=== PATIENT | male | born 1955 | race Caucasian/White ===

== ENCOUNTER 2017-12-16 22:50 | Inpatient (IN) | payer OTHER, SELFPAY ==
--- NOTE | 2017-12-16 13:15 | EKG12_ITS ---
Test Reason : AM EKG Blood Pressure : / mmHG Vent. Rate : 073 BPM Atrial Rate : 073 BPM P-R Int : 174 ms QRS Dur : 098 ms QT Int : 410 ms P-R-T Axes : 069 055 059 degrees QTc Int : 451 ms Normal sinus rhythm Normal ECG When compared with ECG of 05-AUG-2016 12:35, No significant change was found Confirmed by STEPHANIE IBARRA, DANYELLE ([id number]), index editor RADHA REY ([id number]) on 12/21/2017 4:42:55 PM Referred By: RYANNE Confirmed By:DANYELLE BROWN MD
--- NOTE | 2017-12-16 23:15 | RAD_ITS ---
STUDY: X-RAY CHEST REASON FOR EXAM: Male, 62 years old. Shortness of breath. TECHNIQUE: Single AP portable view of the chest. COMPARISON: None. FINDINGS: There is demonstrated right hilar and right lower lobe airspace disease and prominent. Prominent interstitial markings are noted right greater than left. There is no demonstrated pleural abnormality. Normal size heart. Normal mediastinum and radha. Normal visualized pulmonary arteries. There is atherosclerotic calcification of the aortic arch with tortuosity. Normal visualized thoracic spine. Normal visualized ribs, clavicles, and shoulders. There is no demonstrated abnormality of the visualized soft tissue structures of the upper abdomen. RAD/Chest 1 View (Portable) IMPRESSION: Right hilar and right lower lobe airspace disease concerning for infiltrate appropriate clinical setting. Recommend repeat evaluation in 4-6 weeks after appropriate treatment has right hilar cellular infiltrative process is not excluded. Electronically Signed: Evert Ellis DO at 23:39 EDT , Service support ,
--- NOTE | 2017-12-16 23:47 | CT_ITS ---
STUDY: CTA CHEST REASON FOR EXAM: Male, 62 years old. Cough, shortness of breath and elevated d-dimer. RADIATION DOSAGE (If Supplied By Facility): CTDIvol = ( 16.73 ) mGy, DLP = ( 802.18 ) mGycm TECHNIQUE: The examination was performed with the intravenous administration of 100 ml of Isovue 370 contrast material. Post-processing of the angiographic images was performed, with multiplanar reformation and 3D reconstruction. Individualized dose optimization techniques were used for this CT. COMPARISON: None. FINDINGS: Cardiac monitoring leads are present. Normal enhancement of the main pulmonary artery and right and left pulmonary arteries. Normal enhancement of the bilateral peripheral pulmonary arteries. Lobar embolus is visible within the right left lower lobe pulmonary artery branch. Segmental emboli are also visible in the left lower lobe. Segmental emboli are visible within the pulmonary artery branches to the right lower lobe and lingula. There is atherosclerotic tortuosity of the aortic arch and descending thoracic aorta. Maximum transverse dimension of ascending thoracic aorta measures approximately 3.8 cm. There is bovine origin of the great vessels. There is no demonstrated aortic dissection. Normal heart and pericardium. There is subcarinal lymphadenopathy. There is right-sided hilar lymphadenopathy adjacent to right-sided pulmonary mass. Right-sided hilar lymphadenopathy and pulmonary mass measures approximately 4.7 x 5.5 x 5.2 cm in size. There is no evidence for left-sided hilar lymphadenopathy. Normal visualized trachea and bronchi. The lungs are well expanded. Small lucencies are visible the lung apices. These probably represent sequela of paraseptal emphysema. There is a right upper lobe groundglass nodule measuring approximately 1.6 cm in size. There are some reticulonodular interstitial thickening visible in the right upper lobe. There is groundglass attenuation within the left upper lobe possibly representing pneumonia. There may also be right lower lobe airspace consolidation and atelectasis. There is a moderately large right-sided pleural effusion Normal chest wall structures. Normal osseous structures. There appears to be hepatic steatosis. CT/CTA Chest W/WO Contrast IMPRESSION: 1. CTA evidence for bilateral segmental pulmonary emboli as described. 2. Mediastinal lymphadenopathy with right-sided hilar mass and lymphadenopathy. 3. Right-sided pleural effusion. 4. Patchy bilateral airspace disease and atelectasis as described. N.B. : The above information has been verbally conveyed by Radha Hart MD to Courtney Dee D.O., Covering Physician, on 12/17/2017 01:47:18 (ET). Electronically Signed: Radha Hart MD at 1:53 EDT , Service support , N.B. : The above information has been verbally conveyed by Radha Hart MD to Courtney Dee D.O., Covering Physician, on 12/17/2017 01:47:18 (ET).
--- NOTE | 2017-12-17 02:45 | DT_ITS ---
This patient was seen during an EMR downtime December 11, 2017 - December 18, 2017. This patient may have a combination of paper and electronic documentation or all paper documentation. All documentation is viewable within the e-chart portion of [facility] for each patient visit.
--- NOTE | 2017-12-17 11:59 | EKG12_ITS ---
Test Reason : SOB/CP Blood Pressure : / mmHG Vent. Rate : 083 BPM Atrial Rate : 083 BPM P-R Int : 156 ms QRS Dur : 096 ms QT Int : 382 ms P-R-T Axes : 060 060 052 degrees QTc Int : 448 ms Normal sinus rhythm Normal ECG Confirmed by STEPHANIE IBARRA, DANYELLE ([id number]), supervising film or videotape editor RADHA REY ([id number]) on 12/20/2017 5:43:01 PM Referred By: MARKSO Confirmed By:DANYELLE BROWN MD
[2017-12-17 12:37] LABS: M R Staph aureus DNA By PCR Negative (Negative); Probe Check PASS; Specimen Processing Control PASS
[2017-12-18] VITALS (7 sets, daily range): BP systolic 117–136; BP diastolic 62–71; PULSE 68–77; RESP 18–20; TEMP 37.2; O2SAT 87–94
[2017-12-18 06:15] LABS: Absolute Lymphocyte Count 1.09 X10^3/ul (0.83-4.51); Basophil# 0.01 X10^3/uL; Basophil% 0.1 % (0-1); Eosinophil# 0.15 X10^3/uL; Eosinophils% 2.2 % (0-5); Hematocrit 39.7 % (40-54); Hemoglobin 13.1 g/dl (13.0-16.5); Lymphocyte # 1.09 X10^3/ul (4.0); Lymphocyte % 16.1 % (19-41); Mean Corpuscular Hgb 30.3 pg (27.0-32.0); Mean Corpuscular Volume 91.7 fL (80-94); Mean Platelet Vol. 9.6 fl (6.2-12.0); Monocyte% 7.4 % (0-10); Neutrophil # 4.99 X10^3/uL (2.7-7.7); Neutrophil % 73.8 % (47-70); Platelet Count 191 K/mm3 (150-450); RBC Distribution Width CV 13.8 % (11.6-14.6); RBC Distribution Width SD 45.7 fl (35.1-43.9); Red Blood Count 4.33 M/mm3 (4.6-6.2); White Blood Count 6.8 K/mm3 (4.4-11.0)
[2017-12-18 06:43] LABS: POSITIVE COUNT NO; POSITIVE DIFFERENTIAL NO; POSITIVE MORPHOLOGY NO
[2017-12-18 06:55] LABS: Anion Gap 8 (5-15); BUN 11 mg/dL (7-18); BUN/Creat Ratio 12.8 RATIO (10-20); Calcium,Total 8.7 mg/dL (8.5-10.1); Chloride 103 mmol/L (98-107); Cholesterol 179 mg/dL (200); Creatinine, Serum 0.86 mg/dL (0.70-1.30); EST Glomerular Filtration Rate 96 mL/min (>60); Est Glom Filt Rate - Afr Amer 116 mL/min (>60); Glucose 173 mg/dL (74-106); High Density Lipoprotein 30 mg/dL; Magnesium 2.3 mg/dL (1.6-2.6); PSA,Total- Diagnostic 0.62 ng/mL (0.0-4.0); Phosphorus 4.7 mg/dL (2.5-4.9); Potassium 4.7 mmol/L (3.5-5.1); Sodium Level 141 mmol/L (136-145); Triglycerides 221 mg/dL; Very Low Density Lipoprotein 44 mg/dL (5-40)
--- NOTE | 2017-12-18 10:00 | PCM.PROGNOTE ---
Subjective: Patient seen and examined. Sitting up in the chair, no complaints. His right-sided chest pain has resolved. Lower extremity edema has improved. Denies any cough or sputum production. Does have some shortness of breath with conversation and with exertion. Dizziness with activity has resolved as well. Objective: Recent lab and culture data reviewed. PSA normal. Viral respiratory panel normal. Urine strep/Legionella antigens were negative. MRSA PCR negative. I do not see a sputum culture to review. Clinical Impression(s) from Imaging Studies Chest CTA 12/16/17 23:47 IMPRESSION: 1. CTA evidence for bilateral segmental pulmonary emboli as described. 2. Mediastinal lymphadenopathy with right-sided hilar mass and lymphadenopathy. 3. Right-sided pleural effusion. 4. Patchy bilateral airspace disease and atelectasis as described. N.B. : The above information has been verbally conveyed by Radha Hart MD to Courtney Dee D.O., Covering Physician, on 12/17/2017 01:47:18 (ET). Electronically Signed: Radha Hart MD at 1:53 EDT , Service support , N.B. : The above information has been verbally conveyed by Radha Hart MD to Courtney Dee D.O., Covering Physician, on 12/17/2017 01:47:18 (ET). - Physical Exam General: Alert, Oriented x3, Cooperative, Well developed, Well nourished, - - conversational dyspnea. obesity HEENT: Atraumatic, PERRLA Oral: Moist Mucosa, No Gingival or Mucosal Lesions/ Ulcerations Neck: Supple, No Nodes, Trachea Midline Lungs: No rhonchi, No rales, Diminished, - - faint intermitt anterior wheezing, clears w/cough and deep breaths. Symmetric expansion, no dullness to percussion. Cardiovascular: Regular rate, Regular Rhythm, Normal S1, Normal S2, No murmurs, No rub noted, No Gallop Abdomen: Bowel Sounds Present, Soft, Non Tender, Obese Extremities: No clubbing, No cyanosis, Edema - mild nonpitting LEs Skin: No rashes, No breakdown Musculoskeletal: No Tenderness to Palpation of Joints or Extremities Lymphatic: No Cervical, Supraclavicular, or Inguinal Adenopathy Neurological: Cranial nerves II-XII grossly intact, Neuro grossly intact, Motor Exam 5/5 strength throughout Psych/Mental Status: Alert and oriented to time, place, person, mood and affect Vital Signs Temp Pulse Resp BP Pulse Ox 99.0 F 68 20 H 136/71 H 93 12/18/17 09:30 18 09:30 12/18/17 09:30 12/18/17 09:30 12/18/17 09:30 Oxygen Flow Rate (L/min) 4 Oxygen Delivery Method Nasal Cannula Microbiology Past 72 Hours 12/17/17 13:15 Respiratory Panel (PCR) - Final Mucosa - Nasopharyngeal Laboratory Tests Past 24 Hrs 12/17/17 12/17/17 12/17/17 03:00 13:20 13:20 WBC RBC Hgb Hct MCV MCH MCHC RDW RDW Differential Plt Count MPV Immature Gran % (Auto) Neut % (Auto) Lymph % (Auto) [place] % (Auto) Eos % (Auto) Baso % (Auto) Absolute Neuts (auto) Absolute Lymphs (auto) Total Counted Sodium Potassium Chloride Carbon Dioxide Anion Gap BUN Creatinine Est GFR (MDRD) Af Amer Est GFR (MDRD) Non-Af BUN/Creatinine Ratio Glucose Calcium Phosphorus Magnesium Triglycerides Cholesterol LDL Cholesterol VLDL Cholesterol HDL Cholesterol Carcinoembryonic Ag Pending Total PSA Pending MRSA (PCR) Negative 12/18/17 12/18/17 12/18/17 05:30 05:30 05:30 WBC 6.8 RBC 4.33 L Hgb 13.1 Hct 39.7 L MCV 91.7 MCH 30.3 MCHC 33.0 RDW 13.8 RDW Differential 45.7 H Plt Count 191 MPV 9.6 Immature Gran % (Auto) 0.400 Neut % (Auto) 73.8 H Lymph % (Auto) 16.1 L [place] % (Auto) 7.4 Eos % (Auto) 2.2 Baso % (Auto) 0.1 Absolute Neuts (auto) 5.0 Absolute Lymphs (auto) 1.09 Total Counted Not Reportable Sodium 141 Potassium 4.7 Chloride 103 Carbon Dioxide 30.0 Anion Gap 8 BUN 11 Creatinine 0.86 Est GFR (MDRD) Af Amer 116 Est GFR (MDRD) Non-Af 96 BUN/Creatinine Ratio 12.8 Glucose 173 H Calcium 8.7 Phosphorus 4.7 Magnesium 2.3 Triglycerides 221 H Cholesterol 179 LDL Cholesterol 105 VLDL Cholesterol 44 H HDL Cholesterol 30 L Carcinoembryonic Ag Pending Total PSA 0.62 MRSA (PCR) Medical Necessity - Tobacco Use Smoking Status: Former smoker Assessment/Plan All Active Problems Bacteremia (Acute) Severe sepsis (Acute) UTI (urinary tract infection) (Acute) Elevated liver enzymes (Acute) RECOMMENDATIONS 1. Wean oxygen supplementation to keep saturations greater than 88% 2. Encourage incentive spirometer 3. Increase activity as tolerated 4. Continue aerosols, antibiotics, mucolytic 5. Continue Xarelto, will follow-up with as an outpatient 6. Echocardiogram today 7. Plans for discharge later on today per hospitalist. No return to work for now. 8. Ambulatory pulse ox prior to discharge 9. Follow-up in the pulmonary clinic in 2 weeks, will need pulmonary function tests and a 6 minute walking oximetry at that time IMPRESSIONS 1. Acute hypoxic respiratory failure secondary to bilateral PE and possible CAP Improved, still requiring 4 L of oxygen supplementation. No prior home oxygen requirements. May benefit from thoracentesis in attempt to decrease oxygen requirements. Continue to wean oxygen as tolerated. Transitioned from heparin drip to Xarelto. Anticoagulation management at pulmonary clinic, will need to hold if proceeding with EBUS/bronch, or if thoracentesis. The patient does not have a primary care physician and cannot remember the last time he saw a provider. He plans to establish with a PCP. Continue weaning supplemental oxygen to keep saturations greater than 88%. Increase activity as tolerated and can encourage incentive spirometer. Continue bronchodilators. Echo ordered for today. 2. Right hilar mass and mediastinal lymphadenopathy Right hilar mass measuring 4.7 x 5.5 x 5.2 cm. Patient does have risk factors for malignancy, history of smoking. Patient will follow up in the pulmonary clinic at which time discussion can be continued for further plans for bronchoscopy/EBUS. Dr. Astudillo did discuss CTA findings with the patient. 3. 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 Continue to encourage smoking cessation. Patient planning on starting exercise regimen with his to assist in weight loss. Patient will have outpatient pulmonary testing to obtain baseline lung function. This note was generated with [employer] dictation software. It may contain incorrect words, spelling, and punctuation that were not noted in checking the note before signing.
--- NOTE | 2017-12-18 10:15 | PN_ITS ---
Subjective: Patient seen and examined. Sitting up in the chair, no complaints. His right- sided chest pain has resolved. Lower extremity edema has improved. Denies any cough or sputum production. Does have some shortness of breath with conversation and with exertion. Dizziness with activity has resolved as well. Objective: Recent lab and culture data reviewed. PSA normal. Viral respiratory panel normal. Urine strep/Legionella antigens were negative. MRSA PCR negative. I do not see a sputum culture to review. Clinical Impression(s) from Imaging Studies Chest CTA 12/16/17 23:47 IMPRESSION: 1. CTA evidence for bilateral segmental pulmonary emboli as described. 2. Mediastinal lymphadenopathy with right-sided hilar mass and lymphadenopathy. 3. Right-sided pleural effusion. 4. Patchy bilateral airspace disease and atelectasis as described. N.B. : The above information has been verbally conveyed by Radha Hart MD to Courtney Dee D.O., Covering Physician, on 12/17/2017 01:47:18 (ET). Electronically Signed: Radha Hart MD at 1:53 EDT , Service support , N.B. : The above information has been verbally conveyed by Radha Hart MD to Courtney Dee D.O., Covering Physician, on 12/17/2017 01:47:18 (ET). - Physical Exam General: Alert, Oriented x3, Cooperative, Well developed, Well nourished, - - conversational dyspnea. obesity HEENT: Atraumatic, PERRLA Oral: Moist Mucosa, No Gingival or Mucosal Lesions/ Ulcerations Neck: Supple, No Nodes, Trachea Midline Lungs: No rhonchi, No rales, Diminished, - - faint intermitt anterior wheezing, clears w/cough and deep breaths. Symmetric expansion, no dullness to percussion. Cardiovascular: Regular rate, Regular Rhythm, Normal S1, Normal S2, No murmurs, No rub noted, No Gallop Abdomen: Bowel Sounds Present, Soft, Non Tender, Obese Extremities: No clubbing, No cyanosis, Edema - mild nonpitting LEs Skin: No rashes, No breakdown Musculoskeletal: No Tenderness to Palpation of Joints or Extremities Lymphatic: No Cervical, Supraclavicular, or Inguinal Adenopathy Neurological: Cranial nerves II-XII grossly intact, Neuro grossly intact, Motor Exam 5/5 strength throughout Psych/Mental Status: Alert and oriented to time, place, person, mood and affect Vital Signs Temp Pulse Resp BP Pulse Ox 99.0 F 68 20 H 136/71 H 93 12/18/17 09:30 18 09:30 12/18/17 09:30 12/18/17 09:30 12/18/17 09:30 Oxygen Flow Rate (L/min) 4 Oxygen Delivery Method Nasal Cannula Microbiology Past 72 Hours 12/17/17 13:15 Respiratory Panel (PCR) - Final Mucosa - Nasopharyngeal Laboratory Tests Past 24 Hrs 12/17/17 12/17/17 12/17/17 03:00 13:20 13:20 WBC RBC Hgb Hct MCV MCH MCHC RDW RDW Differential Plt Count MPV Immature Gran % (Auto) Neut % (Auto) Lymph % (Auto) [place] % (Auto) Eos % (Auto) Baso % (Auto) Absolute Neuts (auto) Absolute Lymphs (auto) Total Counted Sodium Potassium Chloride Carbon Dioxide Anion Gap BUN Creatinine Est GFR (MDRD) Af Amer Est GFR (MDRD) Non-Af BUN/Creatinine Ratio Glucose Calcium Phosphorus Magnesium Triglycerides Cholesterol LDL Cholesterol VLDL Cholesterol HDL Cholesterol Carcinoembryonic Ag Pending Total PSA Pending MRSA (PCR) Negative 12/18/17 12/18/17 12/18/17 05:30 05:30 05:30 WBC 6.8 RBC 4.33 L Hgb 13.1 Hct 39.7 L MCV 91.7 MCH 30.3 MCHC 33.0 RDW 13.8 RDW Differential 45.7 H Plt Count 191 MPV 9.6 Immature Gran % (Auto) 0.400 Neut % (Auto) 73.8 H Lymph % (Auto) 16.1 L [place] % (Auto) 7.4 Eos % (Auto) 2.2 Baso % (Auto) 0.1 Absolute Neuts (auto) 5.0 Absolute Lymphs (auto) 1.09 Total Counted Not Reportable Sodium 141 Potassium 4.7 Chloride 103 Carbon Dioxide 30.0 Anion Gap 8 BUN 11 Creatinine 0.86 Est GFR (MDRD) Af Amer 116 Est GFR (MDRD) Non-Af 96 BUN/Creatinine Ratio 12.8 Glucose 173 H Calcium 8.7 Phosphorus 4.7 Magnesium 2.3 Triglycerides 221 H Cholesterol 179 LDL Cholesterol 105 VLDL Cholesterol 44 H HDL Cholesterol 30 L Carcinoembryonic Ag Pending Total PSA 0.62 MRSA (PCR) Medical Necessity - Tobacco Use Smoking Status: Former smoker Assessment/Plan All Active Problems Bacteremia (Acute) Severe sepsis (Acute) UTI (urinary tract infection) (Acute) Elevated liver enzymes (Acute) RECOMMENDATIONS 1. Wean oxygen supplementation to keep saturations greater than 88% 2. Encourage incentive spirometer 3. Increase activity as tolerated 4. Continue aerosols, antibiotics, mucolytic 5. Continue Xarelto, will follow-up with as an outpatient 6. Echocardiogram today 7. Plans for discharge later on today per hospitalist. No return to work for now. 8. Ambulatory pulse ox prior to discharge 9. Follow-up in the pulmonary clinic in 2 weeks, will need pulmonary function tests and a 6 minute walking oximetry at that time IMPRESSIONS 1. Acute hypoxic respiratory failure secondary to bilateral PE and possible CAP Improved, still requiring 4 L of oxygen supplementation. No prior home oxygen requirements. May benefit from thoracentesis in attempt to decrease oxygen requirements. Continue to wean oxygen as tolerated. Transitioned from heparin drip to Xarelto. Anticoagulation management at pulmonary clinic, will need to hold if proceeding with EBUS/bronch, or if thoracentesis. The patient does not have a primary care physician and cannot remember the last time he saw a provider. He plans to establish with a PCP. Continue weaning supplemental oxygen to keep saturations greater than 88%. Increase activity as tolerated and can encourage incentive spirometer. Continue bronchodilators. Echo ordered for today. 2. Right hilar mass and mediastinal lymphadenopathy Right hilar mass measuring 4.7 x 5.5 x 5.2 cm. Patient does have risk factors for malignancy, history of smoking. Patient will follow up in the pulmonary clinic at which time discussion can be continued for further plans for bronchoscopy/EBUS. Dr. Astudillo did discuss CTA findings with the patient. 3. 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 Continue to encourage smoking cessation. Patient planning on starting exercise regimen with his to assist in weight loss. Patient will have outpatient pulmonary testing to obtain baseline lung function. This note was generated with [employer] dictation software. It may contain incorrect words, spelling, and punctuation that were not noted in checking the note before signing.
[2017-12-18] MEDS: Ipratropium/Albuterol Sulfate 3 ML AMPUL.NEB INHALATION (10:50)
--- NOTE | 2017-12-18 10:51 | ECHOCS_ITS ---
Reason For Study: CHF Procedure This was a 2D Doppler, Color Flow transthoracic echocardiogram. The study was technically difficult. Exam performed portable in patient room. Left Ventricle Normal LV size. Mild concentric left ventricular hypertrophy. The estimated ejection fraction is 55 %. Transmitral diastolic flow velocities suggest mild (stage 1) diastolic dysfunction (reversed pattern). No regional wall motion abnormalities noted. Right Ventricle Normal RV size. Normal systolic function. Atria Normal left atrium. Normal right atrium. Mitral Valve Mitral valve not well visualized. Tricuspid Valve The tricuspid valve is not well visualized. Unable to estimate RV systolic pressure/pulmonary artery pressure due to technically difficult study. Aortic Valve The aortic valve is not well visualized. Pulmonic Valve The pulmonic valve is not well visualized. Great Vessels Mild to moderately dilated aortic root. The pulmonary artery is normal size. Normal inferior vena cava. Pericardium/Pleural No pericardial effusion. Medication Diluted definity 4ml given slow IV push to enhance endocardial definition. MMode/2D Measurements & Calculations LVIDd: 4.1 cm IVSd: 1.2 cm Ao root diam: 4.3 cm LVIDs: 2.0 cm LVPWd: 1.4 cm LA dimension: 4.1 cm RVDd: 4.0 cm FS: 50.7 % LAV(MOD-bp): 35.0 ml LAV(MOD-bp) Indexed: 14.3 ml/m2 LA A4 area: 10.8 cm2 LAV(MOD-sp2): 43.2 ml LAV(MOD-sp4): 23.0 ml Time Measurements MV dec time: 0.35 sec Doppler Measurements & Calculations MV E max geo: 94.7 cm/sec Lat Peak E' Geo: 10.3 cm/sec Med Peak E' Geo: 6.9 cm/sec MV A max geo: 105.3 cm/sec E/E' lat: 9.2 E/E' med: 13.7 MV E/A: 0.90 MV V2 max: 121.3 cm/sec MV P1/2t max geo: 112.7 cm/sec Ao V2 max: 145.4 cm/sec MV max P.9 mmHg MV P1/2t: 102.6 msec Ao max P.5 mmHg MV V2 mean: 69.3 cm/sec MV dec slope: 321.7 cm/sec2 Ao V2 mean: 100.5 cm/sec MV mean P.2 mmHg MVA(P1/2t): 2.1 cm2 Ao mean P.5 mmHg MV V2 VTI: 35.6 cm Ao V2 VTI: 24.1 cm LV V1 max: 146.1 cm/sec PA V2 max: 108.8 cm/sec LV V1 max P.5 mmHg LV V1 mean P.0 mmHg LV V1 mean: 91.2 cm/sec LV V1 VTI: 31.0 cm Interpretation Summary Normal LV size. Mild concentric left ventricular hypertrophy. The estimated ejection fraction is 55 %. Transmitral diastolic flow velocities suggest mild (stage 1) diastolic dysfunction (reversed pattern). Mild to moderately dilated aortic root. Ordering Physician: Zeke Gautam Referring Physician: No PCP noted Performed By: Brodwolf, Kushal, RCS
--- NOTE | 2017-12-18 11:08 | CASEMGMT ---
SW spoke with patient and his . SW confirmed demographics and contact names and numbers. SW gave patient a list of physicians as he does not have a primary care doctor. Patient wanted to complete advance directives so SW completed documents. Copies were made, one of each placed in his chart and rest along with originals given to patient. RAE OVIEDO will be working on setting up home O2 and checking the cost of Xarelto. Maisha EM MSW
[2017-12-18] MEDS: Ceftriaxone 1 GM/50 mL Premix Q24 IV (11:22)
[2017-12-18] MEDS: Rivaroxaban 15 MG Tablet PO (12:58)
[2017-12-18] MEDS: Famotidine 20 MG Tablet PO (12:59)
[2017-12-18] MEDS: Azithromycin 250 MG Tablet 50 MG PO (12:59)
[2017-12-18] MEDS: guaiFENesin 1,200 MG Tablet 1200 MG PO (12:59)
--- NOTE | 2017-12-18 15:30 | CASEMGMT ---
Pt to be sent home on Xarelto and with home oxygen. Per [facility], 1st month of Xarelto will be $130 and then subsequent months will be $99.67. Pt updated and given Xarelto $10 co-pay card at this time, voices understanding. Referral to [facility] for home oxygen at this time and call to Joanne to notify, voices understanding. Joanne requests for pt to also be walked on 4liters and pulse ox documented. Ellen MCBRIDE aware at this time, voices understanding. Pt/ voice no further questions/concerns/needs at this time. Vanna MCBRIDE CM
[2017-12-19 08:37] LABS: PSA,Total- Diagnostic 0.48 ng/mL (0.0-4.0)
[2017-12-19 10:03] LABS: ALB/GLOB Ratio 0.8 RATIO (0.9-2.4); AST(SGOT) 16 U/L (15-37); Alanine Aminotransfer ALT/SGPT 28 U/L (16-61); Albumin, Serum 3.1 g/dL (3.2-5.0); Alkaline Phosphatase 72 U/L (45-117); Anion Gap 6 (5-15); BUN 11 mg/dL (7-18); BUN/Creat Ratio 11.6 RATIO (10-20); Calcium,Total 8.3 mg/dL (8.5-10.1); Chloride 102 mmol/L (98-107); Creatinine, Serum 0.95 mg/dL (0.70-1.30); EST Glomerular Filtration Rate 86 mL/min (>60); Est Glom Filt Rate - Afr Amer 104 mL/min (>60); Globulin 3.9 g/dL (2.2-4.2); Glucose 178 mg/dL (74-106); Magnesium 2.1 mg/dL (1.6-2.6); Potassium 4.1 mmol/L (3.5-5.1); Sodium Level 137 mmol/L (136-145)
[2017-12-19 11:48] LABS: Partial Thromboplast Time 51.9 Seconds (24.1-36.2)
[2017-12-19 15:31] LABS: Absolute Neutrophil Count 5.3 X10^3/uL (2.0-7.7); Basophil% 0.1 % (0-1); Eosinophils% 1.6 % (0-5); Hematocrit 38.8 % (40-54); Lymphocyte # 1.55 X10^3/ul (4.0); Lymphocyte % 20.4 % (19-41); Mean Corp Hgb Conc 33.5 g/gl (32-36); Mean Corpuscular Hgb 30.4 pg (27.0-32.0); Mean Corpuscular Volume 90.7 fL (80-94); Mean Platelet Vol. 9.9 fl (6.2-12.0); Monocyte% 7.2 % (0-10); Neutrophil # 5.34 X10^3/uL (2.7-7.7); Neutrophil % 70.4 % (47-70); POSITIVE COUNT NO; POSITIVE DIFFERENTIAL NO; POSITIVE MORPHOLOGY NO; Platelet Count 149 K/mm3 (150-450); RBC Distribution Width CV 13.5 % (11.6-14.6); RBC Distribution Width SD 43.8 fl (35.1-43.9); Red Blood Count 4.28 M/mm3 (4.6-6.2); White Blood Count 7.6 K/mm3 (4.4-11.0)
[2017-12-19 15:32] LABS: Absolute Lymphocyte Count 1.55 X10^3/ul (0.83-4.51); Basophil# 0.01 X10^3/uL; Eosinophil# 0.12 X10^3/uL; Monocyte# 0.55 X10^3/uL
[2017-12-19 16:42] LABS: Glucose 211 mg/dL (74-106)
[2017-12-19 16:43] LABS: ALB/GLOB Ratio 0.8 RATIO (0.9-2.4); AST(SGOT) 18 U/L (15-37); Alanine Aminotransfer ALT/SGPT 30 U/L (16-61); Albumin, Serum 3.3 g/dL (3.2-5.0); Alkaline Phosphatase 75 U/L (45-117); BUN 13 mg/dL (7-18); BUN/Creat Ratio 14.3 RATIO (10-20); Calcium,Total 8.4 mg/dL (8.5-10.1); Creatinine, Serum 0.91 mg/dL (0.70-1.30); EST Glomerular Filtration Rate 90 mL/min (>60); Est Glom Filt Rate - Afr Amer 109 mL/min (>60); Globulin 4.1 g/dL (2.2-4.2); Protein, Total 7.4 g/dL (6.4-8.2)
[2017-12-19 16:44] LABS: Anion Gap 6 (5-15); Chloride 101 mmol/L (98-107); Potassium 4.3 mmol/L (3.5-5.1); Sodium Level 136 mmol/L (136-145)
[2017-12-19 17:17] LABS: Eosinophils% 2.4 % (0-5); Hematocrit 40.9 % (40-54); Hemoglobin 13.7 g/dl (13.0-16.5); Lymphocyte % 16.3 % (19-41); Mean Corp Hgb Conc 33.5 g/gl (32-36); Mean Corpuscular Hgb 29.8 pg (27.0-32.0); Mean Corpuscular Volume 89.1 fL (80-94); Mean Platelet Vol. 9.6 fl (6.2-12.0); Monocyte% 7.3 % (0-10); Neutrophil % 73.8 % (47-70); POSITIVE COUNT NO; POSITIVE DIFFERENTIAL NO; POSITIVE MORPHOLOGY NO; Platelet Count 187 K/mm3 (150-450); RBC Distribution Width CV 29.8 % (11.6-14.6); RBC Distribution Width SD 43.8 fl (35.1-43.9); Red Blood Count 4.59 M/mm3 (4.6-6.2)
[2017-12-19 17:18] LABS: Absolute Lymphocyte Count 1.31 X10^3/ul (0.83-4.51); Absolute Neutrophil Count 5.9 X10^3/uL (2.0-7.7); Basophil# 0.01 X10^3/uL; Basophil% 0.1 % (0-1); Eosinophil# 0.19 X10^3/uL; Lymphocyte # 1.31 X10^3/ul (4.0); Monocyte# 0.59 X10^3/uL; Neutrophil # 5.93 X10^3/uL (2.7-7.7); Prothrombin Time (Protime)PT. 13.1 SECONDS (11.7-14.9)
[2017-12-19 17:19] LABS: D-Dimer Quantitative (DVT/PE) 13.61 FEU/ug/m (0.27-0.49)
[2017-12-22 18:23] LABS: Carcinoembryonic Antigen 85.3 ng/mL (0.0-4.7)
== END 2017-12-18 18:00 | disposition home or self-care (01) | DRG 175 ==
LOC: ED 12-17 09:41 → ICU 12-17 11:24 → PCU 12-18 07:50
PROVIDERS: Admitting Provider Family Medicine; Emergency Provider Emergency Medicine
DX: I26.99 Other pulmonary embolism without acute cor pulmonale (principal); J96.01 Acute respiratory failure with hypoxia; G47.33 Obstructive sleep apnea (adult) (pediatric); E66.9 Obesity, unspecified; Z91.19 Patient's noncompliance with other medical treatment and regimen; Z87.440 Personal history of urinary (tract) infections; Z87.891 Personal history of nicotine dependence
CPT/HCPCS: 36415; 71045; 71275; 80048; 80053; 80061; 82378; 83735; 83880; 84100; 84153; 84484; 85025; 85379; 85610; 85730; 87040; 87070; 87205; 87449; 87633; 87641; 93005; 93306; 94640; 96365; 96366; 96367; 99285; J7030; J7040; Q9957; Q9967; A4216; C8929

== ENCOUNTER 2018-01-03 16:44 | Inpatient (IN) | payer OTHER, SELFPAY ==
[2018-01-03] VITALS (13 sets, daily range): BP systolic 116–145; BP diastolic 74–90; PULSE 86–107; RESP 12–27; TEMP 36.2–37; O2SAT 97–100; BMI 41.1; BMI 41.4
--- NOTE | 2018-01-03 16:46 | EKG12_ITS ---
Test Reason : SOB Blood Pressure : / mmHG Vent. Rate : 096 BPM Atrial Rate : 096 BPM P-R Int : 160 ms QRS Dur : 096 ms QT Int : 354 ms P-R-T Axes : 079 071 055 degrees QTc Int : 447 ms Normal sinus rhythm Normal ECG Confirmed by STEPHANIE IBARRA, DANYELLE ([id number]), news editor MOO DUKE ([id number]) on 01/05/2018 9:17:41 AM Referred By: DEBBIE Confirmed By:DANYELLE BROWN MD
--- NOTE | 2018-01-03 16:48 | ED.VISSUMM ---
- ER Visit Summary Date of Service: 01/03/18 Chief Complaint: Shortness of breath, dyspnea on exertion, midsternal chest pain with exertion and syncope History of Present Illness: The patient is a 62 M who was recently diagnosed with lung mass on the right side and bilateral pulmonary embolus on Xarelto who was scheduled to see Dr. Vic Carson today for follow-up. He was not able to make that appointment. Over the past 4-5 days he has had dyspnea with exertion, midsternal chest discomfort with dyspnea and diaphoresis. He has also had syncopal episodes with exertion. He desaturates with walking. He has home O2 at 5 L nasal cannula. He apparently desaturates to 80% with any type of activity. He is not a very good informant. He does report sweats and weight loss. He denies headache, visual, ocular auditory symptoms. Denies paresthesia, anesthesia motor weakness. He denies abdominal pain, back pain, nausea or vomiting. He denies dysuria, frequency, urgency or hematuria. He denies maroon or black stool. Physical Examination: Patient has labored breathing on nonrebreather mask at 15 L. There is evidence of acrocyanosis. He has mottling with delayed capillary refill. Head is atraumatic normocephalic. Pupils are equal round reactive. Extraocular muscles are intact. TMs are pearly white with landmarks noted. Nares patent with no drainage. Posterior pharynx without erythema or exudate. Uvula is midline. There is no dysphonia or dysphasia. Trachea is midline. There is no stridor with auscultation of the neck. Lungs reveal rales bilaterally. Heart is rapid and regular. Abdomen is soft nontender. Bowel sounds are diminished. There is pitting edema both right and left lower extremity right and left leg and feet. He is alert oriented with a nonfocal neurologic exam. Test Results: EKG reveals a sinus rhythm rate of 96 with normal intervals, and axis. The EKG is normal. Chest x-ray reveals a malignant effusion on the right with total white out. There is no deviation of the trachea. White count is normal with 76 segs no bands 12% lymphs. BMP is marked for CO2 of 35. INR and PTT are slightly elevated 1.742.8. Troponin is less than 0.015 and lactate is normal, 0.9. Venous blood gas is unremarkable. Emergency Department Course and Treatment: Will obtain EKG to evaluate for cardiac ischemia. Also obtain troponins as he is describing exertional dyspnea. Concern patient may have more pulmonary embolus even though he is on Xarelto. Need to rule out infectious etiology as well i.e. pneumonia, obstructive since he has a known lung mass. Patient was informed he will need admission to the hospital. Treatment Plan: The hospitalist was paged for admission and therapeutic and diagnostic thoracentesis. Disposition: PCU Impression: 1. Exertional chest pain 2. Dyspnea on exertion with hypoxia 3. Malignant pleural effusion right hemithorax 4. Recent diagnosis bilateral pulmonary embolus 5. Syncope with exertion This note was generated with [employer] dictation software. It may contain incorrect words, spelling, and punctuation that were not noted in review of the chart prior to signing ED Disposition - Plan for ED Patient: Chief Complaint: Shortness of Breath Referrals: Care Physician,No Primary [NON-STAFF] -
--- NOTE | 2018-01-03 16:50 | RAD_ITS ---
STUDY: X-RAY CHEST REASON FOR EXAM: Male, 62 years old. Dyspnea TECHNIQUE: Frontal view of the chest COMPARISON: CT dated 12/16/2017 FINDINGS: There is total opacification of the right hemithorax which likely represents a combination of effusion and infiltrate. The left lung is clear. There is no left-sided effusion. There is no pneumothorax. The heart is normal in size. The visualized osseous structures are within normal limits. RAD/Chest 1 View (Portable) IMPRESSION: Total opacification of the right hemithorax which likely represents a combination of effusion and infiltrate. Electronically Signed: Parviz Waters, at 17:09 EDT Tel , Service support ,
[2018-01-03 17:18] LABS: Absolute Lymphocyte Count 0.98 X10^3/ul (0.83-4.51); Absolute Neutrophil Count 6.3 X10^3/uL (2.0-7.7); Basophil# 0.02 X10^3/uL; Basophil% 0.2 % (0-1); Eosinophil# 0.17 X10^3/uL; Hematocrit 41.1 % (40-54); Hemoglobin 13.1 g/dl (13.0-16.5); Lymphocyte # 0.98 X10^3/ul (4.0); Lymphocyte % 11.7 % (19-41); Mean Corp Hgb Conc 31.9 g/gl (32-36); Mean Corpuscular Hgb 28.8 pg (27.0-32.0); Mean Corpuscular Volume 90.3 fL (80-94); Mean Platelet Vol. 9.3 fl (6.2-12.0); Monocyte# 0.85 X10^3/uL; Monocyte% 10.2 % (0-10); Neutrophil # 6.32 X10^3/uL (2.7-7.7); Neutrophil % 75.8 % (47-70); Platelet Count 306 K/mm3 (150-450); RBC Distribution Width CV 13.3 % (11.6-14.6); RBC Distribution Width SD 43.9 fl (35.1-43.9); Red Blood Count 4.55 M/mm3 (4.6-6.2); White Blood Count 8.4 K/mm3 (4.4-11.0)
[2018-01-03 17:19] LABS: POSITIVE COUNT NO; POSITIVE DIFFERENTIAL NO; POSITIVE MORPHOLOGY NO
[2018-01-03 17:27] LABS: International Normalized Ratio 1.7; Prothrombin Time (Protime)PT. 19.6 SECONDS (11.7-14.9)
[2018-01-03 17:28] LABS: Partial Thromboplast Time 42.8 Seconds (24.1-36.2)
[2018-01-03 17:35] LABS: Anion Gap 7 (5-15); BUN 12 mg/dL (7-18); BUN/Creat Ratio 16.9 RATIO (10-20); Chloride 97 mmol/L (98-107); Creatinine, Serum 0.71 mg/dL (0.70-1.30); EST Glomerular Filtration Rate 120 mL/min (>60); Est Glom Filt Rate - Afr Amer 145 mL/min (>60); Estimated Creatinine Clearance 112.81 ml/min; Glucose 107 mg/dL (74-106); Potassium 4.5 mmol/L (3.5-5.1); Sodium Level 139 mmol/L (136-145)
[2018-01-03 17:41] LABS: Blood Gas Specimen Type VEN; O2 Delivery Device NRB Mask; SITE OTHER; Time Given 1734; VBG BASE EXCESS 9 mmol/L (-1.0-3.5); VBG Bicarbonate 35 mmol/L (22-26); VBG Oxygen Content 37 mmol/L (23-33); VBG PO2 43 mmHg (25-40); VBG SO2 74 % (50-70); VBG pCO2 64.2 mmHg (41-51); VBG pH 7.34 (7.32-7.42)
[2018-01-03 17:48] LABS: Lactic Acid 0.9 mmol/L (0.4-2.0)
--- NOTE | 2018-01-03 19:23 | PCM.HP.STD ---
Problem List (1) UTI (urinary tract infection) Status: Chronic (2) Elevated liver enzymes Status: Chronic (3) Obesity Status: Chronic History of Present Illness Date of Admission: 01/03/18 Chief Complaint: Shortness of breath The patient is a 62 year old M who was recently diagnosed with right lung mass , and bilateral pulmonary embolism presents to the emergency room due to progressive dyspnea. Follow-up with Dr. Carson as an outpatient but he could not go for this appointment due to progressive dyspnea and midsternal chest discomfort and he decided to go to the emergency room for further evaluation. Chest x ray done in the ED done in the emergency room showed total opacification of the right hemithorax which likely represents a combination of effusion and infiltrate. He is on supplemental oxygen 5 L nasal cannula and he desaturates to 80s with activity. Past Medical History Past Medical History (Chronic Problems): Chronic Problems UTI (urinary tract infection) (Chronic) Elevated liver enzymes (Chronic) Obesity (Chronic) Allergies Penicillins Allergy (Verified 02/19/16 08:41) Itching clindamycin Adverse Reaction (Verified 01/03/18 19:11) Diarrhea Home Medications: Ambulatory Orders Medication Instructions Recorded Acetaminophen/Codeine #3 1 tablet PO Q6H PRN PRN 01/03/18 [Tylenol#3] Albuterol IH (ProAir) [Proair Hfa] 1 - 2 puff INHALATION Q4H PRN 01/03/18 Rivaroxaban [Xarelto] 15 mg PO BID 01/03/18 Surgical History: arthroscopy, knee Smoking Status: Former smoker Tobacco Use: Cigarettes - *Family History Paternal History Items: Cancer Sibling History Items: Cancer - Sister likely had colon cancer with metastasis to her liver VTE Information - Inpt Only VTE Present on Admission: No VTE Pharm Prophylaxis ordered?: No - Physical Exam Vital Signs Temp Pulse Resp BP Pulse Ox 97.9 F 98 22 H 133/80 H 100 01/03/18 18:50 01/03/18 18:50 01/03/18 18:50 01/03/18 18:50 01/03/18 18:50 Oxygen Delivery Method Non-Rebreather Weight: 131 kg Body Mass Index (BMI) 41.4 Assessment/Plan All Active Problems Bacteremia (Acute) Severe sepsis (Acute) 1. Acute respiratory failure with hypoxia superimposed on chronic failure due to #2 ; will continue on supplemental oxygen. 2. Right lung mass with severe right-sided pleural effusion likely malignant; repeat his CAT scan of the chest and then schedule an ultrasound-guided thoracentesis. We will place him on empiric IV antibiotics until infection can be ruled out. Patient was to see Dr. Carson as an outpatient and we will consult him. 3. Recent diagnosis of bilateral pulmonary emboli; currently on Xarelto, will place him on heparin gtt for now since he is likely to undergo thoracentesis . 4. Nicotine dependency; the patient is encouraged to quit smoking, he has been offered nicotine replacement therapy. 5. KAYLA; HS BiPAP is encouraged. Code Visit Inpatient E&M: 76990 Init Hosp L3
--- NOTE | 2018-01-03 19:32 | CT_ITS ---
STUDY: CTA CHEST REASON FOR EXAM: Male, 62 years old. Right lung mass. Shortness of breath. RADIATION DOSAGE (If Supplied By Facility): CTDIvol = ( 18.39 ) mGy, DLP = ( 821.47 ) mGycm TECHNIQUE: The examination was performed with the intravenous administration of 100ML ml of Isovue 370 contrast material. Post-processing of the angiographic images was performed, with multiplanar reformation and 3D reconstruction. Individualized dose optimization techniques were used for this CT. COMPARISON: 07/18/2017 FINDINGS: There is a large right pleural effusion which fills the right hemithorax. There is total atelectasis of the right lung. The patient's known right-sided mass is not evaluated on this study due to the collapse of the right lung. There is no left-sided effusion or infiltrate. There are no filling defect in the pulmonary arteries to suggest pulmonary embolus. There is no evidence of thoracic aortic aneurysm or dissection. The heart is normal in size. Images through the upper abdomen demonstrate fatty infiltration of the liver. There are no destructive osseous lesions. CT/CTA Chest W/WO Contrast IMPRESSION: No evidence of pulmonary embolus. No evidence of thoracic aortic aneurysm or dissection. Large right pleural effusion which fills the right hemithorax. Total atelectasis of the right lung. The patient's known right-sided mass is not evaluated on this study due to the collapse of the right lung. No left-sided effusion or infiltrate. Fatty liver. Electronically Signed: Parviz Waters, at 20:51 EDT Tel , Service support ,
--- NOTE | 2018-01-03 21:35 | EKG12_ITS ---
Test Reason : SOB Blood Pressure : / mmHG Vent. Rate : 101 BPM Atrial Rate : 101 BPM P-R Int : 120 ms QRS Dur : 100 ms QT Int : 326 ms P-R-T Axes : 017 070 020 degrees QTc Int : 422 ms Sinus tachycardia Otherwise normal ECG Confirmed by STEPHANIE IBARRA, DANYELLE ([id number]), film editor RADHA REY ([id number]) on 01/08/2018 3:22:40 PM Referred By: Confirmed By:DANYELLE BROWN MD
[2018-01-03 21:41] LABS: Allen Test NEG; Base Excess 8 mmol/L (-2 to +2); Bicarbonate 34.7 mmol/L (22-26); Blood Gas Specimen Type ART; O2 Delivery Device NRB Mask; PO2 190 mmHG (75-100); SITE R Radial; SO2 99 % (95-99); Time Given 2132; Total Carbon Dioxide 37 mmol/L; pCO2 75.5 mmHg (35-45); pH 7.27 (7.35-7.45)
--- NOTE | 2018-01-03 22:00 | NURSING ---
omari from PCU. bedside report given to RAE Roman.
[2018-01-03] MEDS: Piperacil/Tazobactam 3.375 GM/50 ML ML IV (22:10)
--- NOTE | 2018-01-03 22:49 | PCM.HOSP.N ---
Hospitalist Note Hospitalist note: Responded to a rapid response on PCU, patient had been weaned down from nonrebreather mask and abruptly had desaturations into the 70s of his O2 sat. Patient was awake and appropriate, he was tachypneic, patient was placed back on 100% O2, ABGs were obtained: PH 7.27, PCO2 75.5, PO2 190. I contacted pulmonary medicine who will be participating in his care and who have seen the patient before, patient was discovered to have a large right hilar mass approximately 2 weeks ago and was going to be undergoing workup, also 2 weeks ago he was noted to have bilateral PEs and has been on Xarelto ever since then. He was admitted today for increased respiratory distress and weakness, there was noted to be a massive pleural effusion on the right side along with atelectasis. On examination tonight, patient has expiratory wheezes on the left and no breath sounds on the right. He appears comfortable on 100% O2, his is in the room with him at this time. I have elected to transfer the patient to ICU for closer monitoring, patient will need to undergo a thoracentesis tomorrow, he will remain on a heparin drip for now and he will remain off Xarelto. He medicine is aware of the transfer
[2018-01-03] MEDS: Acetaminophen/Codeine #3 Tablet 1 TABLET PO (23:25)
[2018-01-03] MEDS: 0.9% NaCl Peripheral Flush Adult/Peds IV (23:26)
[2018-01-03 23:36] LABS: Bedside Glucose 123 mg/dL (70-110)
[2018-01-03 23:52] LABS: M R Staph aureus DNA By PCR Negative (Negative); Probe Check PASS; Specimen Processing Control PASS
[2018-01-04] VITALS (36 sets, daily range): BP systolic 117–165; BP diastolic 65–138; PULSE 72–102; RESP 12–27; TEMP 36.1–37.6; O2SAT 90–100
[2018-01-04 03:49] LABS: Partial Thromboplast Time 44.2 Seconds (24.1-36.2)
[2018-01-04] MEDS: Piperacil/Tazobactam 3.375 GM/50 ML ML IV (05:04)
[2018-01-04] MEDS: 0.9% NaCl Peripheral Flush Adult/Peds IV (05:05)
[2018-01-04] MEDS: CHLORHEXIDINE GLUC 2% CLOTH 1 EACH TOWELETTE TOPICAL (05:05)
[2018-01-04 05:26] LABS: Absolute Lymphocyte Count 0.59 X10^3/ul (0.83-4.51); Absolute Neutrophil Count 6.6 X10^3/uL (2.0-7.7); Basophil# 0.01 X10^3/uL; Basophil% 0.1 % (0-1); Eosinophil# 0.13 X10^3/uL; Eosinophils% 1.6 % (0-5); Hematocrit 40.1 % (40-54); Hemoglobin 12.9 g/dl (13.0-16.5); Lymphocyte # 0.59 X10^3/ul (4.0); Lymphocyte % 7.4 % (19-41); Mean Corp Hgb Conc 32.2 g/gl (32-36); Mean Corpuscular Hgb 29.5 pg (27.0-32.0); Mean Corpuscular Volume 91.6 fL (80-94); Mean Platelet Vol. 9.2 fl (6.2-12.0); Monocyte# 0.58 X10^3/uL; Monocyte% 7.3 % (0-10); Neutrophil # 6.64 X10^3/uL (2.7-7.7); Neutrophil % 83.3 % (47-70); Platelet Count 306 K/mm3 (150-450); RBC Distribution Width CV 13.5 % (11.6-14.6); RBC Distribution Width SD 44.2 fl (35.1-43.9); Red Blood Count 4.38 M/mm3 (4.6-6.2)
[2018-01-04 05:31] LABS: Allen Test POS; Base Excess 10 mmol/L (-2 to +2); Bicarbonate 34.5 mmol/L (22-26); Blood Gas Specimen Type ART; EPAP 8; FI02 40; IPAP 16; PO2 89 mmHG (75-100); RR 12; SITE R Radial; SO2 97 % (95-99); Time Given 518; Total Carbon Dioxide 36 mmol/L; pCO2 55.8 mmHg (35-45)
[2018-01-04 05:43] LABS: Anion Gap 7 (5-15); BUN 13 mg/dL (7-18); BUN/Creat Ratio 17.3 RATIO (10-20); Calcium,Total 8.6 mg/dL (8.5-10.1); Chloride 98 mmol/L (98-107); Creatinine, Serum 0.75 mg/dL (0.70-1.30); EST Glomerular Filtration Rate 112 mL/min (>60); Est Glom Filt Rate - Afr Amer 136 mL/min (>60); Glucose 120 mg/dL (74-106); Potassium 4.7 mmol/L (3.5-5.1); Sodium Level 138 mmol/L (136-145)
[2018-01-04 06:21] LABS: POSITIVE COUNT NO; POSITIVE MORPHOLOGY NO
[2018-01-04 06:31] LABS: Differential Comment SCANNED; Differential Indicated SCAN CRITERIA MET; POSITIVE DIFFERENTIAL YES
--- NOTE | 2018-01-04 08:26 | PCM.CON.CC ---
Problem List (1) Pleural effusion Status: Acute (2) Acute on chronic respiratory failure with hypoxia and hypercapnia Status: Acute (3) Pulmonary embolism Status: Resolved Qualifiers: Pulmonary embolism type: saddle Chronicity: acute Acute cor pulmonale presence: without acute cor pulmonale Qualified Code(s): I26.92 - Saddle embolus of pulmonary artery without acute cor pulmonale (4) Obesity Status: Chronic Qualifiers: Obesity type: due to excess calories Obesity classification: adult class 3 (BMI >= 40) Serious obesity comorbidity presence: with serious comorbidity Body mass index: BMI 40.0-44.9 Qualified Code(s): E66.01 - Morbid (severe) obesity due to excess calories; Z68.41 - Body mass index (BMI) 40.0-44.9, adult Reason for Consult Date of Consultation: 01/04/18 Reason for Consultation: Acute on chronic respiratory failure History of Present Illness: The patient is a 62 year old M, with past medical history listed below, who was recently seen at [facility] secondary to a pulmonary embolism. At that time, patient was discharged on 5 L nasal cannula and Xarelto therapy secondary to a pulmonary embolism. Patient also had a potential lung mass that has not been investigated at this time. Patient reports that over the last 3-4 days patient has had progressive shortness of breath, so presented to the emergency room for evaluation. While in the emergency room, patient was noted to desaturate to 80% with any type of activity. Patient was placed on a nonrebreather mask. EKG showed no ST elevation MIs. Chest x-ray did show a large right-sided effusion without deviation of the trachea. INR was slightly elevated, but troponins were unremarkable. Patient did report his last dose of Xarelto therapy was at 9 AM on 01/03/2018. Patient was admitted to the regular medical floor for further evaluation. While on the floor, patient started to have respiratory difficulties. Patient was placed on BiPAP therapy and then transferred to the intensive care unit after ABG showed CO2 retention on nonrebreather mask. Patient reports significant improvement with BiPAP in place, but is having periodic coughing. Patient denies any bleeding complications. However, overall, patient feels that he is doing better on the BiPAP. Bedside nurse did report rapid progression of rash throughout the chest and abdomen overnight. Patient's was at the bedside for evaluation. Patient did not have any bleeding complications at home that he is aware of. Patient denies any trauma to the chest. Patient does report that he was told in the past that he has a reaction to penicillins. Review of systems otherwise negative ?10 systems. Patient is able to vocalize on the BiPAP therapy. Past Medical History Past Medical History (Chronic Problems): Chronic Problems UTI (urinary tract infection) (Chronic) Elevated liver enzymes (Chronic) Obesity (Chronic) Allergies Penicillins Allergy (Verified 02/19/16 08:41) Itching clindamycin Adverse Reaction (Verified 01/03/18 19:11) Diarrhea Home Medications: Ambulatory Orders Medication Instructions Recorded Acetaminophen/Codeine #3 1 tablet PO Q6H PRN PRN 01/03/18 [Tylenol#3] Albuterol IH (ProAir) [Proair Hfa] 1 - 2 puff INHALATION Q4H PRN 01/03/18 Rivaroxaban [Xarelto] 15 mg PO BID 01/03/18 Surgical History: arthroscopy, knee Smoking Status: Former smoker Tobacco Use: Cigarettes - *Family History Paternal History Items: Cancer Sibling History Items: Cancer - Sister likely had colon cancer with metastasis to her liver Review of Systems Comment: See HPI Patient Problems: Active and Suspected Problems Pleural effusion (Acute) Acute on chronic respiratory failure with hypoxia and hypercapnia (Acute) Objective: All imaging was personally reviewed. Chest x-ray shows complete opacification of the right chest. CT scan of the chest shows complete collapse of the right lung without midline deviation. - Physical Exam General: Alert, Oriented x3, Cooperative, - - Mild respiratory distress while on BiPAP therapy. Morbidly obese. HEENT: Atraumatic, PERRLA, EOMI, Normocephalic, - - No scleral icterus or injection noted. Oral: Moist Mucosa, No Gingival or Mucosal Lesions/ Ulcerations Neck: Supple, No JVD, No Nodes, Trachea Midline Lungs: - - Little to no breath sounds noted on the right chest. Dullness to percussion throughout. Left lung without adventitial sounds. Cardiovascular: Normal S1, Normal S2, No murmurs, No rub noted, No Gallop, Tachycardic Abdomen: Bowel Sounds Present, Soft, Non Tender, Non-Distended, Obese Extremities: No clubbing, No cyanosis, Edema - 1+ lower extremity edema Skin: Rash Present - Diffuse maculopapular rash noted throughout the chest, abdomen and shoulder. No extension into the groin. Musculoskeletal: No Tenderness to Palpation of Joints or Extremities, No Muscle Wasting Lymphatic: No Cervical, Supraclavicular, or Inguinal Adenopathy Neurological: Cranial nerves II-XII grossly intact, Neuro grossly intact, Motor Exam 5/5 strength throughout, Sensory exam intact to light touch and pain Psych/Mental Status: Alert and oriented to time, place, person, mood and affect Vital Signs Temp Pulse Resp BP Pulse Ox 36.6 C 94 18 130/85 H 97 01/04/18 05:00 01/04/18 07:00 01/04/18 07:00 01/04/18 07:00 01/04/18 07:00 Oxygen Flow Rate (L/min) 5 Oxygen Delivery Method Bi-pap Weight: 132.5 kg Body Mass Index (BMI) 41.4 Intake and Output for Last 24 Hours 01/02/18 01/03/18 01/04/18 23:59 23:59 23:59 Intake Total 220 / 220 Output Total 450 / 450 Balance -230 / -230 Laboratory Tests Past 24 Hrs 01/03/18 01/03/18 01/04/18 21:33 22:15 03:00 WBC Corrected WBC RBC Hgb Hct MCV MCH MCHC RDW RDW Differential Plt Count MPV Immature Gran % (Auto) Neut % (Auto) Lymph % (Auto) [place] % (Auto) Eos % (Auto) Baso % (Auto) Absolute Neuts (auto) Absolute Lymphs (auto) Total Counted Neutrophils % (Manual) Band Neutrophils % Lymphocytes % (Manual) Monocytes % (Manual) Eosinophils % (Manual) Basophils % (Manual) Metamyelocytes % Myelocytes % Promyelocytes % Blast Cells % Plasma Cell % (Manual) Other Cells % Nucleated RBCs/100 WBC Differential Comment Diff Path Review Hypersegmented Neuts Atypical Lymphocytes Reactive Lymphocytes Smudge Cells Toxic Granulation Dohle Bodies [place] Rods Platelet Estimate Plt Morphology Comment RBC Morphology Polychromasia Hypochromasia Poikilocytosis Basophilic Stippling Anisocytosis Microcytosis Macrocytosis Spherocytes Sickle Cells Target Cells Tear Drop Cells Ovalocytes Stomatocytes [place] Bodies Geovani Cells Bite Cells Acanthocytes (Spur) Rouleaux Schistocytes APTT 44.2 H Specimen Type ART Sample Site R Radial pH 7.27 L Bicarbonate Actual 34.7 H POC Total CO2 37 Base Excess 8 H O2 Saturation 99 O2 % ABG pCO2 75.5 H* ABG pO2 190 H Fam Test NEG Respiration Rate O2 Delivery Device NRB Mask Liter Flow 15.0 EPAP IPAP Blood Gas Notified Whom [facility] Blood Gas Notified Time 2131 Sodium Potassium Chloride Carbon Dioxide Anion Gap BUN Creatinine Estim Creat Clear Calc Est GFR (MDRD) Af Amer Est GFR (MDRD) Non-Af BUN/Creatinine Ratio Glucose Calcium MRSA (PCR) Negative 01/04/18 01/04/18 01/04/18 04:00 04:00 05:15 WBC Cancelled 8.0 Corrected WBC Cancelled RBC Cancelled 4.38 L Hgb Cancelled 12.9 L Hct Cancelled 40.1 MCV Cancelled 91.6 MCH Cancelled 29.5 MCHC Cancelled 32.2 RDW Cancelled 13.5 RDW Differential Cancelled 44.2 H Plt Count Cancelled 306 MPV Cancelled 9.2 Immature Gran % (Auto) Cancelled 0.300 Neut % (Auto) Cancelled 83.3 H Lymph % (Auto) Cancelled 7.4 L [place] % (Auto) Cancelled 7.3 Eos % (Auto) Cancelled 1.6 Baso % (Auto) Cancelled 0.1 Absolute Neuts (auto) Cancelled 6.6 Absolute Lymphs (auto) Cancelled 0.59 L Total Counted Cancelled Not Reportable Neutrophils % (Manual) Cancelled Band Neutrophils % Cancelled Lymphocytes % (Manual) Cancelled Monocytes % (Manual) Cancelled Eosinophils % (Manual) Cancelled Basophils % (Manual) Cancelled Metamyelocytes % Cancelled Myelocytes % Cancelled Promyelocytes % Cancelled Blast Cells % Cancelled Plasma Cell % (Manual) Cancelled Other Cells % Cancelled Nucleated RBCs/100 WBC Cancelled Differential Comment Cancelled SCANNED Diff Path Review Cancelled Hypersegmented Neuts Cancelled Atypical Lymphocytes Cancelled Reactive Lymphocytes Cancelled Smudge Cells Cancelled Toxic Granulation Cancelled Dohle Bodies Cancelled [place] Rods Cancelled Platelet Estimate Cancelled Plt Morphology Comment Cancelled RBC Morphology Cancelled Polychromasia Cancelled Hypochromasia Cancelled Poikilocytosis Cancelled Basophilic Stippling Cancelled Anisocytosis Cancelled Microcytosis Cancelled Macrocytosis Cancelled Spherocytes Cancelled Sickle Cells Cancelled Target Cells Cancelled Tear Drop Cells Cancelled Ovalocytes Cancelled Stomatocytes Cancelled [place] Bodies Cancelled [place] Cells Cancelled Bite Cells Cancelled Acanthocytes (Spur) Cancelled Rouleaux Cancelled Schistocytes Cancelled APTT Specimen Type Sample Site pH Bicarbonate Actual POC Total CO2 Base Excess O2 Saturation O2 % ABG pCO2 ABG pO2 Fam Test Respiration Rate O2 Delivery Device Liter Flow EPAP IPAP Blood Gas Notified Whom Blood Gas Notified Time Sodium Cancelled Potassium Cancelled Chloride Cancelled Carbon Dioxide Cancelled Anion Gap Cancelled BUN Cancelled Creatinine Cancelled Estim Creat Clear Calc Cancelled Est GFR (MDRD) Af Amer Cancelled Est GFR (MDRD) Non-Af Cancelled BUN/Creatinine Ratio Cancelled Glucose Cancelled Calcium Cancelled MRSA (PCR) 01/04/18 01/04/18 05:15 05:24 WBC Corrected WBC RBC Hgb Hct MCV MCH MCHC RDW RDW Differential Plt Count MPV Immature Gran % (Auto) Neut % (Auto) Lymph % (Auto) [place] % (Auto) Eos % (Auto) Baso % (Auto) Absolute Neuts (auto) Absolute Lymphs (auto) Total Counted Neutrophils % (Manual) Band Neutrophils % Lymphocytes % (Manual) Monocytes % (Manual) Eosinophils % (Manual) Basophils % (Manual) Metamyelocytes % Myelocytes % Promyelocytes % Blast Cells % Plasma Cell % (Manual) Other Cells % Nucleated RBCs/100 WBC Differential Comment Diff Path Review Hypersegmented Neuts Atypical Lymphocytes Reactive Lymphocytes Smudge Cells Toxic Granulation Dohle Bodies [place] Rods Platelet Estimate Plt Morphology Comment RBC Morphology Polychromasia Hypochromasia Poikilocytosis Basophilic Stippling Anisocytosis Microcytosis Macrocytosis Spherocytes Sickle Cells Target Cells Tear Drop Cells Ovalocytes Stomatocytes [place] Bodies Geovani Cells Bite Cells Acanthocytes (Spur) Rouleaux Schistocytes APTT Specimen Type ART Sample Site R Radial pH 7.40 Bicarbonate Actual 34.5 H POC Total CO2 36 Base Excess 10 H O2 Saturation 97 O2 % 40 ABG pCO2 55.8 H ABG pO2 89 Fam Test POS Respiration Rate 12 O2 Delivery Device Bi / C PAP Liter Flow EPAP 8 IPAP 16 Blood Gas Notified Whom [facility] Blood Gas Notified Time 518 Sodium 138 Potassium 4.7 Chloride 98 Carbon Dioxide 33.0 H Anion Gap 7 BUN 13 Creatinine 0.75 Estim Creat Clear Calc 106.80 Est GFR (MDRD) Af Amer 136 Est GFR (MDRD) Non-Af 112 BUN/Creatinine Ratio 17.3 Glucose 120 H Calcium 8.6 MRSA (PCR) POC Glucose 01/03/18 21:21 POC Glucose 123 H Clinical Impression(s) from Imaging Studies Chest X-Ray 01/03/18 16:50 IMPRESSION: Total opacification of the right hemithorax which likely represents a combination of effusion and infiltrate. Electronically Signed: Parviz Waters, at 17:09 EDT Tel , Service support , Chest CTA 01/03/18 19:32 IMPRESSION: No evidence of pulmonary embolus. No evidence of thoracic aortic aneurysm or dissection. Large right pleural effusion which fills the right hemithorax. Total atelectasis of the right lung. The patient's known right-sided mass is not evaluated on this study due to the collapse of the right lung. No left-sided effusion or infiltrate. Fatty liver. Electronically Signed: Parviz Waters, at 20:51 EDT Tel , Service support , Assessment/Plan Active and Suspected Problems Pleural effusion (Acute) Acute on chronic respiratory failure with hypoxia and hypercapnia (Acute) RECOMMENDATIONS: 1. Continue BiPAP support 2. Thoracentesis when appropriate 3. Discontinue antibiotics 4. N.p.o. for now 5. Discontinue Xarelto therapy, bridge with heparin IMPRESSIONS: 1. Acute on chronic combined respiratory failure Patient discharged with supplemental oxygen just recently. However, patient is now having a combined respiratory failure as evidenced by ABG on nonrebreather. This is likely secondary to the pleural effusion. Patient did have a mass previously that has not been able to be worked up. Clinical suspicion for a malignant pleural effusion. Low clinical suspicion for hemothorax as patient's hemoglobin has stayed relatively stable within normal range. Would anticipate significant drop in hemoglobin to fill the chest with some possible hemodynamic instability. Patient was not reporting any fevers, chills or other constitutional symptoms to suggest a parapneumonic effusion. Patient also does not have a significant leukocytosis. Patient may have an element of hypoxemia secondary to residual blood clot not seen on CT scan of the chest. 2. Recent pulmonary embolism Patient did recently have a saddle pulmonary embolism and was responding to anticoagulation therapy. Patient was discharged on Xarelto therapy and took his last dose approximately 24 hours ago. Mick discussion with patient about the risks of thoracentesis with bleeding complications while on full anticoagulation. Patient understands that this may need to be done emergently, but since he is responding to BiPAP therapy will attempt to wait on intervention. 3. Pleural effusion with lung mass Medical suspicion for malignant pleural effusion. Testing will need to be ordered with a thoracentesis for evaluation. Low clinical suspicion for hemothorax as patient's hemoglobin and hematocrit are unchanged compared to previous admission. No need for transfer to a tertiary center at this time. Await diagnostic studies. Patient with previous lung mass (4.7 x 5.5 x 5.2 cm) with hilar adenopathy on imaging studies. This has not been able to be worked up at this time. High clinical suspicion for malignancy. 4. Tobacco abuse/obesity/KAYLA Complicates care, management, recovery and prognosis. TIME: 45 minutes critical care time spent addressing patient's acute on chronic respiratory failure, review of all data and collaboration with care team. Code Visit 9xxxx: [id number] Critical care first hour
--- NOTE | 2018-01-04 08:50 | PCM.PROGNOTE ---
Patient Problems: Active and Suspected Problems Pleural effusion (Acute) Acute on chronic respiratory failure with hypoxia and hypercapnia (Acute) Subjective: Chief complaint: Follow-up after admission for acute and chronic hypercapnic respiratory failure, right-sided pleural effusion, right lung mass and recent diagnosis of pulmonary embolism. Patient seen and examined. After admission last night, patient became more short of breath and his ABG revealed a PCO2 of 75. He was transferred to ICU. At this time, he is on BiPAP. His vital signs are stable, maintaining pulse ox. He mentioned that his breathing is a little bit better compared to last night. - Physical Exam General: Alert, Oriented x3, Cooperative, - - He is on BiPAP, moderately short of breath. HEENT: Atraumatic, PERRLA, EOMI, Normocephalic Oral: Moist Mucosa, No Gingival or Mucosal Lesions/ Ulcerations Neck: Supple, No JVD, Negative Carotid Bruits, Trachea Midline, Thyroid Normal Size and Texture Lungs: Diminished, Short of Breath, Tachypneic, - - Absent breath sounds on the right hemothorax, dull percussion note, clear left lung. Cardiovascular: Regular rate, Regular Rhythm, Normal S1, Normal S2, PMI Normal Abdomen: Bowel Sounds Present, Soft, Non Tender, Non-Distended, No Hepato-splenomegaly, Obese Extremities: No clubbing, No cyanosis, No edema Skin: No rashes, No breakdown Lymphatic: No Cervical, Supraclavicular, or Inguinal Adenopathy Neurological: Cranial nerves II-XII grossly intact, Motor Exam 5/5 strength throughout Psych/Mental Status: Normal Affect, Appropriate, Alert and oriented to time, place, person, mood and affect Vital Signs Temp Pulse Resp BP Pulse Ox 97.8 F 94 18 130/85 H 97 01/04/18 05:00 01/04/18 07:00 01/04/18 07:00 01/04/18 07:00 01/04/18 07:00 Oxygen Flow Rate (L/min) 5 Oxygen Delivery Method Bi-pap Weight: 292 lb 1.8 oz Body Mass Index (BMI) 41.4 Intake and Output for Last 24 Hours 01/02/18 01/03/18 01/04/18 23:59 23:59 23:59 Intake Total 220 / 220 Output Total 450 / 450 Balance -230 / -230 Laboratory Tests Past 24 Hrs 01/03/18 01/03/18 01/04/18 21:33 22:15 03:00 WBC Corrected WBC RBC Hgb Hct MCV MCH MCHC RDW RDW Differential Plt Count MPV Immature Gran % (Auto) Neut % (Auto) Lymph % (Auto) [place] % (Auto) Eos % (Auto) Baso % (Auto) Absolute Neuts (auto) Absolute Lymphs (auto) Total Counted Neutrophils % (Manual) Band Neutrophils % Lymphocytes % (Manual) Monocytes % (Manual) Eosinophils % (Manual) Basophils % (Manual) Metamyelocytes % Myelocytes % Promyelocytes % Blast Cells % Plasma Cell % (Manual) Other Cells % Nucleated RBCs/100 WBC Differential Comment Diff Path Review Hypersegmented Neuts Atypical Lymphocytes Reactive Lymphocytes Smudge Cells Toxic Granulation Dohle Bodies Brook[place]nn Rods Platelet Estimate Plt Morphology Comment RBC Morphology Polychromasia Hypochromasia Poikilocytosis Basophilic Stippling Anisocytosis Microcytosis Macrocytosis Spherocytes Sickle Cells Target Cells Tear Drop Cells Ovalocytes Stomatocytes Clemente-[place]iscomb Bodies Geovani Cells Bite Cells Acanthocytes (Spur) Rouleaux Schistocytes APTT 44.2 H Specimen Type ART Sample Site R Radial pH 7.27 L Bicarbonate Actual 34.7 H POC Total CO2 37 Base Excess 8 H O2 Saturation 99 O2 % ABG pCO2 75.5 H* ABG pO2 190 H Fam Test NEG Respiration Rate O2 Delivery Device NRB Mask Liter Flow 15.0 EPAP IPAP Blood Gas Notified Whom [facility] Blood Gas Notified Time 2132 Sodium Potassium Chloride Carbon Dioxide Anion Gap BUN Creatinine Estim Creat Clear Calc Est GFR (MDRD) Af Amer Est GFR (MDRD) Non-Af BUN/Creatinine Ratio Glucose Calcium MRSA (PCR) Negative 01/04/18 01/04/18 01/04/18 04:00 04:00 05:15 WBC Cancelled 8.0 Corrected WBC Cancelled RBC Cancelled 4.38 L Hgb Cancelled 12.9 L Hct Cancelled 40.1 MCV Cancelled 91.6 MCH Cancelled 29.5 MCHC Cancelled 32.2 RDW Cancelled 13.5 RDW Differential Cancelled 44.2 H Plt Count Cancelled 306 MPV Cancelled 9.2 Immature Gran % (Auto) Cancelled 0.300 Neut % (Auto) Cancelled 83.3 H Lymph % (Auto) Cancelled 7.4 L [place] % (Auto) Cancelled 7.3 Eos % (Auto) Cancelled 1.6 Baso % (Auto) Cancelled 0.1 Absolute Neuts (auto) Cancelled 6.6 Absolute Lymphs (auto) Cancelled 0.59 L Total Counted Cancelled Not Reportable Neutrophils % (Manual) Cancelled Band Neutrophils % Cancelled Lymphocytes % (Manual) Cancelled Monocytes % (Manual) Cancelled Eosinophils % (Manual) Cancelled Basophils % (Manual) Cancelled Metamyelocytes % Cancelled Myelocytes % Cancelled Promyelocytes % Cancelled Blast Cells % Cancelled Plasma Cell % (Manual) Cancelled Other Cells % Cancelled Nucleated RBCs/100 WBC Cancelled Differential Comment Cancelled SCANNED Diff Path Review Cancelled Hypersegmented Neuts Cancelled Atypical Lymphocytes Cancelled Reactive Lymphocytes Cancelled Smudge Cells Cancelled Toxic Granulation Cancelled Dohle Bodies Cancelled [place] Rods Cancelled Platelet Estimate Cancelled Plt Morphology Comment Cancelled RBC Morphology Cancelled Polychromasia Cancelled Hypochromasia Cancelled Poikilocytosis Cancelled Basophilic Stippling Cancelled Anisocytosis Cancelled Microcytosis Cancelled Macrocytosis Cancelled Spherocytes Cancelled Sickle Cells Cancelled Target Cells Cancelled Tear Drop Cells Cancelled Ovalocytes Cancelled Stomatocytes Cancelled [place] Bodies Cancelled Geovani Cells Cancelled Bite Cells Cancelled Acanthocytes (Spur) Cancelled Rouleaux Cancelled Schistocytes Cancelled APTT Specimen Type Sample Site pH Bicarbonate Actual POC Total CO2 Base Excess O2 Saturation O2 % ABG pCO2 ABG pO2 Fam Test Respiration Rate O2 Delivery Device Liter Flow EPAP IPAP Blood Gas Notified Whom Blood Gas Notified Time Sodium Cancelled Potassium Cancelled Chloride Cancelled Carbon Dioxide Cancelled Anion Gap Cancelled BUN Cancelled Creatinine Cancelled Estim Creat Clear Calc Cancelled Est GFR (MDRD) Af Amer Cancelled Est GFR (MDRD) Non-Af Cancelled BUN/Creatinine Ratio Cancelled Glucose Cancelled Calcium Cancelled MRSA (PCR) 01/04/18 01/04/18 05:15 05:24 WBC Corrected WBC RBC Hgb Hct MCV MCH MCHC RDW RDW Differential Plt Count MPV Immature Gran % (Auto) Neut % (Auto) Lymph % (Auto) [place] % (Auto) Eos % (Auto) Baso % (Auto) Absolute Neuts (auto) Absolute Lymphs (auto) Total Counted Neutrophils % (Manual) Band Neutrophils % Lymphocytes % (Manual) Monocytes % (Manual) Eosinophils % (Manual) Basophils % (Manual) Metamyelocytes % Myelocytes % Promyelocytes % Blast Cells % Plasma Cell % (Manual) Other Cells % Nucleated RBCs/100 WBC Differential Comment Diff Path Review Hypersegmented Neuts Atypical Lymphocytes Reactive Lymphocytes Smudge Cells Toxic Granulation Dohle Bodies Brook[place]nn Rods Platelet Estimate Plt Morphology Comment RBC Morphology Polychromasia Hypochromasia Poikilocytosis Basophilic Stippling Anisocytosis Microcytosis Macrocytosis Spherocytes Sickle Cells Target Cells Tear Drop Cells Ovalocytes Stomatocytes [place] Bodies [place] Cells Bite Cells Acanthocytes (Spur) Rouleaux Schistocytes APTT Specimen Type ART Sample Site R Radial pH 7.40 Bicarbonate Actual 34.5 H POC Total CO2 36 Base Excess 10 H O2 Saturation 97 O2 % 40 ABG pCO2 55.8 H ABG pO2 89 Fam Test POS Respiration Rate 12 O2 Delivery Device Bi / C PAP Liter Flow EPAP 8 IPAP 16 Blood Gas Notified Whom [facility]OS[facility] Blood Gas Notified Time 518 Sodium 138 Potassium 4.7 Chloride 98 Carbon Dioxide 33.0 H Anion Gap 7 BUN 13 Creatinine 0.75 Estim Creat Clear Calc 106.80 Est GFR (MDRD) Af Amer 136 Est GFR (MDRD) Non-Af 112 BUN/Creatinine Ratio 17.3 Glucose 120 H Calcium 8.6 MRSA (PCR) POC Glucose 01/03/18 21:21 POC Glucose 123 H Clinical Impression(s) from Imaging Studies Chest X-Ray 01/03/18 16:50 IMPRESSION: Total opacification of the right hemithorax which likely represents a combination of effusion and infiltrate. Electronically Signed: Parviz Waters, at 17:09 EDT Tel , Service support , Chest CTA 01/03/18 19:32 IMPRESSION: No evidence of pulmonary embolus. No evidence of thoracic aortic aneurysm or dissection. Large right pleural effusion which fills the right hemithorax. Total atelectasis of the right lung. The patient's known right-sided mass is not evaluated on this study due to the collapse of the right lung. No left-sided effusion or infiltrate. Fatty liver. Electronically Signed: Parviz Waters, at 20:51 EDT Tel , Service support , Medical Necessity - Tobacco Use Smoking Status: Former smoker Tobacco Use: Cigarettes Assessment/Plan All Active Problems Pleural effusion (Acute) Acute on chronic respiratory failure with hypoxia and hypercapnia (Acute) Pulmonary embolism (Resolved) This is a 62 years old male patient presented to the emergency room because of worsening shortness of breath and midsternal chest pain, found to have complete opacification of the right hemithorax with pleural effusion, acute on chronic hypercapnic respiratory failure in context of recent diagnosis of left lung mass which is highly suspicious for malignancy. #1 acute on chronic hypercapnic respiratory failure: Secondary to massive right-sided pleural effusion as well as recent diagnosis of PE. At this time, patient is on BiPAP. Chest x-ray showed complete opacification of the right lung. CTA chest that was done today showed no PE or dissection, revealed large right pleural effusion. EKG reveals no acute ischemic changes. Troponin is negative ?1. On admission, ABG revealed pH of 7.27, PCO2 of 75 and PO2 of 190. This morning, ABG revealed pH of 7.40, PCO2 of 55 and PO2 of 89. Plan to continue BiPAP and bronchodilators. #2 right pleural effusion/right lung mass: Recently discovered around 2 weeks ago. CTA chest reviewed as above. Patient was on Xarelto for recent diagnosis of PE, last dose was yesterday morning. Plan for thoracentesis tomorrow morning. #3 recent diagnosis of bilateral segmental PEs: He had CTA chest on December 16, 2017 that revealed bilateral segmental PEs, right hilar mass and mediastinal lymphadenopathy. At that time, he was started on Xarelto. At this time, his IV heparin drip, Xarelto held. Plan as above. #4 tobacco abuse: NicoDerm patch. #5 DVT prophylaxis: He is on IV heparin drip for PE. This note was generated with [employer] dictation software. It may contain incorrect words, spelling, and punctuation that were not noted in checking the note before signing. Code Visit Inpatient E&M: [address] [facility] Hosp L3
--- NOTE | 2018-01-04 08:59 | PN_ITS ---
Patient Problems: Active and Suspected Problems Pleural effusion (Acute) Acute on chronic respiratory failure with hypoxia and hypercapnia (Acute) Subjective: Chief complaint: Follow-up after admission for acute and chronic hypercapnic respiratory failure, right-sided pleural effusion, right lung mass and recent diagnosis of pulmonary embolism. Patient seen and examined. After admission last night, patient became more short of breath and his ABG revealed a PCO2 of 75. He was transferred to ICU. At this time, he is on BiPAP. His vital signs are stable, maintaining pulse ox. He mentioned that his breathing is a little bit better compared to last night. - Physical Exam General: Alert, Oriented x3, Cooperative, - - He is on BiPAP, moderately short of breath. HEENT: Atraumatic, PERRLA, EOMI, Normocephalic Oral: Moist Mucosa, No Gingival or Mucosal Lesions/ Ulcerations Neck: Supple, No JVD, Negative Carotid Bruits, Trachea Midline, Thyroid Normal Size and Texture Lungs: Diminished, Short of Breath, Tachypneic, - - Absent breath sounds on the right hemothorax, dull percussion note, clear left lung. Cardiovascular: Regular rate, Regular Rhythm, Normal S1, Normal S2, PMI Normal Abdomen: Bowel Sounds Present, Soft, Non Tender, Non-Distended, No Hepato- splenomegaly, Obese Extremities: No clubbing, No cyanosis, No edema Skin: No rashes, No breakdown Lymphatic: No Cervical, Supraclavicular, or Inguinal Adenopathy Neurological: Cranial nerves II-XII grossly intact, Motor Exam 5/5 strength throughout Psych/Mental Status: Normal Affect, Appropriate, Alert and oriented to time, place, person, mood and affect Vital Signs Temp Pulse Resp BP Pulse Ox 97.8 F 94 18 130/85 H 97 01/04/18 05:00 01/04/18 07:00 01/04/18 07:00 01/04/18 07:00 01/04/18 07:00 Oxygen Flow Rate (L/min) 5 Oxygen Delivery Method Bi-pap Weight: 292 lb 1.8 oz Body Mass Index (BMI) 41.4 Intake and Output for Last 24 Hours 01/02/18 01/03/18 01/04/18 23:59 23:59 23:59 Intake Total 220 / 220 Output Total 450 / 450 Balance -230 / -230 Laboratory Tests Past 24 Hrs 01/03/18 01/03/18 01/04/18 21:33 22:15 03:00 WBC Corrected WBC RBC Hgb Hct MCV MCH MCHC RDW RDW Differential Plt Count MPV Immature Gran % (Auto) Neut % (Auto) Lymph % (Auto) [place] % (Auto) Eos % (Auto) Baso % (Auto) Absolute Neuts (auto) Absolute Lymphs (auto) Total Counted Neutrophils % (Manual) Band Neutrophils % Lymphocytes % (Manual) Monocytes % (Manual) Eosinophils % (Manual) Basophils % (Manual) Metamyelocytes % Myelocytes % Promyelocytes % Blast Cells % Plasma Cell % (Manual) Other Cells % Nucleated RBCs/100 WBC Differential Comment Diff Path Review Hypersegmented Neuts Atypical Lymphocytes Reactive Lymphocytes Smudge Cells Toxic Granulation Dohle Bodies Brooklynn Rods Platelet Estimate Plt Morphology Comment RBC Morphology Polychromasia Hypochromasia Poikilocytosis Basophilic Stippling Anisocytosis Microcytosis Macrocytosis Spherocytes Sickle Cells Target Cells Tear Drop Cells Ovalocytes Stomatocytes [place] Bodies [place] Cells Bite Cells Acanthocytes (Spur) Rouleaux Schistocytes APTT 44.2 H Specimen Type ART Sample Site R Radial pH 7.27 L Bicarbonate Actual 34.7 H POC Total CO2 37 Base Excess 8 H O2 Saturation 99 O2 % ABG pCO2 75.5 H* ABG pO2 190 H Fam Test NEG Respiration Rate O2 Delivery Device NRB Mask Liter Flow 15.0 EPAP IPAP Blood Gas Notified Whom [facility] Blood Gas Notified Time 2132 Sodium Potassium Chloride Carbon Dioxide Anion Gap BUN Creatinine Estim Creat Clear Calc Est GFR (MDRD) Af Amer Est GFR (MDRD) Non-Af BUN/Creatinine Ratio Glucose Calcium MRSA (PCR) Negative 01/04/18 01/04/18 01/04/18 04:00 04:00 05:15 WBC Cancelled 8.0 Corrected WBC Cancelled RBC Cancelled 4.38 L Hgb Cancelled 12.9 L Hct Cancelled 40.1 MCV Cancelled 91.6 MCH Cancelled 29.5 MCHC Cancelled 32.2 RDW Cancelled 13.5 RDW Differential Cancelled 44.2 H Plt Count Cancelled 306 MPV Cancelled 9.2 Immature Gran % (Auto) Cancelled 0.300 Neut % (Auto) Cancelled 83.3 H Lymph % (Auto) Cancelled 7.4 L [place] % (Auto) Cancelled 7.3 Eos % (Auto) Cancelled 1.6 Baso % (Auto) Cancelled 0.1 Absolute Neuts (auto) Cancelled 6.6 Absolute Lymphs (auto) Cancelled 0.59 L Total Counted Cancelled Not Reportable Neutrophils % (Manual) Cancelled Band Neutrophils % Cancelled Lymphocytes % (Manual) Cancelled Monocytes % (Manual) Cancelled Eosinophils % (Manual) Cancelled Basophils % (Manual) Cancelled Metamyelocytes % Cancelled Myelocytes % Cancelled Promyelocytes % Cancelled Blast Cells % Cancelled Plasma Cell % (Manual) Cancelled Other Cells % Cancelled Nucleated RBCs/100 WBC Cancelled Differential Comment Cancelled SCANNED Diff Path Review Cancelled Hypersegmented Neuts Cancelled Atypical Lymphocytes Cancelled Reactive Lymphocytes Cancelled Smudge Cells Cancelled Toxic Granulation Cancelled Dohle Bodies Cancelled Brook[place]nn Rods Cancelled Platelet Estimate Cancelled Plt Morphology Comment Cancelled RBC Morphology Cancelled Polychromasia Cancelled Hypochromasia Cancelled Poikilocytosis Cancelled Basophilic Stippling Cancelled Anisocytosis Cancelled Microcytosis Cancelled Macrocytosis Cancelled Spherocytes Cancelled Sickle Cells Cancelled Target Cells Cancelled Tear Drop Cells Cancelled Ovalocytes Cancelled Stomatocytes Cancelled [place] Bodies Cancelled [place] Cells Cancelled Bite Cells Cancelled Acanthocytes (Spur) Cancelled Rouleaux Cancelled Schistocytes Cancelled APTT Specimen Type Sample Site pH Bicarbonate Actual POC Total CO2 Base Excess O2 Saturation O2 % ABG pCO2 ABG pO2 Fam Test Respiration Rate O2 Delivery Device Liter Flow EPAP IPAP Blood Gas Notified Whom Blood Gas Notified Time Sodium Cancelled Potassium Cancelled Chloride Cancelled Carbon Dioxide Cancelled Anion Gap Cancelled BUN Cancelled Creatinine Cancelled Estim Creat Clear Calc Cancelled Est GFR (MDRD) Af Amer Cancelled Est GFR (MDRD) Non-Af Cancelled BUN/Creatinine Ratio Cancelled Glucose Cancelled Calcium Cancelled MRSA (PCR) 01/04/18 01/04/18 05:15 05:24 WBC Corrected WBC RBC Hgb Hct MCV MCH MCHC RDW RDW Differential Plt Count MPV Immature Gran % (Auto) Neut % (Auto) Lymph % (Auto) [place] % (Auto) Eos % (Auto) Baso % (Auto) Absolute Neuts (auto) Absolute Lymphs (auto) Total Counted Neutrophils % (Manual) Band Neutrophils % Lymphocytes % (Manual) Monocytes % (Manual) Eosinophils % (Manual) Basophils % (Manual) Metamyelocytes % Myelocytes % Promyelocytes % Blast Cells % Plasma Cell % (Manual) Other Cells % Nucleated RBCs/100 WBC Differential Comment Diff Path Review Hypersegmented Neuts Atypical Lymphocytes Reactive Lymphocytes Smudge Cells Toxic Granulation Dohle Bodies Brooklynn Rods Platelet Estimate Plt Morphology Comment RBC Morphology Polychromasia Hypochromasia Poikilocytosis Basophilic Stippling Anisocytosis Microcytosis Macrocytosis Spherocytes Sickle Cells Target Cells Tear Drop Cells Ovalocytes Stomatocytes [place] Bodies Geovani Cells Bite Cells Acanthocytes (Spur) Rouleaux Schistocytes APTT Specimen Type ART Sample Site R Radial pH 7.40 Bicarbonate Actual 34.5 H POC Total CO2 36 Base Excess 10 H O2 Saturation 97 O2 % 40 ABG pCO2 55.8 H ABG pO2 89 Fam Test POS Respiration Rate 12 O2 Delivery Device Bi / C PAP Liter Flow EPAP 8 IPAP 16 Blood Gas Notified Whom [facility]OS[facility] Blood Gas Notified Time 518 Sodium 138 Potassium 4.7 Chloride 98 Carbon Dioxide 33.0 H Anion Gap 7 BUN 13 Creatinine 0.75 Estim Creat Clear Calc 106.80 Est GFR (MDRD) Af Amer 136 Est GFR (MDRD) Non-Af 112 BUN/Creatinine Ratio 17.3 Glucose 120 H Calcium 8.6 MRSA (PCR) POC Glucose 01/03/18 21:21 POC Glucose 123 H Clinical Impression(s) from Imaging Studies Chest X-Ray 01/03/18 16:50 IMPRESSION: Total opacification of the right hemithorax which likely represents a combination of effusion and infiltrate. Electronically Signed: Parviz Waters, at 17:09 EDT Tel , Service support , Chest CTA 01/03/18 19:32 IMPRESSION: No evidence of pulmonary embolus. No evidence of thoracic aortic aneurysm or dissection. Large right pleural effusion which fills the right hemithorax. Total atelectasis of the right lung. The patient's known right-sided mass is not evaluated on this study due to the collapse of the right lung. No left-sided effusion or infiltrate. Fatty liver. Electronically Signed: Parviz Waters, at 20:51 EDT Tel , Service support , Medical Necessity - Tobacco Use Smoking Status: Former smoker Tobacco Use: Cigarettes Assessment/Plan All Active Problems Pleural effusion (Acute) Acute on chronic respiratory failure with hypoxia and hypercapnia (Acute) Pulmonary embolism (Resolved) This is a 62 years old male patient presented to the emergency room because of worsening shortness of breath and midsternal chest pain, found to have complete opacification of the right hemithorax with pleural effusion, acute on chronic hypercapnic respiratory failure in context of recent diagnosis of left lung mass which is highly suspicious for malignancy. #1 acute on chronic hypercapnic respiratory failure: Secondary to massive right- sided pleural effusion as well as recent diagnosis of PE. At this time, patient is on BiPAP. Chest x-ray showed complete opacification of the right lung. CTA chest that was done today showed no PE or dissection, revealed large right pleural effusion. EKG reveals no acute ischemic changes. Troponin is negative ?1. On admission, ABG revealed pH of 7.27, PCO2 of 75 and PO2 of 190. This morning, ABG revealed pH of 7.40, PCO2 of 55 and PO2 of 89. Plan to continue BiPAP and bronchodilators. #2 right pleural effusion/right lung mass: Recently discovered around 2 weeks ago. CTA chest reviewed as above. Patient was on Xarelto for recent diagnosis of PE, last dose was yesterday morning. Plan for thoracentesis tomorrow morning. #3 recent diagnosis of bilateral segmental PEs: He had CTA chest on December 16, 2017 that revealed bilateral segmental PEs, right hilar mass and mediastinal lymphadenopathy. At that time, he was started on Xarelto. At this time, his IV heparin drip, Xarelto held. Plan as above. #4 tobacco abuse: NicoDerm patch. #5 DVT prophylaxis: He is on IV heparin drip for PE. This note was generated with [employer] dictation software. It may contain incorrect words, spelling, and punctuation that were not noted in checking the note before signing. Code Visit Inpatient E&M: 25[address] [facility] Hosp L3
[2018-01-04 10:31] LABS: Partial Thromboplast Time 43.8 Seconds (24.1-36.2)
[2018-01-04] MEDS: Heparin Injection (Vial) 5,000 UNIT/ML VIAL SC ×3 (10:37→23:27)
--- NOTE | 2018-01-04 12:00 | CASEMGMT ---
See [facility] Assessment Link. DC PLAN: undetermined. -Continues in ICU on Bipap mask, Heparin gtt, O2 40%. Plan is for possible thoracentesis tomorrow. -Passed Mobility screen, PT/OT to see today. -Recent admission 12/17-12/18/18. Was dc'd home w/o need for services. Pt was independent until few days ago when progressive dyspnea began. is able to provide transportation and assistance on discharge. -Pt wears 5L NC @ home baseline. Denies having any other oxygen equipment (CPAP, BiPAP, Nebulizer). If any further DME is needed, preference is for [facility] to provide. - is DPOA. Per SW note from last admission, papers were completed and placed on chart. Copy is not available in [facility]. -CM will continue to follow and assist with DC Planning. Laura MCBRIDE BSN ACM
[2018-01-04] MEDS: Acetaminophen/Codeine #3 Tablet 1 TABLET PO (14:40)
[2018-01-04] MEDS: 0.9% Normal Saline 1,000 ML 30 ML IV (16:08)
[2018-01-04 16:46] LABS: Partial Thromboplast Time 48.4 Seconds (24.1-36.2)
--- NOTE | 2018-01-04 16:51 | CHAPLAIN ---
Type of Pastoral Visit _x__ Initial Visit ___ Follow-up Visit ___ On-call Visit ___ General Patient Visit ___ Spiritual Assessment ___ Family Conference ___ Bereavement ___ Rapid Response ___ Code Blue ___ Other (describe below) Pastoral Care Referral From _x__ Patient ___ Family ___ Nurse ___ Physician ___ Timber Sizer Operator ___ Pest Control Applicator ___ Other (describe below) Sacrament/Intervention _x__ Active listening ___ Anointing ___ Faith ___ Bereavement ___ Communion ___ Brandee exploration ___ ___ Life review _x__ Prayer ___ Reconciliation ___ Sacrament of Sick _x__ Supportive presence ___ Wedding ___ Other (describe below) Pastoral Comments patient on bi-pap but able to give indication of his desires and needs; pt spouse is with him and gives more information; pt has fear as his ability to breathe as been diminished; plans in place for intervention; pt does not have tenriism affiliation but would like to have prayer; support and presence given
[2018-01-04] MEDS: DiphenhydrAMINE 50 MG/ML Syringe IV (18:44)
[2018-01-04 19:23] LABS: Absolute Lymphocyte Count 0.53 X10^3/ul (0.83-4.51); Absolute Neutrophil Count 6.4 X10^3/uL (2.0-7.7); Basophil# 0.02 X10^3/uL; Basophil% 0.3 % (0-1); Eosinophil# 0.22 X10^3/uL; Eosinophils% 2.8 % (0-5); Hematocrit 42.1 % (40-54); Hemoglobin 13.5 g/dl (13.0-16.5); Lymphocyte # 0.53 X10^3/ul (4.0); Lymphocyte % 6.8 % (19-41); Mean Corp Hgb Conc 32.1 g/gl (32-36); Mean Corpuscular Hgb 29.5 pg (27.0-32.0); Mean Corpuscular Volume 91.9 fL (80-94); Mean Platelet Vol. 9.6 fl (6.2-12.0); Monocyte# 0.58 X10^3/uL; Monocyte% 7.5 % (0-10); Neutrophil # 6.37 X10^3/uL (2.7-7.7); Platelet Count 283 K/mm3 (150-450); RBC Distribution Width CV 13.6 % (11.6-14.6); RBC Distribution Width SD 45.1 fl (35.1-43.9); Red Blood Count 4.58 M/mm3 (4.6-6.2); White Blood Count 7.8 K/mm3 (4.4-11.0)
[2018-01-04 19:24] LABS: Differential Indicated SCAN CRITERIA MET; POSITIVE COUNT NO; POSITIVE DIFFERENTIAL YES; POSITIVE MORPHOLOGY NO
[2018-01-04 19:59] LABS: Differential Comment SCANNED
[2018-01-04 23:17] LABS: Partial Thromboplast Time 42.8 Seconds (24.1-36.2)
[2018-01-05] VITALS (33 sets, daily range): BP systolic 115–158; BP diastolic 53–83; PULSE 80–99; RESP 12–25; TEMP 36.8–37.3; O2SAT 92–100
--- NOTE | 2018-01-05 | FLU_PTH ---
PATIENT: KRISS COURTNEY LOC: [facility] U#:[id number] AGE/SX: 62/M ROOM: ICU07 RE01/03/[address]: Dr. Feliz Coto MD : 1955 BED: 1 DIS: 01/11/2018 SPEC #: [id number] RECD: 01/05/18 13:16 STATUS: BAUDILIO ZULEYMA #: [id number] GREGORY: 01/05/18 00:[address]: Sailaja Mcnamara DEPT: CYTOLOGY RECD BY: Fritz Ewing ENTERED: 01/05/18 13:16 SP TYPE: Fluid OTHR DR: MD Dr. Eliane Jeronimo MD Kombian Gbaruk, MD Tissues: THORACIC FLUID Procedures: Pap Stain (control) Special Stain Group II Surgery Specimen Level IV Cell Block Cytospin Fluid HEADER OPERATION: Thoracentesis PRE-OP DIAGNOSIS: Dyspnea, PE TISSUE SUBMITTED: Thoracic fluid DIAGNOSIS CYTOLOGY Thoracentesis (Cytospin and cell block) Malignant cells present, derived from non-small carcinoma, favor adenocarcinoma. See comment. BELLA:yessy 01/08/18 COMMENT Immunohistochemistry ([id number]) supports the above diagnosis and favors lung primary Clinical correlation and appropriate follow up are necessary.. Case has been reviewed in consultation with Dr. Pearce who concurs with the above diagnosis. IDC:AM CYTOLOGY STUDY Slides are reviewed. CYTOLOGY GROSS Received is 100 ml of red cloudy fluid labeled with the patient's name and and designated per the requisition as thoracic fluid. Submitted for cytology preparation including cell block. /Av 01/05/18 TC:0 CPT: 46476, 56272 ADDENDUM ADDENDUM ADDENDUM ADDENDUM ADDENDUM ADDENDUM 01/24/2018 14:51 ADDENDUM 01/29/2018 09:31 ADDENDUM 01/24/2018 14:51 ADDENDUM 01/24/2018 14:51 ADDENDUM 01/24/2018 14:51 ADDENDUM 01/24/2018 14:51 [facility] PD-L1 IMMUNOHISTOCHEMICAL ANALYSIS FROM [employer] RESULTS: PD-L1 Immunohistochemical Analysis: Tumor proportion score: <1% / Negative Please see complete report in e-chart or EMR for complete details ONKOSIGHT NGS EGFR AND KRAS SEQUENCING REPORT FROM [facility] RESULT SUMMARY: Normal INTERPRETATION SUMMARY: This was a normal sequencing study in which no disease associated mutations or variants of unclear significance were identified in the tested specimen. Please see complete report in e-chart or EMR for complete details
--- NOTE | 2018-01-05 | IMM_PTH ---
PATIENT: KRISS COURTNEY LOC: [facility] U#:[id number] AGE/SX: 62/M ROOM: ICU07 RE01/03/[address]: Dr. Feliz Coto MD : 1955 BED: 1 DIS: 01/11/2018 SPEC #: [id number] RECD: 01/08/18 10:16 STATUS: BAUDILIO REQ #: [id number] GREGORY: 01/05/18 00:[address]: Feliz Coto DEPT: IMMUNOHISTOCHEMISTRY RECD BY: Mike Mclain ENTERED: 01/08/18 10:18 SP TYPE: IMMUNO OTHR DR: MD Dr. Eliane Jeronimo MD Kombian Gbaruk, MD Tissues: THORACIC FLUID Procedures: RCC (add) NAPSIN A (add) Celestine Ret (add) CK20 (add) CK5-6 (add) CK8 (add) HEP PAR (add) PSA (add) TTF1 (add) Vimentin (add) P40 (add) CK7 (initial) PHYSICIAN & [address] [address] SPECIMEN INFORMATION: Tissue Source: Thoracic fluid Clinical Info: Dyspnea, PE Specimen Number: [id number] CPT code: 67057, 60568 x11 METHODOLOGY: Deparaffinized sections of prefer/formalin-fixed tissue or PAP/DQ stained slides are incubated with monoclonal/polyclonal antibodies/oligonucleotide probes. Localization is made via biotin free immunoperoxidase method. Appropriate controls are performed and reacted as expected. Results on target cell population are indicated in the following table: RESULTS: ANTIBODY / CLONE RESULT CK7 (OV-TL12/30) positive CK8 (96mnrwS07) positive CK20 (KS20.8) negative TTF-1 (8G7G3/1) negative Napsin A (Rabbit Polyclonal) positive, weak HepPar (OCh1E5) negative RCC (PN-15) negative PSA (ER-PR8) negative CK5-6 (D5 & 1684) negative P40 (BC28) negative Vimentin (V9) positive, weak CALRET (polyclonal) negative These tests were developed and their performance characteristics determined by [facility]. They may not have been cleared or approved by the U.S. Food and Drug Administration. The FDA has determined that such clearance or approval is not necessary. INTERPRETATION: Thoracentesis fluid (cell block): Malignant cells present derived from non-small cell carcinoma, favor adenocarcinoma. Immunohistochemical profile favors lung primary. Case has been reviewed in consultation with Dr. Pearce who concurs with the above diagnosis. IDC:ABILIO SJ:heather 01/09/18
[2018-01-05] MEDS: 0.9% Normal Saline 1,000 ML 30 ML IV (00:17)
[2018-01-05 05:45] LABS: Partial Thromboplast Time 55.9 Seconds (24.1-36.2)
[2018-01-05 05:50] LABS: ALB/GLOB Ratio 0.6 RATIO (0.9-2.4); Anion Gap 6 (5-15); BUN 20 mg/dL (7-18); BUN/Creat Ratio 21.9 RATIO (10-20); Calcium,Total 8.2 mg/dL (8.5-10.1); Chloride 98 mmol/L (98-107); Creatinine, Serum 0.91 mg/dL (0.70-1.30); EST Glomerular Filtration Rate 90 mL/min (>60); Est Glom Filt Rate - Afr Amer 108 mL/min (>60); Estimated Creatinine Clearance 88.02 ml/min; Globulin 4.4 g/dL (2.2-4.2); Glucose 112 mg/dL (74-106); LDH 223 U/L (87-241); Potassium 4.4 mmol/L (3.5-5.1); Protein, Total 6.9 g/dL (6.4-8.2); Sodium Level 137 mmol/L (136-145)
[2018-01-05 06:04] LABS: Absolute Lymphocyte Count 0.59 X10^3/ul (0.83-4.51); Absolute Neutrophil Count 5.1 X10^3/uL (2.0-7.7); Basophil# 0.01 X10^3/uL; Basophil% 0.2 % (0-1); Differential Indicated SCAN CRITERIA MET; Eosinophil# 0.34 X10^3/uL; Eosinophils% 5.2 % (0-5); Hemoglobin 12.2 g/dl (13.0-16.5); Lymphocyte # 0.59 X10^3/ul (4.0); Mean Corp Hgb Conc 31.3 g/gl (32-36); Mean Corpuscular Hgb 28.5 pg (27.0-32.0); Mean Corpuscular Volume 91.1 fL (80-94); Mean Platelet Vol. 9.4 fl (6.2-12.0); Monocyte# 0.49 X10^3/uL; Monocyte% 7.5 % (0-10); Neutrophil # 5.09 X10^3/uL (2.7-7.7); Neutrophil % 77.9 % (47-70); POSITIVE COUNT NO; POSITIVE DIFFERENTIAL YES; POSITIVE MORPHOLOGY NO; Platelet Count 299 K/mm3 (150-450); RBC Distribution Width CV 13.9 % (11.6-14.6); RBC Distribution Width SD 46.3 fl (35.1-43.9); Red Blood Count 4.28 M/mm3 (4.6-6.2); White Blood Count 6.5 K/mm3 (4.4-11.0)
--- NOTE | 2018-01-05 06:57 | PCM.PN.INT ---
Subjective: Patient did okay overnight from a hemodynamic standpoint. Patient was unable to tolerate any breaks from the BiPAP therapy and nursing reported dyspnea with mouth care. Patient did have progression of rash overnight despite lack of exposure to additional medications. This was warm to the touch. Patient was given some Benadryl with slight improvement patient denies any associated nausea, diaphoresis or other complication. No bleeding complications have been reported such as hemoptysis, hematuria or epistaxis. Patient denies any pain at the interface site. General: Alert, Oriented x3, Cooperative, No apparent distress - While on BiPAP therapy. Significant accessory muscle use with removal of BiPAP., - - Morbidly obese. HEENT: Atraumatic, PERRLA, EOMI, Normocephalic, - - No scleral icterus or injection noted. Oral: Moist Mucosa, No Gingival or Mucosal Lesions/ Ulcerations Neck: Supple, No Nodes, Trachea Midline, JVD, Right Lungs: No rhonchi, No wheeze, No rales, Diminished - Little to no breath sounds noted on the right chest., - - Decreased expansion of the right chest. Dullness to percussion throughout the right chest Cardiovascular: Regular rate, Regular Rhythm, Normal S1, Normal S2, No murmurs, No rub noted, No Gallop Abdomen: Bowel Sounds Present, Soft, Non Tender, Non-Distended, Obese Extremities: No clubbing, No cyanosis, Capillary Refill Less than 3 Seconds, Edema - 1+ lower extremity Skin: Rash Present - Slightly regressed compared to yesterday. No warmth to touch. Musculoskeletal: No Tenderness to Palpation of Joints or Extremities, No Muscle Wasting Lymphatic: No Cervical, Supraclavicular, or Inguinal Adenopathy Neurological: Cranial nerves II-XII grossly intact, Neuro grossly intact, Motor Exam 5/5 strength throughout Psych/Mental Status: Alert and oriented to time, place, person, mood and affect Vital Signs Temp Pulse Resp BP Pulse Ox 37.1 C 91 18 137/83 H 98 01/05/18 00:00 01/05/18 06:00 01/05/18 06:00 01/05/18 06:00 01/05/18 06:00 Oxygen Flow Rate (L/min) 5 Oxygen Delivery Method Bi-pap Weight: 132.7 kg Body Mass Index (BMI) 41.4 Intake and Output for Last 24 Hours 01/03/18 01/04/18 01/05/18 23:59 23:59 23:59 Intake Total 843 / 843 329 / 329 Output Total 750 / 750 375 / 375 Balance 93 / 93 -46 / -46 Labs (Last 48 Hours) 01/03/18 01/03/18 01/03/18 21:21 21:33 22:15 WBC Corrected WBC RBC Hgb Hct MCV MCH MCHC RDW RDW Differential Plt Count MPV Immature Gran % (Auto) Neut % (Auto) Lymph % (Auto) [place] % (Auto) Eos % (Auto) Baso % (Auto) Absolute Neuts (auto) Absolute Lymphs (auto) Total Counted Neutrophils % (Manual) Band Neutrophils % Lymphocytes % (Manual) Monocytes % (Manual) Eosinophils % (Manual) Basophils % (Manual) Metamyelocytes % Myelocytes % Promyelocytes % Blast Cells % Plasma Cell % (Manual) Other Cells % Nucleated RBCs/100 WBC Differential Comment Diff Path Review Hypersegmented Neuts Atypical Lymphocytes Reactive Lymphocytes Smudge Cells Toxic Granulation Dohle Bodies Brooklynn Rods Platelet Estimate Plt Morphology Comment RBC Morphology Polychromasia Hypochromasia Poikilocytosis Basophilic Stippling Anisocytosis Microcytosis Macrocytosis Spherocytes Sickle Cells Target Cells Tear Drop Cells Ovalocytes Stomatocytes Clemente-Hortense Bodies Geovani Cells Bite Cells Acanthocytes (Spur) Rouleaux Schistocytes APTT Specimen Type ART Sample Site R Radial pH 7.27 L Bicarbonate Actual 34.7 H POC Total CO2 37 Base Excess 8 H O2 Saturation 99 O2 % ABG pCO2 75.5 H* ABG pO2 190 H Fam Test NEG Respiration Rate O2 Delivery Device NRB Mask Liter Flow 15.0 EPAP IPAP Blood Gas Notified Whom HOSP Blood Gas Notified Time 2131 Sodium Potassium Chloride Carbon Dioxide Anion Gap BUN Creatinine Estim Creat Clear Calc Est GFR (MDRD) Af Amer Est GFR (MDRD) Non-Af BUN/Creatinine Ratio Glucose Calcium Lactate Dehydrogenase Total Protein Globulin Albumin/Globulin Ratio MRSA (PCR) Negative POC Glucose 123 H 01/04/18 01/04/18 01/04/18 03:00 04:00 04:00 WBC Cancelled Corrected WBC Cancelled RBC Cancelled Hgb Cancelled Hct Cancelled MCV Cancelled MCH Cancelled MCHC Cancelled RDW Cancelled RDW Differential Cancelled Plt Count Cancelled MPV Cancelled Immature Gran % (Auto) Cancelled Neut % (Auto) Cancelled Lymph % (Auto) Cancelled [place] % (Auto) Cancelled Eos % (Auto) Cancelled Baso % (Auto) Cancelled Absolute Neuts (auto) Cancelled Absolute Lymphs (auto) Cancelled Total Counted Cancelled Neutrophils % (Manual) Cancelled Band Neutrophils % Cancelled Lymphocytes % (Manual) Cancelled Monocytes % (Manual) Cancelled Eosinophils % (Manual) Cancelled Basophils % (Manual) Cancelled Metamyelocytes % Cancelled Myelocytes % Cancelled Promyelocytes % Cancelled Blast Cells % Cancelled Plasma Cell % (Manual) Cancelled Other Cells % Cancelled Nucleated RBCs/100 WBC Cancelled Differential Comment Cancelled Diff Path Review Cancelled Hypersegmented Neuts Cancelled Atypical Lymphocytes Cancelled Reactive Lymphocytes Cancelled Smudge Cells Cancelled Toxic Granulation Cancelled Dohle Bodies Cancelled Brooklynn Rods Cancelled Platelet Estimate Cancelled Plt Morphology Comment Cancelled RBC Morphology Cancelled Polychromasia Cancelled Hypochromasia Cancelled Poikilocytosis Cancelled Basophilic Stippling Cancelled Anisocytosis Cancelled Microcytosis Cancelled Macrocytosis Cancelled Spherocytes Cancelled Sickle Cells Cancelled Target Cells Cancelled Tear Drop Cells Cancelled Ovalocytes Cancelled Stomatocytes Cancelled Clement[place]-Hortense Bodies Cancelled Geovani Cells Cancelled Bite Cells Cancelled Acanthocytes (Spur) Cancelled Rouleaux Cancelled Schistocytes Cancelled APTT 44.2 H Specimen Type Sample Site pH Bicarbonate Actual POC Total CO2 Base Excess O2 Saturation O2 % ABG pCO2 ABG pO2 Fam Test Respiration Rate O2 Delivery Device Liter Flow EPAP IPAP Blood Gas Notified Whom Blood Gas Notified Time Sodium Cancelled Potassium Cancelled Chloride Cancelled Carbon Dioxide Cancelled Anion Gap Cancelled BUN Cancelled Creatinine Cancelled Estim Creat Clear Calc Cancelled Est GFR (MDRD) Af Amer Cancelled Est GFR (MDRD) Non-Af Cancelled BUN/Creatinine Ratio Cancelled Glucose Cancelled Calcium Cancelled Lactate Dehydrogenase Total Protein Globulin Albumin/Globulin Ratio MRSA (PCR) POC Glucose 01/04/18 01/04/18 01/04/18 05:15 05:15 05:24 WBC 8.0 Corrected WBC RBC 4.38 L Hgb 12.9 L Hct 40.1 MCV 91.6 MCH 29.5 MCHC 32.2 RDW 13.5 RDW Differential 44.2 H Plt Count 306 MPV 9.2 Immature Gran % (Auto) 0.300 Neut % (Auto) 83.3 H Lymph % (Auto) 7.4 L [place] % (Auto) 7.3 Eos % (Auto) 1.6 Baso % (Auto) 0.1 Absolute Neuts (auto) 6.6 Absolute Lymphs (auto) 0.59 L Total Counted Not Reportable Neutrophils % (Manual) Band Neutrophils % Lymphocytes % (Manual) Monocytes % (Manual) Eosinophils % (Manual) Basophils % (Manual) Metamyelocytes % Myelocytes % Promyelocytes % Blast Cells % Plasma Cell % (Manual) Other Cells % Nucleated RBCs/100 WBC Differential Comment SCANNED Diff Path Review Hypersegmented Neuts Atypical Lymphocytes Reactive Lymphocytes Smudge Cells Toxic Granulation Dohle Bodies Brooklynn Rods Platelet Estimate Plt Morphology Comment RBC Morphology Polychromasia Hypochromasia Poikilocytosis Basophilic Stippling Anisocytosis Microcytosis Macrocytosis Spherocytes Sickle Cells Target Cells Tear Drop Cells Ovalocytes Stomatocytes Clemente-Hortense Bodies Geovani Cells Bite Cells Acanthocytes (Spur) Rouleaux Schistocytes APTT Specimen Type ART Sample Site R Radial pH 7.40 Bicarbonate Actual 34.5 H POC Total CO2 36 Base Excess 10 H O2 Saturation 97 O2 % 40 ABG pCO2 55.8 H ABG pO2 89 Fam Test POS Respiration Rate 12 O2 Delivery Device Bi / C PAP Liter Flow EPAP 8 IPAP 16 Blood Gas Notified Whom HOSP Blood Gas Notified Time 518 Sodium 138 Potassium 4.7 Chloride 98 Carbon Dioxide 33.0 H Anion Gap 7 BUN 13 Creatinine 0.75 Estim Creat Clear Calc 106.80 Est GFR (MDRD) Af Amer 136 Est GFR (MDRD) Non-Af 112 BUN/Creatinine Ratio 17.3 Glucose 120 H Calcium 8.6 Lactate Dehydrogenase Total Protein Globulin Albumin/Globulin Ratio MRSA (PCR) POC Glucose 01/04/18 01/04/18 01/04/18 10:15 16:29 19:00 WBC 7.8 Corrected WBC RBC 4.58 L Hgb 13.5 Hct 42.1 MCV 91.9 MCH 29.5 MCHC 32.1 RDW 13.6 RDW Differential 45.1 H Plt Count 283 MPV 9.6 Immature Gran % (Auto) 0.600 Neut % (Auto) 82.0 H Lymph % (Auto) 6.8 L [place] % (Auto) 7.5 Eos % (Auto) 2.8 Baso % (Auto) 0.3 Absolute Neuts (auto) 6.4 Absolute Lymphs (auto) 0.53 L Total Counted Not Reportable Neutrophils % (Manual) Band Neutrophils % Lymphocytes % (Manual) Monocytes % (Manual) Eosinophils % (Manual) Basophils % (Manual) Metamyelocytes % Myelocytes % Promyelocytes % Blast Cells % Plasma Cell % (Manual) Other Cells % Nucleated RBCs/100 WBC Differential Comment SCANNED Diff Path Review Hypersegmented Neuts Atypical Lymphocytes Reactive Lymphocytes Smudge Cells Toxic Granulation Dohle Bodies Brooklynn Rods Platelet Estimate Plt Morphology Comment RBC Morphology Polychromasia Hypochromasia Poikilocytosis Basophilic Stippling Anisocytosis Microcytosis Macrocytosis Spherocytes Sickle Cells Target Cells Tear Drop Cells Ovalocytes Stomatocytes Clemente-Hortense Bodies [place] Cells Bite Cells Acanthocytes (Spur) Rouleaux Schistocytes APTT 43.8 H 48.4 H Specimen Type Sample Site pH Bicarbonate Actual POC Total CO2 Base Excess O2 Saturation O2 % ABG pCO2 ABG pO2 Fam Test Respiration Rate O2 Delivery Device Liter Flow EPAP IPAP Blood Gas Notified Whom Blood Gas Notified Time Sodium Potassium Chloride Carbon Dioxide Anion Gap BUN Creatinine Estim Creat Clear Calc Est GFR (MDRD) Af Amer Est GFR (MDRD) Non-Af BUN/Creatinine Ratio Glucose Calcium Lactate Dehydrogenase Total Protein Globulin Albumin/Globulin Ratio MRSA (PCR) POC Glucose 01/04/18 01/05/18 01/05/18 23:00 05:20 05:20 WBC 6.5 Corrected WBC RBC 4.28 L Hgb 12.2 L Hct 39.0 L MCV 91.1 MCH 28.5 MCHC 31.3 L RDW 13.9 RDW Differential 46.3 H Plt Count 299 MPV 9.4 Immature Gran % (Auto) 0.200 Neut % (Auto) 77.9 H Lymph % (Auto) 9.0 L [place] % (Auto) 7.5 Eos % (Auto) 5.2 H Baso % (Auto) 0.2 Absolute Neuts (auto) 5.1 Absolute Lymphs (auto) 0.59 L Total Counted Not Reportable Neutrophils % (Manual) Band Neutrophils % Lymphocytes % (Manual) Monocytes % (Manual) Eosinophils % (Manual) Basophils % (Manual) Metamyelocytes % Myelocytes % Promyelocytes % Blast Cells % Plasma Cell % (Manual) Other Cells % Nucleated RBCs/100 WBC Differential Comment Diff Path Review Hypersegmented Neuts Atypical Lymphocytes Reactive Lymphocytes Smudge Cells Toxic Granulation Dohle Bodies Brooklynn Rods Platelet Estimate Plt Morphology Comment RBC Morphology Polychromasia Hypochromasia Poikilocytosis Basophilic Stippling Anisocytosis Microcytosis Macrocytosis Spherocytes Sickle Cells Target Cells Tear Drop Cells Ovalocytes Stomatocytes Clemente-Hortense Bodies [place] Cells Bite Cells Acanthocytes (Spur) Rouleaux Schistocytes APTT 42.8 H Specimen Type Sample Site pH Bicarbonate Actual POC Total CO2 Base Excess O2 Saturation O2 % ABG pCO2 ABG pO2 Fam Test Respiration Rate O2 Delivery Device Liter Flow EPAP IPAP Blood Gas Notified Whom Blood Gas Notified Time Sodium 137 Potassium 4.4 Chloride 98 Carbon Dioxide 33.0 H Anion Gap 6 BUN 20 H Creatinine 0.91 Estim Creat Clear Calc 88.02 Est GFR (MDRD) Af Amer 108 Est GFR (MDRD) Non-Af 90 BUN/Creatinine Ratio 21.9 H Glucose 112 H Calcium 8.2 L Lactate Dehydrogenase 223 Total Protein 6.9 Globulin 4.4 H Albumin/Globulin Ratio 0.6 L MRSA (PCR) POC Glucose 01/05/18 05:20 WBC Corrected WBC RBC Hgb Hct MCV MCH MCHC RDW RDW Differential Plt Count MPV Immature Gran % (Auto) Neut % (Auto) Lymph % (Auto) [place] % (Auto) Eos % (Auto) Baso % (Auto) Absolute Neuts (auto) Absolute Lymphs (auto) Total Counted Neutrophils % (Manual) Band Neutrophils % Lymphocytes % (Manual) Monocytes % (Manual) Eosinophils % (Manual) Basophils % (Manual) Metamyelocytes % Myelocytes % Promyelocytes % Blast Cells % Plasma Cell % (Manual) Other Cells % Nucleated RBCs/100 WBC Differential Comment Diff Path Review Hypersegmented Neuts Atypical Lymphocytes Reactive Lymphocytes Smudge Cells Toxic Granulation Dohle Bodies Brooklynn Rods Platelet Estimate Plt Morphology Comment RBC Morphology Polychromasia Hypochromasia Poikilocytosis Basophilic Stippling Anisocytosis Microcytosis Macrocytosis Spherocytes Sickle Cells Target Cells Tear Drop Cells Ovalocytes Stomatocytes Clemente-Hortense Bodies [place] Cells Bite Cells Acanthocytes (Spur) Rouleaux Schistocytes APTT 55.9 H Specimen Type Sample Site pH Bicarbonate Actual POC Total CO2 Base Excess O2 Saturation O2 % ABG pCO2 ABG pO2 Fam Test Respiration Rate O2 Delivery Device Liter Flow EPAP IPAP Blood Gas Notified Whom Blood Gas Notified Time Sodium Potassium Chloride Carbon Dioxide Anion Gap BUN Creatinine Estim Creat Clear Calc Est GFR (MDRD) Af Amer Est GFR (MDRD) Non-Af BUN/Creatinine Ratio Glucose Calcium Lactate Dehydrogenase Total Protein Globulin Albumin/Globulin Ratio MRSA (PCR) POC Glucose Medical Necessity - Tobacco Use Smoking Status: Former smoker Tobacco Use: Cigarettes Assessment/Plan All Active Problems Pleural effusion (Acute) Acute on chronic respiratory failure with hypoxia and hypercapnia (Acute) Pulmonary embolism (Resolved) RECOMMENDATIONS: 1. Continue BiPAP support 2. Thoracentesis today, diagnostic and therapeutic 3. Discontinue antibiotics 4. N.p.o. for now 5. Hold heparin for possible thoracentesis later today IMPRESSIONS: 1. Acute on chronic combined respiratory failure Patient discharged with supplemental oxygen just recently. However, patient is now having a combined respiratory failure as evidenced by ABG on nonrebreather. This is likely secondary to the pleural effusion. Patient did have a mass previously that has not been able to be worked up. Clinical suspicion for a malignant pleural effusion. Patient currently dependent on BiPAP therapy. Not able to take any breaks. Patient's urine output has been marginal, but has not taken much in by mouth secondary to respiratory issues. Patient will have a thoracentesis today. Attempt BiPAP breaks after removal of fluid. 2. Recent pulmonary embolism Patient did recently have a saddle pulmonary embolism and was responding to anticoagulation therapy. Patient was discharged on Xarelto therapy and took his last dose approximately 48 hours ago. Heparin has been discontinued secondary to probable thoracentesis today. Continue to monitor saturations closely. 3. Pleural effusion with lung mass Medical suspicion for malignant pleural effusion. Testing will need to be ordered with a thoracentesis for evaluation. Low clinical suspicion for hemothorax as patient's hemoglobin and hematocrit are unchanged compared to previous admission. No need for transfer to a tertiary center at this time. Await diagnostic studies. Patient with previous lung mass (4.7 x 5.5 x 5.2 cm) with hilar adenopathy on imaging studies. This has not been able to be worked up at this time. High clinical suspicion for malignancy. Cytology has been ordered on pleural effusion. 4. Tobacco abuse/obesity/KAYLA Complicates care, management, recovery and prognosis. TIME: 32 minutes critical care time spent addressing patient's acute on chronic respiratory failure, review of all data and collaboration with care team. (5:30 AM to 7 AM)
--- NOTE | 2018-01-05 08:00 | US_ITS ---
PROCEDURE: ULTRASOUND GUIDED THORACENTESIS. DATE: January 05, 2018. INDICATION: Male, 62 years old. Right pleural effusion PHYSICIAN: Rivera Peña M.D. PROCEDURE: The risks, benefits, and alternatives to the procedure were explained to the patient. The specific risks of bleeding, infection, and pneumothorax requiring chest tube insertion were discussed and accepted. Written informed consent was obtained. Ultrasonographic evaluation of the right lower pleural space was carried out. An adequate pocket was identified. The patient was placed in the sitting, upright position. The overlying skin was prepped and draped in sterile fashion. 1% lidocaine was administered subcutaneously for local anesthesia. Under ultrasound guidance, a 4 Gabonese thoracentesis needle/catheter system was advanced into the right posterior lower pleural fluid collection. Approximately 1870 mL of blood tinged fluid was drained. The catheter was removed, and a sterile dressing was applied. A specimen was collected and sent to the laboratory for analysis, as requested by the referring clinician. The patient tolerated the procedure well. A chest x-ray was ordered. US/Thoracentesis W US IMPRESSION: Ultrasound-guided right thoracentesis. Electronically Signed: Rivera Peña MD at 12:15 EDT Tel [phone], Service support ,
--- NOTE | 2018-01-05 08:54 | PCM.PROGNOTE ---
Patient Problems: Active and Suspected Problems Pleural effusion (Acute) Acute on chronic respiratory failure with hypoxia and hypercapnia (Acute) Subjective: Chief complaint: Follow-up after admission for acute and chronic hypercapnic respiratory failure, right-sided pleural effusion, right lung mass and recent diagnosis of pulmonary embolism. Patient seen and examined. No acute events overnight. Reportedly, patient was unable to tolerate any breaks on BiPAP, gets short of breath very easily upon taking off BiPAP. He reports that his breathing is almost the same, minimal improvement. He is afebrile, blood pressure and heart rate are stable, remains on BiPAP. - Physical Exam General: Alert, Oriented x3, Cooperative, - - Moderately short of breath. HEENT: Atraumatic, PERRLA, EOMI, Normocephalic Oral: Moist Mucosa, No Gingival or Mucosal Lesions/ Ulcerations Neck: Supple, No JVD, Negative Carotid Bruits, Trachea Midline, Thyroid Normal Size and Texture Lungs: No rhonchi, No wheeze, No rales, - - Markedly decreased breath sounds on the right hemithorax, dull percussion note. Left lung is clear. Cardiovascular: Regular rate, Regular Rhythm, Normal S1, Normal S2, No murmurs, PMI Normal Abdomen: Bowel Sounds Present, Soft, Non Tender, Non-Distended, No Hepato-splenomegaly, Obese Extremities: No clubbing, No cyanosis, No edema Skin: No rashes, No breakdown Lymphatic: No Cervical, Supraclavicular, or Inguinal Adenopathy Neurological: Cranial nerves II-XII grossly intact, Motor Exam 5/5 strength throughout Psych/Mental Status: Normal Affect, Appropriate, Alert and oriented to time, place, person, mood and affect Vital Signs Temp Pulse Resp BP Pulse Ox 98.3 F 85 16 118/76 97 01/05/18 08:00 01/05/18 08:00 01/05/18 08:00 01/05/18 08:00 01/05/18 08:00 Oxygen Flow Rate (L/min) 5 Oxygen Delivery Method Bi-pap Weight: 292 lb 8.854 oz Body Mass Index (BMI) 41.4 Intake and Output for Last 24 Hours 01/03/18 01/04/18 01/05/18 23:59 23:59 23:59 Intake Total 843 / 843 329 / 329 Output Total 750 / 750 375 / 375 Balance 93 / 93 -46 / -46 Laboratory Tests Past 24 Hrs 01/04/18 01/04/18 01/04/18 10:15 16:29 19:00 WBC 7.8 RBC 4.58 L Hgb 13.5 Hct 42.1 MCV 91.9 MCH 29.5 MCHC 32.1 RDW 13.6 RDW Differential 45.1 H Plt Count 283 MPV 9.6 Immature Gran % (Auto) 0.600 Neut % (Auto) 82.0 H Lymph % (Auto) 6.8 L [place] % (Auto) 7.5 Eos % (Auto) 2.8 Baso % (Auto) 0.3 Absolute Neuts (auto) 6.4 Absolute Lymphs (auto) 0.53 L Total Counted Not Reportable Differential Comment SCANNED APTT 43.8 H 48.4 H Sodium Potassium Chloride Carbon Dioxide Anion Gap BUN Creatinine Estim Creat Clear Calc Est GFR (MDRD) Af Amer Est GFR (MDRD) Non-Af BUN/Creatinine Ratio Glucose Calcium Lactate Dehydrogenase Total Protein Globulin Albumin/Globulin Ratio 01/04/18 01/05/18 01/05/18 23:00 05:20 05:20 WBC 6.5 RBC 4.28 L Hgb 12.2 L Hct 39.0 L MCV 91.1 MCH 28.5 MCHC 31.3 L RDW 13.9 RDW Differential 46.3 H Plt Count 299 MPV 9.4 Immature Gran % (Auto) 0.200 Neut % (Auto) 77.9 H Lymph % (Auto) 9.0 L [place] % (Auto) 7.5 Eos % (Auto) 5.2 H Baso % (Auto) 0.2 Absolute Neuts (auto) 5.1 Absolute Lymphs (auto) 0.59 L Total Counted Not Reportable Differential Comment APTT 42.8 H Sodium 137 Potassium 4.4 Chloride 98 Carbon Dioxide 33.0 H Anion Gap 6 BUN 20 H Creatinine 0.91 Estim Creat Clear Calc 88.02 Est GFR (MDRD) Af Amer 108 Est GFR (MDRD) Non-Af 90 BUN/Creatinine Ratio 21.9 H Glucose 112 H Calcium 8.2 L Lactate Dehydrogenase 223 Total Protein 6.9 Globulin 4.4 H Albumin/Globulin Ratio 0.6 L 01/05/18 05:20 WBC RBC Hgb Hct MCV MCH MCHC RDW RDW Differential Plt Count MPV Immature Gran % (Auto) Neut % (Auto) Lymph % (Auto) [place] % (Auto) Eos % (Auto) Baso % (Auto) Absolute Neuts (auto) Absolute Lymphs (auto) Total Counted Differential Comment APTT 55.9 H Sodium Potassium Chloride Carbon Dioxide Anion Gap BUN Creatinine Estim Creat Clear Calc Est GFR (MDRD) Af Amer Est GFR (MDRD) Non-Af BUN/Creatinine Ratio Glucose Calcium Lactate Dehydrogenase Total Protein Globulin Albumin/Globulin Ratio Medical Necessity - Tobacco Use Smoking Status: Former smoker Tobacco Use: Cigarettes Assessment/Plan All Active Problems Pleural effusion (Acute) Acute on chronic respiratory failure with hypoxia and hypercapnia (Acute) Pulmonary embolism (Resolved) This is a 62 years old male patient presented to the emergency room because of worsening shortness of breath and midsternal chest pain, found to have complete opacification of the right hemithorax with pleural effusion, acute on chronic hypercapnic respiratory failure in context of recent diagnosis of left lung mass which is highly suspicious for malignancy. #1 acute on chronic hypercapnic respiratory failure: Secondary to massive right-sided pleural effusion as well as recent diagnosis of PE. Remains on BiPAP, not tolerating any breaks from BiPAP, gets short of breath easily. CTA chest that was done yesterday showed no PE or dissection, revealed large right pleural effusion. EKG reveals no acute ischemic changes. Troponin is negative ?1. Plan for right side diagnostic and therapeutic thoracentesis today. #2 right pleural effusion/right lung mass: Recently discovered around 2 weeks ago. CTA chest reviewed as above. Patient was on Xarelto for recent diagnosis of PE, last dose was yesterday morning. Plan for thoracentesis today as above. #3 recent diagnosis of bilateral segmental PEs: He has been on IV heparin drip that was held earlier this morning for thoracentesis. He had CTA chest on December 16, 2017 that revealed bilateral segmental PEs, right hilar mass and mediastinal lymphadenopathy. Xarelto discontinued. #4 tobacco abuse: NicoDerm patch. #5 DVT prophylaxis: He is on IV heparin drip for PE, held at this time because he is going for thoracentesis.. This note was generated with [employer] dictation software. It may contain incorrect words, spelling, and punctuation that were not noted in checking the note before signing. Code Visit Inpatient E&M: 32827 Subs Hosp L2
[2018-01-05 09:51] LABS: Partial Thromboplast Time 28.6 Seconds (24.1-36.2); Prothrombin Time (Protime)PT. 13.4 SECONDS (11.7-14.9)
--- NOTE | 2018-01-05 10:40 | NURSING ---
To radiology via bed for thoracentesis. Bipap maintained
--- NOTE | 2018-01-05 11:26 | RAD_ITS ---
STUDY: X-RAY CHEST REASON FOR EXAM: Male, 62 years old. Status post right thoracentesis. TECHNIQUE: AP inspiration and expiration views. COMPARISON: Comparison is made with prior study dated January 03, 2018. FINDINGS: The patient is status post right thoracentesis. There is improved aeration as compared to prior study. Residual right pleural parenchymal changes. RAD/Chest Insp/Exp 2 View IMPRESSION: No evidence of pneumothorax. The patient is status post right thoracentesis. Electronically Signed: Rivera Peña MD at 12:14 EDT Tel [phone], Service support ,
[2018-01-05 11:37] LABS: Cytology, Body Fluid / CSF SEE PATHOLOGY REPORT
--- NOTE | 2018-01-05 11:45 | NURSING ---
return from radiology on monitor. videogame tester in attendance.
[2018-01-05 11:50] LABS: Body Fluid Mononuclear WBC % 81.7 %; Body Fluid Polynuclear WBC # 0.114 10^3/uL; Body Fluid Polynuclear WBC % 18.3 %; Body Fluid Total Cells Counted 0.676 10^3/ul; White Blood Count/Body Fluid 0.624 10^3/uL
[2018-01-05 12:38] LABS: Glucose, Body Fluid 100 mg/dL (40-70); LDH,Body Fluid 319 Units/l (Not Establ.); Protein, Body Fluid 5.1 g/dL (Not Establ.)
[2018-01-05 13:10] LABS: Lymphocytes 56 %; Mesothelial Cells 4 %; Monocytes 12 %; Neutrophil (Segs) 28 %
[2018-01-05 13:11] LABS: Auto B Fluid Analyzer BKGD Ct COUNTS W/IN LIMITS (W/IN LIMITS)
[2018-01-05 13:12] LABS: Appearance/Body Fluid SL CLDY; Body Fluid QC Type(s) BF1Q; Color/Body Fluid YELLOW; Source- Body Fluid THORACENTESIS
--- NOTE | 2018-01-05 14:08 | CASEMGMT ---
RN CM Note: Call received from Pt's aviation operations specialist through [employer]. She is available to assist with dc planning, finding needed providers. Radha Carson . Laura GARCIAN RN ACM
[2018-01-05] MEDS: hydrOXYzine PAM 25 MG Capsule PO (23:45)
[2018-01-06] VITALS (25 sets, daily range): BP systolic 95–168; BP diastolic 47–87; PULSE 82–92; RESP 16–24; TEMP 36.1–37.1; O2SAT 93–97
[2018-01-06] MEDS: Ipratropium/Albuterol Sulfate 3 ML AMPUL.NEB INHALATION ×4 (00:04→18:55)
[2018-01-06 04:31] LABS: Absolute Neutrophil Count 6.2 X10^3/uL (2.0-7.7); Basophil# 0.01 X10^3/uL; Basophil% 0.1 % (0-1); Eosinophils% 6.2 % (0-5); Hematocrit 37.1 % (40-54); Hemoglobin 12.3 g/dl (13.0-16.5); Lymphocyte % 7.4 % (19-41); Mean Corp Hgb Conc 33.2 g/gl (32-36); Mean Corpuscular Volume 90.5 fL (80-94); Mean Platelet Vol. 9.4 fl (6.2-12.0); Monocyte# 0.78 X10^3/uL; Monocyte% 9.6 % (0-10); Neutrophil % 76.3 % (47-70); Platelet Count 284 K/mm3 (150-450); RBC Distribution Width CV 13.7 % (11.6-14.6); RBC Distribution Width SD 44.6 fl (35.1-43.9); White Blood Count 8.1 K/mm3 (4.4-11.0)
[2018-01-06 04:32] LABS: Differential Indicated SCAN CRITERIA MET; POSITIVE COUNT NO; POSITIVE DIFFERENTIAL YES; POSITIVE MORPHOLOGY NO
[2018-01-06 04:42] LABS: Anion Gap 8 (5-15); BUN 16 mg/dL (7-18); BUN/Creat Ratio 23.7 RATIO (10-20); Chloride 97 mmol/L (98-107); Creatinine, Serum 0.67 mg/dL (0.70-1.30); EST Glomerular Filtration Rate 127 mL/min (>60); Est Glom Filt Rate - Afr Amer 154 mL/min (>60); Estimated Creatinine Clearance 119.55 ml/min; Glucose 88 mg/dL (74-106); Potassium 4.2 mmol/L (3.5-5.1); Sodium Level 138 mmol/L (136-145)
[2018-01-06 05:01] LABS: Differential Comment SCANNED
--- NOTE | 2018-01-06 06:59 | PCM.PN.INT ---
Subjective: Patient did well overnight. Patient did have a thoracentesis yesterday with removal of approximately 1900 cc of fluid. Patient reports subjective improvement in overall condition. Patient has been stable on 4 L nasal cannula overnight. No constitutional symptoms have been noted outside of a rash that erupted overnight. This appears to be improving this morning. Patient denies any bleeding complications. Objective: Chest x-ray from yesterday shows improvement in right-sided pleural effusion with some aeration of the right upper lobe. Still with significant effusion noted General: Alert, Oriented x3, Cooperative, No apparent distress HEENT: Atraumatic, PERRLA, EOMI, Normocephalic, - - No scleral icterus or injection noted. Oral: Moist Mucosa, No Gingival or Mucosal Lesions/ Ulcerations Neck: Supple, No JVD, No Nodes, Trachea Midline Lungs: No rhonchi, No wheeze, No rales, Diminished, - - Decreased expansion of the right lung. Dullness to percussion approximately three quarters [address] way up Cardiovascular: Regular rate, Regular Rhythm, Normal S1, Normal S2, No murmurs, No rub noted, No Gallop Abdomen: Bowel Sounds Present, Soft, Non Tender, Non-Distended, Obese Extremities: No clubbing, No cyanosis, Capillary Refill Less than 3 Seconds, Edema - 1+ lower extremity Skin: - - Maculopapular rash across the chest with some spread into the abdomen and arms. Not warm to the touch as previous. Musculoskeletal: No Tenderness to Palpation of Joints or Extremities Lymphatic: No Cervical, Supraclavicular, or Inguinal Adenopathy Neurological: Cranial nerves II-XII grossly intact, Neuro grossly intact, Motor Exam 5/5 strength throughout Psych/Mental Status: Alert and oriented to time, place, person, mood and affect Vital Signs Temp Pulse Resp BP Pulse Ox 36.8 C 87 18 117/60 97 01/06/18 04:00 01/06/18 06:36 01/06/18 06:36 01/06/18 06:00 01/06/18 06:39 Oxygen Flow Rate (L/min) 4 Oxygen Delivery Method Nasal Cannula Weight: 130 kg Body Mass Index (BMI) 41.4 Intake and Output for Last 24 Hours 01/04/18 01/05/18 01/06/18 23:59 23:59 23:59 Intake Total 843 / 843 1402 / 1402 120 / 120 Output Total 750 / 750 1350 / 1350 Balance 93 / 93 52 / 52 120 / 120 Labs (Last 48 Hours) 01/04/18 01/04/18 01/04/18 10:15 16:29 19:00 WBC 7.8 RBC 4.58 L Hgb 13.5 Hct 42.1 MCV 91.9 MCH 29.5 MCHC 32.1 RDW 13.6 RDW Differential 45.1 H Plt Count 283 MPV 9.6 Immature Gran % (Auto) 0.600 Neut % (Auto) 82.0 H Lymph % (Auto) 6.8 L [place] % (Auto) 7.5 Eos % (Auto) 2.8 Baso % (Auto) 0.3 Absolute Neuts (auto) 6.4 Absolute Lymphs (auto) 0.53 L Total Counted Not Reportable Differential Comment SCANNED PT INR APTT 43.8 H 48.4 H Sodium Potassium Chloride Carbon Dioxide Anion Gap BUN Creatinine Estim Creat Clear Calc Est GFR (MDRD) Af Amer Est GFR (MDRD) Non-Af BUN/Creatinine Ratio Glucose Calcium Lactate Dehydrogenase Total Protein Globulin Albumin/Globulin Ratio Fluid Source Fluid Color Fluid Appearance Fluid WBC Fluid RBC Fluid Tot Cell Count Fld Polynuclear WBCs # Fld Polynuclear WBCs % Fluid Mononuclear WBCs Fld Mononuclear WBCs % Fluid Neutrophils Fluid Lymphocytes Fluid Monocytes Fld Mesothelial Cells Fl Pathologist Comment Fluid Glucose Fluid Total Protein Fluid LDH Fluid Comment 2 Miscellaneous Cytology 01/04/18 01/05/18 01/05/18 23:00 05:20 05:20 WBC 6.5 RBC 4.28 L Hgb 12.2 L Hct 39.0 L MCV 91.1 MCH 28.5 MCHC 31.3 L RDW 13.9 RDW Differential 46.3 H Plt Count 299 MPV 9.4 Immature Gran % (Auto) 0.200 Neut % (Auto) 77.9 H Lymph % (Auto) 9.0 L [place] % (Auto) 7.5 Eos % (Auto) 5.2 H Baso % (Auto) 0.2 Absolute Neuts (auto) 5.1 Absolute Lymphs (auto) 0.59 L Total Counted Not Reportable Differential Comment PT INR APTT 42.8 H Sodium 137 Potassium 4.4 Chloride 98 Carbon Dioxide 33.0 H Anion Gap 6 BUN 20 H Creatinine 0.91 Estim Creat Clear Calc 88.02 Est GFR (MDRD) Af Amer 108 Est GFR (MDRD) Non-Af 90 BUN/Creatinine Ratio 21.9 H Glucose 112 H Calcium 8.2 L Lactate Dehydrogenase 223 Total Protein 6.9 Globulin 4.4 H Albumin/Globulin Ratio 0.6 L Fluid Source Fluid Color Fluid Appearance Fluid WBC Fluid RBC Fluid Tot Cell Count Fld Polynuclear WBCs # Fld Polynuclear WBCs % Fluid Mononuclear WBCs Fld Mononuclear WBCs % Fluid Neutrophils Fluid Lymphocytes Fluid Monocytes Fld Mesothelial Cells Fl Pathologist Comment Fluid Glucose Fluid Total Protein Fluid LDH Fluid Comment 2 Miscellaneous Cytology 01/05/18 01/05/18 01/05/18 05:20 09:28 11:00 WBC RBC Hgb Hct MCV MCH MCHC RDW RDW Differential Plt Count MPV Immature Gran % (Auto) Neut % (Auto) Lymph % (Auto) [place] % (Auto) Eos % (Auto) Baso % (Auto) Absolute Neuts (auto) Absolute Lymphs (auto) Total Counted Differential Comment PT 13.4 INR 1.0 APTT 55.9 H 28.6 Sodium Potassium Chloride Carbon Dioxide Anion Gap BUN Creatinine Estim Creat Clear Calc Est GFR (MDRD) Af Amer Est GFR (MDRD) Non-Af BUN/Creatinine Ratio Glucose Calcium Lactate Dehydrogenase Total Protein Globulin Albumin/Globulin Ratio Fluid Source Fluid Color Fluid Appearance Fluid WBC Fluid RBC Fluid Tot Cell Count Fld Polynuclear WBCs # Fld Polynuclear WBCs % Fluid Mononuclear WBCs Fld Mononuclear WBCs % Fluid Neutrophils Fluid Lymphocytes Fluid Monocytes Fld Mesothelial Cells Fl Pathologist Comment Fluid Glucose 100 H Fluid Total Protein 5.1 Fluid LDH 319 Fluid Comment 2 Miscellaneous Cytology 01/05/18 01/05/18 01/06/18 11:00 11:00 04:15 WBC 8.1 RBC 4.10 L Hgb 12.3 L Hct 37.1 L MCV 90.5 MCH 30.0 MCHC 33.2 RDW 13.7 RDW Differential 44.6 H Plt Count 284 MPV 9.4 Immature Gran % (Auto) 0.400 Neut % (Auto) 76.3 H Lymph % (Auto) 7.4 L [place] % (Auto) 9.6 Eos % (Auto) 6.2 H Baso % (Auto) 0.1 Absolute Neuts (auto) 6.2 Absolute Lymphs (auto) 0.60 L Total Counted Not Reportable Differential Comment SCANNED PT INR APTT Sodium Potassium Chloride Carbon Dioxide Anion Gap BUN Creatinine Estim Creat Clear Calc Est GFR (MDRD) Af Amer Est GFR (MDRD) Non-Af BUN/Creatinine Ratio Glucose Calcium Lactate Dehydrogenase Total Protein Globulin Albumin/Globulin Ratio Fluid Source THORACENTESIS Fluid Color YELLOW Fluid Appearance SL CLDY Fluid WBC 0.624 Fluid RBC 0.54968 Fluid Tot Cell Count 0.676 Fld Polynuclear WBCs # 0.114 Fld Polynuclear WBCs % 18.3 Fluid Mononuclear WBCs 0.510 Fld Mononuclear WBCs % 81.7 Fluid Neutrophils 28 Fluid Lymphocytes 56 Fluid Monocytes 12 Fld Mesothelial Cells 4 Fl Pathologist Comment May follow Fluid Glucose Fluid Total Protein Fluid LDH Fluid Comment 2 SEE COMMENT Miscellaneous Cytology Pending 01/06/18 04:15 WBC RBC Hgb Hct MCV MCH MCHC RDW RDW Differential Plt Count MPV Immature Gran % (Auto) Neut % (Auto) Lymph % (Auto) [place] % (Auto) Eos % (Auto) Baso % (Auto) Absolute Neuts (auto) Absolute Lymphs (auto) Total Counted Differential Comment PT INR APTT Sodium 138 Potassium 4.2 Chloride 97 L Carbon Dioxide 33.0 H Anion Gap 8 BUN 16 Creatinine 0.67 L Estim Creat Clear Calc 119.55 Est GFR (MDRD) Af Amer 154 Est GFR (MDRD) Non-Af 127 BUN/Creatinine Ratio 23.7 H Glucose 88 Calcium 8.0 L Lactate Dehydrogenase Total Protein Globulin Albumin/Globulin Ratio Fluid Source Fluid Color Fluid Appearance Fluid WBC Fluid RBC Fluid Tot Cell Count Fld Polynuclear WBCs # Fld Polynuclear WBCs % Fluid Mononuclear WBCs Fld Mononuclear WBCs % Fluid Neutrophils Fluid Lymphocytes Fluid Monocytes Fld Mesothelial Cells Fl Pathologist Comment Fluid Glucose Fluid Total Protein Fluid LDH Fluid Comment 2 Miscellaneous Cytology Microbiology 01/05/18 11:00 Fluid - Thoracentesis Fluid Gram Stain - Final Clinical Impression(s) from Imaging Studies Thoracentesis Ultrasound 01/05/18 08:00 IMPRESSION: Ultrasound-guided right thoracentesis. Electronically Signed: Rviera Peña MD at 12:15 EDT Tel [phone], Service support , Chest X-Ray 01/05/18 11:26 IMPRESSION: No evidence of pneumothorax. The patient is status post right thoracentesis. Electronically Signed: Rivera Peña MD at 12:14 EDT Tel [phone], Service support , Medical Necessity - Tobacco Use Smoking Status: Former smoker Tobacco Use: Cigarettes Assessment/Plan All Active Problems Pleural effusion (Acute) Acute on chronic respiratory failure with hypoxia and hypercapnia (Acute) Pulmonary embolism (Resolved) RECOMMENDATIONS: 1. Continue BiPAP support only as needed 2. Likely repeat thoracentesis Monday 3. Reinitiate heparin drip 4. Okay to continue with diet 5. Transfer from the intensive care unit IMPRESSIONS: 1. Acute on chronic combined respiratory failure Patient much improved on nasal cannula oxygen following thoracentesis. Chest x-ray yesterday did show significant residual fluid. Will repeat chest x-ray today for evaluation, but given probability of malignant pleural effusion, patient likely will require a repeat thoracentesis on Monday to avoid rapid reaccumulation and repeat hospitalization. Will reinitiate patient's heparin drip given his recent pulmonary embolism. 2. Recent pulmonary embolism Patient previously on Xarelto therapy. Patient has been bridged with heparin therapy while in the hospital. Would not recommend reinitiation of 10 A inhibitor as patient will likely require repeat intervention in the near future for pleural effusion. 3. Exudative pleural effusion with lung mass Medical suspicion for malignant pleural effusion. Laboratory workup is consistent with an exudative effusion. Patient does have a history of lung mass with hilar adenopathy. Anticipate repeat thoracentesis will be required to avoid rapid readmission secondary to hypoxemia. Continue with BiPAP therapy as needed. Cytology is pending. If cytology is negative on Monday, this can be repeated with thoracentesis. 4. Tobacco abuse/obesity/KAYLA Complicates care, management, recovery and prognosis. Code Visit Inpatient E&M: 47316 [facility] Hosp L3
--- NOTE | 2018-01-06 07:18 | RAD_ITS ---
STUDY: X-RAY CHEST REASON FOR EXAM: Male, 62 years old. Pleural effusion TECHNIQUE: Single x2 AP portable view of the chest. COMPARISON: January 05, 2018 chest x-ray FINDINGS: Since prior study there's been interval opacification of the right lung. The left lung appears relatively stable with mild increase in interstitial markings. Normal size heart. Normal mediastinum and radha. Normal visualized pulmonary arteries. Normal visualized aortic arch and descending thoracic aorta. Normal visualized thoracic spine. Normal visualized ribs, clavicles, and shoulders. There is no demonstrated abnormality of the visualized soft tissue structures of the upper abdomen. RAD/Chest 1 View (Portable) IMPRESSION: Worsening large right effusion. Opacification of the right lung. Electronically Signed: Myriam Hernandes MD at 8:06 EDT Tel , Service support ,
--- NOTE | 2018-01-06 08:45 | PCM.PROGNOTE ---
Patient Problems: Active and Suspected Problems Pleural effusion (Acute) Acute on chronic respiratory failure with hypoxia and hypercapnia (Acute) Subjective: Chief complaint: Follow-up after admission for acute and chronic hypercapnic respiratory failure, right-sided pleural effusion, right lung mass and recent diagnosis of pulmonary embolism. Patient seen and examined. No acute events overnight. Today, he is feeling slightly better, less short of breath. He had thoracentesis yesterday and approximately 1800 cc of blood-tinged fluid drained. He is off BiPAP, pulse ox is maintained on 4 L of oxygen by nasal cannula. Other vital signs are stable. - Physical Exam General: Alert, Oriented x3, Cooperative, - - Minimally short of breath. HEENT: Atraumatic, PERRLA, EOMI, Normocephalic Oral: Moist Mucosa, No Gingival or Mucosal Lesions/ Ulcerations Neck: Supple, No JVD, Negative Carotid Bruits, Trachea Midline, Thyroid Normal Size and Texture Lungs: No rhonchi, No wheeze, No rales, Short of Breath, - - Markedly decreased breath sounds on the right base and mid zone with dull percussion note. Cardiovascular: Regular rate, Regular Rhythm, Normal S1, Normal S2, PMI Normal Abdomen: Bowel Sounds Present, Soft, Non Tender, Non-Distended, No Hepato-splenomegaly, Obese Extremities: No clubbing, No cyanosis, Edema - Trace edema. Skin: No rashes, No breakdown Lymphatic: No Cervical, Supraclavicular, or Inguinal Adenopathy Neurological: Cranial nerves II-XII grossly intact, Motor Exam 5/5 strength throughout Psych/Mental Status: Normal Affect, Appropriate, Alert and oriented to time, place, person, mood and affect Vital Signs Temp Pulse Resp BP Pulse Ox 97 F L 88 20 H 150/84 H 96 01/06/18 08:00 01/06/18 08:00 01/06/18 08:00 01/06/18 08:00 01/06/18 08:00 Oxygen Flow Rate (L/min) 4 Oxygen Delivery Method Nasal Cannula Weight: 286 lb 9.615 oz Body Mass Index (BMI) 41.4 Intake and Output for Last 24 Hours 01/04/18 01/05/18 01/06/18 23:59 23:59 23:59 Intake Total 843 / 843 1402 / 1402 120 / 120 Output Total 750 / 750 1350 / 1350 Balance 93 / 93 52 / 52 120 / 120 Microbiology Past 72 Hours 01/05/18 11:00 Gram Stain - Final Fluid - Thoracentesis Fluid Laboratory Tests Past 24 Hrs 01/05/18 01/05/18 01/05/18 09:28 11:00 11:00 WBC RBC Hgb Hct MCV MCH MCHC RDW RDW Differential Plt Count MPV Immature Gran % (Auto) Neut % (Auto) Lymph % (Auto) [place] % (Auto) Eos % (Auto) Baso % (Auto) Absolute Neuts (auto) Absolute Lymphs (auto) Total Counted Differential Comment PT 13.4 INR 1.0 APTT 28.6 Sodium Potassium Chloride Carbon Dioxide Anion Gap BUN Creatinine Estim Creat Clear Calc Est GFR (MDRD) Af Amer Est GFR (MDRD) Non-Af BUN/Creatinine Ratio Glucose Calcium Fluid Source Fluid Color Fluid Appearance Fluid WBC Fluid RBC Fluid Tot Cell Count Fld Polynuclear WBCs # Fld Polynuclear WBCs % Fluid Mononuclear WBCs Fld Mononuclear WBCs % Fluid Neutrophils Fluid Lymphocytes Fluid Monocytes Fld Mesothelial Cells Fl Pathologist Comment Fluid Glucose 100 H Fluid Total Protein 5.1 Fluid LDH 319 Fluid Comment 2 Miscellaneous Cytology Pending 01/05/18 01/06/18 01/06/18 11:00 04:15 04:15 WBC 8.1 RBC 4.10 L Hgb 12.3 L Hct 37.1 L MCV 90.5 MCH 30.0 MCHC 33.2 RDW 13.7 RDW Differential 44.6 H Plt Count 284 MPV 9.4 Immature Gran % (Auto) 0.400 Neut % (Auto) 76.3 H Lymph % (Auto) 7.4 L [place] % (Auto) 9.6 Eos % (Auto) 6.2 H Baso % (Auto) 0.1 Absolute Neuts (auto) 6.2 Absolute Lymphs (auto) 0.60 L Total Counted Not Reportable Differential Comment SCANNED PT INR APTT Sodium 138 Potassium 4.2 Chloride 97 L Carbon Dioxide 33.0 H Anion Gap 8 BUN 16 Creatinine 0.67 L Estim Creat Clear Calc 119.55 Est GFR (MDRD) Af Amer 154 Est GFR (MDRD) Non-Af 127 BUN/Creatinine Ratio 23.7 H Glucose 88 Calcium 8.0 L Fluid Source THORACENTESIS Fluid Color YELLOW Fluid Appearance SL CLDY Fluid WBC 0.624 Fluid RBC 0.57505 Fluid Tot Cell Count 0.676 Fld Polynuclear WBCs # 0.114 Fld Polynuclear WBCs % 18.3 Fluid Mononuclear WBCs 0.510 Fld Mononuclear WBCs % 81.7 Fluid Neutrophils 28 Fluid Lymphocytes 56 Fluid Monocytes 12 Fld Mesothelial Cells 4 Fl Pathologist Comment May follow Fluid Glucose Fluid Total Protein Fluid LDH Fluid Comment 2 SEE COMMENT Miscellaneous Cytology Clinical Impression(s) from Imaging Studies Chest X-Ray 01/03/18 16:50 IMPRESSION: Total opacification of the right hemithorax which likely represents a combination of effusion and infiltrate. Electronically Signed: Parviz Waters, at 17:09 EDT Tel , Service support , Chest CTA 01/03/18 19:32 IMPRESSION: No evidence of pulmonary embolus. No evidence of thoracic aortic aneurysm or dissection. Large right pleural effusion which fills the right hemithorax. Total atelectasis of the right lung. The patient's known right-sided mass is not evaluated on this study due to the collapse of the right lung. No left-sided effusion or infiltrate. Fatty liver. Electronically Signed: Parviz Waters, at 20:51 EDT Tel , Service support , Thoracentesis Ultrasound 01/05/18 08:00 IMPRESSION: Ultrasound-guided right thoracentesis. Electronically Signed: Rivera Peña MD at 12:15 EDT Tel [phone], Service support , Chest X-Ray 01/05/18 11:26 IMPRESSION: No evidence of pneumothorax. The patient is status post right thoracentesis. Electronically Signed: Rivera Peña MD at 12:14 EDT Tel [phone], Service support , Chest X-Ray 01/06/18 07:18 IMPRESSION: Worsening large right effusion. Opacification of the right lung. Electronically Signed: Myriam Hernandes MD at 8:06 EDT Tel , Service support , Medical Necessity - Tobacco Use Smoking Status: Former smoker Tobacco Use: Cigarettes Assessment/Plan All Active Problems Pleural effusion (Acute) Acute on chronic respiratory failure with hypoxia and hypercapnia (Acute) Pulmonary embolism (Resolved) This is a 62 years old male patient presented to the emergency room because of worsening shortness of breath and midsternal chest pain, found to have complete opacification of the right hemithorax with pleural effusion, acute on chronic hypercapnic respiratory failure in context of recent diagnosis of left lung mass which is highly suspicious for malignancy. #1 acute on chronic hypercapnic respiratory failure: Secondary to massive right-sided pleural effusion as well as recent diagnosis of PE. Status post thoracentesis. Symptoms improved, pulse ox is maintained on 4 L of oxygen. CTA chest that was done on admission showed no PE or dissection, revealed large right pleural effusion. Plan: Transferred to PCU. #2 Exudative right pleural effusion/right lung mass: Status post right thoracentesis, 1800 cc of blood-tinged fluid drained. Pleural fluid analysis reviewed, exudative effusion. Pleural fluid cytology and culture pending. Repeat chest x-ray today revealed worsening right pleural effusion. Plan: Continue same treatment, repeat chest x-ray one day and patient probably will need repeat thoracentesis on Monday. #3 recent diagnosis of bilateral segmental PEs: He is back on IV heparin drip that was held yesterday for thoracentesis. He had CTA chest on December 16, 2017 that revealed bilateral segmental PEs, right hilar mass and mediastinal lymphadenopathy. Xarelto discontinued. #4 tobacco abuse: NicoDerm patch. #5 DVT prophylaxis: He is back on IV heparin drip. This note was generated with [employer] dictation software. It may contain incorrect words, spelling, and punctuation that were not noted in checking the note before signing. Code Visit Inpatient E&M: 99221 Subs Hosp L2
--- NOTE | 2018-01-06 08:50 | PN_ITS ---
Patient Problems: Active and Suspected Problems Pleural effusion (Acute) Acute on chronic respiratory failure with hypoxia and hypercapnia (Acute) Subjective: Chief complaint: Follow-up after admission for acute and chronic hypercapnic respiratory failure, right-sided pleural effusion, right lung mass and recent diagnosis of pulmonary embolism. Patient seen and examined. No acute events overnight. Today, he is feeling slightly better, less short of breath. He had thoracentesis yesterday and approximately 1800 cc of blood-tinged fluid drained. He is off BiPAP, pulse ox is maintained on 4 L of oxygen by nasal cannula. Other vital signs are stable. - Physical Exam General: Alert, Oriented x3, Cooperative, - - Minimally short of breath. HEENT: Atraumatic, PERRLA, EOMI, Normocephalic Oral: Moist Mucosa, No Gingival or Mucosal Lesions/ Ulcerations Neck: Supple, No JVD, Negative Carotid Bruits, Trachea Midline, Thyroid Normal Size and Texture Lungs: No rhonchi, No wheeze, No rales, Short of Breath, - - Markedly decreased breath sounds on the right base and mid zone with dull percussion note. Cardiovascular: Regular rate, Regular Rhythm, Normal S1, Normal S2, PMI Normal Abdomen: Bowel Sounds Present, Soft, Non Tender, Non-Distended, No Hepato- splenomegaly, Obese Extremities: No clubbing, No cyanosis, Edema - Trace edema. Skin: No rashes, No breakdown Lymphatic: No Cervical, Supraclavicular, or Inguinal Adenopathy Neurological: Cranial nerves II-XII grossly intact, Motor Exam 5/5 strength throughout Psych/Mental Status: Normal Affect, Appropriate, Alert and oriented to time, place, person, mood and affect Vital Signs Temp Pulse Resp BP Pulse Ox 97 F L 88 20 H 150/84 H 96 01/06/18 08:00 01/06/18 08:00 01/06/18 08:00 01/06/18 08:00 01/06/18 08:00 Oxygen Flow Rate (L/min) 4 Oxygen Delivery Method Nasal Cannula Weight: 286 lb 9.615 oz Body Mass Index (BMI) 41.4 Intake and Output for Last 24 Hours 01/04/18 01/05/18 01/06/18 23:59 23:59 23:59 Intake Total 843 / 843 1402 / 1402 120 / 120 Output Total 750 / 750 1350 / 1350 Balance 93 / 93 52 / 52 120 / 120 Microbiology Past 72 Hours 01/05/18 11:00 Gram Stain - Final Fluid - Thoracentesis Fluid Laboratory Tests Past 24 Hrs 01/05/18 01/05/18 01/05/18 09:28 11:00 11:00 WBC RBC Hgb Hct MCV MCH MCHC RDW RDW Differential Plt Count MPV Immature Gran % (Auto) Neut % (Auto) Lymph % (Auto) [place] % (Auto) Eos % (Auto) Baso % (Auto) Absolute Neuts (auto) Absolute Lymphs (auto) Total Counted Differential Comment PT 13.4 INR 1.0 APTT 28.6 Sodium Potassium Chloride Carbon Dioxide Anion Gap BUN Creatinine Estim Creat Clear Calc Est GFR (MDRD) Af Amer Est GFR (MDRD) Non-Af BUN/Creatinine Ratio Glucose Calcium Fluid Source Fluid Color Fluid Appearance Fluid WBC Fluid RBC Fluid Tot Cell Count Fld Polynuclear WBCs # Fld Polynuclear WBCs % Fluid Mononuclear WBCs Fld Mononuclear WBCs % Fluid Neutrophils Fluid Lymphocytes Fluid Monocytes Fld Mesothelial Cells Fl Pathologist Comment Fluid Glucose 100 H Fluid Total Protein 5.1 Fluid LDH 319 Fluid Comment 2 Miscellaneous Cytology Pending 01/05/18 01/06/18 01/06/18 11:00 04:15 04:15 WBC 8.1 RBC 4.10 L Hgb 12.3 L Hct 37.1 L MCV 90.5 MCH 30.0 MCHC 33.2 RDW 13.7 RDW Differential 44.6 H Plt Count 284 MPV 9.4 Immature Gran % (Auto) 0.400 Neut % (Auto) 76.3 H Lymph % (Auto) 7.4 L [place] % (Auto) 9.6 Eos % (Auto) 6.2 H Baso % (Auto) 0.1 Absolute Neuts (auto) 6.2 Absolute Lymphs (auto) 0.60 L Total Counted Not Reportable Differential Comment SCANNED PT INR APTT Sodium 138 Potassium 4.2 Chloride 97 L Carbon Dioxide 33.0 H Anion Gap 8 BUN 16 Creatinine 0.67 L Estim Creat Clear Calc 119.55 Est GFR (MDRD) Af Amer 154 Est GFR (MDRD) Non-Af 127 BUN/Creatinine Ratio 23.7 H Glucose 88 Calcium 8.0 L Fluid Source THORACENTESIS Fluid Color YELLOW Fluid Appearance SL CLDY Fluid WBC 0.624 Fluid RBC 0.84803 Fluid Tot Cell Count 0.676 Fld Polynuclear WBCs # 0.114 Fld Polynuclear WBCs % 18.3 Fluid Mononuclear WBCs 0.510 Fld Mononuclear WBCs % 81.7 Fluid Neutrophils 28 Fluid Lymphocytes 56 Fluid Monocytes 12 Fld Mesothelial Cells 4 Fl Pathologist Comment May follow Fluid Glucose Fluid Total Protein Fluid LDH Fluid Comment 2 SEE COMMENT Miscellaneous Cytology Clinical Impression(s) from Imaging Studies Chest X-Ray 01/03/18 16:50 IMPRESSION: Total opacification of the right hemithorax which likely represents a combination of effusion and infiltrate. Electronically Signed: Parviz Waters, at 17:09 EDT Tel , Service support , Chest CTA 01/03/18 19:32 IMPRESSION: No evidence of pulmonary embolus. No evidence of thoracic aortic aneurysm or dissection. Large right pleural effusion which fills the right hemithorax. Total atelectasis of the right lung. The patient's known right-sided mass is not evaluated on this study due to the collapse of the right lung. No left-sided effusion or infiltrate. Fatty liver. Electronically Signed: Parviz Waters, at 20:51 EDT Tel , Service support , Thoracentesis Ultrasound 01/05/18 08:00 IMPRESSION: Ultrasound-guided right thoracentesis. Electronically Signed: Rivera Peña MD at 12:15 EDT Tel [phone], Service support , Chest X-Ray 01/05/18 11:26 IMPRESSION: No evidence of pneumothorax. The patient is status post right thoracentesis. Electronically Signed: Rivera Peña MD at 12:14 EDT Tel [phone], Service support , Chest X-Ray 01/06/18 07:18 IMPRESSION: Worsening large right effusion. Opacification of the right lung. Electronically Signed: Myriam Hernandes MD at 8:06 EDT Tel , Service support , Medical Necessity - Tobacco Use Smoking Status: Former smoker Tobacco Use: Cigarettes Assessment/Plan All Active Problems Pleural effusion (Acute) Acute on chronic respiratory failure with hypoxia and hypercapnia (Acute) Pulmonary embolism (Resolved) This is a 62 years old male patient presented to the emergency room because of worsening shortness of breath and midsternal chest pain, found to have complete opacification of the right hemithorax with pleural effusion, acute on chronic hypercapnic respiratory failure in context of recent diagnosis of left lung mass which is highly suspicious for malignancy. #1 acute on chronic hypercapnic respiratory failure: Secondary to massive right- sided pleural effusion as well as recent diagnosis of PE. Status post thoracentesis. Symptoms improved, pulse ox is maintained on 4 L of oxygen. CTA chest that was done on admission showed no PE or dissection, revealed large right pleural effusion. Plan: Transferred to PCU. #2 Exudative right pleural effusion/right lung mass: Status post right thoracentesis, 1800 cc of blood-tinged fluid drained. Pleural fluid analysis reviewed, exudative effusion. Pleural fluid cytology and culture pending. Repeat chest x-ray today revealed worsening right pleural effusion. Plan: Continue same treatment, repeat chest x-ray one day and patient probably will need repeat thoracentesis on Monday. #3 recent diagnosis of bilateral segmental PEs: He is back on IV heparin drip that was held yesterday for thoracentesis. He had CTA chest on December 16, 2017 that revealed bilateral segmental PEs, right hilar mass and mediastinal lymphadenopathy. Xarelto discontinued. #4 tobacco abuse: NicoDerm patch. #5 DVT prophylaxis: He is back on IV heparin drip. This note was generated with [employer] dictation software. It may contain incorrect words, spelling, and punctuation that were not noted in checking the note before signing. Code Visit Inpatient E&M: 13820 Subs Hosp L2
[2018-01-06] MEDS: Acetaminophen/Codeine #3 Tablet 1 TABLET PO ×2 (13:53→21:50)
[2018-01-06 14:10] LABS: Partial Thromboplast Time 32.9 Seconds (24.1-36.2)
[2018-01-06] MEDS: 0.9% NaCl Peripheral Flush Adult/Peds IV ×2 (14:47→21:45)
[2018-01-06] MEDS: Heparin Injection (Vial) 5,000 UNIT/ML VIAL SC ×2 (14:47→21:44)
[2018-01-06 21:30] LABS: Partial Thromboplast Time 46.2 Seconds (24.1-36.2)
[2018-01-07] VITALS (17 sets, daily range): BP systolic 97–124; BP diastolic 55–65; PULSE 72–93; RESP 10–27; TEMP 36.5–36.9; O2SAT 92–95
[2018-01-07] MEDS: Ipratropium/Albuterol Sulfate 3 ML AMPUL.NEB INHALATION ×2 (03:46→11:04)
[2018-01-07 04:00] LABS: Partial Thromboplast Time 53.3 Seconds (24.1-36.2)
[2018-01-07] MEDS: Heparin Injection (Vial) 5,000 UNIT/ML VIAL SC ×2 (04:14→11:56)
--- NOTE | 2018-01-07 05:39 | US_ITS ---
PROCEDURE: ULTRASOUND GUIDED THORACENTESIS. DATE: January 08, 2018. INDICATION: Male, 62 years old. Right pleural effusion PHYSICIAN: Rivera Peña M.D. PROCEDURE: The risks, benefits, and alternatives to the procedure were explained to the patient. The specific risks of bleeding, infection, and pneumothorax requiring chest tube insertion were discussed and accepted. Written informed consent was obtained. Ultrasonographic evaluation of the right lower pleural space was carried out. An adequate pocket was identified. The patient was placed in the sitting, upright position. The overlying skin was prepped and draped in sterile fashion. 1% lidocaine was administered subcutaneously for local anesthesia. Under ultrasound guidance, a 6 [place]ese thoracentesis needle/catheter system was advanced into the right posterior lower pleural fluid collection. Approximately 1820 mL of blood tinged fluid was drained. The catheter was removed, and a sterile dressing was applied. A specimen was collected and sent to the laboratory for analysis, as requested by the referring clinician. The patient tolerated the procedure well. A chest x-ray was ordered. US/Thoracentesis W US IMPRESSION: Ultrasound-guided right thoracentesis. Electronically Signed: Rivera Peña MD at 12:03 EDT Tel [phone], Service support ,
--- NOTE | 2018-01-07 07:11 | PCM.PROGNOTE ---
Patient Problems: Active and Suspected Problems Pleural effusion (Acute) Acute on chronic respiratory failure with hypoxia and hypercapnia (Acute) Subjective: Patient transferred out of the intensive care unit yesterday. Patient reports slight worsening of respiratory status compared to yesterday. Patient states that aerosol therapy has started to make him cough more often. Patient denies any difficulty with the rash overnight and is denying any pruritus associated with the rash. Patient has not required BiPAP rescue over the last 24 hours. - Physical Exam General: Alert, Oriented x3, Cooperative, No apparent distress, - - Appears older than stated age. Speaking in full sentences. Morbidly obese. HEENT: Atraumatic, PERRLA, EOMI, Normocephalic, - - No scleral icterus or injection noted. Oral: Moist Mucosa, No Gingival or Mucosal Lesions/ Ulcerations Neck: Supple, No Nodes, Trachea Midline, JVD, Right Lungs: No rhonchi, No rales, Diminished - Right greater than left, Wheezes - Sporadic, right greater than left Cardiovascular: Regular rate, Regular Rhythm, Normal S1, Normal S2, No murmurs, No rub noted, No Gallop Abdomen: Bowel Sounds Present, Soft, Non Tender, Non-Distended, Obese Extremities: No cyanosis, Capillary Refill Less than 3 Seconds, Edema - 1+ lower extremity Skin: - - No significant change from previous. Still with maculopapular rash across the chest. Musculoskeletal: No Tenderness to Palpation of Joints or Extremities, No Muscle Wasting Lymphatic: No Cervical, Supraclavicular, or Inguinal Adenopathy Neurological: Cranial nerves II-XII grossly intact, Neuro grossly intact, Motor Exam 5/5 strength throughout Psych/Mental Status: Alert and oriented to time, place, person, mood and affect Vital Signs Temp Pulse Resp BP Pulse Ox 36.7 C 82 16 113/61 93 01/07/18 03:00 01/07/18 03:46 01/07/18 03:46 01/07/18 03:00 01/07/18 03:00 Oxygen Flow Rate (L/min) 3 Oxygen Delivery Method Nasal Cannula Weight: 130 kg Body Mass Index (BMI) 41.4 Intake and Output for Last 24 Hours 01/05/18 01/06/18 01/07/18 23:59 23:59 23:59 Intake Total 1402 / 1402 821 / 821 641 / 641 Output Total 1350 / 1350 1000 / 1000 1675 / 1675 Balance 52 / 52 -179 / -179 -1034 / -1034 Microbiology Past 72 Hours 01/05/18 11:00 Gram Stain - Final Fluid - Thoracentesis Fluid Body Fluid Culture - Preliminary No growth-Final to follow Laboratory Tests Past 24 Hrs 01/06/18 01/06/18 01/07/18 13:45 21:00 03:44 APTT 32.9 46.2 H 53.3 H Clinical Impression(s) from Imaging Studies Chest X-Ray 01/06/18 07:18 IMPRESSION: Worsening large right effusion. Opacification of the right lung. Electronically Signed: Myriam Hernandes MD at 8:06 EDT Tel , Service support , Medical Necessity - Tobacco Use Smoking Status: Former smoker Tobacco Use: Cigarettes Assessment/Plan All Active Problems Pleural effusion (Acute) Acute on chronic respiratory failure with hypoxia and hypercapnia (Acute) Pulmonary embolism (Resolved) RECOMMENDATIONS: 1. Continue BiPAP support only as needed 2. Repeat thoracentesis Monday -ordered 3. Heparin drip at 5 AM, n.p.o. at midnight 4. Okay to continue with diet for now 5. Wean oxygen as tolerated IMPRESSIONS: 1. Acute on chronic combined respiratory failure Patient much improved on nasal cannula oxygen following thoracentesis. Chest x-ray yesterday showed significant worsening in fluid. This may be secondary to body position, but patient had a significant effusion previously. Patient's oxygenation has remained stable. Did stress to the patient that BiPAP rescue can be used, especially with sleep to help with overall condition. 2. Recent pulmonary embolism Patient previously on Xarelto therapy. Patient has been bridged with heparin therapy while in the hospital. If patient were to be discharged on a 10 A inhibitor, would recommend Eliquis therapy as patient will likely require interventions with interruption in therapy. 3. Exudative pleural effusion with lung mass Medical suspicion for malignant pleural effusion. Laboratory workup is consistent with an exudative effusion. Patient does have a history of lung mass with hilar adenopathy. Patient to have a repeat thoracentesis tomorrow. Ordered n.p.o. at midnight and heparin drip off at 5 AM. Continue with BiPAP therapy as needed. Cytology is pending. Ordering cytology on repeat thoracentesis. This may be able to be used for molecular markers if cytology from original thoracentesis comes back positive. 4. Tobacco abuse/obesity/KAYLA Complicates care, management, recovery and prognosis. Code Visit Inpatient E&M: 49368 Subs Hosp L2
--- NOTE | 2018-01-07 07:57 | PCM.PROGNOTE ---
Patient Problems: Active and Suspected Problems Pleural effusion (Acute) Acute on chronic respiratory failure with hypoxia and hypercapnia (Acute) Subjective: Chief complaint: Follow-up after admission for acute and chronic hypercapnic respiratory failure, right-sided pleural effusion, right lung mass and recent diagnosis of pulmonary embolism. Patient seen and examined. No acute events overnight. He reported slight worsening of his shortness of breath but states that the breathing treatment is helping significantly. Actually, his oxygen count is down to 3 L still complaining of cough. He did not require BiPAP last night. Other vital signs are stable. - Physical Exam General: Alert, Oriented x3, Cooperative, - - Minimally short of breath. HEENT: Atraumatic, PERRLA, EOMI Oral: Moist Mucosa, No Gingival or Mucosal Lesions/ Ulcerations Neck: Supple, No JVD, Negative Carotid Bruits, Trachea Midline, Thyroid Normal Size and Texture Lungs: Diminished, Short of Breath, - - Absent breath sounds on the right hemithorax with dull percussion note. Left lung is clear. Cardiovascular: Regular rate, Regular Rhythm, Normal S1, Normal S2, No murmurs Abdomen: Bowel Sounds Present, Soft, Non Tender, Non-Distended, No Hepato-splenomegaly, Obese Extremities: No clubbing, No cyanosis, Edema - Trace edema. Skin: No rashes, No breakdown Lymphatic: No Cervical, Supraclavicular, or Inguinal Adenopathy Neurological: Cranial nerves II-XII grossly intact, Neuro grossly intact Psych/Mental Status: Normal Affect, Appropriate, Alert and oriented to time, place, person, mood and affect Vital Signs Temp Pulse Resp BP Pulse Ox 98.1 F 83 16 113/61 93 01/07/18 03:00 01/07/18 06:57 01/07/18 03:46 01/07/18 03:00 01/07/18 03:00 Oxygen Flow Rate (L/min) 3 Oxygen Delivery Method Nasal Cannula Weight: 285 lb 7.978 oz Body Mass Index (BMI) 41.4 Intake and Output for Last 24 Hours 01/05/18 01/06/18 01/07/18 23:59 23:59 23:59 Intake Total 1402 / 1402 821 / 821 641 / 641 Output Total 1350 / 1350 1000 / 1000 1675 / 1675 Balance 52 / 52 -179 / -179 -1034 / -1034 Microbiology Past 72 Hours 01/05/18 11:00 Gram Stain - Final Fluid - Thoracentesis Fluid Body Fluid Culture - Preliminary No growth-Final to follow Laboratory Tests Past 24 Hrs 01/06/18 01/06/18 01/07/18 13:45 21:00 03:44 APTT 32.9 46.2 H 53.3 H Clinical Impression(s) from Imaging Studies Thoracentesis Ultrasound 01/05/18 08:00 IMPRESSION: Ultrasound-guided right thoracentesis. Electronically Signed: Rivera Peña MD at 12:15 EDT Tel [phone], Service support , Chest X-Ray 01/05/18 11:26 IMPRESSION: No evidence of pneumothorax. The patient is status post right thoracentesis. Electronically Signed: Rivera Peña MD at 12:14 EDT Tel [phone], Service support , Chest X-Ray 01/06/18 07:18 IMPRESSION: Worsening large right effusion. Opacification of the right lung. Electronically Signed: Myriam Hernandes MD at 8:06 EDT Tel , Service support , Medical Necessity - Tobacco Use Smoking Status: Former smoker Tobacco Use: Cigarettes Assessment/Plan All Active Problems Pleural effusion (Acute) Acute on chronic respiratory failure with hypoxia and hypercapnia (Acute) Pulmonary embolism (Resolved) This is a 62 years old male patient presented to the emergency room because of worsening shortness of breath and midsternal chest pain, found to have complete opacification of the right hemithorax with pleural effusion, acute on chronic hypercapnic respiratory failure in context of recent diagnosis of left lung mass which is highly suspicious for malignancy. #1 acute on chronic hypercapnic respiratory failure: Secondary to massive right-sided pleural effusion as well as recent diagnosis of PE. Status post thoracentesis. Symptoms improved, pulse ox is maintained on 3 L of oxygen. Patient did not require BiPAP overnight. CTA chest that was done on admission showed no PE or dissection, revealed large right pleural effusion. Plan: Continue same treatment, thoracentesis tomorrow #2 Exudative right pleural effusion/right lung mass: Status post right thoracentesis, 1800 cc of blood-tinged fluid drained. Pleural fluid analysis reviewed, exudative effusion. Pleural fluid cytology and culture pending. Repeat chest x-ray today revealed worsening right pleural effusion. Plan: N.p.o. from midnight, hold heparin drip at 5 AM, thoracentesis Monday. #3 recent diagnosis of bilateral segmental PEs: He is back on IV heparin drip that was held yesterday for thoracentesis. He had CTA chest on December 16, 2017 that revealed bilateral segmental PEs, right hilar mass and mediastinal lymphadenopathy. Xarelto discontinued. #4 tobacco abuse: NicoDerm patch. #5 DVT prophylaxis: He is on IV heparin drip. This note was generated with [employer] dictation software. It may contain incorrect words, spelling, and punctuation that were not noted in checking the note before signing. Code Visit Inpatient E&M: 56139 Subs Hosp L2
--- NOTE | 2018-01-07 08:03 | PN_ITS ---
Patient Problems: Active and Suspected Problems Pleural effusion (Acute) Acute on chronic respiratory failure with hypoxia and hypercapnia (Acute) Subjective: Chief complaint: Follow-up after admission for acute and chronic hypercapnic respiratory failure, right-sided pleural effusion, right lung mass and recent diagnosis of pulmonary embolism. Patient seen and examined. No acute events overnight. He reported slight worsening of his shortness of breath but states that the breathing treatment is helping significantly. Actually, his oxygen count is down to 3 L still complaining of cough. He did not require BiPAP last night. Other vital signs are stable. - Physical Exam General: Alert, Oriented x3, Cooperative, - - Minimally short of breath. HEENT: Atraumatic, PERRLA, EOMI Oral: Moist Mucosa, No Gingival or Mucosal Lesions/ Ulcerations Neck: Supple, No JVD, Negative Carotid Bruits, Trachea Midline, Thyroid Normal Size and Texture Lungs: Diminished, Short of Breath, - - Absent breath sounds on the right hemithorax with dull percussion note. Left lung is clear. Cardiovascular: Regular rate, Regular Rhythm, Normal S1, Normal S2, No murmurs Abdomen: Bowel Sounds Present, Soft, Non Tender, Non-Distended, No Hepato- splenomegaly, Obese Extremities: No clubbing, No cyanosis, Edema - Trace edema. Skin: No rashes, No breakdown Lymphatic: No Cervical, Supraclavicular, or Inguinal Adenopathy Neurological: Cranial nerves II-XII grossly intact, Neuro grossly intact Psych/Mental Status: Normal Affect, Appropriate, Alert and oriented to time, place, person, mood and affect Vital Signs Temp Pulse Resp BP Pulse Ox 98.1 F 83 16 113/61 93 01/07/18 03:00 01/07/18 06:57 01/07/18 03:46 01/07/18 03:00 01/07/18 03:00 Oxygen Flow Rate (L/min) 3 Oxygen Delivery Method Nasal Cannula Weight: 285 lb 7.978 oz Body Mass Index (BMI) 41.4 Intake and Output for Last 24 Hours 01/05/18 01/06/18 01/07/18 23:59 23:59 23:59 Intake Total 1402 / 1402 821 / 821 641 / 641 Output Total 1350 / 1350 1000 / 1000 1675 / 1675 Balance 52 / 52 -179 / -179 -1034 / -1034 Microbiology Past 72 Hours 01/05/18 11:00 Gram Stain - Final Fluid - Thoracentesis Fluid Body Fluid Culture - Preliminary No growth-Final to follow Laboratory Tests Past 24 Hrs 01/06/18 01/06/18 01/07/18 13:45 21:00 03:44 APTT 32.9 46.2 H 53.3 H Clinical Impression(s) from Imaging Studies Thoracentesis Ultrasound 01/05/18 08:00 IMPRESSION: Ultrasound-guided right thoracentesis. Electronically Signed: Rivera Peña MD at 12:15 EDT Tel [phone], Service support , Chest X-Ray 01/05/18 11:26 IMPRESSION: No evidence of pneumothorax. The patient is status post right thoracentesis. Electronically Signed: Rivera Peña MD at 12:14 EDT Tel [phone], Service support , Chest X-Ray 01/06/18 07:18 IMPRESSION: Worsening large right effusion. Opacification of the right lung. Electronically Signed: Myriam Hernandes MD at 8:06 EDT Tel , Service support , Medical Necessity - Tobacco Use Smoking Status: Former smoker Tobacco Use: Cigarettes Assessment/Plan All Active Problems Pleural effusion (Acute) Acute on chronic respiratory failure with hypoxia and hypercapnia (Acute) Pulmonary embolism (Resolved) This is a 62 years old male patient presented to the emergency room because of worsening shortness of breath and midsternal chest pain, found to have complete opacification of the right hemithorax with pleural effusion, acute on chronic hypercapnic respiratory failure in context of recent diagnosis of left lung mass which is highly suspicious for malignancy. #1 acute on chronic hypercapnic respiratory failure: Secondary to massive right- sided pleural effusion as well as recent diagnosis of PE. Status post thoracentesis. Symptoms improved, pulse ox is maintained on 3 L of oxygen. Patient did not require BiPAP overnight. CTA chest that was done on admission showed no PE or dissection, revealed large right pleural effusion. Plan: Continue same treatment, thoracentesis tomorrow #2 Exudative right pleural effusion/right lung mass: Status post right thoracentesis, 1800 cc of blood-tinged fluid drained. Pleural fluid analysis reviewed, exudative effusion. Pleural fluid cytology and culture pending. Repeat chest x-ray today revealed worsening right pleural effusion. Plan: N.p.o. from midnight, hold heparin drip at 5 AM, thoracentesis Monday. #3 recent diagnosis of bilateral segmental PEs: He is back on IV heparin drip that was held yesterday for thoracentesis. He had CTA chest on December 16, 2017 that revealed bilateral segmental PEs, right hilar mass and mediastinal lymphadenopathy. Xarelto discontinued. #4 tobacco abuse: NicoDerm patch. #5 DVT prophylaxis: He is on IV heparin drip. This note was generated with [employer] dictation software. It may contain incorrect words, spelling, and punctuation that were not noted in checking the note before signing. Code Visit Inpatient E&M: 64983 Subs Hosp L2
[2018-01-07 10:37] LABS: Partial Thromboplast Time 50.8 Seconds (24.1-36.2)
[2018-01-07] MEDS: 0.9% NaCl Peripheral Flush Adult/Peds IV (11:58)
--- NOTE | 2018-01-07 23:39 | CPS ---
pt very anxious and low sat on 3 l/m at 83%-pt placed on bipap per request-sae well -nurse notified
[2018-01-08] VITALS (19 sets, daily range): BP systolic 101–134; BP diastolic 51–72; PULSE 79–92; RESP 10–25; TEMP 36.4–36.9; O2SAT 92–96
--- NOTE | 2018-01-08 | FLU_PTH ---
PATIENT: KRISS COURTNEY LOC: [facility] U#:[id number] AGE/SX: 62/M ROOM: ICU07 RE01/03/[address]: Dr. Feliz Coto MD : [id number] BED: 1 DIS: 01/11/2018 SPEC #: [id number] RECD: 01/08/18 11:40 STATUS: BAUDILIO REColin #: [id number] GREGORY: 01/08/18 00:[address]: Feliz Coto DEPT: CYTOLOGY RECD BY: Johnathan Wills ENTERED: 01/08/18 11:41 SP TYPE: Fluid OTHR DR: MD Dr. Eliane Jeronimo MD Kombian Gbar[place], MD Tissues: THORACIC FLUID Procedures: Pap Stain (control) Special Stain Group II Surgery Specimen Level IV Cell Block Cytospin Fluid HEADER OPERATION: Ultrasound guided right thoracentesis PRE-OP DIAGNOSIS: Dyspnea, PE TISSUE SUBMITTED: Thoracic fluid DIAGNOSIS CYTOLOGY Thoracentesis fluid (Cytospin and cell block): A few malignant cells present consistent with nonsmall cell carcinoma. See comment. SJ:sp 01/09/18 COMMENT Please make reference to previous specimen [id number] thoracentesis fluid diagnosis of malignant cells present, consistent with nonsmall cell carcinoma, favor adenocarcinoma. Case has been reviewed in consultation with Dr. Pearce who concurs with the above diagnosis. IDC:AM CYTOLOGY STUDY Slides are reviewed. CYTOLOGY GROSS Received is 10 ml of red cloudy fluid labeled with the patient's name and and designated per the requisition as thoracic fluid. Submitted for cytology preparation including cell block. /Av 01/08/18 TC: 0 CPT: 06228, 51397
[2018-01-08 00:46] LABS: Partial Thromboplast Time 58.1 Seconds (24.1-36.2)
[2018-01-08] MEDS: 0.9% NaCl Peripheral Flush Adult/Peds IV (05:04)
[2018-01-08 06:42] LABS: Partial Thromboplast Time 33.7 Seconds (24.1-36.2)
[2018-01-08 07:53] LABS: Prothrombin Time (Protime)PT. 13.2 SECONDS (11.7-14.9)
[2018-01-08] MEDS: ALPRAZolam 0.5 MG Tablet PO ×2 (08:51→17:27)
--- NOTE | 2018-01-08 10:06 | RAD_ITS ---
STUDY: X-RAY CHEST REASON FOR EXAM: Male, 62 years old. Status post right thoracentesis. TECHNIQUE: AP inspiration and expiration views were obtained. COMPARISON: Comparison is made with prior study dated January 06, 2018. FINDINGS: EKG electrodes are seen. Once again, there is complete opacification of the right hemithorax. This most likely represents collapse of the right lung.. There is no evidence of pneumothorax. Obstruction of the mainstem bronchus should be ruled out. Correlation with bronchoscopy is recommended. RAD/Chest Insp/Exp 2 View IMPRESSION: Status post right thoracentesis. There is no evidence of pneumothorax. Complete opacification of the right lung with a shift of the heart and mediastinal structures towards the right side of the midline. Obstruction of the right mainstem bronchus should be ruled out. Electronically Signed: Rivera Peña MD at 11:18 EDT Tel [phone], Service support ,
--- NOTE | 2018-01-08 10:54 | PCM.PROGNOTE ---
Patient Problems: Active and Suspected Problems Pleural effusion (Acute) Acute on chronic respiratory failure with hypoxia and hypercapnia (Acute) Subjective: The patient was seen and examined. He denies any significant shortness of breath, chest pain, cough, or sputum production. He just returned from his repeat thoracentesis and there was approximately 1800 mL of fluid removed. Did discuss potential need for Pleurx catheter, and son were present. Objective: Recent lab and culture data reviewed. Reviewed post thoracentesis chest x-ray, no evidence of pneumothorax on my review but official read pending. Clinical Impression(s) from Imaging Studies Chest X-Ray 01/03/18 16:50 IMPRESSION: Total opacification of the right hemithorax which likely represents a combination of effusion and infiltrate. Electronically Signed: Parviz Waters, at 17:09 EDT Tel , Service support , Chest CTA 01/03/18 19:32 IMPRESSION: No evidence of pulmonary embolus. No evidence of thoracic aortic aneurysm or dissection. Large right pleural effusion which fills the right hemithorax. Total atelectasis of the right lung. The patient's known right-sided mass is not evaluated on this study due to the collapse of the right lung. No left-sided effusion or infiltrate. Fatty liver. Electronically Signed: Parviz Waters, at 20:51 EDT Tel , Service support , Thoracentesis Ultrasound 01/05/18 08:00 IMPRESSION: Ultrasound-guided right thoracentesis. Electronically Signed: Rivera Peña MD at 12:15 EDT Tel [phone], Service support , Chest X-Ray 01/05/18 11:26 IMPRESSION: No evidence of pneumothorax. The patient is status post right thoracentesis. Electronically Signed: Rivera Peña MD at 12:14 EDT Tel [phone], Service support , Chest X-Ray 01/06/18 07:18 IMPRESSION: Worsening large right effusion. Opacification of the right lung. Electronically Signed: Myriam Hernandes MD at 8:06 EDT Tel , Service support , - Physical Exam General: Alert, Oriented x3, Cooperative, No apparent distress, Well developed, Well nourished, - - No conversational dyspnea HEENT: Atraumatic, Normocephalic Oral: Moist Mucosa, No Gingival or Mucosal Lesions/ Ulcerations Neck: Supple, No Nodes, Trachea Midline Lungs: - - Diminished right posterior mid to base, no appreciable rhonchi, wheezes, or rales. Cardiovascular: Regular rate, Regular Rhythm, Normal S1, Normal S2 Abdomen: Bowel Sounds Present, Soft, Non Tender, Non-Distended, Obese Extremities: No cyanosis, Edema Skin: Rash Present - Bilateral upper and lower extremities, intermittent. No pruritus Musculoskeletal: No Tenderness to Palpation of Joints or Extremities Lymphatic: No Cervical, Supraclavicular, or Inguinal Adenopathy Neurological: Cranial nerves II-XII grossly intact, Neuro grossly intact, Motor Exam 5/5 strength throughout Psych/Mental Status: Alert and oriented to time, place, person, mood and affect Vital Signs Temp Pulse Resp BP Pulse Ox 97.7 F L 82 18 110/66 96 01/08/18 08:26 01/08/18 08:26 01/08/18 08:26 01/08/18 08:26 01/08/18 08:26 Oxygen Flow Rate (L/min) 3 Oxygen Delivery Method Bi-pap Weight: 293 lb 3.437 oz Body Mass Index (BMI) 41.4 Intake and Output for Last 24 Hours 01/06/18 01/07/18 01/08/18 23:59 23:59 23:59 Intake Total 821 / 821 2145 / 2145 135 / 135 Output Total 1000 / 1000 3225 / 3225 500 / 500 Balance -179 / -179 -1080 / -1080 -365 / -365 Microbiology Past 72 Hours 01/05/18 11:00 Gram Stain - Final Fluid - Thoracentesis Fluid Body Fluid Culture - Final No growth aerobically. Laboratory Tests Past 24 Hrs 01/07/18 01/07/18 01/08/18 10:18 18:25 00:18 PT INR APTT 50.8 H 63.0 H 58.1 H 01/08/18 01/08/18 06:25 06:25 PT 13.2 INR 1.0 APTT 33.7 Medical Necessity - Tobacco Use Smoking Status: Former smoker Tobacco Use: Cigarettes Assessment/Plan All Active Problems Pleural effusion (Acute) Acute on chronic respiratory failure with hypoxia and hypercapnia (Acute) Pulmonary embolism (Resolved) RECOMMENDATIONS: 1. Continue BiPAP support only as needed 2. Wean oxygen as tolerated 3. Resume heparin drip for now 4. Await cytology from thoracentesis 5. Consider Pleurx catheter placement if fluid re-accumulates 6. Increase activity as tolerated IMPRESSIONS: 1. Acute on chronic combined respiratory failure Patient much improved on nasal cannula oxygen following thoracentesis. Repeat chest x-ray showing significant worsening in fluid. This may be secondary to body position, but patient had a significant effusion previously. Patient's oxygenation has remained stable, wean oxygen supplementation to keep saturations 88-92% to prevent paradoxical CO2 retention as patient did have evidence on his BMP of chronic CO2 retention. Did stress to the patient that BiPAP rescue can be used, especially with sleep to help with overall condition. He does feel better after using BiPAP. A repeat thoracentesis performed today with an additional 1850 mL removed. Feels his breathing has improved after thoracentesis, he is on his baseline oxygen requirement of 4 L. 2. Recent pulmonary embolism Patient previously on Xarelto therapy. Patient has been bridged with heparin therapy while in the hospital. If patient were to be discharged on a 10 A inhibitor, would recommend Eliquis therapy as patient will likely require interventions with interruption in therapy. Will continue with heparin for now in anticipation for fluid accumulation and need for Pleurx catheter. 3. Exudative pleural effusion with lung mass Medical suspicion for malignant pleural effusion. Laboratory workup is consistent with an exudative effusion. Patient does have a history of lung mass with hilar adenopathy. Repeat thoracentesis 01/08 with cytology pending. Continue heparin drip secondary to risk of fluid reaccumulation and need for additional thoracentesis versus Pleurx catheter placement. Repeat cytology may be able to be used for molecular markers if cytology from original thoracentesis comes back positive. Continue with BiPAP therapy as needed. 4. Tobacco abuse/obesity/KAYLA Complicates care, management, recovery and prognosis. Last sleep study over 10 years ago, noncompliant due to issues with mask and lost to follow up. This note was generated with [employer] software. It may contain incorrect words, spelling, and punctuation that were not noted in checking the note before signing.
--- NOTE | 2018-01-08 11:05 | PN_ITS ---
Patient Problems: Active and Suspected Problems Pleural effusion (Acute) Acute on chronic respiratory failure with hypoxia and hypercapnia (Acute) Subjective: The patient was seen and examined. He denies any significant shortness of breath, chest pain, cough, or sputum production. He just returned from his repeat thoracentesis and there was approximately 1800 mL of fluid removed. Did discuss potential need for Pleurx catheter, and son were present. Objective: Recent lab and culture data reviewed. Reviewed post thoracentesis chest x-ray, no evidence of pneumothorax on my review but official read pending. Clinical Impression(s) from Imaging Studies Chest X-Ray 01/03/18 16:50 IMPRESSION: Total opacification of the right hemithorax which likely represents a combination of effusion and infiltrate. Electronically Signed: Parviz Waters, at 17:09 EDT Tel , Service support , Chest CTA 01/03/18 19:32 IMPRESSION: No evidence of pulmonary embolus. No evidence of thoracic aortic aneurysm or dissection. Large right pleural effusion which fills the right hemithorax. Total atelectasis of the right lung. The patient's known right-sided mass is not evaluated on this study due to the collapse of the right lung. No left-sided effusion or infiltrate. Fatty liver. Electronically Signed: Parviz Waters, at 20:51 EDT Tel , Service support , Thoracentesis Ultrasound 01/05/18 08:00 IMPRESSION: Ultrasound-guided right thoracentesis. Electronically Signed: Rivera Peña MD at 12:15 EDT Tel [phone], Service support , Chest X-Ray 01/05/18 11:26 IMPRESSION: No evidence of pneumothorax. The patient is status post right thoracentesis. Electronically Signed: Rivera Peña MD at 12:14 EDT Tel [phone], Service support , Chest X-Ray 01/06/18 07:18 IMPRESSION: Worsening large right effusion. Opacification of the right lung. Electronically Signed: Myriam Hernandes MD at 8:06 EDT Tel , Service support , - Physical Exam General: Alert, Oriented x3, Cooperative, No apparent distress, Well developed, Well nourished, - - No conversational dyspnea HEENT: Atraumatic, Normocephalic Oral: Moist Mucosa, No Gingival or Mucosal Lesions/ Ulcerations Neck: Supple, No Nodes, Trachea Midline Lungs: - - Diminished right posterior mid to base, no appreciable rhonchi, wheezes, or rales. Cardiovascular: Regular rate, Regular Rhythm, Normal S1, Normal S2 Abdomen: Bowel Sounds Present, Soft, Non Tender, Non-Distended, Obese Extremities: No cyanosis, Edema Skin: Rash Present - Bilateral upper and lower extremities, intermittent. No pruritus Musculoskeletal: No Tenderness to Palpation of Joints or Extremities Lymphatic: No Cervical, Supraclavicular, or Inguinal Adenopathy Neurological: Cranial nerves II-XII grossly intact, Neuro grossly intact, Motor Exam 5/5 strength throughout Psych/Mental Status: Alert and oriented to time, place, person, mood and affect Vital Signs Temp Pulse Resp BP Pulse Ox 97.7 F L 82 18 110/66 96 01/08/18 08:26 01/08/18 08:26 01/08/18 08:26 01/08/18 08:26 01/08/18 08:26 Oxygen Flow Rate (L/min) 3 Oxygen Delivery Method Bi-pap Weight: 293 lb 3.437 oz Body Mass Index (BMI) 41.4 Intake and Output for Last 24 Hours 01/06/18 01/07/18 01/08/18 23:59 23:59 23:59 Intake Total 821 / 821 2145 / 2145 135 / 135 Output Total 1000 / 1000 3225 / 3225 500 / 500 Balance -179 / -179 -1080 / -1080 -365 / -365 Microbiology Past 72 Hours 01/05/18 11:00 Gram Stain - Final Fluid - Thoracentesis Fluid Body Fluid Culture - Final No growth aerobically. Laboratory Tests Past 24 Hrs 01/07/18 01/07/18 01/08/18 10:18 18:25 00:18 PT INR APTT 50.8 H 63.0 H 58.1 H 01/08/18 01/08/18 06:25 06:25 PT 13.2 INR 1.0 APTT 33.7 Medical Necessity - Tobacco Use Smoking Status: Former smoker Tobacco Use: Cigarettes Assessment/Plan All Active Problems Pleural effusion (Acute) Acute on chronic respiratory failure with hypoxia and hypercapnia (Acute) Pulmonary embolism (Resolved) RECOMMENDATIONS: 1. Continue BiPAP support only as needed 2. Wean oxygen as tolerated 3. Resume heparin drip for now 4. Await cytology from thoracentesis 5. Consider Pleurx catheter placement if fluid re-accumulates 6. Increase activity as tolerated IMPRESSIONS: 1. Acute on chronic combined respiratory failure Patient much improved on nasal cannula oxygen following thoracentesis. Repeat chest x-ray showing significant worsening in fluid. This may be secondary to body position, but patient had a significant effusion previously. Patient's oxygenation has remained stable, wean oxygen supplementation to keep saturations 88-92% to prevent paradoxical CO2 retention as patient did have evidence on his BMP of chronic CO2 retention. Did stress to the patient that BiPAP rescue can be used, especially with sleep to help with overall condition. He does feel better after using BiPAP. A repeat thoracentesis performed today with an additional 1850 mL removed. Feels his breathing has improved after thoracentesis, he is on his baseline oxygen requirement of 4 L. 2. Recent pulmonary embolism Patient previously on Xarelto therapy. Patient has been bridged with heparin therapy while in the hospital. If patient were to be discharged on a 10 A inhibitor, would recommend Eliquis therapy as patient will likely require interventions with interruption in therapy. Will continue with heparin for now in anticipation for fluid accumulation and need for Pleurx catheter. 3. Exudative pleural effusion with lung mass Medical suspicion for malignant pleural effusion. Laboratory workup is consistent with an exudative effusion. Patient does have a history of lung mass with hilar adenopathy. Repeat thoracentesis 01/08 with cytology pending. Continue heparin drip secondary to risk of fluid reaccumulation and need for additional thoracentesis versus Pleurx catheter placement. Repeat cytology may be able to be used for molecular markers if cytology from original thoracentesis comes back positive. Continue with BiPAP therapy as needed. 4. Tobacco abuse/obesity/KAYLA Complicates care, management, recovery and prognosis. Last sleep study over 10 years ago, noncompliant due to issues with mask and lost to follow up. This note was generated with [employer] software. It may contain incorrect words, spelling, and punctuation that were not noted in checking the note before signing.
--- NOTE | 2018-01-08 11:09 | CASEMGMT ---
This RN CM received a message from morales Garcia's RN CM at [facility] and she left her contact number for any assistance with discharge planning. Vanna MCBRIDE CM
[2018-01-08 11:42] LABS: Partial Thromboplast Time 32.6 Seconds (24.1-36.2)
[2018-01-08] MEDS: Heparin Injection (Vial) 5,000 UNIT/ML VIAL SC (11:50)
--- NOTE | 2018-01-08 12:46 | CHAPLAIN ---
Type of Pastoral Visit ___ Initial Visit _x__ Follow-up Visit ___ On-call Visit ___ General Patient Visit ___ Spiritual Assessment ___ Family Conference ___ Bereavement ___ Rapid Response ___ Code Blue ___ Other (describe below) Pastoral Care Referral From _x__ Patient ___ Family ___ Nurse ___ Physician ___ Cigar Head Puncher ___ Associate Professor Of Psychology ___ Other (describe below) Sacrament/Intervention _x__ Active listening ___ Anointing ___ Restorationist ___ Bereavement ___ Communion ___ Brandee exploration ___ ___ Life review ___ Prayer ___ Reconciliation ___ Sacrament of Sick _x__ Supportive presence ___ Wedding ___ Other (describe below) Pastoral Comments
[2018-01-08] MEDS: Ipratropium/Albuterol Sulfate 3 ML AMPUL.NEB INHALATION ×2 (14:10→20:56)
[2018-01-08] MEDS: Acetaminophen/Codeine #3 Tablet 1 TABLET PO (14:58)
--- NOTE | 2018-01-08 15:20 | PN_ITS ---
<Ludin Stephenson - Last Filed: 01/08/18 15:14> Patient Problems: Active and Suspected Problems Pleural effusion (Acute) Acute on chronic respiratory failure with hypoxia and hypercapnia (Acute) Subjective: Patient seen and examined status post thoracentesis, has had some relief of shortness of breath after about 1800 cc of fluid removed. Denies fevers or chills. Has a nonproductive cough. No swelling of his lower extremities. No chest pain or pain with deep inspiration. Still waiting for pathology report. - Physical Exam General: Alert, Oriented x3, Cooperative HEENT: Atraumatic, PERRLA, EOMI, Normocephalic Neck: Supple, No JVD, Negative Carotid Bruits Lungs: Diminished Cardiovascular: Regular rate, No murmurs Abdomen: Bowel Sounds Present, Soft, Non Tender, Obese Extremities: No edema, Capillary Refill Less than 3 Seconds Skin: No rashes, No breakdown Musculoskeletal: No Tenderness to Palpation of Joints or Extremities Neurological: Cranial nerves II-XII grossly intact Psych/Mental Status: Normal Affect, Appropriate, Alert and oriented to time, place, person, mood and affect Vital Signs Temp Pulse Resp BP Pulse Ox 97.7 F L 83 18 101/51 L 95 01/08/18 08:26 01/08/18 11:06 01/08/18 09:45 01/08/18 09:45 01/08/18 09:45 Oxygen Flow Rate (L/min) 4 Oxygen Delivery Method Nasal Cannula Weight: 133 kg Body Mass Index (BMI) 41.4 Intake and Output for Last 24 Hours 01/06/18 01/07/18 01/08/18 23:59 23:59 23:59 Intake Total 821 / 821 2145 / 2145 648.9 / 648.9 Output Total 1000 / 1000 3225 / 3225 500 / 500 Balance -179 / -179 -1080 / -1080 148.9 / 148.9 Microbiology Past 72 Hours 01/05/18 11:00 Gram Stain - Final Fluid - Thoracentesis Fluid Body Fluid Culture - Final No growth aerobically. Anaerobic Culture - Preliminary No growth in 48 hours. Laboratory Tests Past 24 Hrs 01/07/18 01/08/18 01/08/18 18:25 00:18 06:25 PT INR APTT 63.0 H 58.1 H 33.7 01/08/18 01/08/18 06:25 11:20 PT 13.2 INR 1.0 APTT 32.6 Medical Necessity - Tobacco Use Smoking Status: Former smoker Tobacco Use: Cigarettes Assessment/Plan All Active Problems Pleural effusion (Acute) Acute on chronic respiratory failure with hypoxia and hypercapnia (Acute) Pulmonary embolism (Resolved) 1. Acute on chronic hypercapnic and hypoxic respiratory failure secondary to right exudative pleural effusion - recurrent, recent diagnosis of PE-status post second thoracentesis today 1800 cc removed waiting for pathology report. Patient may need Pleurx catheter. Shortness of breath is stable at this point. Before his initial diagnosis he was not on oxygen, since then he has been on home oxygen. CT was done at admission showed no PE or dissection. He will remain on heparin as there may need further thoracentesis or Pleurx catheter placement. He was on Xarelto for his recent PE diagnosis prior to this presentation. Fluid cultures are negative to date. -Concern is for malignancy, he is a prior smoker and has a right hilar mass and mediastinal lymphadenopathy mass. There are prior discussions about having an outpatient EGBUS however this is not been done yet. 2. Tobacco abuse-patch 3. Morbidly obese DVT prophylaxis: Heparin drip This patient was seen by Ludin Stephenson PA-C under the supervision of Doctor Nnamdi. <Feliz Coto - Last Filed: 01/08/18 16:21> Subjective: The patient is feeling much better after 1800 thoracocentesis. Had similar amount of thoracocentesis about 3 days ago - Physical Exam Lungs: No rhonchi, No wheeze, Diminished - In the right posterior half Cardiovascular: Normal S1, Normal S2 Vital Signs Temp Pulse Resp BP Pulse Ox 98.2 F 88 16 118/68 92 01/08/18 13:30 01/08/18 15:10 01/08/18 15:10 01/08/18 13:30 01/08/18 15:10 Oxygen Flow Rate (L/min) 3 Oxygen Delivery Method Nasal Cannula Weight: 293 lb 3.437 oz Body Mass Index (BMI) 41.4 Intake and Output for Last 24 Hours 01/06/18 01/07/18 01/08/18 23:59 23:59 23:59 Intake Total 821 / 821 2145 / 2145 648.9 / 648.9 Output Total 1000 / 1000 3225 / 3225 500 / 500 Balance -179 / -179 -1080 / -1080 148.9 / 148.9 Microbiology Past 72 Hours 01/05/18 11:00 Gram Stain - Final Fluid - Thoracentesis Fluid Body Fluid Culture - Final No growth aerobically. Anaerobic Culture - Preliminary No growth in 48 hours. Laboratory Tests Past 24 Hrs 01/07/18 01/08/18 01/08/18 18:25 00:18 06:25 PT INR APTT 63.0 H 58.1 H 33.7 01/08/18 01/08/18 06:25 11:20 PT 13.2 INR 1.0 APTT 32.6 Assessment/Plan This patient was seen in conjunction with Ludin VALVERDE. I have independently interviewed and examined the patient and reviewed pertinent history, examination findings, laboratory and plan of management. I have reviewed the note and agree with the documented findings with the few additional points. In brief, patient is admitted for acute on chronic combined respiratory failure secondary to right, recurrent exudative pleural effusion with suspicion of lung mass/malignancy. Cytology of pleural fluid is pending. Pleural fluid culture is negative. Patient was chronic smoker and he quit his smoking about 15 years ago. Pulmonary consult reviewed. I have discussed my assessment with Ludin VALVERDE and orders have been reviewed. Microbiology Past 72 Hours 01/05/18 11:00 Fluid - Thoracentesis Fluid Gram Stain - Final 01/05/18 11:00 Fluid - Thoracentesis Fluid Body Fluid Culture - Final No growth aerobically. 01/05/18 11:00 Fluid - Thoracentesis Fluid Anaerobic Culture - Preliminary No growth in 48 hours. Laboratory Results 01/07/18 18:25: APTT 63.0 H 01/08/18 00:18: APTT 58.1 H 01/08/18 06:25: APTT 33.7 01/08/18 06:25: PT 13.2, INR 1.0 01/08/18 11:20: APTT 32.6 Clinical Impression(s) from Imaging Studies Chest CTA 01/03/18 19:32 IMPRESSION: No evidence of pulmonary embolus. No evidence of thoracic aortic aneurysm or dissection. Large right pleural effusion which fills the right hemithorax. Total atelectasis of the right lung. The patient's known right-sided mass is not evaluated on this study due to the collapse of the right lung. No left-sided effusion or infiltrate. Fatty liver. Thoracentesis Ultrasound 01/07/18 05:39 IMPRESSION: Ultrasound-guided right thoracentesis. Chest X-Ray 01/08/18 10:06 IMPRESSION: Status post right thoracentesis. There is no evidence of pneumothorax. Complete opacification of the right lung with a shift of the heart and mediastinal structures towards the right side of the midline. Obstruction of the right mainstem bronchus should be ruled out. Code Visit Inpatient E&M: [id number] [facility] Hosp L3
[2018-01-08 17:49] LABS: Partial Thromboplast Time 60.1 Seconds (24.1-36.2)
[2018-01-08 23:53] LABS: Partial Thromboplast Time 73.4 Seconds (24.1-36.2)
[2018-01-09] VITALS (16 sets, daily range): BP systolic 104–136; BP diastolic 56–95; PULSE 73–122; RESP 10–29; TEMP 36.5–36.8; O2SAT 91–97
[2018-01-09 06:19] LABS: Absolute Lymphocyte Count 1.05 X10^3/ul (0.83-4.51); Absolute Neutrophil Count 4.1 X10^3/uL (2.0-7.7); Basophil# 0.03 X10^3/uL; Basophil% 0.5 % (0-1); Eosinophil# 0.44 X10^3/uL; Hemoglobin 11.4 g/dl (13.0-16.5); Lymphocyte # 1.05 X10^3/ul (4.0); Lymphocyte % 16.6 % (19-41); Mean Corp Hgb Conc 32.6 g/gl (32-36); Mean Corpuscular Hgb 29.5 pg (27.0-32.0); Mean Corpuscular Volume 90.7 fL (80-94); Mean Platelet Vol. 9.2 fl (6.2-12.0); Monocyte# 0.61 X10^3/uL; Monocyte% 9.7 % (0-10); Neutrophil # 4.14 X10^3/uL (2.7-7.7); Neutrophil % 65.4 % (47-70); POSITIVE COUNT NO; POSITIVE DIFFERENTIAL NO; POSITIVE MORPHOLOGY NO; Platelet Count 244 K/mm3 (150-450); RBC Distribution Width CV 13.8 % (11.6-14.6); RBC Distribution Width SD 44.8 fl (35.1-43.9); Red Blood Count 3.86 M/mm3 (4.6-6.2); White Blood Count 6.3 K/mm3 (4.4-11.0)
[2018-01-09 06:36] LABS: Partial Thromboplast Time 71.7 Seconds (24.1-36.2)
[2018-01-09] MEDS: ALPRAZolam 0.5 MG Tablet PO ×3 (07:30→21:17)
--- NOTE | 2018-01-09 08:25 | PN_ITS ---
Patient Problems: Active and Suspected Problems Pleural effusion (Acute) Acute on chronic respiratory failure with hypoxia and hypercapnia (Acute) Subjective: Patient was seen and examined. He is sitting up in bed in no acute distress. Reports worsening in his breathing today, has more pain in the right posterior chest with deep inspiration. Feels congested. Coarse cough with no significant sputum production. Denies any fever or chills. Objective: Recent lab and culture data reviewed. Gram stain and culture from thoracentesis fluid on 01/05/18 was negative. Chest x-ray 01/08/18 status post right thoracentesis showed no evidence of pneumothorax. There is complete opacification of the right lung with shift of the heart and mediastinal structures towards the right side of the midline. Obstruction of right mainstem bronchus should be ruled out. - Physical Exam General: Alert, Oriented x3, Cooperative, No apparent distress, - - No conversational dyspnea HEENT: Atraumatic, Normocephalic Oral: Moist Mucosa, No Gingival or Mucosal Lesions/ Ulcerations Neck: Supple, No Nodes, Trachea Midline Lungs: No rhonchi, No wheeze, No rales, - - severely diminished R>L. no crepitus to R thora site Cardiovascular: Regular rate, Regular Rhythm, Normal S1, Normal S2, No murmurs, No rub noted, No Gallop Abdomen: Bowel Sounds Present, Soft, Non Tender, Obese Extremities: No cyanosis, No Calf Tenderness, Edema Skin: - - rash improved, no pruritis Musculoskeletal: No Tenderness to Palpation of Joints or Extremities Lymphatic: No Cervical, Supraclavicular, or Inguinal Adenopathy Neurological: Neuro grossly intact Psych/Mental Status: Alert and oriented to time, place, person, mood and affect Vital Signs Temp Pulse Resp BP Pulse Ox 97.7 F L 75 20 H 121/56 H 97 01/09/18 02:25 01/09/18 02:56 01/09/18 05:39 01/09/18 02:25 01/09/18 02:25 Oxygen Flow Rate (L/min) 3 Oxygen Delivery Method Bi-pap Weight: 284 lb 6.341 oz Body Mass Index (BMI) 41.4 Intake and Output for Last 24 Hours 01/07/18 01/08/18 01/09/18 23:59 23:59 23:59 Intake Total 2145 / 2145 1133.9 / 1133.9 574 / 574 Output Total 3225 / 3225 975 / 975 1850 / 1850 Balance -1080 / -1080 158.9 / 158.9 -1276 / -1276 Microbiology Past 72 Hours 01/05/18 11:00 Gram Stain - Final Fluid - Thoracentesis Fluid Body Fluid Culture - Final No growth aerobically. Anaerobic Culture - Preliminary No growth in 48 hours. Laboratory Tests Past 24 Hrs 01/08/18 01/08/18 01/08/18 11:20 17:12 23:27 WBC RBC Hgb Hct MCV MCH MCHC RDW RDW Differential Plt Count MPV Immature Gran % (Auto) Neut % (Auto) Lymph % (Auto) [place] % (Auto) Eos % (Auto) Baso % (Auto) Absolute Neuts (auto) Absolute Lymphs (auto) Total Counted APTT 32.6 60.1 H 73.4 H 01/09/18 01/09/18 05:55 05:55 WBC 6.3 RBC 3.86 L Hgb 11.4 L Hct 35.0 L MCV 90.7 MCH 29.5 MCHC 32.6 RDW 13.8 RDW Differential 44.8 H Plt Count 244 MPV 9.2 Immature Gran % (Auto) 0.800 Neut % (Auto) 65.4 Lymph % (Auto) 16.6 L [place] % (Auto) 9.7 Eos % (Auto) 7.0 H Baso % (Auto) 0.5 Absolute Neuts (auto) 4.1 Absolute Lymphs (auto) 1.05 Total Counted Not Reportable APTT 71.7 H Medical Necessity - Tobacco Use Smoking Status: Former smoker Tobacco Use: Cigarettes Assessment/Plan All Active Problems Pleural effusion (Acute) Acute on chronic respiratory failure with hypoxia and hypercapnia (Acute) Pulmonary embolism (Resolved) RECOMMENDATIONS: 1. Continue BiPAP support only as needed 2. Wean oxygen as tolerated 3. Continue heparin drip for now 4. Await cytology from thoracentesis 01/08 5. Repeat chest x-ray today 6. Consider Pleurx catheter placement if fluid re-accumulates 7. Increase activity as tolerated, continue PT/OT IMPRESSIONS: 1. Acute on chronic combined respiratory failure Patient much improved on nasal cannula oxygen following thoracentesis. Repeat chest x-ray showing significant worsening in fluid. This may be secondary to body position, but patient had a significant effusion previously. Patient's oxygenation has remained stable, wean oxygen supplementation to keep saturations 88-92% to prevent paradoxical CO2 retention as patient did have evidence on his BMP of chronic CO2 retention. Did stress to the patient that BiPAP rescue can be used, especially with sleep to help with overall condition. He does feel better after using BiPAP. A repeat thoracentesis 01/08 with an additional 1850 mL removed. Will repeat CXR today, patient again more short of breath. Patient does have likely obstruction of R mainstem bronchus. 2. Recent pulmonary embolism Patient previously on Xarelto therapy. Patient has been bridged with heparin therapy while in the hospital. If patient were to be discharged on a 10 A inhibitor, would recommend Eliquis therapy as patient will likely require interventions with interruption in therapy. Will continue with heparin for now in anticipation for fluid accumulation and need for Pleurx catheter. 3. Exudative pleural effusion with lung mass Medical suspicion for malignant pleural effusion. Laboratory workup is consistent with an exudative effusion. Patient does have a history of lung mass with hilar adenopathy. Repeat thoracentesis 01/08. Continue heparin drip secondary to risk of fluid reaccumulation and potential need for additional thoracentesis versus Pleurx catheter placement. Repeat cytology may be able to be used for molecular markers if cytology from original thoracentesis comes back positive. Cytology from 01/05 and 01/08 pending, called lab and should have results later today. Continue with BiPAP therapy as needed. 4. Tobacco abuse/obesity/KAYLA Complicates care, management, recovery and prognosis. Last sleep study over 10 years ago, noncompliant due to issues with mask and lost to follow up. This note was generated with [employer] software. It may contain incorrect words, spelling, and punctuation that were not noted in checking the note before signing.
[2018-01-09] MEDS: Acetaminophen 325 MG Tablet 650 MG PO ×2 (08:40→21:15)
--- NOTE | 2018-01-09 09:10 | RAD_ITS ---
STUDY: X-RAY CHEST REASON FOR EXAM: Male, 62 years old. Dyspnea and shortness of breath. History of pleural effusion. TECHNIQUE: AP and lateral views of the chest. COMPARISON: Comparison is made with prior study dated January 09, 2000. FINDINGS: EKG electrodes are seen. Once again, there is complete opacification of the right hemithorax. This may represent a combination of pleural effusion and the volume loss in the right lung. There appears to be abrupt cut off of the right mainstem bronchus. Bronchoscopy is recommended for further evaluation. Stable appearance of the left lung. Normal size heart. Normal mediastinum and radha. Normal visualized pulmonary arteries. There is atherosclerotic tortuosity of the aortic arch and descending thoracic aorta. There are diffuse degenerative changes of the visualized thoracic spine. Normal visualized ribs, clavicles, and shoulders. There is no demonstrated abnormality of the visualized soft tissue structures of the upper abdomen. RAD/Chest PA and Lateral IMPRESSION: Stable examination. Complete opacification of the right hemithorax. Bronchoscopy is recommended to rule out right bronchial obstruction. Electronically Signed: Rivera Peña MD at 10:43 EDT Tel [phone], Service support ,
--- NOTE | 2018-01-09 13:44 | PN_ITS ---
<Ludin Stephenson - Last Filed: 01/09/18 13:39> Patient Problems: Active and Suspected Problems Pleural effusion (Acute) Acute on chronic respiratory failure with hypoxia and hypercapnia (Acute) Subjective: Pt has had increased dyspnea this AM and feels his right lung is restricted again. He has no fevers or chills. His all over maculopapular rash was fluctuant last night. It is not different today. His codeine was discontinued. He feels warm, but has no itching. - Physical Exam General: Alert, Oriented x3, Cooperative HEENT: Atraumatic, PERRLA, EOMI, Normocephalic Neck: Supple, No JVD, Negative Carotid Bruits Lungs: Diminished - R lung diminished. Cardiovascular: Regular rate, No murmurs Abdomen: Bowel Sounds Present, Soft, Non Tender Extremities: No edema, Capillary Refill Less than 3 Seconds Skin: Rash Present - diffuse whole body maculopapular rash. No petechiae present. Does not appear exoriated. Upper and low extremities, torso, back., - Musculoskeletal: No Tenderness to Palpation of Joints or Extremities Neurological: Cranial nerves II-XII grossly intact Psych/Mental Status: Normal Affect, Appropriate, Alert and oriented to time, place, person, mood and affect Vital Signs Temp Pulse Resp BP Pulse Ox 97.9 F 86 20 H 104/56 L 95 01/09/18 08:25 01/09/18 11:11 01/09/18 08:25 01/09/18 08:25 01/09/18 09:01 Oxygen Flow Rate (L/min) 3 Oxygen Delivery Method Nasal Cannula Weight: 129 kg Body Mass Index (BMI) 41.4 Intake and Output for Last 24 Hours 01/07/18 01/08/18 01/09/18 23:59 23:59 23:59 Intake Total 2145 / 2145 1133.9 / 1133.9 1102 / 1102 Output Total 3225 / 3225 975 / 975 2250 / 2250 Balance -1080 / -1080 158.9 / 158.9 -1148 / -1148 Microbiology Past 72 Hours 01/05/18 11:00 Gram Stain - Final Fluid - Thoracentesis Fluid Body Fluid Culture - Final No growth aerobically. Anaerobic Culture - Preliminary No growth in 48 hours. Laboratory Tests Past 24 Hrs 01/08/18 01/08/18 01/09/18 17:12 23:27 05:55 WBC 6.3 RBC 3.86 L Hgb 11.4 L Hct 35.0 L MCV 90.7 MCH 29.5 MCHC 32.6 RDW 13.8 RDW Differential 44.8 H Plt Count 244 MPV 9.2 Immature Gran % (Auto) 0.800 Neut % (Auto) 65.4 Lymph % (Auto) 16.6 L [place] % (Auto) 9.7 Eos % (Auto) 7.0 H Baso % (Auto) 0.5 Absolute Neuts (auto) 4.1 Absolute Lymphs (auto) 1.05 Total Counted Not Reportable APTT 60.1 H 73.4 H 01/09/18 05:55 WBC RBC Hgb Hct MCV MCH MCHC RDW RDW Differential Plt Count MPV Immature Gran % (Auto) Neut % (Auto) Lymph % (Auto) [place] % (Auto) Eos % (Auto) Baso % (Auto) Absolute Neuts (auto) Absolute Lymphs (auto) Total Counted APTT 71.7 H Medical Necessity - Tobacco Use Smoking Status: Former smoker Tobacco Use: Cigarettes Assessment/Plan All Active Problems Pleural effusion (Acute) Acute on chronic respiratory failure with hypoxia and hypercapnia (Acute) Pulmonary embolism (Resolved) 1. Acute on chronic hypercapnic and hypoxic respiratory failure secondary to right exudative pleural effusion - recurrent, recent diagnosis of PE-status post second thoracentesis 1800 cc removed waiting for pathology report. Patient may need Pleurx catheter. Shortness of breath is worse today and he may be reaccumulating fluid. Before his initial diagnosis he was not on oxygen , since then he has been on home oxygen. CTA was done at admission showed no PE or dissection. He will remain on heparin as there may need further thoracentesis or Pleurx catheter placement. He was on Xarelto for his recent PE diagnosis prior to this presentation. Fluid cultures are negative to date. -Concern is for malignancy, he is a prior smoker and has a right hilar mass and mediastinal lymphadenopathy mass. There are prior discussions about having an outpatient EGBUS however this is not been done yet. -repeat CXR is stable. 2. Tobacco abuse-patch 3. Morbidly obese 4. Rash - stopped codeine, prn vistaril. trend. May have been related to zosyn at admission. DVT prophylaxis: Heparin drip This patient was seen by Ludin Stephenson PA-C under the supervision of Doctor Nnamdi. <Feliz Coto - Last Filed: 01/09/18 14:43> Subjective: Seen and examined. Agree with above note the patient is more dyspneic, short of breath as compared to yesterday after thoracocentesis. He also has transient and fluctuant maculopapular rash with no itching probably heat rash or codeine - Physical Exam Lungs: No rhonchi, No wheeze, No rales, Diminished - R lung diminished. There is diminished air entry on the right side Cardiovascular: Regular rate, No murmurs Skin: Rash Present Vital Signs Temp Pulse Resp BP Pulse Ox 97.9 F 86 20 H 104/56 L 95 01/09/18 08:25 01/09/18 11:11 01/09/18 08:25 01/09/18 08:25 01/09/18 09:01 Oxygen Flow Rate (L/min) 3 Oxygen Delivery Method Nasal Cannula Weight: 284 lb 6.341 oz Body Mass Index (BMI) 41.4 Intake and Output for Last 24 Hours 01/07/18 01/08/18 01/09/18 23:59 23:59 23:59 Intake Total 2145 / 2145 1133.9 / 1133.9 1102 / 1102 Output Total 3225 / 3225 975 / 975 2250 / 2250 Balance -1080 / -1080 158.9 / 158.9 -1148 / -1148 Microbiology Past 72 Hours 01/05/18 11:00 Gram Stain - Final Fluid - Thoracentesis Fluid Body Fluid Culture - Final No growth aerobically. Anaerobic Culture - Preliminary No growth in 48 hours. Laboratory Tests Past 24 Hrs 01/05/18 01/05/18 01/08/18 11:00 11:00 17:12 WBC RBC Hgb Hct MCV MCH MCHC RDW RDW Differential Plt Count MPV Immature Gran % (Auto) Neut % (Auto) Lymph % (Auto) [place] % (Auto) Eos % (Auto) Baso % (Auto) Absolute Neuts (auto) Absolute Lymphs (auto) Total Counted APTT 60.1 H Fl Pathologist Comment Reviewed Miscellaneous Cytology SEE PATHOLOGY REPORT 01/08/18 01/09/18 01/09/18 23:27 05:55 05:55 WBC 6.3 RBC 3.86 L Hgb 11.4 L Hct 35.0 L MCV 90.7 MCH 29.5 MCHC 32.6 RDW 13.8 RDW Differential 44.8 H Plt Count 244 MPV 9.2 Immature Gran % (Auto) 0.800 Neut % (Auto) 65.4 Lymph % (Auto) 16.6 L [place] % (Auto) 9.7 Eos % (Auto) 7.0 H Baso % (Auto) 0.5 Absolute Neuts (auto) 4.1 Absolute Lymphs (auto) 1.05 Total Counted Not Reportable APTT 73.4 H 71.7 H Fl Pathologist Comment Miscellaneous Cytology Assessment/Plan This patient was seen in conjunction with Ludin VALVERDE. I have independently interviewed and examined the patient and reviewed pertinent history, examination findings, laboratory and plan of management. I have reviewed the note and agree with the documented findings with the few additional points. In brief, patient is admitted for acute on chronic combined respiratory failure secondary to right, recurrent exudative pleural effusion with suspicion of lung mass/malignancy. Patient had initial thoracocentesis on 01/05/2018 and then 2017. Fluid cytology from 01/05/2018 reported as malignant cells present; immunohistochemistry supports non-small cell carcinoma favoring adenocarcinoma. Fluid cytology from 01/2018 also reported as few malignant cells present consistent with non-small cell carcinoma. Pleural fluid culture is negative. Patient was chronic smoker and he quit his smoking about [address] Cooper is consulted to consider Pleurx catheter and oncologist consulted for stage IV NSCLC possible adenocarcinoma. I have discussed my assessment with Ludin VALVERDE and orders have been reviewed. Code Visit Inpatient E&M: 95664 Subs Hosp L3
[2018-01-09 14:04] LABS: Pathologist Comment/Body Fluid Reviewed
--- NOTE | 2018-01-09 14:20 | NURSING ---
pt not wanting to be bothered at this time - will obtain vitals later
--- NOTE | 2018-01-09 15:00 | CON.PCM_ITS ---
Problem List (1) Non-small cell cancer of right lung Status: Acute (2) Pleural effusion Status: Acute Reason for Consult Date of Consultation: 01/09/18 Reason for Consultation: Recurrent right pleural effusion History of Present Illness: The patient is a 62 year old M who was admitted with shortness of breath. He was recently found to have PE last month and subsequently was found to have right pleural effusion. This was tapped twice in the last week for over 2 L each and there were malignant cells found. There is suggestion of non-small cell lung carcinoma on the right side. The patient does have shortness of breath and difficulty breathing which is relieved when he has a thoracentesis performed. Past Medical History Past Medical History (Chronic Problems): Chronic Problems UTI (urinary tract infection) (Chronic) Elevated liver enzymes (Chronic) Obesity (Chronic) Allergies Penicillins Allergy (Verified 02/19/16 08:41) Itching piperacillin [From Zosyn] Allergy (Verified 01/04/18 10:25) Rash tazobactam [From Zosyn] Allergy (Verified 01/04/18 10:25) Rash clindamycin Adverse Reaction (Verified 01/03/18 19:11) Diarrhea Home Medications: Ambulatory Orders Medication Instructions Recorded Acetaminophen/Codeine #3 1 tablet PO Q6H PRN PRN 01/03/18 [Tylenol#3] Albuterol IH (ProAir) [Proair Hfa] 1 - 2 puff INHALATION Q4H PRN 01/03/18 Rivaroxaban [Xarelto] 15 mg PO BID 01/03/18 Surgical History: arthroscopy, knee Smoking Status: Former smoker Tobacco Use: Cigarettes - *Family History Paternal History Items: Cancer Sibling History Items: Cancer - Sister likely had colon cancer with metastasis to her liver Review of Systems Constitutional: Denies: Anorexia, Chills, Fever HEENT: Denies: Difficulty Swallowing Cardiovascular: Denies: Chest Pain, Heaviness Respiratory: Reports: Shortness of Breath Gastrointestinal: Denies: Abdominal Pain, Nausea, Melena, Vomiting Genitourinary: Denies: Dysuria Musculoskeletal: Denies: Joint Tenderness Skin: Denies: Jaundice Neurological: Denies: Balance problems Psychiatric: Denies: Anxiety Hematologic/ Lymphatic: Reports: Hx of blood clot Patient Problems: Active and Suspected Problems Non-small cell cancer of right lung (Acute) Pleural effusion (Acute) Acute on chronic respiratory failure with hypoxia and hypercapnia (Acute) - Physical Exam General: Alert, Oriented x3, Cooperative, No apparent distress HEENT: Atraumatic, PERRLA, EOMI Oral: Moist Mucosa Neck: No JVD Lungs: Short of Breath, - - Dullness to percussion on the right side with no breath sounds Cardiovascular: Regular rate, Regular Rhythm Abdomen: Soft, Non Tender, Non-Distended Extremities: No clubbing Skin: No rashes Musculoskeletal: No Tenderness to Palpation of Joints or Extremities Neurological: Cranial nerves II-XII grossly intact Psych/Mental Status: Normal Affect Vital Signs Temp Pulse Resp BP Pulse Ox 97.9 F 86 20 H 104/56 L 95 01/09/18 08:25 01/09/18 11:11 01/09/18 08:25 01/09/18 08:25 01/09/18 09:01 Oxygen Flow Rate (L/min) 3 Oxygen Delivery Method Nasal Cannula Weight: 284 lb 6.341 oz Body Mass Index (BMI) 41.4 Intake and Output for Last 24 Hours 01/07/18 01/08/18 01/09/18 23:59 23:59 23:59 Intake Total 2145 / 2145 1133.9 / 1133.9 1102 / 1102 Output Total 3225 / 3225 975 / 975 2250 / 2250 Balance -1080 / -1080 158.9 / 158.9 -1148 / -1148 Microbiology Past 72 Hours 01/05/18 11:00 Gram Stain - Final Fluid - Thoracentesis Fluid Body Fluid Culture - Final No growth aerobically. Anaerobic Culture - Preliminary No growth in 48 hours. Laboratory Tests Past 24 Hrs 01/05/18 01/05/18 01/08/18 11:00 11:00 17:12 WBC RBC Hgb Hct MCV MCH MCHC RDW RDW Differential Plt Count MPV Immature Gran % (Auto) Neut % (Auto) Lymph % (Auto) [place] % (Auto) Eos % (Auto) Baso % (Auto) Absolute Neuts (auto) Absolute Lymphs (auto) Total Counted APTT 60.1 H Fl Pathologist Comment Reviewed Miscellaneous Cytology SEE PATHOLOGY REPORT 01/08/18 01/09/18 01/09/18 23:27 05:55 05:55 WBC 6.3 RBC 3.86 L Hgb 11.4 L Hct 35.0 L MCV 90.7 MCH 29.5 MCHC 32.6 RDW 13.8 RDW Differential 44.8 H Plt Count 244 MPV 9.2 Immature Gran % (Auto) 0.800 Neut % (Auto) 65.4 Lymph % (Auto) 16.6 L [place] % (Auto) 9.7 Eos % (Auto) 7.0 H Baso % (Auto) 0.5 Absolute Neuts (auto) 4.1 Absolute Lymphs (auto) 1.05 Total Counted Not Reportable APTT 73.4 H 71.7 H Fl Pathologist Comment Miscellaneous Cytology Clinical Impression(s) from Imaging Studies Chest X-Ray 01/03/18 16:50 IMPRESSION: Total opacification of the right hemithorax which likely represents a combination of effusion and infiltrate. Electronically Signed: Parviz Waters, at 17:09 EDT Tel , Service support , Chest CTA 01/03/18 19:32 IMPRESSION: No evidence of pulmonary embolus. No evidence of thoracic aortic aneurysm or dissection. Large right pleural effusion which fills the right hemithorax. Total atelectasis of the right lung. The patient's known right-sided mass is not evaluated on this study due to the collapse of the right lung. No left-sided effusion or infiltrate. Fatty liver. Electronically Signed: Parviz Waters, at 20:51 EDT Tel , Service support , Thoracentesis Ultrasound 01/05/18 08:00 IMPRESSION: Ultrasound-guided right thoracentesis. Electronically Signed: Rivera Peña MD at 12:15 EDT Tel [phone], Service support , Chest X-Ray 01/05/18 11:26 IMPRESSION: No evidence of pneumothorax. The patient is status post right thoracentesis. Electronically Signed: Rivera Peña MD at 12:14 EDT Tel [phone], Service support , Chest X-Ray 01/06/18 07:18 IMPRESSION: Worsening large right effusion. Opacification of the right lung. Electronically Signed: Myriam Hernandes MD at 8:06 EDT Tel , Service support , Thoracentesis Ultrasound 01/07/18 05:39 IMPRESSION: Ultrasound-guided right thoracentesis. Electronically Signed: Rivera Peña MD at 12:03 EDT Tel [phone], Service support , Chest X-Ray 01/08/18 10:06 IMPRESSION: Status post right thoracentesis. There is no evidence of pneumothorax. Complete opacification of the right lung with a shift of the heart and mediastinal structures towards the right side of the midline. Obstruction of the right mainstem bronchus should be ruled out. Electronically Signed: Rivera Peña MD at 11:18 EDT Tel [phone], Service support , Chest X-Ray 01/09/18 09:10 IMPRESSION: Stable examination. Complete opacification of the right hemithorax. Bronchoscopy is recommended to rule out right bronchial obstruction. Electronically Signed: Rivera Peña MD at 10:43 EDT Tel [phone], Service support , Assessment/Plan All Active Problems Non-small cell cancer of right lung (Acute) Pleural effusion (Acute) Acute on chronic respiratory failure with hypoxia and hypercapnia (Acute) Pulmonary embolism (Resolved) 62-year-old male with non-small cell carcinoma of the right and recurrent pleural effusion 1. I reviewed the patient's x-rays and CT scan and discussed the case with Dr. Astudillo. I am unsure that tapping the right lung with a Pleurx catheter would reexpand the lung as even after his thoracentesis he does not have expansion of the lung. He does however have resolution of symptoms once thoracentesis is performed. 2. I discussed Pleurx catheter placement with the patient including the risks of bleeding, infection, lung injury. I also discussed that I would have to take him off of his heparin temporarily to perform the procedure. 3. Oncology has not seen the patient yet. I am unsure as to if they would like a Pleurx catheter placed or if they would rather start chemotherapy and try to tap the patient during his first 2 treatments until there is improvement of symptoms. I also discussed with the patient that they may want port placement at the same time for chemotherapy. I will do whatever oncology requests once they see the patient. If they would like me to place a Pleurx catheter and right chest port at the same time on I will do this for them. I would ask that the patient heparin be held 4 hours before the procedure and the plan would be to do this on afternoon. Rigoberto Cooper MD Pager: [facility] [address] [place] [address] [address] [place] [phone] Office:
[2018-01-09] MEDS: Ipratropium/Albuterol Sulfate 3 ML AMPUL.NEB INHALATION (15:30)
--- NOTE | 2018-01-09 15:44 | ONC.CONS.INP ---
Subjective Date of Service:: 01/09/18 Chief Complaint: Dyspnea/Pleural Effusion History of Present Illness: Mr. Chris Gomez is a very pleasant 62 year old man who was in his usual state of health until the beginning of December 2017 when he abruptly developed dyspnea while [place]. CTA obtained 12/16/17 revealed bilateral segmental pulmonary emboli, mediastinal lymphadenopathy and right hilar mass. Began Xarelto. In the process of evaluating right hilar mass, patient experienced worsening dyspnea, thus presented to [facility] ED on 01/03/18. CTA demonstrated total atelectasis of the right lung and right pleural effusion filling entire right hemithorax and subsequently, admitted for management of hypoxia. Has required thoracentesis x 2 during this admission. CXR 01/08/18 showed complete opacification of the right lung possibly indicative of obstruction of the right mainstem bronchus. Maintained on 5 L per NC. Patient reports dyspnea exertional only at this time. Denies nausea, imbalance but admits to new onset blurry vision bilaterally. Describes relatively active lifestyle and good support system at home by way of spouse and family. Past Medical History: Chronic Problems UTI (urinary tract infection) (Chronic) Elevated liver enzymes (Chronic) Obesity (Chronic) Past Medical/Surgical History: Past Medical History - Most Recent Inpatient Visit Past Medical History Start: 01/03/18 18:48 Text: Status: Complete Freq: ONCE Protocol: Document 01/03/18 19:15 [facility] [place] (Rec: 01/03/18 19:21 [facility] [place] [id number]) BMI Required to complete PMH What is Patient's BMI 41.4 Past Medical History Unable History Recalled No Query Text:Pt Unable/Family Not Present Neurologic Medical History Hx Stroke/TIA No Hx Dementia/Alzheimer's No Hx Parkinson's Disease No Hx Seizures No Hx Multiple Sclerosis No Hx Migraines No Cardiac Medical History VTE Present on Admission Yes Hx of Deep Vein Thrombosis/VTE/PE Yes Hx Hypertension No Hx Chest Pain/Angina Yes Hx Heart Attack No Hx Cardiac Surgery/Stents/Etc. No Hx Heart Failure No Hx Pacemaker/AICD No Hx Irregular Heartbeat and/or Afib No Hx Anticoagulant Therapy Yes: xarelto Query Text:(Coumadin, Aspirin, Plavix, Xarelto, etc.) Hx Pain in Legs when Walking/Leg Cramps No Respiratory Medical History Hx COPD No Hx Emphysema No Hx Smoking Yes: quit 2012 Smoking Status Former smoker Tobacco Use Cigarettes Hx Smoking Cessation Date 2012 Hx Tobacco Use in last 12 months Yes Sent to [facility] Yes Hx of Pipe Smoking No Hx of Cigar Smoking No Hx Sleep Apnea Yes CPAP No BIPAP Yes: DOES NOT USE-states it alsmost killed me STOP Results Positive Comments lung mass o2 at 5l since blood clot diagnosis GI Medical History Hx Ulcer No Hx Hepatitis No Hx Cirrhosis No Hx GI Bleed No Hx Unplanned Weight Loss No Genitourinary Medical History Indwelling Catheter in Place on Arrival/ No Admission Hx Renal Disease No Hx Dialysis No Musculoskeletal History Hx Arthritis Yes: left knee Hx Rheumatoid Arthritis No Endocrine Medical History Hx Diabetes No Hx Thyroid Disease No Hematologic Medical History Hx of Blood Transfusion No Hx of Transfusion in last 3 Months No Ever experience any problems with No transfusion(s)? Hx of Preganancy in last 3 Months N/A Nurse Filling Out Transfusion & SGESSEL Questions: Date: 01/03/18 Time: 19:19 Psycho/Social Medical History Hx Depression No Hx Anxiety No Hx Behavior Disorder No Hx Alcohol Use No Hx Substance Use No Other Medical History Hx Blood Disorders No Hx Anemia No Hx Cancer No Hx Drug Resistant Organism No Wound/Pressure Injury Present on Arrival No: to be assessed per primary /Admission rn Query Text:If yes, chart assessment in Shift/Clinical Findings Central Line/PICC/VAD Present on Arrival No /Admission Antibiotics within last 7 days? No Comments Pt states I can't pass a TB test Risk for Readmission Number of Risk Factors 1 At Risk for Readmission Patient is Not at Risk Patient is eligible for Call Back N Paternal Family History: Cancer Sibling Family History: Cancer - Sister likely had colon cancer with metastasis to her liver - Social History Smoking Status: Former smoker Tobacco Use: Cigarettes Allergies/Adverse Reactions: Allergy/AdvReac Type Severity Reaction Status Date / Time Penicillins Allergy Itching Verified 02/19/16 08:41 piperacillin [From Zosyn] Allergy Rash Verified 01/04/18 10:25 tazobactam [From Zosyn] Allergy Rash Verified 01/04/18 10:25 clindamycin AdvReac Diarrhea Verified 01/03/18 19:11 Review of Systems Constitutional:: Denies: Fever, Sweats, Weight loss, Appetite change, Chills Cardiovascular:: Reports: Dyspnea on exertion, Shortness of breath. Denies: Chest pain, Palpitations, Orthopnea, PND Respiratory: Reports: Shortness of breath upon exertion. Denies: Cough, Hemoptysis, Wheezing Gastrointestinal:: Reports: - - LBM 01/08/18. Denies: Abdominal pain, Nausea, Vomiting, Diarrhea, Constipation, Hematochezia Genitourinary: Denies: Dysuria, Hematuria, 15, Flank pain Musculoskeletal:: Denies: Back pain, Myalgia, Arthralgia Skin: Denies: Rash, Skin Changes, Wounds Neurological:: Denies: Headache, Dizziness, Numbness, Tingling, Visual changes, Tinnitus, Hearing loss Psychiatric: Denies: Anxiety, Depression, Homicidal Ideations, Suicidal Ideations Vital Signs Height 5 ft 10 in Weight: 284 lb 6.341 oz Weight in Pounds 284.4 lbs Pulse Ox 95 Temperature 98.3 F Pulse Rate 86 Respiratory Rate 20 Blood Pressure [BP] 115/57 Blood Pressure 124/59 Blood Pressure Position [BP] Semi-Fowlers Blood Pressure Position Semi-Fowlers - Physical Exam General: Alert, Oriented x3, No apparent distress HEENT: Atraumatic, Normocephalic Oropharynx:: Negative for: Dry mucosa, Ulcerated lesions Neck:: Supple, Trachea midline. Negative for: JVD, bilateral Cardiac:: Regular rate, Regular rhythm, Normal S1, Normal S2. Negative for: Murmur Lungs: Diminished, Increased respiratory effort - during conversation, Excusion symmetrical. Negative for: Rhonchi, Wheezes Abdomen:: Bowel sounds x 4, Soft, Non-tender, Non-distended. Negative for: Hepatosplenomegaly - difficult to discern d/t large body habitus Extremities:: Negative for: Cyanosis, Edema, Calf tenderness Neurological: Neuro grossly intact Psychiatric:: Appropriate affect, Euthymic Lymphatics:: Negative for: Cervical lymphadenopathy, Supraclavicular lymphadenopathy, Axillary lymphadenopathy Laboratory Data: Microbiology 01/05/18 11:00 Gram Stain - Final Fluid - Thoracentesis Fluid Body Fluid Culture - Final No growth aerobically. Anaerobic Culture - Preliminary No growth in 48 hours. Laboratory Tests 01/09/18 01/09/18 01/08/18 Range/Units 05:55 05:55 23:27 WBC 6.3 (4.4-11.0) K/mm3 RBC 3.86 L (4.6-6.2) M/mm3 Hgb 11.4 L (13.0-16.5) g/dl Hct 35.0 L (40-54) % MCV 90.7 (80-94) fL MCH 29.5 (27.0-32.0) pg MCHC 32.6 (32-36) g/gl RDW 13.8 (11.6-14.6) % RDW Differential 44.8 H (35.1-43.9) fl Plt Count 244 (150-450) K/mm3 MPV 9.2 (6.2-12.0) fl Immature Gran % (Auto) 0.800 (0.0-0.9) % Neut % (Auto) 65.4 (47-70) % Lymph % (Auto) 16.6 L (19-41) % Cook % (Auto) 9.7 (0-10) % Eos % (Auto) 7.0 H (0-5) % Baso % (Auto) 0.5 (0-1) % Absolute Neuts (auto) 4.1 (2.0-7.7) X10^3/uL Absolute Lymphs (auto) 1.05 (0.83-4.51) X10^3/ul Total Counted Not Reportable APTT 71.7 H 73.4 H (24.1-36.2) Seconds Fl Pathologist Comment Miscellaneous Cytology 01/08/18 01/05/18 01/05/18 Range/Units 17:12 11:00 11:00 WBC (4.4-11.0) K/mm3 RBC (4.6-6.2) M/mm3 Hgb (13.0-16.5) g/dl Hct (40-54) % MCV (80-94) fL MCH (27.0-32.0) pg MCHC (32-36) g/gl RDW (11.6-14.6) % RDW Differential (35.1-43.9) fl Plt Count (150-450) K/mm3 MPV (6.2-12.0) fl Immature Gran % (Auto) (0.0-0.9) % Neut % (Auto) (47-70) % Lymph % (Auto) (19-41) % Cook % (Auto) (0-10) % Eos % (Auto) (0-5) % Baso % (Auto) (0-1) % Absolute Neuts (auto) (2.0-7.7) X10^3/uL Absolute Lymphs (auto) (0.83-4.51) X10^3/ul Total Counted APTT 60.1 H (24.1-36.2) Seconds Fl Pathologist Comment Reviewed Miscellaneous Cytology SEE PATHOLOGY REPORT Diagnostic Data: Diagnostic Data Chest CTA 01/03/18 19:32 IMPRESSION: No evidence of pulmonary embolus. No evidence of thoracic aortic aneurysm or dissection. Large right pleural effusion which fills the right hemithorax. Total atelectasis of the right lung. The patient's known right-sided mass is not evaluated on this study due to the collapse of the right lung. No left-sided effusion or infiltrate. Fatty liver. Electronically Signed: Parviz Waters, at 20:51 EDT Tel , Service support , Thoracentesis Ultrasound 01/07/18 05:39 IMPRESSION: Ultrasound-guided right thoracentesis. Electronically Signed: Rivera Peña MD at 12:03 EDT Tel [phone], Service support , Chest X-Ray 01/09/18 09:10 IMPRESSION: Stable examination. Complete opacification of the right hemithorax. Bronchoscopy is recommended to rule out right bronchial obstruction. Electronically Signed: Rivera Peña MD at 10:43 EDT Tel [phone], Service support , Assessment and Plan 62 year old man, smoker recently diagnosed with metastatic non small carcinoma, adeno subtype unknown primary although presumably originating from right lung given findings of right hilar mass. 1. Metastatic adenocarcinoma- IHC from cytology reports reviewed, TTF-1 negative. Orders placed for PD-L1 and EGFR, reflex ALK to be completed on pleural fluid obtained via thoracentesis on 01/05/18. Orders placed for CT abd/pelvis. His care is complicated by abruptly reaccumulating malignant pleural effusion (discussed below) Unfortunately, his disease is not briskly chemosensitive. Thus, he will require intervention for effusion as a response to potential therapies may not be instantaneous. 2. Blurry vision- In the context of stage IV disease, requires imaging to r/o COLOR PRINT INSPECTOR involvement. MRI brain ordered. 3. Malignant pleural effusion- Discussed case with both Dr. Diaz and Dr. Astudillo. Pleur-X would preclude patient from receiving systemic chemotherapy given high risk for infection. Patient to undergo bronchoscopy. In the event a total obstruction of the right mainstem bronchus is observed, he will require transfer to tertiary care center for laser treatment and ?stent placement. However, if partial obstruction is observed, may consider TALC pleurodesis. 4. Bilateral pulmonary emboli- Heparin gtt. Emotional support provided. Patient was in agreement with the aforementioned plan. Sherri Meraz, MSN, LUBRICATION SUPERVISOR-C, AOCNP Medications: Prescriptions This Visit Medication Instructions Recorded Acetaminophen/Codeine #3 1 tablet PO Q6H PRN PRN 01/03/18 [Tylenol#3] Albuterol IH (ProAir) [Proair Hfa] 1 - 2 puff INHALATION Q4H PRN 01/03/18 Rivaroxaban [Xarelto] 15 mg PO BID 01/03/18 Primary Care Provider: Eliane Murphy MD Referring Provider: - Problem List (1) Metastatic adenocarcinoma Status: Acute (2) Blurry vision, bilateral Status: Acute (3) Malignant pleural effusion Status: Acute (4) Pulmonary embolism Status: Resolved Qualifiers: Pulmonary embolism type: other Chronicity: acute Acute cor pulmonale presence: without acute cor pulmonale Qualified Code(s): I26.99 - Other pulmonary embolism without acute cor pulmonale
--- NOTE | 2018-01-09 15:48 | CON.PCM_ITS ---
Subjective Date of Service:: 01/09/18 Chief Complaint: Dyspnea/Pleural Effusion History of Present Illness: Mr. Chris Gomez is a very pleasant 62 year old man who was in his usual state of health until the beginning of December 2017 when he abruptly developed dysp[place]. CTA obtained 12/16/17 revealed bilateral segmental pulmonary emboli, mediastinal lymphadenopathy and right hilar mass. Began Xarelto. In the process of evaluating right hilar mass, patient experienced worsening dyspnea, thus presented to [facility] ED on 01/03/18. CTA demonstrated total atelectasis of the right lung and right pleural effusion filling entire right hemithorax and subsequently, admitted for management of hypoxia. Has required thoracentesis x 2 during this admission. CXR 01/08/18 showed complete opacification of the right lung possibly indicative of obstruction of the right mainstem bronchus. Maintained on 5 L per NC. Patient reports dyspnea exertional only at this time. Denies nausea, imbalance but admits to new onset blurry vision bilaterally. Describes relatively active lifestyle and good support system at home by way of spouse and family. Past Medical History: Chronic Problems UTI (urinary tract infection) (Chronic) Elevated liver enzymes (Chronic) Obesity (Chronic) Past Medical/Surgical History: Past Medical History - Most Recent Inpatient Visit Past Medical History Start: 01/03/18 18: 48 Text: Status: Complete Freq: ONCE Protocol: Document 01/03/18 19:15 [facility] [place] (Rec: 01/03/18 19:21 [facility] [place] [id number]) BMI Required to complete PMH What is Patient's BMI 41.4 Past Medical History Unable History Recalled No Query Text:Pt Unable/Family Not Present Neurologic Medical History Hx Stroke/TIA No Hx Dementia/Alzheimer's No Hx Parkinson's Disease No Hx Seizures No Hx Multiple Sclerosis No Hx Migraines No Cardiac Medical History VTE Present on Admission Yes Hx of Deep Vein Thrombosis/VTE/PE Yes Hx Hypertension No Hx Chest Pain/Angina Yes Hx Heart Attack No Hx Cardiac Surgery/Stents/Etc. No Hx Heart Failure No Hx Pacemaker/AICD No Hx Irregular Heartbeat and/or Afib No Hx Anticoagulant Therapy Yes: xarelto Query Text:(Coumadin, Aspirin, Plavix, Xarelto, etc.) Hx Pain in Legs when Walking/Leg Cramps No Respiratory Medical History Hx COPD No Hx Emphysema No Hx Smoking Yes: quit 2012 Smoking Status Former smoker Tobacco Use Cigarettes Hx Smoking Cessation Date 2012 Hx Tobacco Use in last 12 months Yes Sent to PSN Yes Hx of Pipe Smoking No Hx of Cigar Smoking No Hx Sleep Apnea Yes CPAP No BIPAP Yes: DOES NOT USE-states it alsmost killed me STOP Results Positive Comments lung mass o2 at 5l since blood clot diagnosis GI Medical History Hx Ulcer No Hx Hepatitis No Hx Cirrhosis No Hx GI Bleed No Hx Unplanned Weight Loss No Genitourinary Medical History Indwelling Catheter in Place on Arrival/ No Admission Hx Renal Disease No Hx Dialysis No Musculoskeletal History Hx Arthritis Yes: left knee Hx Rheumatoid Arthritis No Endocrine Medical History Hx Diabetes No Hx Thyroid Disease No Hematologic Medical History Hx of Blood Transfusion No Hx of Transfusion in last 3 Months No Ever experience any problems with No transfusion(s)? Hx of Preganancy in last 3 Months N/A Nurse Filling Out Transfusion & SGESSEL Questions: Date: 01/03/18 Time: 19:19 Psycho/Social Medical History Hx Depression No Hx Anxiety No Hx Behavior Disorder No Hx Alcohol Use No Hx Substance Use No Other Medical History Hx Blood Disorders No Hx Anemia No Hx Cancer No Hx Drug Resistant Organism No Wound/Pressure Injury Present on Arrival No: to be assessed per primary /Admission rn Query Text:If yes, chart assessment in Shift/Clinical Findings Central Line/PICC/VAD Present on Arrival No /Admission Antibiotics within last 7 days? No Comments Pt states I can't pass a TB test Risk for Readmission Number of Risk Factors 1 At Risk for Readmission Patient is Not at Risk Patient is eligible for Call Back N Paternal Family History: Cancer Sibling Family History: Cancer - Sister likely had colon cancer with metastasis to her liver - Social History Smoking Status: Former smoker Tobacco Use: Cigarettes Allergies/Adverse Reactions: Allergy/AdvReac Type Severity Reaction Status Date / Time Penicillins Allergy Itching Verified 02/19/16 08:41 piperacillin [From Zosyn] Allergy Rash Verified 01/04/18 10:25 tazobactam [From Zosyn] Allergy Rash Verified 01/04/18 10:25 clindamycin AdvReac Diarrhea Verified 01/03/18 19:11 Review of Systems Constitutional:: Denies: Fever, Sweats, Weight loss, Appetite change, Chills Cardiovascular:: Reports: Dyspnea on exertion, Shortness of breath. Denies: Chest pain, Palpitations, Orthopnea, PND Respiratory: Reports: Shortness of breath upon exertion. Denies: Cough, Hemoptysis, Wheezing Gastrointestinal:: Reports: - - LBM 01/08/18. Denies: Abdominal pain, Nausea, Vomiting, Diarrhea, Constipation, Hematochezia Genitourinary: Denies: Dysuria, Hematuria, 15, Flank pain Musculoskeletal:: Denies: Back pain, Myalgia, Arthralgia Skin: Denies: Rash, Skin Changes, Wounds Neurological:: Denies: Headache, Dizziness, Numbness, Tingling, Visual changes, Tinnitus, Hearing loss Psychiatric: Denies: Anxiety, Depression, Homicidal Ideations, Suicidal Ideations Vital Signs Height 5 ft 10 in Weight: 284 lb 6.341 oz Weight in Pounds 284.4 lbs Pulse Ox 95 Temperature 98.3 F Pulse Rate 86 Respiratory Rate 20 Blood Pressure [BP] 115/57 Blood Pressure 124/59 Blood Pressure Position [BP] Semi-Fowlers Blood Pressure Position Semi-Fowlers - Physical Exam General: Alert, Oriented x3, No apparent distress HEENT: Atraumatic, Normocephalic Oropharynx:: Negative for: Dry mucosa, Ulcerated lesions Neck:: Supple, Trachea midline. Negative for: JVD, bilateral Cardiac:: Regular rate, Regular rhythm, Normal S1, Normal S2. Negative for: Murmur Lungs: Diminished, Increased respiratory effort - during conversation, Excusion symmetrical. Negative for: Rhonchi, Wheezes Abdomen:: Bowel sounds x 4, Soft, Non-tender, Non-distended. Negative for: Hepatosplenomegaly - difficult to discern d/t large body habitus Extremities:: Negative for: Cyanosis, Edema, Calf tenderness Neurological: Neuro grossly intact Psychiatric:: Appropriate affect, Euthymic Lymphatics:: Negative for: Cervical lymphadenopathy, Supraclavicular lymphadenopathy, Axillary lymphadenopathy Laboratory Data: Microbiology 01/05/18 11:00 Gram Stain - Final Fluid - Thoracentesis Fluid Body Fluid Culture - Final No growth aerobically. Anaerobic Culture - Preliminary No growth in 48 hours. Laboratory Tests 3 01/09/18 01/09/18 01/08/18 Range/Units 05:55 05:55 23:27 WBC 6.3 (4.4-11.0) K/mm3 RBC 3.86 L (4.6-6.2) M/mm3 Hgb 11.4 L (13.0-16.5) g/dl Hct 35.0 L (40-54) % MCV 90.7 (80-94) fL MCH 29.5 (27.0-32.0) pg MCHC 32.6 (32-36) g/gl RDW 13.8 (11.6-14.6) % RDW Differential 44.8 H (35.1-43.9) fl Plt Count 244 (150-450) K/mm3 MPV 9.2 (6.2-12.0) fl Immature Gran % (Auto) 0.800 (0.0-0.9) % Neut % (Auto) 65.4 (47-70) % Lymph % (Auto) 16.6 L (19-41) % Stephenson % (Auto) 9.7 (0-10) % Eos % (Auto) 7.0 H (0-5) % Baso % (Auto) 0.5 (0-1) % Absolute Neuts (auto) 4.1 (2.0-7.7) X10^3/uL Absolute Lymphs (auto) 1.05 (0.83-4.51) X10^3/ul Total Counted Not Reportable APTT 71.7 H 73.4 H (24.1-36.2) Seconds Fl Pathologist Comment Miscellaneous Cytology 3 01/08/18 01/05/18 01/05/18 Range/Units 17:12 11:00 11:00 WBC (4.4-11.0) K/mm3 RBC (4.6-6.2) M/mm3 Hgb (13.0-16.5) g/dl Hct (40-54) % MCV (80-94) fL MCH (27.0-32.0) pg MCHC (32-36) g/gl RDW (11.6-14.6) % RDW Differential (35.1-43.9) fl Plt Count (150-450) K/mm3 MPV (6.2-12.0) fl Immature Gran % (Auto) (0.0-0.9) % Neut % (Auto) (47-70) % Lymph % (Auto) (19-41) % Stephenson % (Auto) (0-10) % Eos % (Auto) (0-5) % Baso % (Auto) (0-1) % Absolute Neuts (auto) (2.0-7.7) X10^3/uL Absolute Lymphs (auto) (0.83-4.51) X10^3/ul Total Counted APTT 60.1 H (24.1-36.2) Seconds Fl Pathologist Comment Reviewed Miscellaneous Cytology SEE PATHOLOGY REPORT Diagnostic Data: Diagnostic Data Chest CTA 01/03/18 19:32 IMPRESSION: No evidence of pulmonary embolus. No evidence of thoracic aortic aneurysm or dissection. Large right pleural effusion which fills the right hemithorax. Total atelectasis of the right lung. The patient's known right-sided mass is not evaluated on this study due to the collapse of the right lung. No left-sided effusion or infiltrate. Fatty liver. Electronically Signed: Parviz Waters, at 20:51 EDT Tel , Service support , Thoracentesis Ultrasound 01/07/18 05:39 IMPRESSION: Ultrasound-guided right thoracentesis. Electronically Signed: Rivera Peña MD at 12:03 EDT Tel [phone], Service support , Chest X-Ray 01/09/18 09:10 IMPRESSION: Stable examination. Complete opacification of the right hemithorax. Bronchoscopy is recommended to rule out right bronchial obstruction. Electronically Signed: Rivera Peña MD at 10:43 EDT Tel [phone], Service support , Assessment and Plan 62 year old man, smoker recently diagnosed with metastatic non small carcinoma, adeno subtype unknown primary although presumably originating from right lung given findings of right hilar mass. 1. Metastatic adenocarcinoma- IHC from cytology reports reviewed, TTF-1 negative. Orders placed for PD-L1 and EGFR, reflex ALK to be completed on pleural fluid obtained via thoracentesis on 01/05/18. Orders placed for CT abd/ pelvis. His care is complicated by abruptly reaccumulating malignant pleural effusion (discussed below) Unfortunately, his disease is not briskly chemosensitive. Thus, he will require intervention for effusion as a response to potential therapies may not be instantaneous. 2. Blurry vision- In the context of stage IV disease, requires imaging to r/o GEOPHYSICS TEACHER involvement. MRI brain ordered. 3. Malignant pleural effusion- Discussed case with both Dr. Diaz and Dr. Astudillo. Pleur-X would preclude patient from receiving systemic chemotherapy given high risk for infection. Patient to undergo bronchoscopy. In the event a total obstruction of the right mainstem bronchus is observed, he will require transfer to tertiary care center for laser treatment and ?stent placement. However, if partial obstruction is observed, may consider TALC pleurodesis. 4. Bilateral pulmonary emboli- Heparin gtt. Emotional support provided. Patient was in agreement with the aforementioned plan. Sherri Meraz, MSN, AUTOMATIC DIE CUTTING MACHINE OPERATOR-C, AOCNP Medications: Prescriptions This Visit Medication Instructions Recorded Acetaminophen/Codeine #3 1 tablet PO Q6H PRN PRN 01/03/18 [Tylenol#3] Albuterol IH (ProAir) [Proair Hfa] 1 - 2 puff INHALATION Q4H PRN 01/03/18 Rivaroxaban [Xarelto] 15 mg PO BID 01/03/18 Primary Care Provider: Eliane Murphy MD Referring Provider: - Problem List (1) Metastatic adenocarcinoma Status: Acute (2) Blurry vision, bilateral Status: Acute (3) Malignant pleural effusion Status: Acute (4) Pulmonary embolism Status: Resolved Qualifiers: Pulmonary embolism type: other Chronicity: acute Acute cor pulmonale presence: without acute cor pulmonale Qualified Code(s): I26.99 - Other pulmonary embolism without acute cor pulmonale
--- NOTE | 2018-01-09 16:49 | CT_ITS ---
STUDY: CT ABDOMEN AND PELVIS WITH CONTRAST REASON FOR EXAM: Male, 62 years old. Metastatic adenocarcinoma RADIATION DOSAGE (If Supplied By Facility): CTDIvol = ( 20.55 ) mGy, DLP = ( 1442.07 ) mGycm TECHNIQUE: Transaxial images were obtained from the dome of the diaphragm to the symphysis pubis without oral contrast. 100ML ml of Isovue 300 contrast was administered. Sagittal and coronal images were reconstructed. Individualized dose optimization techniques were used for this CT. COMPARISON: None. FINDINGS: There is a large right-sided pleural effusion with compressive atelectasis of the right lower lobe and localized areas of focal thickening along the pleural surfaces.. The liver is normal with no dilated intrahepatic biliary radicles. Previous cholecystectomy The spleen, pancreas and both adrenals are normal. The kidneys are normal with no masses, calculi or hydronephrosis. The stomach is normal. There is no bowel distention, acute appendicitis or diverticulitis. No abnormally constricting large bowel lesions. The abdominal wall is intact. There is no ascites, free intraperitoneal air or any evidence of epiploic appendagitis. The vascular structures in the retroperitoneum are normal The bones and joints seen are normal with no osteolytic or osteoblastic changes There is no retrocrural, retroperitoneal or mesenteric adenopathy. There is no mesenteric mistiness The urinary bladder is normal.. The prostate is normal There is no inguinal or pelvic adenopathy and there is no inguinal hernia CT/Abdomen/Pelvis WITH Contrast IMPRESSION: A large right-sided pleural effusion with compressive collapse of the right lower lobe and multiple focal areas of nodular densities along the pleural surface. The pleural effusion may be malignant. No metastatic liver or adrenal disease. No acute appendicitis or diverticulitis Electronically Signed: Peter Rivera, at 0:25 EDT Tel , Service support ,
--- NOTE | 2018-01-09 19:10 | CT_ITS ---
STUDY: CT BRAIN WITH CONTRAST REASON FOR EXAM: Male, 62 years old. Dizzy and visual changes and history of lung cancer RADIATION DOSAGE (If Supplied By Facility): CTDIvol = ( 44.99 ) mGy, DLP = ( 779.24 ) mGycm TECHNIQUE: Transaxial CT imaging of the brain was performed post contrast administration. The examination was performed with intravenous administration of 100ml ml of Isovue 300 contrast material. Individualized dose optimization techniques were used for this CT. COMPARISON: None. FINDINGS: Normal soft tissue structures. Normal calvarium. Normal size ventricles and extra-axial spaces for the patient's age. Normal white matter tracts of the cerebral hemispheres. Normal basal ganglia and thalami. Normal brainstem. Normal cerebellum. There is a small slightly hyperattenuated nodule in the right frontal parietal region with vasogenic edema suspicious for metastatic lesion. There is also questionable second similar-appearing lesion in the left frontal lobe. There is no intracranial hemorrhage. There are no findings of an acute ischemic infarction. Minor mucosal thickening in right maxillary sinus. CT/Brain/Head WITH Contrast IMPRESSION: Findings suspicious for right frontal parietal and possibly left frontal lobe metastases. MRI with contrast recommended for further evaluation Electronically Signed: Jai Reilly MD at 19:45 EDT , Service support ,
[2018-01-09] MEDS: Ondansetron 4 MG/2 ML Vial IV (22:25)
[2018-01-10] VITALS (40 sets, daily range): BP systolic 77–143; BP diastolic 53–92; PULSE 65–136; RESP 10–27; TEMP 36.4–37.6; O2SAT 86–99
[2018-01-10] MEDS: Morphine 2 MG/ML Syringe IV (00:21)
[2018-01-10] MEDS: 0.9% NaCl Peripheral Flush Adult/Peds IV ×4 (00:22→14:00)
[2018-01-10 01:26] LABS: Anion Gap 5 (5-15); BUN 8 mg/dL (7-18); BUN/Creat Ratio 12.1 RATIO (10-20); Calcium,Total 7.9 mg/dL (8.5-10.1); Chloride 101 mmol/L (98-107); Creatinine, Serum 0.66 mg/dL (0.70-1.30); EST Glomerular Filtration Rate 130 mL/min (>60); Est Glom Filt Rate - Afr Amer 157 mL/min (>60); Estimated Creatinine Clearance 121.36 ml/min; Glucose 92 mg/dL (74-106); Sodium Level 139 mmol/L (136-145)
--- NOTE | 2018-01-10 02:11 | EKG12_ITS ---
Test Reason : Blood Pressure : / mmHG Vent. Rate : 128 BPM Atrial Rate : 128 BPM P-R Int : 148 ms QRS Dur : 090 ms QT Int : 300 ms P-R-T Axes : 059 069 025 degrees QTc Int : 438 ms Sinus tachycardia Otherwise normal ECG When compared with ECG of 10-JAN-2018 02:46, MANUAL COMPARISON REQUIRED, DATA IS UNCONFIRMED Confirmed by STEPHANIE IBARRA, DANYELLE ([id number]), graphic editor RADHA REY ([id number]) on 01/16/2018 1:13:43 PM Referred By: NIMESH Confirmed By:DANYELLE BROWN MD
--- NOTE | 2018-01-10 02:30 | RAD_ITS ---
STUDY: X-RAY CHEST REASON FOR EXAM: Male, 62 years old. Shortness of breath and dyspnea TECHNIQUE: 1 view COMPARISON: January 09, 2018 FINDINGS: There is a total white out of the right hemithorax consistent with pleural effusion. There is no midline shift. The heart is normal in size. The left lung is clear. Normal visualized thoracic spine. Normal visualized ribs, clavicles, and shoulders. There is no demonstrated abnormality of the visualized soft tissue structures of the upper abdomen. RAD/Chest 1 View (Portable) IMPRESSION: A large right sided pleural effusion. The left lung is clear Electronically Signed: Peter Rivera, at 4:06 EDT Tel , Service support ,
[2018-01-10] MEDS: Furosemide 100 MG/10 ML Vial 80 MG IV (02:40)
[2018-01-10 03:06] LABS: Base Excess 8 mmol/L (-2 to +2); Bicarbonate 34.2 mmol/L (22-26); Blood Gas Specimen Type ART; EPAP 6; FI02 60; IPAP 12; PO2 61 mmHG (75-100); RR 35; SITE R Brachial; SO2 87 % (95-99); Time Given 305; Total Carbon Dioxide 36 mmol/L; pCO2 68.5 mmHg (35-45); pH 7.31 (7.35-7.45)
--- NOTE | 2018-01-10 03:14 | PCM.PN.BLA ---
Progress Note Night hospitalist: Called to see patient with SOB. He is a 62 YO male just diagnosed with Stage 4 non-small lung CA. Malignant cells obtained from thoracentesis on 01/07. He also had a thoracentesis on 01/05. On both occasions > 1800 cc's was removed. CXR in the AM on 01/09 showed complete opacification of the R lung. A repeat CXR now shows the same. CT scan of the abd and the pelvis showed no liver or adrenal disease but, a CTB showed findings suspicious for right frontal, parietal and possibly left frontal lobe metastases. He was admitted to the hospital last month with PE and he is currently on a heparin infusion. PE: alert and on BIPAP. Denies CP. He has conversational dyspnea and some mild accessory muscle use. The BS's on the R are very diminished. The left lung is CTA and there is no wheezing. Heart - regular with increased HR. No gallop or MM abdomen - distended and tympanic, NT, no ascites on the CT of the abd and pelvis no significant edema He has a red maculopapular rash on the chest, back, all 4 extremities. He denies pruritus and has no wheezing.....he was thought to have an allergy to Tylenol with codeine.......the rash has gotten worse since he had contrast. Impressions 1. stage 4 non-small cell lung CA with malignant R pleural effusion and probable brain mets 2. recent PE on heparin infusion 3. sinus tach 4. red maculopapular rash - spreading. Start decadron....IV for now since he is on BIPAP continuously now. IV Benadryl for now...PO's when he comes off BIPAP and is not nauseated 5. tobacco dependence Plan Heparin has been placed on hold. The fluid rapidly reaccumulates after thoracentesis and there needs to be something more permanent done. Dr. Cooper has been consulted for a pleurx catheter but, oncology does not want to do chemo in patient with a chronic indwelling foreign body due to risk of infection. A Chest tube would seem appropriate at this point until a decision can be reached regarding a pleurx catheter vs Pleurodesis? Will discuss with Dr. Astudillo in the AM. I discussed with his advance directives. The current code status is full code. He is OK with intubation and resuscitation but, if his condition is judged by 2 physicians to be terminal then he would want terminally extubated and allowed to . Give 80 mg lasix. If he starts to deteriorate will do a thoracentesis Code Visit Procedures: [id number] Prolonged InPt Service; first hour
[2018-01-10] MEDS: proMETHazine 25 MG/ML Syringe 12.5 MG IV (04:25)
[2018-01-10 06:57] LABS: Partial Thromboplast Time 30.4 Seconds (24.1-36.2)
[2018-01-10 07:06] LABS: Absolute Lymphocyte Count 0.29 X10^3/ul (0.83-4.51); Absolute Neutrophil Count 11.2 X10^3/uL (2.0-7.7); Basophil# 0.01 X10^3/uL; Basophil% 0.1 % (0-1); Eosinophil# 0.16 X10^3/uL; Eosinophils% 1.4 % (0-5); Hematocrit 39.7 % (40-54); Hemoglobin 12.4 g/dl (13.0-16.5); Lymphocyte # 0.29 X10^3/ul (4.0); Lymphocyte % 2.5 % (19-41); Mean Corp Hgb Conc 31.2 g/gl (32-36); Mean Corpuscular Hgb 28.7 pg (27.0-32.0); Mean Corpuscular Volume 91.9 fL (80-94); Mean Platelet Vol. 9.5 fl (6.2-12.0); Monocyte% 0.9 % (0-10); Neutrophil # 11.15 X10^3/uL (2.7-7.7); Neutrophil % 94.9 % (47-70); Platelet Count 239 K/mm3 (150-450); RBC Distribution Width CV 14.1 % (11.6-14.6); RBC Distribution Width SD 47.1 fl (35.1-43.9); Red Blood Count 4.32 M/mm3 (4.6-6.2); White Blood Count 11.7 K/mm3 (4.4-11.0)
[2018-01-10 07:08] LABS: Differential Indicated SCAN CRITERIA MET; POSITIVE COUNT NO; POSITIVE DIFFERENTIAL YES; POSITIVE MORPHOLOGY NO
[2018-01-10 07:13] LABS: Anion Gap 7 (5-15); BUN 11 mg/dL (7-18); BUN/Creat Ratio 10.6 RATIO (10-20); Calcium,Total 8.1 mg/dL (8.5-10.1); Chloride 99 mmol/L (98-107); Creatinine, Serum 1.04 mg/dL (0.70-1.30); EST Glomerular Filtration Rate 77 mL/min (>60); Est Glom Filt Rate - Afr Amer 93 mL/min (>60); Estimated Creatinine Clearance 77.02 ml/min; Glucose 224 mg/dL (74-106); Potassium 4.7 mmol/L (3.5-5.1); Sodium Level 140 mmol/L (136-145)
--- NOTE | 2018-01-10 07:35 | NURSING ---
report given to Angel in ICU. pt transported with RT, nurse's aide, and zinc furnace charger
--- NOTE | 2018-01-10 07:56 | PCM.PN.SRG ---
Patient Problems: Active and Suspected Problems Non-small cell cancer of right lung (Acute) Metastatic adenocarcinoma (Acute) Blurry vision, bilateral (Acute) Malignant pleural effusion (Acute) Pleural effusion (Acute) Acute on chronic respiratory failure with hypoxia and hypercapnia (Acute) Subjective: Patient had increased oxygenation requirements and is currently on BiPAP and tachycardic - Physical Exam General: Alert, Cooperative Lungs: Diminished - Right lung, Using Accessory Muscles Cardiovascular: Tachycardic Abdomen: Soft Vital Signs Temp Pulse Resp BP Pulse Ox 97.8 F 100 24 H 115/63 95 01/10/18 07:30 01/10/18 07:30 01/10/18 07:30 01/10/18 07:30 01/10/18 07:30 Oxygen Flow Rate (L/min) 5 Oxygen Delivery Method Bi-pap Weight: 287 lb 0.67 oz Body Mass Index (BMI) 41.4 Intake and Output for Last 24 Hours 01/08/18 01/09/18 01/10/18 23:59 23:59 23:59 Intake Total 1133.9 / 1133.9 1734 / 1734 422.8 / 422.8 Output Total 975 / 975 3425 / 3425 475 / 475 Balance 158.9 / 158.9 -1691 / -1691 -52.2 / -52.2 Microbiology Past 72 Hours 01/05/18 11:00 Gram Stain - Final Fluid - Thoracentesis Fluid Body Fluid Culture - Final No growth aerobically. Anaerobic Culture - Preliminary No growth in 48 hours. Laboratory Tests Past 24 Hrs 01/05/18 01/05/18 01/09/18 11:00 11:00 23:50 WBC RBC Hgb Hct MCV MCH MCHC RDW RDW Differential Plt Count MPV Immature Gran % (Auto) Neut % (Auto) Lymph % (Auto) [place] % (Auto) Eos % (Auto) Baso % (Auto) Absolute Neuts (auto) Absolute Lymphs (auto) Total Counted APTT Specimen Type Sample Site pH Bicarbonate Actual POC Total CO2 Base Excess O2 Saturation O2 % ABG pCO2 ABG pO2 Fam Test Respiration Rate O2 Delivery Device EPAP IPAP Blood Gas Notified Whom Blood Gas Notified Time Sodium 139 Potassium 4.0 Chloride 101 Carbon Dioxide 33.0 H Anion Gap 5 BUN 8 Creatinine 0.66 L Estim Creat Clear Calc 121.36 Est GFR (MDRD) Af Amer 157 Est GFR (MDRD) Non-Af 130 BUN/Creatinine Ratio 12.1 Glucose 92 Calcium 7.9 L B-Natriuretic Peptide Fl Pathologist Comment Reviewed Miscellaneous Cytology SEE PATHOLOGY REPORT 01/09/18 01/10/18 01/10/18 23:50 02:58 06:10 WBC RBC Hgb Hct MCV MCH MCHC RDW RDW Differential Plt Count MPV Immature Gran % (Auto) Neut % (Auto) Lymph % (Auto) [place] % (Auto) Eos % (Auto) Baso % (Auto) Absolute Neuts (auto) Absolute Lymphs (auto) Total Counted APTT 30.4 Specimen Type ART Sample Site R Brachial pH 7.31 L Bicarbonate Actual 34.2 H POC Total CO2 36 Base Excess 8 H O2 Saturation 87 L O2 % 60 ABG pCO2 68.5 H* ABG pO2 61 L Fam Test NA Respiration Rate 35 O2 Delivery Device Bi / C PAP EPAP 6 IPAP 12 Blood Gas Notified Whom [facility] MD Blood Gas Notified Time 305 Sodium Potassium Chloride Carbon Dioxide Anion Gap BUN Creatinine Estim Creat Clear Calc Est GFR (MDRD) Af Amer Est GFR (MDRD) Non-Af BUN/Creatinine Ratio Glucose Calcium B-Natriuretic Peptide 18.0 Fl Pathologist Comment Miscellaneous Cytology 01/10/18 01/10/18 06:10 06:10 WBC 11.7 H RBC 4.32 L Hgb 12.4 L Hct 39.7 L MCV 91.9 MCH 28.7 MCHC 31.2 L RDW 14.1 RDW Differential 47.1 H Plt Count 239 MPV 9.5 Immature Gran % (Auto) 0.200 Neut % (Auto) 94.9 H Lymph % (Auto) 2.5 L [place] % (Auto) 0.9 Eos % (Auto) 1.4 Baso % (Auto) 0.1 Absolute Neuts (auto) 11.2 H Absolute Lymphs (auto) 0.29 L Total Counted Not Reportable APTT Specimen Type Sample Site pH Bicarbonate Actual POC Total CO2 Base Excess O2 Saturation O2 % ABG pCO2 ABG pO2 Fam Test Respiration Rate O2 Delivery Device EPAP IPAP Blood Gas Notified Whom Blood Gas Notified Time Sodium 140 Potassium 4.7 Chloride 99 Carbon Dioxide 34.0 H Anion Gap 7 BUN 11 Creatinine 1.04 Estim Creat Clear Calc 77.02 Est GFR (MDRD) Af Amer 93 Est GFR (MDRD) Non-Af 77 BUN/Creatinine Ratio 10.6 Glucose 224 H Calcium 8.1 L B-Natriuretic Peptide Fl Pathologist Comment Miscellaneous Cytology Medical Necessity - Tobacco Use Smoking Status: Former smoker Tobacco Use: Cigarettes Assessment/Plan All Active Problems Non-small cell cancer of right lung (Acute) Metastatic adenocarcinoma (Acute) Blurry vision, bilateral (Acute) Malignant pleural effusion (Acute) Pleural effusion (Acute) Acute on chronic respiratory failure with hypoxia and hypercapnia (Acute) Pulmonary embolism (Resolved) 1. Due to patient's increasing dyspnea did talk with Dr. Winchester as well as Dr. Astudillo and family. Plan is for Dr. Astudillo to do a thoracentesis for today to hopefully improve his dyspnea. Dr. Cooper will discuss with oncology as well as the family tomorrow about possibly placing of a Pleurx catheter or not. Patient also plan to undergo a bronchoscopy by Dr. Astudillo tomorrow as well. Valeria Merritt M.D. Pager: [phone] [facility] [address] [place] [address], [facility], [address] [place] [address] Office: [phone]
--- NOTE | 2018-01-10 07:59 | PN.SURG_ITS ---
Patient Problems: Active and Suspected Problems Non-small cell cancer of right lung (Acute) Metastatic adenocarcinoma (Acute) Blurry vision, bilateral (Acute) Malignant pleural effusion (Acute) Pleural effusion (Acute) Acute on chronic respiratory failure with hypoxia and hypercapnia (Acute) Subjective: Patient had increased oxygenation requirements and is currently on BiPAP and tachycardic - Physical Exam General: Alert, Cooperative Lungs: Diminished - Right lung, Using Accessory Muscles Cardiovascular: Tachycardic Abdomen: Soft Vital Signs Temp Pulse Resp BP Pulse Ox 97.8 F 100 24 H 115/63 95 01/10/18 07:30 01/10/18 07:30 01/10/18 07:30 01/10/18 07:30 01/10/18 07:30 Oxygen Flow Rate (L/min) 5 Oxygen Delivery Method Bi-pap Weight: 287 lb 0.67 oz Body Mass Index (BMI) 41.4 Intake and Output for Last 24 Hours 01/08/18 01/09/18 01/10/18 23:59 23:59 23:59 Intake Total 1133.9 / 1133.9 1734 / 1734 422.8 / 422.8 Output Total 975 / 975 3425 / 3425 475 / 475 Balance 158.9 / 158.9 -1691 / -1691 -52.2 / -52.2 Microbiology Past 72 Hours 01/05/18 11:00 Gram Stain - Final Fluid - Thoracentesis Fluid Body Fluid Culture - Final No growth aerobically. Anaerobic Culture - Preliminary No growth in 48 hours. Laboratory Tests Past 24 Hrs 01/05/18 01/05/18 01/09/18 11:00 11:00 23:50 WBC RBC Hgb Hct MCV MCH MCHC RDW RDW Differential Plt Count MPV Immature Gran % (Auto) Neut % (Auto) Lymph % (Auto) [place] % (Auto) Eos % (Auto) Baso % (Auto) Absolute Neuts (auto) Absolute Lymphs (auto) Total Counted APTT Specimen Type Sample Site pH Bicarbonate Actual POC Total CO2 Base Excess O2 Saturation O2 % ABG pCO2 ABG pO2 Fam Test Respiration Rate O2 Delivery Device EPAP IPAP Blood Gas Notified Whom Blood Gas Notified Time Sodium 139 Potassium 4.0 Chloride 101 Carbon Dioxide 33.0 H Anion Gap 5 BUN 8 Creatinine 0.66 L Estim Creat Clear Calc 121.36 Est GFR (MDRD) Af Amer 157 Est GFR (MDRD) Non-Af 130 BUN/Creatinine Ratio 12.1 Glucose 92 Calcium 7.9 L B-Natriuretic Peptide Fl Pathologist Comment Reviewed Miscellaneous Cytology SEE PATHOLOGY REPORT 01/09/18 01/10/18 01/10/18 23:50 02:58 06:10 WBC RBC Hgb Hct MCV MCH MCHC RDW RDW Differential Plt Count MPV Immature Gran % (Auto) Neut % (Auto) Lymph % (Auto) [place] % (Auto) Eos % (Auto) Baso % (Auto) Absolute Neuts (auto) Absolute Lymphs (auto) Total Counted APTT 30.4 Specimen Type ART Sample Site R Brachial pH 7.31 L Bicarbonate Actual 34.2 H POC Total CO2 36 Base Excess 8 H O2 Saturation 87 L O2 % 60 ABG pCO2 68.5 H* ABG pO2 61 L Fam Test NA Respiration Rate 35 O2 Delivery Device Bi / C PAP EPAP 6 IPAP 12 Blood Gas Notified Whom [facility] MD Blood Gas Notified Time 305 Sodium Potassium Chloride Carbon Dioxide Anion Gap BUN Creatinine Estim Creat Clear Calc Est GFR (MDRD) Af Amer Est GFR (MDRD) Non-Af BUN/Creatinine Ratio Glucose Calcium B-Natriuretic Peptide 18.0 Fl Pathologist Comment Miscellaneous Cytology 01/10/18 01/10/18 06:10 06:10 WBC 11.7 H RBC 4.32 L Hgb 12.4 L Hct 39.7 L MCV 91.9 MCH 28.7 MCHC 31.2 L RDW 14.1 RDW Differential 47.1 H Plt Count 239 MPV 9.5 Immature Gran % (Auto) 0.200 Neut % (Auto) 94.9 H Lymph % (Auto) 2.5 L [place] % (Auto) 0.9 Eos % (Auto) 1.4 Baso % (Auto) 0.1 Absolute Neuts (auto) 11.2 H Absolute Lymphs (auto) 0.29 L Total Counted Not Reportable APTT Specimen Type Sample Site pH Bicarbonate Actual POC Total CO2 Base Excess O2 Saturation O2 % ABG pCO2 ABG pO2 Fam Test Respiration Rate O2 Delivery Device EPAP IPAP Blood Gas Notified Whom Blood Gas Notified Time Sodium 140 Potassium 4.7 Chloride 99 Carbon Dioxide 34.0 H Anion Gap 7 BUN 11 Creatinine 1.04 Estim Creat Clear Calc 77.02 Est GFR (MDRD) Af Amer 93 Est GFR (MDRD) Non-Af 77 BUN/Creatinine Ratio 10.6 Glucose 224 H Calcium 8.1 L B-Natriuretic Peptide Fl Pathologist Comment Miscellaneous Cytology Medical Necessity - Tobacco Use Smoking Status: Former smoker Tobacco Use: Cigarettes Assessment/Plan All Active Problems Non-small cell cancer of right lung (Acute) Metastatic adenocarcinoma (Acute) Blurry vision, bilateral (Acute) Malignant pleural effusion (Acute) Pleural effusion (Acute) Acute on chronic respiratory failure with hypoxia and hypercapnia (Acute) Pulmonary embolism (Resolved) 1. Due to patient's increasing dyspnea did talk with Dr. Winchester as well as Dr. Astudillo and family. Plan is for Dr. Astudillo to do a thoracentesis for today to hopefully improve his dyspnea. Dr. Cooper will discuss with oncology as well as the family tomorrow about possibly placing of a Pleurx catheter or not. Patient also plan to undergo a bronchoscopy by Dr. Astudillo tomorrow as well. Valeria Merritt M.D. Pager: [phone] [facility] [address] [place] [address], [facility], [address] [place] [address] Office: [phone]
--- NOTE | 2018-01-10 08:10 | CPS ---
transported to ICU on Bipap w/o complications.
--- NOTE | 2018-01-10 08:25 | PCM.PN.INT ---
Subjective: The patient was seen and examined at the bedside this morning. Events from the last 24 hours have been reviewed. Overnight, the patient was noted to decompensate from a respiratory status. He became more short of breath, requiring escalation in his supplemental flow rate and was eventually placed back on BiPAP. He has been experience a great deal of pain and discomfort and appears significantly restless this morning. Arterial blood gas was obtained early this morning on BiPAP 12/6 cm of water and revealed a pH of 7.31, PO2 of 61 and PCO2 of 68. Repeat plain film chest imaging again demonstrated complete opacification of the right hemithorax. Continue his heparin drip has supposedly been off since 0300 hrs. this morning. Objective: The patient's most recent lab work, culture data and imaging studies have all been personally reviewed. Pleural fluid culture from January 05 was negative. Pleural fluid cytology ?2 was both positive for non-small cell carcinoma, adenocarcinoma. General: Alert, Cooperative, - - Currently restless in bed with BiPAP in place HEENT: Atraumatic, Normocephalic Oral: Dry Mucosa Neck: Supple, No Nodes, Trachea Midline Lungs: - - Globally diminished air movement throughout the right hemithorax with dullness to percussion of the right base. The patient is tachypneic. Cardiovascular: Normal S1, Normal S2, No murmurs, Tachycardic Abdomen: Bowel Sounds Present, Soft, Non Tender, Obese Extremities: No clubbing, No cyanosis, No edema Skin: - - Diffuse maculopapular rash Musculoskeletal: No Muscle Wasting Lymphatic: No Cervical, Supraclavicular, or Inguinal Adenopathy Neurological: Neuro grossly intact Psych/Mental Status: Anxious Vital Signs Temp Pulse Resp BP Pulse Ox 97.8 F 124 H 24 H 115/63 91 01/10/18 07:30 01/10/18 08:00 01/10/18 08:00 01/10/18 07:30 01/10/18 08:00 Oxygen Flow Rate (L/min) 5 Oxygen Delivery Method Bi-pap Weight: 287 lb 0.67 oz Body Mass Index (BMI) 41.4 Intake and Output for Last 24 Hours 01/08/18 01/09/18 01/10/18 23:59 23:59 23:59 Intake Total 1133.9 / 1133.9 1734 / 1734 422.8 / 422.8 Output Total 975 / 975 3425 / 3425 475 / 475 Balance 158.9 / 158.9 -1691 / -1691 -52.2 / -52.2 Labs (Last 48 Hours) 01/05/18 01/05/18 01/08/18 11:00 11:00 11:20 WBC RBC Hgb Hct MCV MCH MCHC RDW RDW Differential Plt Count MPV Immature Gran % (Auto) Neut % (Auto) Lymph % (Auto) [place] % (Auto) Eos % (Auto) Baso % (Auto) Absolute Neuts (auto) Absolute Lymphs (auto) Total Counted APTT 32.6 Specimen Type Sample Site pH Bicarbonate Actual POC Total CO2 Base Excess O2 Saturation O2 % ABG pCO2 ABG pO2 Fam Test Respiration Rate O2 Delivery Device EPAP IPAP Blood Gas Notified Whom Blood Gas Notified Time Sodium Potassium Chloride Carbon Dioxide Anion Gap BUN Creatinine Estim Creat Clear Calc Est GFR (MDRD) Af Amer Est GFR (MDRD) Non-Af BUN/Creatinine Ratio Glucose Calcium B-Natriuretic Peptide Fl Pathologist Comment Reviewed Miscellaneous Cytology SEE PATHOLOGY REPORT 01/08/18 01/08/18 01/09/18 17:12 23:27 05:55 WBC 6.3 RBC 3.86 L Hgb 11.4 L Hct 35.0 L MCV 90.7 MCH 29.5 MCHC 32.6 RDW 13.8 RDW Differential 44.8 H Plt Count 244 MPV 9.2 Immature Gran % (Auto) 0.800 Neut % (Auto) 65.4 Lymph % (Auto) 16.6 L [place] % (Auto) 9.7 Eos % (Auto) 7.0 H Baso % (Auto) 0.5 Absolute Neuts (auto) 4.1 Absolute Lymphs (auto) 1.05 Total Counted Not Reportable APTT 60.1 H 73.4 H Specimen Type Sample Site pH Bicarbonate Actual POC Total CO2 Base Excess O2 Saturation O2 % ABG pCO2 ABG pO2 Fam Test Respiration Rate O2 Delivery Device EPAP IPAP Blood Gas Notified Whom Blood Gas Notified Time Sodium Potassium Chloride Carbon Dioxide Anion Gap BUN Creatinine Estim Creat Clear Calc Est GFR (MDRD) Af Amer Est GFR (MDRD) Non-Af BUN/Creatinine Ratio Glucose Calcium B-Natriuretic Peptide Fl Pathologist Comment Miscellaneous Cytology 01/09/18 01/09/1818 05:55 23:50 23:50 WBC RBC Hgb Hct MCV MCH MCHC RDW RDW Differential Plt Count MPV Immature Gran % (Auto) Neut % (Auto) Lymph % (Auto) [place] % (Auto) Eos % (Auto) Baso % (Auto) Absolute Neuts (auto) Absolute Lymphs (auto) Total Counted APTT 71.7 H Specimen Type Sample Site pH Bicarbonate Actual POC Total CO2 Base Excess O2 Saturation O2 % ABG pCO2 ABG pO2 Fam Test Respiration Rate O2 Delivery Device EPAP IPAP Blood Gas Notified Whom Blood Gas Notified Time Sodium 139 Potassium 4.0 Chloride 101 Carbon Dioxide 33.0 H Anion Gap 5 BUN 8 Creatinine 0.66 L Estim Creat Clear Calc 121.36 Est GFR (MDRD) Af Amer 157 Est GFR (MDRD) Non-Af 130 BUN/Creatinine Ratio 12.1 Glucose 92 Calcium 7.9 L B-Natriuretic Peptide 18.0 Fl Pathologist Comment Miscellaneous Cytology 01/10/18 01/10/18 01/10/18 02:58 06:10 06:10 WBC 11.7 H RBC 4.32 L Hgb 12.4 L Hct 39.7 L MCV 91.9 MCH 28.7 MCHC 31.2 L RDW 14.1 RDW Differential 47.1 H Plt Count 239 MPV 9.5 Immature Gran % (Auto) 0.200 Neut % (Auto) 94.9 H Lymph % (Auto) 2.5 L [place] % (Auto) 0.9 Eos % (Auto) 1.4 Baso % (Auto) 0.1 Absolute Neuts (auto) 11.2 H Absolute Lymphs (auto) 0.29 L Total Counted Not Reportable APTT 30.4 Specimen Type ART Sample Site R Brachial pH 7.31 L Bicarbonate Actual 34.2 H POC Total CO2 36 Base Excess 8 H O2 Saturation 87 L O2 % 60 ABG pCO2 68.5 H* ABG pO2 61 L Fam Test NA Respiration Rate 35 O2 Delivery Device Bi / C PAP EPAP 6 IPAP 12 Blood Gas Notified Whom [facility] Blood Gas Notified Time 305 Sodium Potassium Chloride Carbon Dioxide Anion Gap BUN Creatinine Estim Creat Clear Calc Est GFR (MDRD) Af Amer Est GFR (MDRD) Non-Af BUN/Creatinine Ratio Glucose Calcium B-Natriuretic Peptide Fl Pathologist Comment Miscellaneous Cytology 01/10/18 06:10 WBC RBC Hgb Hct MCV MCH MCHC RDW RDW Differential Plt Count MPV Immature Gran % (Auto) Neut % (Auto) Lymph % (Auto) [place] % (Auto) Eos % (Auto) Baso % (Auto) Absolute Neuts (auto) Absolute Lymphs (auto) Total Counted APTT Specimen Type Sample Site pH Bicarbonate Actual POC Total CO2 Base Excess O2 Saturation O2 % ABG pCO2 ABG pO2 Fam Test Respiration Rate O2 Delivery Device EPAP IPAP Blood Gas Notified Whom Blood Gas Notified Time Sodium 140 Potassium 4.7 Chloride 99 Carbon Dioxide 34.0 H Anion Gap 7 BUN 11 Creatinine 1.04 Estim Creat Clear Calc 77.02 Est GFR (MDRD) Af Amer 93 Est GFR (MDRD) Non-Af 77 BUN/Creatinine Ratio 10.6 Glucose 224 H Calcium 8.1 L B-Natriuretic Peptide Fl Pathologist Comment Miscellaneous Cytology Microbiology 01/05/18 11:00 Fluid - Thoracentesis Fluid Gram Stain - Final 01/05/18 11:00 Fluid - Thoracentesis Fluid Body Fluid Culture - Final No growth aerobically. 01/05/18 11:00 Fluid - Thoracentesis Fluid Anaerobic Culture - Preliminary No growth in 48 hours. Clinical Impression(s) from Imaging Studies Chest X-Ray 01/03/18 16:50 IMPRESSION: Total opacification of the right hemithorax which likely represents a combination of effusion and infiltrate. Electronically Signed: Parviz Waters, at 17:09 EDT Tel , Service support , Chest CTA 01/03/18 19:32 IMPRESSION: No evidence of pulmonary embolus. No evidence of thoracic aortic aneurysm or dissection. Large right pleural effusion which fills the right hemithorax. Total atelectasis of the right lung. The patient's known right-sided mass is not evaluated on this study due to the collapse of the right lung. No left-sided effusion or infiltrate. Fatty liver. Electronically Signed: Parviz Waters, at 20:51 EDT Tel , Service support , Thoracentesis Ultrasound 01/05/18 08:00 IMPRESSION: Ultrasound-guided right thoracentesis. Electronically Signed: Rivera Peña MD at 12:15 EDT Tel [phone], Service support , Chest X-Ray 01/05/18 11:26 IMPRESSION: No evidence of pneumothorax. The patient is status post right thoracentesis. Electronically Signed: Rivera Peña MD at 12:14 EDT Tel [phone], Service support , Chest X-Ray 01/06/18 07:18 IMPRESSION: Worsening large right effusion. Opacification of the right lung. Electronically Signed: Myriam Hernandes MD at 8:06 EDT Tel , Service support , Thoracentesis Ultrasound 01/07/18 05:39 IMPRESSION: Ultrasound-guided right thoracentesis. Electronically Signed: Rivera Peña MD at 12:03 EDT Tel [phone], Service support , Chest X-Ray 01/08/18 10:06 IMPRESSION: Status post right thoracentesis. There is no evidence of pneumothorax. Complete opacification of the right lung with a shift of the heart and mediastinal structures towards the right side of the midline. Obstruction of the right mainstem bronchus should be ruled out. Electronically Signed: Rivera Peña MD at 11:18 EDT Tel [phone], Service support , Chest X-Ray 01/09/18 09:10 IMPRESSION: Stable examination. Complete opacification of the right hemithorax. Bronchoscopy is recommended to rule out right bronchial obstruction. Electronically Signed: Rivera Peña MD at 10:43 EDT Tel [phone], Service support , Abdomen/Pelvis CT 01/09/18 16:49 IMPRESSION: A large right-sided pleural effusion with compressive collapse of the right lower lobe and multiple focal areas of nodular densities along the pleural surface. The pleural effusion may be malignant. No metastatic liver or adrenal disease. No acute appendicitis or diverticulitis Electronically Signed: Peter Rivera, at 0:25 EDT Tel , Service support , Brain CT 01/09/18 19:10 IMPRESSION: Findings suspicious for right frontal parietal and possibly left frontal lobe metastases. MRI with contrast recommended for further evaluation Electronically Signed: Jai Reilly MD at 19:45 EDT , Service support , Chest X-Ray 01/10/18 02:30 IMPRESSION: A large right sided pleural effusion. The left lung is clear Electronically Signed: Peter Rivera, at 4:06 EDT Tel , Service support , Medical Necessity - Tobacco Use Smoking Status: Former smoker Tobacco Use: Cigarettes Assessment/Plan All Active Problems Non-small cell cancer of right lung (Acute) Metastatic adenocarcinoma (Acute) Blurry vision, bilateral (Acute) Malignant pleural effusion (Acute) Pleural effusion (Acute) Acute on chronic respiratory failure with hypoxia and hypercapnia (Acute) Pulmonary embolism (Resolved) RECOMMENDATIONS: 1. Transfer patient to ICU level of care, given tenuous respiratory status. 2. Following a discussion with general surgery, will consider repeat thoracentesis today for patient relief of dyspnea. 3. Recheck PTT 4. Continue BiPAP therapy. Noninvasive positive pressure ventilation will need to be interrupted transiently to perform thoracentesis. 5. Recommend continuing BiPAP at current pressure settings with naps and nightly. 6. Wean supplemental oxygen to maintain saturations at or above 90%. 7. We will plan to re-discuss case with oncology and general surgery tomorrow to develop a goals of care plan moving forward. IMPRESSIONS: 1. Acute on chronic combined respiratory failure/newly diagnosed non-small cell lung cancer Secondary to underlying right-sided pleural effusion with a high probability of endobronchial obstruction and subsequent distal lung collapse. The patient's pleural fluid cytology was positive for non-small cell carcinoma. This would make him stage IV disease. The patient's pleural effusion has reaccumulated rather quickly and the patient decompensated last evening requiring BiPAP initiation. Can attempt bedside thoracentesis today. Plan to proceed with diagnostic bronchoscopy tomorrow to evaluate for right-sided endobronchial lesion. The patient is currently also scheduled to undergo port placement. 2. Personal history of pulmonary embolism Agree with continuing to hold Xarelto for now. Continue heparin drip. 3. Tobacco dependence/obesity/obstructive sleep apnea Complicates care, management, recovery and prognosis. The patient's last polysomnogram was completed over 10 years ago and the patient has been noncompliant with outpatient use of nocturnal Pap therapy. UPDATE: Ultrasound-guided bedside thoracentesis was attempted at the bedside this morning. Unfortunately, the patient experience a great deal of anxiety and pain when attempting to anesthetize the catheter tract. Therefore, the procedure was aborted. Nevertheless, the patient was able to maintain oxygen saturation sitting upright on 3-4 L nasal cannula. Plan at this time is to hold off on thoracentesis until morning. Will place order to be performed in radiology. The patient has been advised to utilize BiPAP with naps and nightly. The patient's heparin drip can be resumed with plans to place it on hold once again at 0300 hrs. in hopes that a repeat thoracentesis in radiology can be accomplished first thing in the morning. TIME: 60 minutes of critical care time, inclusive of procedures, was spent addressing the patient's acute on chronic combined respiratory failure, recurrent malignant pleural effusion, newly diagnosed stage IV non-small cell lung cancer, personal history of pulmonary embolism, review of all data and collaboration with the care team. ([id number]) Code Visit [id number]: [id number] Critical care first hour
--- NOTE | 2018-01-10 08:30 | PN_ITS ---
Subjective: The patient was seen and examined at the bedside this morning. Events from the last 24 hours have been reviewed. Overnight, the patient was noted to decompensate from a respiratory status. He became more short of breath, requiring escalation in his supplemental flow rate and was eventually placed back on BiPAP. He has been experience a great deal of pain and discomfort and appears significantly restless this morning. Arterial blood gas was obtained early this morning on BiPAP 12/6 cm of water and revealed a pH of 7.31, PO2 of 61 and PCO2 of 68. Repeat plain film chest imaging again demonstrated complete opacification of the right hemithorax. Continue his heparin drip has supposedly been off since 0300 hrs. this morning. Objective: The patient's most recent lab work, culture data and imaging studies have all been personally reviewed. Pleural fluid culture from January 05 was negative. Pleural fluid cytology ?2 was both positive for non-small cell carcinoma, adenocarcinoma. General: Alert, Cooperative, - - Currently restless in bed with BiPAP in place HEENT: Atraumatic, Normocephalic Oral: Dry Mucosa Neck: Supple, No Nodes, Trachea Midline Lungs: - - Globally diminished air movement throughout the right hemithorax with dullness to percussion of the right base. The patient is tachypneic. Cardiovascular: Normal S1, Normal S2, No murmurs, Tachycardic Abdomen: Bowel Sounds Present, Soft, Non Tender, Obese Extremities: No clubbing, No cyanosis, No edema Skin: - - Diffuse maculopapular rash Musculoskeletal: No Muscle Wasting Lymphatic: No Cervical, Supraclavicular, or Inguinal Adenopathy Neurological: Neuro grossly intact Psych/Mental Status: Anxious Vital Signs Temp Pulse Resp BP Pulse Ox 97.8 F 124 H 24 H 115/63 91 01/10/18 07:30 01/10/18 08:00 01/10/18 08:00 01/10/18 07:30 01/10/18 08:00 Oxygen Flow Rate (L/min) 5 Oxygen Delivery Method Bi-pap Weight: 287 lb 0.67 oz Body Mass Index (BMI) 41.4 Intake and Output for Last 24 Hours 01/08/18 01/09/18 01/10/18 23:59 23:59 23:59 Intake Total 1133.9 / 1133.9 1734 / 1734 422.8 / 422.8 Output Total 975 / 975 3425 / 3425 475 / 475 Balance 158.9 / 158.9 -1691 / -1691 -52.2 / -52.2 Labs (Last 48 Hours) 01/05/18 01/05/18 01/08/18 11:00 11:00 11:20 WBC RBC Hgb Hct MCV MCH MCHC RDW RDW Differential Plt Count MPV Immature Gran % (Auto) Neut % (Auto) Lymph % (Auto) [place] % (Auto) Eos % (Auto) Baso % (Auto) Absolute Neuts (auto) Absolute Lymphs (auto) Total Counted APTT 32.6 Specimen Type Sample Site pH Bicarbonate Actual POC Total CO2 Base Excess O2 Saturation O2 % ABG pCO2 ABG pO2 Fam Test Respiration Rate O2 Delivery Device EPAP IPAP Blood Gas Notified Whom Blood Gas Notified Time Sodium Potassium Chloride Carbon Dioxide Anion Gap BUN Creatinine Estim Creat Clear Calc Est GFR (MDRD) Af Amer Est GFR (MDRD) Non-Af BUN/Creatinine Ratio Glucose Calcium B-Natriuretic Peptide Fl Pathologist Comment Reviewed Miscellaneous Cytology SEE PATHOLOGY REPORT 01/08/18 01/08/18 01/09/18 17:12 23:27 05:55 WBC 6.3 RBC 3.86 L Hgb 11.4 L Hct 35.0 L MCV 90.7 MCH 29.5 MCHC 32.6 RDW 13.8 RDW Differential 44.8 H Plt Count 244 MPV 9.2 Immature Gran % (Auto) 0.800 Neut % (Auto) 65.4 Lymph % (Auto) 16.6 L [place] % (Auto) 9.7 Eos % (Auto) 7.0 H Baso % (Auto) 0.5 Absolute Neuts (auto) 4.1 Absolute Lymphs (auto) 1.05 Total Counted Not Reportable APTT 60.1 H 73.4 H Specimen Type Sample Site pH Bicarbonate Actual POC Total CO2 Base Excess O2 Saturation O2 % ABG pCO2 ABG pO2 Fam Test Respiration Rate O2 Delivery Device EPAP IPAP Blood Gas Notified Whom Blood Gas Notified Time Sodium Potassium Chloride Carbon Dioxide Anion Gap BUN Creatinine Estim Creat Clear Calc Est GFR (MDRD) Af Amer Est GFR (MDRD) Non-Af BUN/Creatinine Ratio Glucose Calcium B-Natriuretic Peptide Fl Pathologist Comment Miscellaneous Cytology 01/09/18 01/09/1818 05:55 23:50 23:50 WBC RBC Hgb Hct MCV MCH MCHC RDW RDW Differential Plt Count MPV Immature Gran % (Auto) Neut % (Auto) Lymph % (Auto) [place] % (Auto) Eos % (Auto) Baso % (Auto) Absolute Neuts (auto) Absolute Lymphs (auto) Total Counted APTT 71.7 H Specimen Type Sample Site pH Bicarbonate Actual POC Total CO2 Base Excess O2 Saturation O2 % ABG pCO2 ABG pO2 Fam Test Respiration Rate O2 Delivery Device EPAP IPAP Blood Gas Notified Whom Blood Gas Notified Time Sodium 139 Potassium 4.0 Chloride 101 Carbon Dioxide 33.0 H Anion Gap 5 BUN 8 Creatinine 0.66 L Estim Creat Clear Calc 121.36 Est GFR (MDRD) Af Amer 157 Est GFR (MDRD) Non-Af 130 BUN/Creatinine Ratio 12.1 Glucose 92 Calcium 7.9 L B-Natriuretic Peptide 18.0 Fl Pathologist Comment Miscellaneous Cytology 01/10/18 01/10/18 01/10/18 02:58 06:10 06:10 WBC 11.7 H RBC 4.32 L Hgb 12.4 L Hct 39.7 L MCV 91.9 MCH 28.7 MCHC 31.2 L RDW 14.1 RDW Differential 47.1 H Plt Count 239 MPV 9.5 Immature Gran % (Auto) 0.200 Neut % (Auto) 94.9 H Lymph % (Auto) 2.5 L [place] % (Auto) 0.9 Eos % (Auto) 1.4 Baso % (Auto) 0.1 Absolute Neuts (auto) 11.2 H Absolute Lymphs (auto) 0.29 L Total Counted Not Reportable APTT 30.4 Specimen Type ART Sample Site R Brachial pH 7.31 L Bicarbonate Actual 34.2 H POC Total CO2 36 Base Excess 8 H O2 Saturation 87 L O2 % 60 ABG pCO2 68.5 H* ABG pO2 61 L Fam Test NA Respiration Rate 35 O2 Delivery Device Bi / C PAP EPAP 6 IPAP 12 Blood Gas Notified Whom [facility] Blood Gas Notified Time 305 Sodium Potassium Chloride Carbon Dioxide Anion Gap BUN Creatinine Estim Creat Clear Calc Est GFR (MDRD) Af Amer Est GFR (MDRD) Non-Af BUN/Creatinine Ratio Glucose Calcium B-Natriuretic Peptide Fl Pathologist Comment Miscellaneous Cytology 01/10/18 06:10 WBC RBC Hgb Hct MCV MCH MCHC RDW RDW Differential Plt Count MPV Immature Gran % (Auto) Neut % (Auto) Lymph % (Auto) [place] % (Auto) Eos % (Auto) Baso % (Auto) Absolute Neuts (auto) Absolute Lymphs (auto) Total Counted APTT Specimen Type Sample Site pH Bicarbonate Actual POC Total CO2 Base Excess O2 Saturation O2 % ABG pCO2 ABG pO2 Fam Test Respiration Rate O2 Delivery Device EPAP IPAP Blood Gas Notified Whom Blood Gas Notified Time Sodium 140 Potassium 4.7 Chloride 99 Carbon Dioxide 34.0 H Anion Gap 7 BUN 11 Creatinine 1.04 Estim Creat Clear Calc 77.02 Est GFR (MDRD) Af Amer 93 Est GFR (MDRD) Non-Af 77 BUN/Creatinine Ratio 10.6 Glucose 224 H Calcium 8.1 L B-Natriuretic Peptide Fl Pathologist Comment Miscellaneous Cytology Microbiology 01/05/18 11:00 Fluid - Thoracentesis Fluid Gram Stain - Final 01/05/18 11:00 Fluid - Thoracentesis Fluid Body Fluid Culture - Final No growth aerobically. 01/05/18 11:00 Fluid - Thoracentesis Fluid Anaerobic Culture - Preliminary No growth in 48 hours. Clinical Impression(s) from Imaging Studies Chest X-Ray 01/03/18 16:50 IMPRESSION: Total opacification of the right hemithorax which likely represents a combination of effusion and infiltrate. Electronically Signed: Parviz Waters, at 17:09 EDT Tel , Service support , Chest CTA 01/03/18 19:32 IMPRESSION: No evidence of pulmonary embolus. No evidence of thoracic aortic aneurysm or dissection. Large right pleural effusion which fills the right hemithorax. Total atelectasis of the right lung. The patient's known right-sided mass is not evaluated on this study due to the collapse of the right lung. No left-sided effusion or infiltrate. Fatty liver. Electronically Signed: Parviz Waters, at 20:51 EDT Tel , Service support , Thoracentesis Ultrasound 01/05/18 08:00 IMPRESSION: Ultrasound-guided right thoracentesis. Electronically Signed: Rivera Peña MD at 12:15 EDT Tel [phone], Service support , Chest X-Ray 01/05/18 11:26 IMPRESSION: No evidence of pneumothorax. The patient is status post right thoracentesis. Electronically Signed: Rivera Peña MD at 12:14 EDT Tel [phone], Service support , Chest X-Ray 01/06/18 07:18 IMPRESSION: Worsening large right effusion. Opacification of the right lung. Electronically Signed: Myriam Hernandes MD at 8:06 EDT Tel , Service support , Thoracentesis Ultrasound 01/07/18 05:39 IMPRESSION: Ultrasound-guided right thoracentesis. Electronically Signed: Rivera Peña MD at 12:03 EDT Tel [phone], Service support , Chest X-Ray 01/08/18 10:06 IMPRESSION: Status post right thoracentesis. There is no evidence of pneumothorax. Complete opacification of the right lung with a shift of the heart and mediastinal structures towards the right side of the midline. Obstruction of the right mainstem bronchus should be ruled out. Electronically Signed: Rivera Peña MD at 11:18 EDT Tel [phone], Service support , Chest X-Ray 01/09/18 09:10 IMPRESSION: Stable examination. Complete opacification of the right hemithorax. Bronchoscopy is recommended to rule out right bronchial obstruction. Electronically Signed: Rivera Peña MD at 10:43 EDT Tel [phone], Service support , Abdomen/Pelvis CT 01/09/18 16:49 IMPRESSION: A large right-sided pleural effusion with compressive collapse of the right lower lobe and multiple focal areas of nodular densities along the pleural surface. The pleural effusion may be malignant. No metastatic liver or adrenal disease. No acute appendicitis or diverticulitis Electronically Signed: Peter Rivera, at 0:25 EDT Tel , Service support , Brain CT 01/09/18 19:10 IMPRESSION: Findings suspicious for right frontal parietal and possibly left frontal lobe metastases. MRI with contrast recommended for further evaluation Electronically Signed: Jai Reilly MD at 19:45 EDT , Service support , Chest X-Ray 01/10/18 02:30 IMPRESSION: A large right sided pleural effusion. The left lung is clear Electronically Signed: Peter Rivera, at 4:06 EDT Tel , Service support , Medical Necessity - Tobacco Use Smoking Status: Former smoker Tobacco Use: Cigarettes Assessment/Plan All Active Problems Non-small cell cancer of right lung (Acute) Metastatic adenocarcinoma (Acute) Blurry vision, bilateral (Acute) Malignant pleural effusion (Acute) Pleural effusion (Acute) Acute on chronic respiratory failure with hypoxia and hypercapnia (Acute) Pulmonary embolism (Resolved) RECOMMENDATIONS: 1. Transfer patient to ICU level of care, given tenuous respiratory status. 2. Following a discussion with general surgery, will consider repeat thoracentesis today for patient relief of dyspnea. 3. Recheck PTT 4. Continue BiPAP therapy. Noninvasive positive pressure ventilation will need to be interrupted transiently to perform thoracentesis. 5. Recommend continuing BiPAP at current pressure settings with naps and nightly. 6. Wean supplemental oxygen to maintain saturations at or above 90%. 7. We will plan to re-discuss case with oncology and general surgery tomorrow to develop a goals of care plan moving forward. IMPRESSIONS: 1. Acute on chronic combined respiratory failure/newly diagnosed non-small cell lung cancer Secondary to underlying right-sided pleural effusion with a high probability of endobronchial obstruction and subsequent distal lung collapse. The patient's pleural fluid cytology was positive for non-small cell carcinoma. This would make him stage IV disease. The patient's pleural effusion has reaccumulated rather quickly and the patient decompensated last evening requiring BiPAP initiation. Can attempt bedside thoracentesis today. Plan to proceed with diagnostic bronchoscopy tomorrow to evaluate for right-sided endobronchial lesion. The patient is currently also scheduled to undergo port placement. 2. Personal history of pulmonary embolism Agree with continuing to hold Xarelto for now. Continue heparin drip. 3. Tobacco dependence/obesity/obstructive sleep apnea Complicates care, management, recovery and prognosis. The patient's last polysomnogram was completed over 10 years ago and the patient has been noncompliant with outpatient use of nocturnal Pap therapy. UPDATE: Ultrasound-guided bedside thoracentesis was attempted at the bedside this morning. Unfortunately, the patient experience a great deal of anxiety and pain when attempting to anesthetize the catheter tract. Therefore, the procedure was aborted. Nevertheless, the patient was able to maintain oxygen saturation sitting upright on 3-4 L nasal cannula. Plan at this time is to hold off on thoracentesis until morning. Will place order to be performed in radiology. The patient has been advised to utilize BiPAP with naps and nightly. The patient's heparin drip can be resumed with plans to place it on hold once again at 0300 hrs. in hopes that a repeat thoracentesis in radiology can be accomplished first thing in the morning. TIME: 60 minutes of critical care time, inclusive of procedures, was spent addressing the patient's acute on chronic combined respiratory failure, recurrent malignant pleural effusion, newly diagnosed stage IV non-small cell lung cancer , personal history of pulmonary embolism, review of all data and collaboration with the care team. ([id number]) Code Visit [id number]: [id number] Critical care first hour
--- NOTE | 2018-01-10 08:36 | PCM.PN.HOSP ---
Patient Problems: Active and Suspected Problems Non-small cell cancer of right lung (Acute) Metastatic adenocarcinoma (Acute) Blurry vision, bilateral (Acute) Malignant pleural effusion (Acute) Pleural effusion (Acute) Acute on chronic respiratory failure with hypoxia and hypercapnia (Acute) Subjective: Yesterday night events were noted. Essentially, patient got more short of breath and was seen by nighttime hospitalist. Patient was also seen by oncology team and surgeon as mentioned in yesterday's note. CT abdomen and CT brain was reviewed. 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 No high-grade fever but temperature 99.7 on the morning. Mild sinus tachycardia on monitor. Patient is tachypneic, respiratory rate 24/min and pulse ox 95% on BiPAP. As always read the patient did not feel the patient is mildly drowsy when seen in afternoon about 1:30 PM but he wakes up on vocal command. Vitals/I&O's: Vital Signs Temp Pulse Resp BP Pulse Ox 97.8 F 124 H 24 H 115/63 91 01/10/18 07:30 01/10/18 08:00 01/10/18 08:00 01/10/18 07:30 01/10/18 08:00 Oxygen Flow Rate (L/min) 5 Oxygen Delivery Method Bi-pap Weight: 287 lb 0.67 oz Body Mass Index (BMI) 41.4 Intake and Output for Last 24 Hours 01/08/18 01/09/18 01/10/18 23:59 23:59 23:59 Intake Total 1133.9 / 1133.9 1734 / 1734 422.8 / 422.8 Output Total 975 / 975 3425 / 3425 475 / 475 Balance 158.9 / 158.9 -1691 / -1691 -52.2 / -52.2 General: Alert, Oriented x3, Cooperative, Lethargic HEENT: Atraumatic, PERRLA, EOMI, Normocephalic Neck: Supple, No JVD, Negative Carotid Bruits Lungs: Diminished - Severely diminished on right side, Short of Breath, Tachypneic, Using Accessory Muscles Cardiovascular: Regular rate, Normal S1, Normal S2, No murmurs Abdomen: Bowel Sounds Present, Soft, Non Tender, Non-Distended Extremities: Capillary Refill Less than 3 Seconds, Edema Skin: Rash Present - Fine maculopapular rash over lower extremities and back Musculoskeletal: No Tenderness to Palpation of Joints or Extremities Neurological: Cranial nerves II-XII grossly intact Psych/Mental Status: Normal Affect, Appropriate Microbiology Past 72 Hours 01/05/18 11:00 Fluid - Thoracentesis Fluid Gram Stain - Final 01/05/18 11:00 Fluid - Thoracentesis Fluid Body Fluid Culture - Final No growth aerobically. 01/05/18 11:00 Fluid - Thoracentesis Fluid Anaerobic Culture - Preliminary No growth in 48 hours. Laboratory Results 01/05/18 11:00: Miscellaneous Cytology SEE PATHOLOGY REPORT 01/05/18 11:00: Fl Pathologist Comment Reviewed 01/09/18 23:50: Sodium 139, Potassium 4.0, Chloride 101, Carbon Dioxide 33.0 H, Anion Gap 5, BUN 8, Creatinine 0.66 L, Estim Creat Clear Calc 121.36, Est GFR (MDRD) Af Amer 157, Est GFR (MDRD) Non-Af 130, BUN/Creatinine Ratio 12.1, Glucose 92, Calcium 7.9 L 01/09/18 23:50: B-Natriuretic Peptide 18.0 01/10/18 02:58: Specimen Type ART, Sample Site R Brachial, pH 7.31 L, Bicarbonate Actual 34.2 H, POC Total CO2 36, Base Excess 8 H, O2 Saturation 87 L, O2 % 60, ABG pCO2 68.5 H*, ABG pO2 61 L, Fam Test NA, Respiration Rate 35, O2 Delivery Device Bi / C PAP, EPAP 6, IPAP 12, Blood Gas Notified Whom [facility] , Blood Gas Notified Time 305 01/10/18 06:10: APTT 30.4 01/10/18 06:10: WBC 11.7 H, RBC 4.32 L, Hgb 12.4 L, Hct 39.7 L, MCV 91.9, MCH 28.7, MCHC 31.2 L, RDW 14.1, RDW Differential 47.1 H, Plt Count 239, MPV 9.5, Immature Gran % (Auto) 0.200, Neut % (Auto) 94.9 H, Lymph % (Auto) 2.5 L, [place] % (Auto) 0.9, Eos % (Auto) 1.4, Baso % (Auto) 0.1, Absolute Neuts (auto) 11.2 H, Absolute Lymphs (auto) 0.29 L, Total Counted Not Reportable 01/10/18 06:10: Sodium 140, Potassium 4.7, Chloride 99, Carbon Dioxide 34.0 H, Anion Gap 7, BUN 11, Creatinine 1.04, Estim Creat Clear Calc 77.02, Est GFR (MDRD) Af Amer 93, Est GFR (MDRD) Non-Af 77, BUN/Creatinine Ratio 10.6, Glucose 224 H, Calcium 8.1 L Current Medications Acetaminophen (Tylenol) 650 mg PO Q6H PRN PRN PRN Reason: PAIN Last Admin: 01/09/18 21:15 Dose: 650 mg Albuterol Sulfate (Ventolin Aerosols) 2.5 mg INHALATION Q4H PRN PRN Reason: SOB &/OR WHEEZING Albuterol/Ipratropium (Duoneb) 3 ml INHALATION Q4H.RT EUSEBIO Last Admin: 01/10/18 07:06 Dose: Not Given Alprazolam (Xanax) 0.5 mg PO TID PRN PRN PRN Reason: ANXIETY Last Admin: 01/09/18 21:17 Dose: 0.5 mg Dexamethasone Sodium Phosphate (Decadron) 4 mg IV Q6 EUSEBIO Diphenhydramine HCl (Benadryl) 25 mg IV Q4H PRN PRN PRN Reason: pruritus Heparin Sodium (Porcine) (Heparin Na) 0 unit SC UD PRN PRN Reason: Protocol Last Admin: 01/08/18 11:50 Dose: 3,000 units Heparin Sodium/Sodium Chloride () 25,000 unit in 250 mls @ 17 mls/hr IV .[id number] EUSEBIO; As Directed PRN Reason: Protocol Last Admin: 01/09/18 15:19 Dose: 17 mls/hr Magnesium Hydroxide (Milk Of Magnesia) 30 ml PO DAILY PRN PRN PRN Reason: Constipation Morphine Sulfate () 2 - 4 mg IV Q2H PRN PRN PRN Reason: SEVERE PAIN (6-10/10) Morphine Sulfate () 2 - 4 mg IV Q2H PRN PRN PRN Reason: SEVERE PAIN (6-10/10) Last Admin: 01/10/18 00:21 Dose: 2 mg Nicotine (Nicoderm Cq (Pbkc)) 21 mg TRANSDERM. DAILY EUSEBIO Last Admin: 01/09/18 08:39 Dose: 21 mg Ondansetron HCl (Zofran) 4 mg IV Q8H PRN PRN PRN Reason: NAUSEA Last Admin: 01/09/18 22:25 Dose: 4 mg Promethazine HCl (Phenergan) 12.5 mg IV Q6H PRN PRN PRN Reason: NAUSEA/VOMITING Last Admin: 01/10/18 04:25 Dose: 12.5 mg Sodium Chloride () 5 - 30 ml IV UD PRN PRN Reason: SALINE FLUSH Last Admin: 01/10/18 00:22 Dose: 10 ml Medical Necessity - Tobacco Use Smoking Status: Former smoker Tobacco Use: Cigarettes Assessment/Plan All Active Problems Non-small cell cancer of right lung (Acute) Metastatic adenocarcinoma (Acute) Blurry vision, bilateral (Acute) Malignant pleural effusion (Acute) Pleural effusion (Acute) Acute on chronic respiratory failure with hypoxia and hypercapnia (Acute) Pulmonary embolism (Resolved) This is a 62-year-old gentleman who is being admitted for acute on chronic combined respiratory failure secondary to right, recurrent exudative pleural effusion with high suspicion of lung mass/malignancy. Patient had initial thoracocentesis on 01/05/2018 and then 01/08/2018. Fluid cytology from 01/05/2018 reported as malignant cells present; immunohistochemistry supports non-small cell carcinoma favoring adenocarcinoma. Fluid cytology from 01/2018 also reported as few malignant cells present consistent with non-small cell carcinoma. Pleural fluid culture is negative. Patient was chronic smoker and he quit his smoking about [address] Cooper is consulted to consider Pleurx catheter and oncologist consulted for stage IV NSCLC possible adenocarcinoma. 1. Acute on chronic hypercapnic and hypoxic respiratory failure secondary to right exudative recurrent, massive malignant pleural effusion - recurrent, recent diagnosis of PE-status post second thoracentesis 1800 cc on 01/05/2018 and 01/08/2018. Shortness of breath is worse today because of reaccumulating right sided large pleural effusion. Before his initial diagnosis he was not on oxygen, since then he has been on home oxygen. CTA was done at admission showed no PE or dissection. Fluid cultures are negative to date. Meditech thoracocentesis could not be done because patient was very uncomfortable, anxious and was hard for local anesthesia. 2. 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 No evidence of left-sided hilar lymphadenopathy. Right upper lobe groundglass nodule measuring 1.[address] scan chest done this time could not evaluate right-sided mass because of massive right-sided pleural effusion filling upper right hemithorax and right total lung atelectasis This time, CT brain raises suspicion of right frontal parietal and possibly left frontal lobe metastases. MRI with contrast recommended for further evaluation but patient is unstable because of respiratory failure for prolonged laying down for MRI 3. Recent diagnosis of PE: He will remain on heparin as there may need further thoracentesis or Pleurx catheter placement. He was on Xarelto for his recent PE diagnosis prior to this presentation. Tobacco abuse-patch 4 Morbidly obese 4. Fine maculopapular rash probably related to codeine/zosyn/heat rash: stopped codeine, prn vistaril. trend. May have been related to zosyn at admission. DVT prophylaxis: Heparin drip Clinical Impression(s) from Imaging Studies Chest X-Ray 01/03/18 16:50 IMPRESSION: Total opacification of the right hemithorax which likely represents a combination of effusion and infiltrate. Electronically Signed: Parviz Waters, at 17:09 EDT Tel , Service support , Chest CTA 01/03/18 19:32 IMPRESSION: No evidence of pulmonary embolus. No evidence of thoracic aortic aneurysm or dissection. Large right pleural effusion which fills the right hemithorax. Total atelectasis of the right lung. The patient's known right-sided mass is not evaluated on this study due to the collapse of the right lung. No left-sided effusion or infiltrate. Fatty liver. Electronically Signed: Parviz Waters, at 20:51 EDT Tel , Service support , Thoracentesis Ultrasound 01/05/18 08:00 IMPRESSION: Ultrasound-guided right thoracentesis. Electronically Signed: Rivera Peña MD at 12:15 EDT Tel [phone], Service support , Chest X-Ray 01/05/18 11:26 IMPRESSION: No evidence of pneumothorax. The patient is status post right thoracentesis. Electronically Signed: Rivera Peña MD at 12:14 EDT Tel [phone], Service support , Chest X-Ray 01/06/18 07:18 IMPRESSION: Worsening large right effusion. Opacification of the right lung. Electronically Signed: Myriam Hernandes MD at 8:06 EDT Tel , Service support , Thoracentesis Ultrasound 01/07/18 05:39 IMPRESSION: Ultrasound-guided right thoracentesis. Electronically Signed: Rivera Peña MD at 12:03 EDT Tel [phone], Service support , Chest X-Ray 01/08/18 10:06 IMPRESSION: Status post right thoracentesis. There is no evidence of pneumothorax. Complete opacification of the right lung with a shift of the heart and mediastinal structures towards the right side of the midline. Obstruction of the right mainstem bronchus should be ruled out. Electronically Signed: Rivera Peña MD at 11:18 EDT Tel [phone], Service support , Chest X-Ray 01/09/18 09:10 IMPRESSION: Stable examination. Complete opacification of the right hemithorax. Bronchoscopy is recommended to rule out right bronchial obstruction. Electronically Signed: Rivera Peña MD at 10:43 EDT Tel [phone], Service support , Abdomen/Pelvis CT 01/09/18 16:49 IMPRESSION: A large right-sided pleural effusion with compressive collapse of the right lower lobe and multiple focal areas of nodular densities along the pleural surface. The pleural effusion may be malignant. No metastatic liver or adrenal disease. No acute appendicitis or diverticulitis Electronically Signed: Peter Rivera, at 0:25 EDT Tel , Service support , Brain CT 01/09/18 19:10 IMPRESSION: Findings suspicious for right frontal parietal and possibly left frontal lobe metastases. MRI with contrast recommended for further evaluation Chest X-Ray 01/10/18 02:30 IMPRESSION: A large right sided pleural effusion. The left lung is clear Code Visit Inpatient E&M: 78051 Subs Hosp L3
--- NOTE | 2018-01-10 08:55 | PN_ITS ---
Patient Problems: Active and Suspected Problems Non-small cell cancer of right lung (Acute) Metastatic adenocarcinoma (Acute) Blurry vision, bilateral (Acute) Malignant pleural effusion (Acute) Pleural effusion (Acute) Acute on chronic respiratory failure with hypoxia and hypercapnia (Acute) Subjective: Yesterday night events were noted. Essentially, patient got more short of breath and was seen by nighttime hospitalist. Patient was also seen by oncology team and surgeon as mentioned in yesterday's note. CT abdomen and CT brain was reviewed. 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 No high-grade fever but temperature 99.7 on the morning. Mild sinus tachycardia on monitor. Patient is tachypneic, respiratory rate 24/ min and pulse ox 95% on BiPAP. As always read the patient did not feel the patient is mildly drowsy when seen in afternoon about 1:30 PM but he wakes up on vocal command. Vitals/I&O's: Vital Signs Temp Pulse Resp BP Pulse Ox 97.8 F 124 H 24 H 115/63 91 01/10/18 07:30 01/10/18 08:00 01/10/18 08:00 01/10/18 07:30 01/10/18 08:00 Oxygen Flow Rate (L/min) 5 Oxygen Delivery Method Bi-pap Weight: 287 lb 0.67 oz Body Mass Index (BMI) 41.4 Intake and Output for Last 24 Hours 01/08/18 01/09/18 01/10/18 23:59 23:59 23:59 Intake Total 1133.9 / 1133.9 1734 / 1734 422.8 / 422.8 Output Total 975 / 975 3425 / 3425 475 / 475 Balance 158.9 / 158.9 -1691 / -1691 -52.2 / -52.2 General: Alert, Oriented x3, Cooperative, Lethargic HEENT: Atraumatic, PERRLA, EOMI, Normocephalic Neck: Supple, No JVD, Negative Carotid Bruits Lungs: Diminished - Severely diminished on right side, Short of Breath, Tachypneic, Using Accessory Muscles Cardiovascular: Regular rate, Normal S1, Normal S2, No murmurs Abdomen: Bowel Sounds Present, Soft, Non Tender, Non-Distended Extremities: Capillary Refill Less than 3 Seconds, Edema Skin: Rash Present - Fine maculopapular rash over lower extremities and back Musculoskeletal: No Tenderness to Palpation of Joints or Extremities Neurological: Cranial nerves II-XII grossly intact Psych/Mental Status: Normal Affect, Appropriate Microbiology Past 72 Hours 01/05/18 11:00 Fluid - Thoracentesis Fluid Gram Stain - Final 01/05/18 11:00 Fluid - Thoracentesis Fluid Body Fluid Culture - Final No growth aerobically. 01/05/18 11:00 Fluid - Thoracentesis Fluid Anaerobic Culture - Preliminary No growth in 48 hours. Laboratory Results 01/05/18 11:00: Miscellaneous Cytology SEE PATHOLOGY REPORT 01/05/18 11:00: Fl Pathologist Comment Reviewed 01/09/18 23:50: Sodium 139, Potassium 4.0, Chloride 101, Carbon Dioxide 33.0 H, Anion Gap 5, BUN 8, Creatinine 0.66 L, Estim Creat Clear Calc 121.36, Est GFR ( MDRD) Af Amer 157, Est GFR (MDRD) Non-Af 130, BUN/Creatinine Ratio 12.1, Glucose 92, Calcium 7.9 L 01/09/18 23:50: B-Natriuretic Peptide 18.0 01/10/18 02:58: Specimen Type ART, Sample Site R Brachial, pH 7.31 L, Bicarbonate Actual 34.2 H, POC Total CO2 36, Base Excess 8 H, O2 Saturation 87 L , O2 % 60, ABG pCO2 68.5 H*, ABG pO2 61 L, Fam Test NA, Respiration Rate 35, O2 Delivery Device Bi / C PAP, EPAP 6, IPAP 12, Blood Gas Notified Whom [facility] , Blood Gas Notified Time 305 01/10/18 06:10: APTT 30.4 01/10/18 06:10: WBC 11.7 H, RBC 4.32 L, Hgb 12.4 L, Hct 39.7 L, MCV 91.9, MCH 28.7, MCHC 31.2 L, RDW 14.1, RDW Differential 47.1 H, Plt Count 239, MPV 9.5, Immature Gran % (Auto) 0.200, Neut % (Auto) 94.9 H, Lymph % (Auto) 2.5 L, [place] % (Auto) 0.9, Eos % (Auto) 1.4, Baso % (Auto) 0.1, Absolute Neuts (auto) 11.2 H , Absolute Lymphs (auto) 0.29 L, Total Counted Not Reportable 01/10/18 06:10: Sodium 140, Potassium 4.7, Chloride 99, Carbon Dioxide 34.0 H, Anion Gap 7, BUN 11, Creatinine 1.04, Estim Creat Clear Calc 77.02, Est GFR ( MDRD) Af Amer 93, Est GFR (MDRD) Non-Af 77, BUN/Creatinine Ratio 10.6, Glucose 224 H, Calcium 8.1 L Current Medications Acetaminophen (Tylenol) 650 mg PO Q6H PRN PRN PRN Reason: PAIN Last Admin: 01/09/18 21:15 Dose: 650 mg Albuterol Sulfate (Ventolin Aerosols) 2.5 mg INHALATION Q4H PRN PRN Reason: SOB &/OR WHEEZING Albuterol/Ipratropium (Duoneb) 3 ml INHALATION Q4H.RT EUSEBIO Last Admin: 01/10/18 07:06 Dose: Not Given Alprazolam (Xanax) 0.5 mg PO TID PRN PRN PRN Reason: ANXIETY Last Admin: 01/09/18 21:17 Dose: 0.5 mg Dexamethasone Sodium Phosphate (Decadron) 4 mg IV Q6 EUSEBIO Diphenhydramine HCl (Benadryl) 25 mg IV Q4H PRN PRN PRN Reason: pruritus Heparin Sodium (Porcine) (Heparin Na) 0 unit SC UD PRN PRN Reason: Protocol Last Admin: 01/08/18 11:50 Dose: 3,000 units Heparin Sodium/Sodium Chloride () 25,000 unit in 250 mls @ 17 mls/hr IV .[id number] EUSEBIO; As Directed PRN Reason: Protocol Last Admin: 01/09/18 15:19 Dose: 17 mls/hr Magnesium Hydroxide (Milk Of Magnesia) 30 ml PO DAILY PRN PRN PRN Reason: Constipation Morphine Sulfate () 2 - 4 mg IV Q2H PRN PRN PRN Reason: SEVERE PAIN (6-10/10) Morphine Sulfate () 2 - 4 mg IV Q2H PRN PRN PRN Reason: SEVERE PAIN (6-10/10) Last Admin: 01/10/18 00:21 Dose: 2 mg Nicotine (Nicoderm Cq (Pbkc)) 21 mg TRANSDERM. DAILY EUSEBIO Last Admin: 01/09/18 08:39 Dose: 21 mg Ondansetron HCl (Zofran) 4 mg IV Q8H PRN PRN PRN Reason: NAUSEA Last Admin: 01/09/18 22:25 Dose: 4 mg Promethazine HCl (Phenergan) 12.5 mg IV Q6H PRN PRN PRN Reason: NAUSEA/VOMITING Last Admin: 01/10/18 04:25 Dose: 12.5 mg Sodium Chloride () 5 - 30 ml IV UD PRN PRN Reason: SALINE FLUSH Last Admin: 01/10/18 00:22 Dose: 10 ml Medical Necessity - Tobacco Use Smoking Status: Former smoker Tobacco Use: Cigarettes Assessment/Plan All Active Problems Non-small cell cancer of right lung (Acute) Metastatic adenocarcinoma (Acute) Blurry vision, bilateral (Acute) Malignant pleural effusion (Acute) Pleural effusion (Acute) Acute on chronic respiratory failure with hypoxia and hypercapnia (Acute) Pulmonary embolism (Resolved) This is a 62-year-old gentleman who is being admitted for acute on chronic combined respiratory failure secondary to right, recurrent exudative pleural effusion with high suspicion of lung mass/malignancy. Patient had initial thoracocentesis on 01/05/2018 and then 01/08/2018. Fluid cytology from 01/05 reported as malignant cells present; immunohistochemistry supports non- small cell carcinoma favoring adenocarcinoma. Fluid cytology from 01/2018 also reported as few malignant cells present consistent with non-small cell carcinoma. Pleural fluid culture is negative. Patient was chronic smoker and he quit his smoking about [address] Cooper is consulted to consider Pleurx catheter and oncologist consulted for stage IV NSCLC possible adenocarcinoma. 1. Acute on chronic hypercapnic and hypoxic respiratory failure secondary to right exudative recurrent, massive malignant pleural effusion - recurrent, recent diagnosis of PE-status post second thoracentesis 1800 cc on 01/05/2018 and 01/08/2018. Shortness of breath is worse today because of reaccumulating right sided large pleural effusion. Before his initial diagnosis he was not on oxygen, since then he has been on home oxygen. CTA was done at admission showed no PE or dissection. Fluid cultures are negative to date. Meditech thoracocentesis could not be done because patient was very uncomfortable, anxious and was hard for local anesthesia. 2. 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 No evidence of left-sided hilar lymphadenopathy. Right upper lobe groundglass nodule measuring 1.[address] scan chest done this time could not evaluate right-sided mass because of massive right-sided pleural effusion filling upper right hemithorax and right total lung atelectasis This time, CT brain raises suspicion of right frontal parietal and possibly left frontal lobe metastases. MRI with contrast recommended for further evaluation but patient is unstable because of respiratory failure for prolonged laying down for MRI 3. Recent diagnosis of PE: He will remain on heparin as there may need further thoracentesis or Pleurx catheter placement. He was on Xarelto for his recent PE diagnosis prior to this presentation. Tobacco abuse-patch 4 Morbidly obese 4. Fine maculopapular rash probably related to codeine/zosyn/heat rash: stopped codeine, prn vistaril. trend. May have been related to zosyn at admission. DVT prophylaxis: Heparin drip Clinical Impression(s) from Imaging Studies Chest X-Ray 01/03/18 16:50 IMPRESSION: Total opacification of the right hemithorax which likely represents a combination of effusion and infiltrate. Electronically Signed: Parviz Waters, at 17:09 EDT Tel , Service support , Chest CTA 01/03/18 19:32 IMPRESSION: No evidence of pulmonary embolus. No evidence of thoracic aortic aneurysm or dissection. Large right pleural effusion which fills the right hemithorax. Total atelectasis of the right lung. The patient's known right-sided mass is not evaluated on this study due to the collapse of the right lung. No left-sided effusion or infiltrate. Fatty liver. Electronically Signed: Parviz Waters, at 20:51 EDT Tel , Service support , Thoracentesis Ultrasound 01/05/18 08:00 IMPRESSION: Ultrasound-guided right thoracentesis. Electronically Signed: Rivera Peña MD at 12:15 EDT Tel [phone], Service support , Chest X-Ray 01/05/18 11:26 IMPRESSION: No evidence of pneumothorax. The patient is status post right thoracentesis. Electronically Signed: Rivera Peña MD at 12:14 EDT Tel [phone], Service support , Chest X-Ray 01/06/18 07:18 IMPRESSION: Worsening large right effusion. Opacification of the right lung. Electronically Signed: Myriam Hernandes MD at 8:06 EDT Tel , Service support , Thoracentesis Ultrasound 01/07/18 05:39 IMPRESSION: Ultrasound-guided right thoracentesis. Electronically Signed: Rivera Peña MD at 12:03 EDT Tel [phone], Service support , Chest X-Ray 01/08/18 10:06 IMPRESSION: Status post right thoracentesis. There is no evidence of pneumothorax. Complete opacification of the right lung with a shift of the heart and mediastinal structures towards the right side of the midline. Obstruction of the right mainstem bronchus should be ruled out. Electronically Signed: Rivera Peña MD at 11:18 EDT Tel [phone], Service support , Chest X-Ray 01/09/18 09:10 IMPRESSION: Stable examination. Complete opacification of the right hemithorax. Bronchoscopy is recommended to rule out right bronchial obstruction. Electronically Signed: Rivera Peña MD at 10:43 EDT Tel [phone], Service support , Abdomen/Pelvis CT 01/09/18 16:49 IMPRESSION: A large right-sided pleural effusion with compressive collapse of the right lower lobe and multiple focal areas of nodular densities along the pleural surface. The pleural effusion may be malignant. No metastatic liver or adrenal disease. No acute appendicitis or diverticulitis Electronically Signed: Peter Rivera, at 0:25 EDT Tel , Service support , Brain CT 01/09/18 19:10 IMPRESSION: Findings suspicious for right frontal parietal and possibly left frontal lobe metastases. MRI with contrast recommended for further evaluation Chest X-Ray 01/10/18 02:30 IMPRESSION: A large right sided pleural effusion. The left lung is clear Code Visit Inpatient E&M: 74930 Subs Hosp L3
--- NOTE | 2018-01-10 09:06 | NURSING ---
Pt to ICU 7 @ 0800. Difficulty w/getting blood drawn for PTT per Dr Astudillo's order. IV to LT AC leaking. Unable to get another IV placed. Attempted x3 by 3 different RN's. Spoke w/Dr Astudillo, order placed for PICC line. Called grease maker. They will call back w/ETA
--- NOTE | 2018-01-10 10:00 | NURSING ---
Dr Astudillo attempted bedside ultrasound thoracentesis, but was unsuccessful d/t pt's anxiety and pain. Plan to do Thoracentesis in Radiology in AM.
[2018-01-10] MEDS: ALPRAZolam 0.5 MG Tablet PO (10:22)
[2018-01-10 17:43] LABS: Partial Thromboplast Time 75.6 Seconds (24.1-36.2)
[2018-01-10] MEDS: 0.9% NaCl PICC Flush IV (21:10)
[2018-01-11] VITALS (32 sets, daily range): BP systolic 90–136; BP diastolic 31–81; PULSE 61–90; RESP 10–25; TEMP 36.1–36.7; O2SAT 93–99
[2018-01-11] MEDS: 0.9% NaCl PICC Flush IV ×2 (00:09→05:32)
[2018-01-11] MEDS: CHLORHEXIDINE GLUC 2% CLOTH 1 EACH TOWELETTE TOPICAL (03:47)
[2018-01-11 04:36] LABS: Absolute Lymphocyte Count 0.57 X10^3/ul (0.83-4.51); Basophil# 0.01 X10^3/uL; Basophil% 0.1 % (0-1); Eosinophil# 0.02 X10^3/uL; Eosinophils% 0.2 % (0-5); Hematocrit 33.1 % (40-54); Hemoglobin 10.3 g/dl (13.0-16.5); Lymphocyte # 0.57 X10^3/ul (4.0); Lymphocyte % 6.4 % (19-41); Mean Corp Hgb Conc 31.1 g/gl (32-36); Mean Corpuscular Hgb 28.5 pg (27.0-32.0); Mean Corpuscular Volume 91.7 fL (80-94); Mean Platelet Vol. 8.9 fl (6.2-12.0); Monocyte# 0.26 X10^3/uL; Monocyte% 2.9 % (0-10); Neutrophil # 7.96 X10^3/uL (2.7-7.7); Neutrophil % 90.2 % (47-70); Platelet Count 178 K/mm3 (150-450); RBC Distribution Width CV 13.9 % (11.6-14.6); RBC Distribution Width SD 46.4 fl (35.1-43.9); Red Blood Count 3.61 M/mm3 (4.6-6.2); White Blood Count 8.8 K/mm3 (4.4-11.0)
[2018-01-11 04:40] LABS: Differential Indicated SCAN CRITERIA MET; POSITIVE COUNT NO; POSITIVE DIFFERENTIAL YES; POSITIVE MORPHOLOGY NO
[2018-01-11 04:59] LABS: Partial Thromboplast Time 35.5 Seconds (24.1-36.2)
--- NOTE | 2018-01-11 05:08 | PCM.PN.INT ---
Subjective: The patient was seen and examined at the bedside this morning. Events from the last 24 hours have been reviewed. The patient is currently afebrile, hemodynamically stable and maintaining appropriate oxygen saturations on BiPAP currently. Attempts to complete a bedside thoracentesis yesterday was unsuccessful due to patient anxiety and pain. Nevertheless, the patient was able to maintain oxygen saturations on 3-4 L/min via nasal cannula throughout the day. He was placed empirically back on BiPAP overnight, which he has tolerated well. The patient's continuous heparin infusion has been off since 0300 hrs. He is currently n.p.o. in preparation for planned procedures today. Objective: The patient's most recent lab work, culture data and imaging studies have all been personally reviewed. Pleural fluid culture from January 05 was negative. Pleural fluid cytology ?2 was both positive for non-small cell carcinoma, adenocarcinoma. General: Alert, Cooperative, No apparent distress HEENT: Atraumatic, PERRLA, Normocephalic Oral: No Gingival or Mucosal Lesions/ Ulcerations Neck: Supple, No Nodes, Trachea Midline Lungs: - - Continued diminished air movement throughout the right hemithorax with dullness to percussion at the right lung base. Cardiovascular: Regular rate, Regular Rhythm, Normal S1, Normal S2, No murmurs, No rub noted, No Gallop Abdomen: Bowel Sounds Present, Soft, Non Tender, Obese Extremities: No clubbing, No cyanosis, No edema Skin: - - Diffuse maculopapular rash Musculoskeletal: No Tenderness to Palpation of Joints or Extremities, No Muscle Wasting Lymphatic: No Cervical, Supraclavicular, or Inguinal Adenopathy Neurological: Neuro grossly intact Psych/Mental Status: Normal Affect, Appropriate Vital Signs Temp Pulse Resp BP Pulse Ox 98.0 F 68 19 H 114/65 96 01/11/18 00:00 01/11/18 04:00 01/11/18 04:00 01/11/18 04:00 01/11/18 04:00 Oxygen Flow Rate (L/min) 4 Oxygen Delivery Method Bi-pap Weight: 286 lb 6.087 oz Body Mass Index (BMI) 41.4 Intake and Output for Last 24 Hours 01/09/18 01/10/18 01/11/18 23:59 23:59 23:59 Intake Total 1734 / 1734 1063.8 / 1063.8 Output Total 3425 / 3425 1675 / 1675 Balance -1691 / -1691 -611.2 / -611.2 Labs (Last 48 Hours) 01/05/18 01/05/18 01/09/18 11:00 11:00 05:55 WBC 6.3 RBC 3.86 L Hgb 11.4 L Hct 35.0 L MCV 90.7 MCH 29.5 MCHC 32.6 RDW 13.8 RDW Differential 44.8 H Plt Count 244 MPV 9.2 Immature Gran % (Auto) 0.800 Neut % (Auto) 65.4 Lymph % (Auto) 16.6 L [place] % (Auto) 9.7 Eos % (Auto) 7.0 H Baso % (Auto) 0.5 Absolute Neuts (auto) 4.1 Absolute Lymphs (auto) 1.05 Total Counted Not Reportable APTT Specimen Type Sample Site pH Bicarbonate Actual POC Total CO2 Base Excess O2 Saturation O2 % ABG pCO2 ABG pO2 Fam Test Respiration Rate O2 Delivery Device EPAP IPAP Blood Gas Notified Whom Blood Gas Notified Time Sodium Potassium Chloride Carbon Dioxide Anion Gap BUN Creatinine Estim Creat Clear Calc Est GFR (MDRD) Af Amer Est GFR (MDRD) Non-Af BUN/Creatinine Ratio Glucose Calcium B-Natriuretic Peptide Fl Pathologist Comment Reviewed Miscellaneous Cytology SEE PATHOLOGY REPORT 01/09/18 01/09/18 01/09/18 05:55 23:50 23:50 WBC RBC Hgb Hct MCV MCH MCHC RDW RDW Differential Plt Count MPV Immature Gran % (Auto) Neut % (Auto) Lymph % (Auto) [place] % (Auto) Eos % (Auto) Baso % (Auto) Absolute Neuts (auto) Absolute Lymphs (auto) Total Counted APTT 71.7 H Specimen Type Sample Site pH Bicarbonate Actual POC Total CO2 Base Excess O2 Saturation O2 % ABG pCO2 ABG pO2 Fam Test Respiration Rate O2 Delivery Device EPAP IPAP Blood Gas Notified Whom Blood Gas Notified Time Sodium 139 Potassium 4.0 Chloride 101 Carbon Dioxide 33.0 H Anion Gap 5 BUN 8 Creatinine 0.66 L Estim Creat Clear Calc 121.36 Est GFR (MDRD) Af Amer 157 Est GFR (MDRD) Non-Af 130 BUN/Creatinine Ratio 12.1 Glucose 92 Calcium 7.9 L B-Natriuretic Peptide 18.0 Fl Pathologist Comment Miscellaneous Cytology 01/10/18 01/10/18 01/10/18 02:58 06:10 06:10 WBC 11.7 H RBC 4.32 L Hgb 12.4 L Hct 39.7 L MCV 91.9 MCH 28.7 MCHC 31.2 L RDW 14.1 RDW Differential 47.1 H Plt Count 239 MPV 9.5 Immature Gran % (Auto) 0.200 Neut % (Auto) 94.9 H Lymph % (Auto) 2.5 L [place] % (Auto) 0.9 Eos % (Auto) 1.4 Baso % (Auto) 0.1 Absolute Neuts (auto) 11.2 H Absolute Lymphs (auto) 0.29 L Total Counted Not Reportable APTT 30.4 Specimen Type ART Sample Site R Brachial pH 7.31 L Bicarbonate Actual 34.2 H POC Total CO2 36 Base Excess 8 H O2 Saturation 87 L O2 % 60 ABG pCO2 68.5 H* ABG pO2 61 L Fam Test NA Respiration Rate 35 O2 Delivery Device Bi / C PAP EPAP 6 IPAP 12 Blood Gas Notified Whom [facility] Blood Gas Notified Time 305 Sodium Potassium Chloride Carbon Dioxide Anion Gap BUN Creatinine Estim Creat Clear Calc Est GFR (MDRD) Af Amer Est GFR (MDRD) Non-Af BUN/Creatinine Ratio Glucose Calcium B-Natriuretic Peptide Fl Pathologist Comment Miscellaneous Cytology 01/10/18 01/10/18 01/10/18 06:10 08:45 17:15 WBC RBC Hgb Hct MCV MCH MCHC RDW RDW Differential Plt Count MPV Immature Gran % (Auto) Neut % (Auto) Lymph % (Auto) [place] % (Auto) Eos % (Auto) Baso % (Auto) Absolute Neuts (auto) Absolute Lymphs (auto) Total Counted APTT Cancelled 75.6 H Specimen Type Sample Site pH Bicarbonate Actual POC Total CO2 Base Excess O2 Saturation O2 % ABG pCO2 ABG pO2 Fam Test Respiration Rate O2 Delivery Device EPAP IPAP Blood Gas Notified Whom Blood Gas Notified Time Sodium 140 Potassium 4.7 Chloride 99 Carbon Dioxide 34.0 H Anion Gap 7 BUN 11 Creatinine 1.04 Estim Creat Clear Calc 77.02 Est GFR (MDRD) Af Amer 93 Est GFR (MDRD) Non-Af 77 BUN/Creatinine Ratio 10.6 Glucose 224 H Calcium 8.1 L B-Natriuretic Peptide Fl Pathologist Comment Miscellaneous Cytology 01/10/18 01/11/18 01/11/18 22:50 04:25 04:25 WBC 8.8 RBC 3.61 L Hgb 10.3 L Hct 33.1 L MCV 91.7 MCH 28.5 MCHC 31.1 L RDW 13.9 RDW Differential 46.4 H Plt Count 178 MPV 8.9 Immature Gran % (Auto) 0.200 Neut % (Auto) 90.2 H Lymph % (Auto) 6.4 L [place] % (Auto) 2.9 Eos % (Auto) 0.2 Baso % (Auto) 0.1 Absolute Neuts (auto) 8.0 H Absolute Lymphs (auto) 0.57 L Total Counted Pending APTT 76.0 H Cancelled Specimen Type Sample Site pH Bicarbonate Actual POC Total CO2 Base Excess O2 Saturation O2 % ABG pCO2 ABG pO2 Fam Test Respiration Rate O2 Delivery Device EPAP IPAP Blood Gas Notified Whom Blood Gas Notified Time Sodium Potassium Chloride Carbon Dioxide Anion Gap BUN Creatinine Estim Creat Clear Calc Est GFR (MDRD) Af Amer Est GFR (MDRD) Non-Af BUN/Creatinine Ratio Glucose Calcium B-Natriuretic Peptide Fl Pathologist Comment Miscellaneous Cytology 01/11/18 04:45 WBC RBC Hgb Hct MCV MCH MCHC RDW RDW Differential Plt Count MPV Immature Gran % (Auto) Neut % (Auto) Lymph % (Auto) [place] % (Auto) Eos % (Auto) Baso % (Auto) Absolute Neuts (auto) Absolute Lymphs (auto) Total Counted APTT 35.5 Specimen Type Sample Site pH Bicarbonate Actual POC Total CO2 Base Excess O2 Saturation O2 % ABG pCO2 ABG pO2 Fam Test Respiration Rate O2 Delivery Device EPAP IPAP Blood Gas Notified Whom Blood Gas Notified Time Sodium Potassium Chloride Carbon Dioxide Anion Gap BUN Creatinine Estim Creat Clear Calc Est GFR (MDRD) Af Amer Est GFR (MDRD) Non-Af BUN/Creatinine Ratio Glucose Calcium B-Natriuretic Peptide Fl Pathologist Comment Miscellaneous Cytology Clinical Impression(s) from Imaging Studies Chest X-Ray 01/03/18 16:50 IMPRESSION: Total opacification of the right hemithorax which likely represents a combination of effusion and infiltrate. Electronically Signed: Parviz Waters, at 17:09 EDT Tel , Service support , Chest CTA 01/03/18 19:32 IMPRESSION: No evidence of pulmonary embolus. No evidence of thoracic aortic aneurysm or dissection. Large right pleural effusion which fills the right hemithorax. Total atelectasis of the right lung. The patient's known right-sided mass is not evaluated on this study due to the collapse of the right lung. No left-sided effusion or infiltrate. Fatty liver. Electronically Signed: Parviz Waters, at 20:51 EDT Tel , Service support , Thoracentesis Ultrasound 01/05/18 08:00 IMPRESSION: Ultrasound-guided right thoracentesis. Electronically Signed: Rivera Peña MD at 12:15 EDT Tel [phone], Service support , Chest X-Ray 01/05/18 11:26 IMPRESSION: No evidence of pneumothorax. The patient is status post right thoracentesis. Electronically Signed: Rivera Peña MD at 12:14 EDT Tel [phone], Service support , Chest X-Ray 01/06/18 07:18 IMPRESSION: Worsening large right effusion. Opacification of the right lung. Electronically Signed: Myriam Hernandes MD at 8:06 EDT Tel , Service support , Thoracentesis Ultrasound 01/07/18 05:39 IMPRESSION: Ultrasound-guided right thoracentesis. Electronically Signed: Rivera Peña MD at 12:03 EDT Tel [phone], Service support , Chest X-Ray 01/08/18 10:06 IMPRESSION: Status post right thoracentesis. There is no evidence of pneumothorax. Complete opacification of the right lung with a shift of the heart and mediastinal structures towards the right side of the midline. Obstruction of the right mainstem bronchus should be ruled out. Electronically Signed: Rivera Peña MD at 11:18 EDT Tel [phone], Service support , Chest X-Ray 01/09/18 09:10 IMPRESSION: Stable examination. Complete opacification of the right hemithorax. Bronchoscopy is recommended to rule out right bronchial obstruction. Electronically Signed: Rivera Peña MD at 10:43 EDT Tel [phone], Service support , Abdomen/Pelvis CT 01/09/18 16:49 IMPRESSION: A large right-sided pleural effusion with compressive collapse of the right lower lobe and multiple focal areas of nodular densities along the pleural surface. The pleural effusion may be malignant. No metastatic liver or adrenal disease. No acute appendicitis or diverticulitis Electronically Signed: Peter Rivera at 0:25 EDT Tel , Service support , Brain CT 01/09/18 19:10 IMPRESSION: Findings suspicious for right frontal parietal and possibly left frontal lobe metastases. MRI with contrast recommended for further evaluation Electronically Signed: Jai Reilly MD at 19:45 EDT , Service support , Chest X-Ray 01/10/18 02:30 IMPRESSION: A large right sided pleural effusion. The left lung is clear Electronically Signed: Peter Rivera at 4:06 EDT Tel , Service support , Medical Necessity - Tobacco Use Smoking Status: Former smoker Tobacco Use: Cigarettes Assessment/Plan All Active Problems Non-small cell cancer of right lung (Acute) Metastatic adenocarcinoma (Acute) Blurry vision, bilateral (Acute) Malignant pleural effusion (Acute) Pleural effusion (Acute) Acute on chronic respiratory failure with hypoxia and hypercapnia (Acute) Pulmonary embolism (Resolved) RECOMMENDATIONS: 1. Plan to proceed with therapeutic thoracentesis this morning. Following this, the patient will be taken for a diagnostic bronchoscopy followed by chemotherapy port placement. 2. Following the above, the patient will likely require transfer to a tertiary care facility for evaluation by thoracic surgery versus interventional pulmonology. 3. Continue empiric BiPAP therapy with naps and nightly. 4. Wean supplemental oxygen to maintain saturations at or above 90%. 5. Change bronchodilators to PRN 6. Resume heparin infusion following surgical intervention this afternoon. 7. Continue nicotine replacement therapy. 8. Close outpatient pulmonary follow-up is warranted following his discharge from the hospital. IMPRESSIONS: 1. Acute on chronic combined respiratory failure/newly diagnosed non-small cell lung cancer with recurrent malignant pleural effusion Secondary to underlying right-sided pleural effusion with a high probability of endobronchial obstruction and subsequent distal lung collapse. The patient's pleural fluid cytology was positive for non-small cell carcinoma. This would make him stage IV disease. The patient's pleural effusion continues to reaccumulate rapidly. He is currently scheduled to undergo a therapeutic thoracentesis this morning. Following a discussion with oncology, Pleurx catheter placement is felt to be contraindicated due to a high risk of infection in the setting of systemic chemotherapy administration. Following thoracentesis, will perform diagnostic bronchoscopy to evaluate for high-grade endobronchial lesion versus extrinsic compression. Chemotherapy port will also be placed. I did call and discuss the case with Dr. Angel of thoracic surgery at [facility], who indicated he would be willing to take the patient in transfer to facilitate possible endobronchial intervention versus pleural sclerotherapy. Hospital to hospital transfer can be arranged following the completion of the patient's procedures today. In the meantime, recommend continuing empiric BiPAP therapy with naps and nightly. Continue to wean supplemental oxygen as tolerated. 2. Personal history of pulmonary embolism Agree with continuing to hold Xarelto for now. Continue his weight based heparin infusion is on hold for surgical intervention today. Heparin drip can be resumed following the completion of his procedures. 3. Tobacco dependence/obesity/obstructive sleep apnea Complicates care, management, recovery and prognosis. The patient's last polysomnogram was completed over 10 years ago and the patient has been noncompliant with outpatient use of nocturnal Pap therapy. Smoking cessation is advised. This note was generated with [employer] dictation software. It may contain incorrect words, spelling, and punctuation that were not noted in checking the note before signing. Code Visit Inpatient E&M: 58325 Subs Hosp L3
--- NOTE | 2018-01-11 07:53 | PCM.PN.HOSP ---
Patient Problems: Active and Suspected Problems Non-small cell cancer of right lung (Acute) Metastatic adenocarcinoma (Acute) Blurry vision, bilateral (Acute) Malignant pleural effusion (Acute) Pleural effusion (Acute) Acute on chronic respiratory failure with hypoxia and hypercapnia (Acute) Subjective: Patient n.p.o. for US guided thoracocentesis today. On 40% FiO2 BiPAP. Scheduled for MediPort placement. Vitals/I&O's: Vital Signs Temp Pulse Resp BP Pulse Ox 98.0 F 61 14 115/64 98 01/11/18 00:00 01/11/18 07:00 01/11/18 07:00 01/11/18 07:00 01/11/18 07:00 Oxygen Flow Rate (L/min) 4 Oxygen Delivery Method Bi-pap Weight: 286 lb 6.087 oz Body Mass Index (BMI) 41.4 Intake and Output for Last 24 Hours 01/09/18 01/10/18 01/11/18 23:59 23:59 23:59 Intake Total 1734 / 1734 1063.8 / 1063.8 91.4 / 91.4 Output Total 3425 / 3425 1675 / 1675 Balance -1691 / -1691 -611.2 / -611.2 91.4 / 91.4 General: Lethargic HEENT: Atraumatic, PERRLA, EOMI, Normocephalic Neck: Supple, No JVD, Negative Carotid Bruits Lungs: Diminished, Short of Breath Cardiovascular: Regular rate, Normal S1, Normal S2, No murmurs Abdomen: Bowel Sounds Present, Soft, Non Tender, Non-Distended Extremities: No edema, Capillary Refill Less than 3 Seconds Skin: No rashes, No breakdown Musculoskeletal: No Tenderness to Palpation of Joints or Extremities Neurological: Cranial nerves II-XII grossly intact, Neuro grossly intact Psych/Mental Status: Normal Affect, Appropriate Microbiology Past 72 Hours 01/05/18 11:00 Fluid - Thoracentesis Fluid Gram Stain - Final 01/05/18 11:00 Fluid - Thoracentesis Fluid Body Fluid Culture - Final No growth aerobically. 01/05/18 11:00 Fluid - Thoracentesis Fluid Anaerobic Culture - Preliminary No growth in 48 hours. Laboratory Results 01/10/18 08:45: APTT Cancelled 01/10/18 17:15: APTT 75.6 H 01/10/18 22:50: APTT 76.0 H 01/11/18 04:25: APTT Cancelled 01/11/18 04:25: WBC 8.8, RBC 3.61 L, Hgb 10.3 L, Hct 33.1 L, MCV 91.7, MCH 28.5, MCHC 31.1 L, RDW 13.9, RDW Differential 46.4 H, Plt Count 178, MPV 8.9, Immature Gran % (Auto) 0.200, Neut % (Auto) 90.2 H, Lymph % (Auto) 6.4 L, [place] % (Auto) 2.9, Eos % (Auto) 0.2, Baso % (Auto) 0.1, Absolute Neuts (auto) 8.0 H, Absolute Lymphs (auto) 0.57 L, Total Counted Not Reportable 01/11/18 04:45: APTT 35.5 Current Medications Acetaminophen (Tylenol) 650 mg PO Q6H PRN PRN PRN Reason: PAIN Last Admin: 01/09/18 21:15 Dose: 650 mg Albuterol Sulfate (Ventolin Aerosols) 2.5 mg INHALATION Q4H PRN PRN Reason: SOB &/OR WHEEZING Albuterol/Ipratropium (Duoneb) 3 ml INHALATION Q4H.RT [facility] Last Admin: 01/11/18 02:36 Dose: Not Given Alprazolam (Xanax) 0.5 mg PO TID PRN PRN PRN Reason: ANXIETY Last Admin: 01/10/18 10:22 Dose: 0.5 mg Chlorhexidine Gluconate () 1 each TOPICAL DAILY [facility] Last Admin: 01/11/18 03:47 Dose: 1 each Dexamethasone Sodium Phosphate (Decadron) 4 mg IV Q6 EUSEBIO Last Admin: 01/11/18 05:31 Dose: 4 mg Diphenhydramine HCl (Benadryl) 25 mg IV Q4H PRN PRN PRN Reason: pruritus Heparin Sodium (Beef Lung) (Heparin 500 Unit/5 Ml (100/Ml)) 500 unit IV UD PRN PRN Reason: HEPARIN FLUSH Heparin Sodium (Porcine) (Heparin Na) 0 unit SC UD PRN PRN Reason: Protocol Last Admin: 01/08/18 11:50 Dose: 3,000 units Heparin Sodium/Sodium Chloride () 25,000 unit in 250 mls @ 17 mls/hr IV .[id number] EUSEBIO; As Directed PRN Reason: Protocol Last Admin: 01/11/18 04:39 Dose: Not Given Sodium Chloride () 250 mls @ 15 mls/hr IV .[id number] PRN PRN Reason: SALINE FLUSH Magnesium Hydroxide (Milk Of Magnesia) 30 ml PO DAILY PRN PRN PRN Reason: Constipation Nicotine (Nicoderm Cq (Pbkc)) 21 mg TRANSDERM. DAILY EUSEBIO Last Admin: 01/10/18 14:00 Dose: 21 mg Ondansetron HCl (Zofran) 4 mg IV Q8H PRN PRN PRN Reason: NAUSEA Last Admin: 01/09/18 22:25 Dose: 4 mg Promethazine HCl (Phenergan) 12.5 mg IV Q6H PRN PRN PRN Reason: NAUSEA/VOMITING Last Admin: 01/10/18 04:25 Dose: 12.5 mg Sodium Chloride () 5 - 30 ml IV UD PRN PRN Reason: SALINE FLUSH Last Admin: 01/10/18 14:00 Dose: 20 ml Sodium Chloride () 10 - 20 ml IV UD PRN PRN Reason: PICC FLUSH Last Admin: 01/11/18 05:32 Dose: 20 ml Medical Necessity - Tobacco Use Smoking Status: Former smoker Tobacco Use: Cigarettes Assessment/Plan All Active Problems Non-small cell cancer of right lung (Acute) Metastatic adenocarcinoma (Acute) Blurry vision, bilateral (Acute) Malignant pleural effusion (Acute) Pleural effusion (Acute) Acute on chronic respiratory failure with hypoxia and hypercapnia (Acute) Pulmonary embolism (Resolved) This is a 62-year-old gentleman who is being admitted for acute on chronic combined respiratory failure secondary to right, recurrent exudative pleural effusion with high suspicion of lung mass/malignancy. Patient had initial thoracocentesis on 01/05/2018 and then 01/08/2018. Fluid cytology from 01/05/2018 reported as malignant cells present; immunohistochemistry supports non-small cell carcinoma favoring adenocarcinoma. Fluid cytology from 01/2018 also reported as few malignant cells present consistent with non-small cell carcinoma. Pleural fluid culture is negative. Patient was chronic smoker and he quit his smoking about [address] Cooper is consulted to consider Pleurx catheter and oncologist consulted for stage IV NSCLC possible adenocarcinoma. 1. Acute on chronic hypercapnic and hypoxic respiratory failure secondary to right exudative recurrent, massive malignant pleural effusion - recurrent, recent diagnosis of PE-status post second thoracentesis 1800 cc on 01/05/2018 and 01/08/2018. Patient on BiPAP or shortness of breath due to reaccumulating right sided large pleural effusion with interval relieve on nasal cannula. Before his initial diagnosis he was not on oxygen, since then he has been on home oxygen. CTA was done at admission showed no PE or dissection. Fluid cultures are negative to date. Scheduled for thoracocentesis today 2. 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 No evidence of left-sided hilar lymphadenopathy. Right upper lobe groundglass nodule measuring 1.[address] scan chest done this time could not evaluate right-sided mass because of massive right-sided pleural effusion filling right hemithorax and right total lung atelectasis. The patient had about 1.5 L right thoracocentesis under ultrasound guidance. After that, he was taken for bronchoscopy. Discussed with Dr. Astudillo about bronchoscopic findings. Limited right-sided bronchoscopic examination showed extrinsic airway compression at the bronchus intermedius but could not could not advance further because of hypoxia and cough. There is possibility of endobronchial involvement distally. MediPort was canceled as patient is to be transferred to [facility] for further thoracic surgery evaluation are interventional pulmonary evaluation to address extrinsic airway compression or possible endobronchial obstruction at bronchus intermedius level and potential pleural sclerotherapy for recurrent malignant effusion Scheduled for MediPort today and Bronchoscopy This time, CT brain raises suspicion of right frontal parietal and possibly left frontal lobe metastases. MRI with contrast recommended for further evaluation but patient is unstable because of respiratory failure for prolonged laying down for MRI 3. Recent diagnosis of PE: He will remain on heparin in view of potential interventional pulmonary or thoracic surgery intervention. He was on Xarelto for his recent PE diagnosis prior to this presentation. Tobacco abuse-patch 4 Morbidly obese 4. Fine maculopapular rash probably related to codeine/zosyn/heat rash: stopped codeine, prn vistaril. trend. May have been related to zosyn at admission. DVT prophylaxis: Heparin drip Microbiology Past 72 Hours 01/05/18 11:00 Fluid - Thoracentesis Fluid Gram Stain - Final 01/05/18 11:00 Fluid - Thoracentesis Fluid Body Fluid Culture - Final No growth aerobically. 01/05/18 11:00 Fluid - Thoracentesis Fluid Anaerobic Culture - Preliminary No growth in 48 hours. Laboratory Results 01/10/18 08:45: APTT Cancelled 01/10/18 17:15: APTT 75.6 H 01/10/18 22:50: APTT 76.0 H 01/11/18 04:25: APTT Cancelled 01/11/18 04:25: WBC 8.8, RBC 3.61 L, Hgb 10.3 L, Hct 33.1 L, MCV 91.7, MCH 28.5, MCHC 31.1 L, RDW 13.9, RDW Differential 46.4 H, Plt Count 178, MPV 8.9, Immature Gran % (Auto) 0.200, Neut % (Auto) 90.2 H, Lymph % (Auto) 6.4 L, [place] % (Auto) 2.9, Eos % (Auto) 0.2, Baso % (Auto) 0.1, Absolute Neuts (auto) 8.0 H, Absolute Lymphs (auto) 0.57 L, Total Counted Not Reportable 01/11/18 04:45: APTT 35.5 01/11/18 04:45: PT Pending, INR Pending Clinical Impression(s) from Imaging Studies Chest CTA 01/03/18 19:32 IMPRESSION: No evidence of pulmonary embolus. No evidence of thoracic aortic aneurysm or dissection. Large right pleural effusion which fills the right hemithorax. Total atelectasis of the right lung. The patient's known right-sided mass is not evaluated on this study due to the collapse of the right lung. No left-sided effusion or infiltrate. Fatty liver. Thoracentesis Ultrasound 01/05/18 08:00 IMPRESSION: Ultrasound-guided right thoracentesis. Electronically Signed: Rivera Peña MD at 12:15 EDT Tel [phone], Service support , Brain CT 01/09/18 19:10 IMPRESSION: Findings suspicious for right frontal parietal and possibly left frontal lobe metastases. MRI with contrast recommended for further evaluation Chest X-Ray 01/10/18 02:30 IMPRESSION: A large right sided pleural effusion. The left lung is clear
--- NOTE | 2018-01-11 08:00 | US_ITS ---
PROCEDURE: ULTRASOUND GUIDED THORACENTESIS. DATE: January 11, 2018. INDICATION: Male, 62 years old. Right pleural effusion. PHYSICIAN: Rivera Peña M.D. PROCEDURE: The risks, benefits, and alternatives to the procedure were explained to the patient. The specific risks of bleeding, infection, and pneumothorax requiring chest tube insertion were discussed and accepted. Written informed consent was obtained. Ultrasonographic evaluation of the right lower pleural space was carried out. An adequate pocket was identified. The patient was placed in the sitting, upright position. The overlying skin was prepped and draped in sterile fashion. 1% lidocaine was administered subcutaneously for local anesthesia. Under ultrasound guidance, a 6 Macedonian thoracentesis needle/catheter system was advanced into the right posterior lower pleural fluid collection. Approximately 1450 mL of blood-tinged fluid was drained. The catheter was removed, and a sterile dressing was applied. The patient tolerated the procedure well. A chest x-ray was ordered. US/Thoracentesis W US IMPRESSION: Ultrasound-guided right thoracentesis. Electronically Signed: Rivera Peña MD at 11:36 EDT Tel [phone], Service support ,
--- NOTE | 2018-01-11 08:06 | PN_ITS ---
Patient Problems: Active and Suspected Problems Non-small cell cancer of right lung (Acute) Metastatic adenocarcinoma (Acute) Blurry vision, bilateral (Acute) Malignant pleural effusion (Acute) Pleural effusion (Acute) Acute on chronic respiratory failure with hypoxia and hypercapnia (Acute) Subjective: Patient n.p.o. for US guided thoracocentesis today. On 40% FiO2 BiPAP. Scheduled for MediPort placement. Vitals/I&O's: Vital Signs Temp Pulse Resp BP Pulse Ox 98.0 F 61 14 115/64 98 01/11/18 00:00 01/11/18 07:00 01/11/18 07:00 01/11/18 07:00 01/11/18 07:00 Oxygen Flow Rate (L/min) 4 Oxygen Delivery Method Bi-pap Weight: 286 lb 6.087 oz Body Mass Index (BMI) 41.4 Intake and Output for Last 24 Hours 01/09/18 01/10/18 01/11/18 23:59 23:59 23:59 Intake Total 1734 / 1734 1063.8 / 1063.8 91.4 / 91.4 Output Total 3425 / 3425 1675 / 1675 Balance -1691 / -1691 -611.2 / -611.2 91.4 / 91.4 General: Lethargic HEENT: Atraumatic, PERRLA, EOMI, Normocephalic Neck: Supple, No JVD, Negative Carotid Bruits Lungs: Diminished, Short of Breath Cardiovascular: Regular rate, Normal S1, Normal S2, No murmurs Abdomen: Bowel Sounds Present, Soft, Non Tender, Non-Distended Extremities: No edema, Capillary Refill Less than 3 Seconds Skin: No rashes, No breakdown Musculoskeletal: No Tenderness to Palpation of Joints or Extremities Neurological: Cranial nerves II-XII grossly intact, Neuro grossly intact Psych/Mental Status: Normal Affect, Appropriate Microbiology Past 72 Hours 01/05/18 11:00 Fluid - Thoracentesis Fluid Gram Stain - Final 01/05/18 11:00 Fluid - Thoracentesis Fluid Body Fluid Culture - Final No growth aerobically. 01/05/18 11:00 Fluid - Thoracentesis Fluid Anaerobic Culture - Preliminary No growth in 48 hours. Laboratory Results 01/10/18 08:45: APTT Cancelled 01/10/18 17:15: APTT 75.6 H 01/10/18 22:50: APTT 76.0 H 01/11/18 04:25: APTT Cancelled 01/11/18 04:25: WBC 8.8, RBC 3.61 L, Hgb 10.3 L, Hct 33.1 L, MCV 91.7, MCH 28.5 , MCHC 31.1 L, RDW 13.9, RDW Differential 46.4 H, Plt Count 178, MPV 8.9, Immature Gran % (Auto) 0.200, Neut % (Auto) 90.2 H, Lymph % (Auto) 6.4 L, [place] % (Auto) 2.9, Eos % (Auto) 0.2, Baso % (Auto) 0.1, Absolute Neuts (auto) 8.0 H, Absolute Lymphs (auto) 0.57 L, Total Counted Not Reportable 01/11/18 04:45: APTT 35.5 Current Medications Acetaminophen (Tylenol) 650 mg PO Q6H PRN PRN PRN Reason: PAIN Last Admin: 01/09/18 21:15 Dose: 650 mg Albuterol Sulfate (Ventolin Aerosols) 2.5 mg INHALATION Q4H PRN PRN Reason: SOB &/OR WHEEZING Albuterol/Ipratropium (Duoneb) 3 ml INHALATION Q4H.RT [facility] Last Admin: 01/11/18 02:36 Dose: Not Given Alprazolam (Xanax) 0.5 mg PO TID PRN PRN PRN Reason: ANXIETY Last Admin: 01/10/18 10:22 Dose: 0.5 mg Chlorhexidine Gluconate () 1 each TOPICAL DAILY [facility] Last Admin: 01/11/18 03:47 Dose: 1 each Dexamethasone Sodium Phosphate (Decadron) 4 mg IV Q6 [facility] Last Admin: 01/11/18 05:31 Dose: 4 mg Diphenhydramine HCl (Benadryl) 25 mg IV Q4H PRN PRN PRN Reason: pruritus Heparin Sodium (Beef Lung) (Heparin 500 Unit/5 Ml (100/Ml)) 500 unit IV UD PRN PRN Reason: HEPARIN FLUSH Heparin Sodium (Porcine) (Heparin Na) 0 unit SC UD PRN PRN Reason: Protocol Last Admin: 01/08/18 11:50 Dose: 3,000 units Heparin Sodium/Sodium Chloride () 25,000 unit in 250 mls @ 17 mls/hr IV .[id number] EUSEBIO; As Directed PRN Reason: Protocol Last Admin: 01/11/18 04:39 Dose: Not Given Sodium Chloride () 250 mls @ 15 mls/hr IV .[id number] PRN PRN Reason: SALINE FLUSH Magnesium Hydroxide (Milk Of Magnesia) 30 ml PO DAILY PRN PRN PRN Reason: Constipation Nicotine (Nicoderm Cq (Pbkc)) 21 mg TRANSDERM. DAILY [facility] Last Admin: 01/10/18 14:00 Dose: 21 mg Ondansetron HCl (Zofran) 4 mg IV Q8H PRN PRN PRN Reason: NAUSEA Last Admin: 01/09/18 22:25 Dose: 4 mg Promethazine HCl (Phenergan) 12.5 mg IV Q6H PRN PRN PRN Reason: NAUSEA/VOMITING Last Admin: 01/10/18 04:25 Dose: 12.5 mg Sodium Chloride () 5 - 30 ml IV UD PRN PRN Reason: SALINE FLUSH Last Admin: 01/10/18 14:00 Dose: 20 ml Sodium Chloride () 10 - 20 ml IV UD PRN PRN Reason: PICC FLUSH Last Admin: 01/11/18 05:32 Dose: 20 ml Medical Necessity - Tobacco Use Smoking Status: Former smoker Tobacco Use: Cigarettes Assessment/Plan All Active Problems Non-small cell cancer of right lung (Acute) Metastatic adenocarcinoma (Acute) Blurry vision, bilateral (Acute) Malignant pleural effusion (Acute) Pleural effusion (Acute) Acute on chronic respiratory failure with hypoxia and hypercapnia (Acute) Pulmonary embolism (Resolved) This is a 62-year-old gentleman who is being admitted for acute on chronic combined respiratory failure secondary to right, recurrent exudative pleural effusion with high suspicion of lung mass/malignancy. Patient had initial thoracocentesis on 01/05/2018 and then 01/08/2018. Fluid cytology from 01/05 reported as malignant cells present; immunohistochemistry supports non- small cell carcinoma favoring adenocarcinoma. Fluid cytology from 01/2018 also reported as few malignant cells present consistent with non-small cell carcinoma. Pleural fluid culture is negative. Patient was chronic smoker and he quit his smoking about [address] Cooper is consulted to consider Pleurx catheter and oncologist consulted for stage IV NSCLC possible adenocarcinoma. 1. Acute on chronic hypercapnic and hypoxic respiratory failure secondary to right exudative recurrent, massive malignant pleural effusion - recurrent, recent diagnosis of PE-status post second thoracentesis 1800 cc on 01/05/2018 and 01/08/2018. Patient on BiPAP or shortness of breath due to reaccumulating right sided large pleural effusion with interval relieve on nasal cannula. Before his initial diagnosis he was not on oxygen, since then he has been on home oxygen. CTA was done at admission showed no PE or dissection. Fluid cultures are negative to date. Scheduled for thoracocentesis today 2. 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 No evidence of left-sided hilar lymphadenopathy. Right upper lobe groundglass nodule measuring 1.[address] scan chest done this time could not evaluate right-sided mass because of massive right-sided pleural effusion filling right hemithorax and right total lung atelectasis. The patient had about 1.5 L right thoracocentesis under ultrasound guidance. After that, he was taken for bronchoscopy. Discussed with Dr. Astudillo about bronchoscopic findings. Limited right-sided bronchoscopic examination showed extrinsic airway compression at the bronchus intermedius but could not could not advance further because of hypoxia and cough. There is possibility of endobronchial involvement distally. MediPort was canceled as patient is to be transferred to [facility] for further thoracic surgery evaluation are interventional pulmonary evaluation to address extrinsic airway compression or possible endobronchial obstruction at bronchus intermedius level and potential pleural sclerotherapy for recurrent malignant effusion Scheduled for MediPort today and Bronchoscopy This time, CT brain raises suspicion of right frontal parietal and possibly left frontal lobe metastases. MRI with contrast recommended for further evaluation but patient is unstable because of respiratory failure for prolonged laying down for MRI 3. Recent diagnosis of PE: He will remain on heparin in view of potential interventional pulmonary or thoracic surgery intervention. He was on Xarelto for his recent PE diagnosis prior to this presentation. Tobacco abuse-patch 4 Morbidly obese 4. Fine maculopapular rash probably related to codeine/zosyn/heat rash: stopped codeine, prn vistaril. trend. May have been related to zosyn at admission. DVT prophylaxis: Heparin drip Microbiology Past 72 Hours 01/05/18 11:00 Fluid - Thoracentesis Fluid Gram Stain - Final 01/05/18 11:00 Fluid - Thoracentesis Fluid Body Fluid Culture - Final No growth aerobically. 01/05/18 11:00 Fluid - Thoracentesis Fluid Anaerobic Culture - Preliminary No growth in 48 hours. Laboratory Results 01/10/18 08:45: APTT Cancelled 01/10/18 17:15: APTT 75.6 H 01/10/18 22:50: APTT 76.0 H 01/11/18 04:25: APTT Cancelled 01/11/18 04:25: WBC 8.8, RBC 3.61 L, Hgb 10.3 L, Hct 33.1 L, MCV 91.7, MCH 28.5 , MCHC 31.1 L, RDW 13.9, RDW Differential 46.4 H, Plt Count 178, MPV 8.9, Immature Gran % (Auto) 0.200, Neut % (Auto) 90.2 H, Lymph % (Auto) 6.4 L, [place] % (Auto) 2.9, Eos % (Auto) 0.2, Baso % (Auto) 0.1, Absolute Neuts (auto) 8.0 H, Absolute Lymphs (auto) 0.57 L, Total Counted Not Reportable 01/11/18 04:45: APTT 35.5 01/11/18 04:45: PT Pending, INR Pending Clinical Impression(s) from Imaging Studies Chest CTA 01/03/18 19:32 IMPRESSION: No evidence of pulmonary embolus. No evidence of thoracic aortic aneurysm or dissection. Large right pleural effusion which fills the right hemithorax. Total atelectasis of the right lung. The patient's known right-sided mass is not evaluated on this study due to the collapse of the right lung. No left-sided effusion or infiltrate. Fatty liver. Thoracentesis Ultrasound 01/05/18 08:00 IMPRESSION: Ultrasound-guided right thoracentesis. Electronically Signed: Rivera Peña MD at 12:15 EDT Tel [phone], Service support , Brain CT 01/09/18 19:10 IMPRESSION: Findings suspicious for right frontal parietal and possibly left frontal lobe metastases. MRI with contrast recommended for further evaluation Chest X-Ray 01/10/18 02:30 IMPRESSION: A large right sided pleural effusion. The left lung is clear
[2018-01-11 08:45] LABS: Prothrombin Time (Protime)PT. 13.1 SECONDS (11.7-14.9)
--- NOTE | 2018-01-11 09:37 | CASEMGMT ---
SW participated in ICU rounds this morning. Pt has a thoracentesis, bronchoscopy and a port placement today. SW spoke w/pt, and son after rounds, offered support. Pt and family are waiting for test results to see what makes sense for pt in regard to treatment. Pt states he knows he is dying, wants to find out treatment options and if they will prolong his life, if going through treatment will be worth it. SW offered support. SW explained will continue to follow with case management, to assist with any discharge needs and SW remains available for support to family. HUMBERTO Logan, [employer]
--- NOTE | 2018-01-11 10:35 | CASEMGMT ---
RAE OVIEDO NOTE: Tertiary Hospitals in network with [employer] insurance: -[facility] ([facility]) -[facility] -[facility] -[facility] -[facility] -[facility] Dharmesh SHULTZ RN CM
--- NOTE | 2018-01-11 10:47 | RAD_ITS ---
STUDY: X-RAY CHEST REASON FOR EXAM: Male, 62 years old. Status post right thoracentesis. TECHNIQUE: AP inspiration and expiration views were obtained. COMPARISON: Comparison is made with prior study dated January 10, 2018. FINDINGS: A right-sided PICC line catheter is seen with the tip at the junction of the superior vena cava and right atrium. EKG electrodes are seen. Persistent opacification of the right hemithorax although there is minimal aeration of the right upper lobe. There is no evidence of pneumothorax. The left lung remains clear. RAD/Chest Insp/Exp 2 View IMPRESSION: Status post right thoracentesis. Persistent opacification of the right hemithorax. There is no evidence of pneumothorax. Electronically Signed: Rivera Peña MD at 13:13 EDT Tel [phone], Service support ,
--- NOTE | 2018-01-11 11:10 | NURSING ---
patient returned from Thoracentesis escorted by radiology physician and respiratory therapy on bipap at ordered settings. Patient tolerated procedure well per report from public health veterinarian, does not appear to be in any distress, denies pain or discomfort at this time.
--- NOTE | 2018-01-11 11:54 | PCM.PN.BLA ---
Progress Note I discussed the patient's condition with Dr. Diaz and Dr. Astudillo. It is felt that the patient's risk of infection on chemotherapy is too great with a Pleurx catheter so they would like me to not place a Pleurx catheter. They would like a chest port placed for chemotherapy. The plan is to have the patient have a thoracentesis today and port placement this afternoon with bronchoscopy by Dr. Astudillo. The patient will likely then be transferred for thoracic treatment of his recurrent pleural effusion. I discussed port placement with the patient in detail on Monday. I discussed the risks of hemothorax, infection, bleeding, DVT. The patient understands the risks and is willing to proceed. Rigoberto Cooper MD Pager: [facility] [address] [place] [address] [address] [place] [address] Office:
--- NOTE | 2018-01-11 12:35 | CPS ---
PT PLACED ON BIPAP FOR TRANSPORT TO OR FOR BRONCH AND PORT PLACEMENT. PT TOLERATED WELL.
--- NOTE | 2018-01-11 14:08 | PCM.OP.BLANK ---
Operative Report Date of Procedure: 01/11/18 DATE OF SERVICE: January 11, 2018 BRIEF HISTORY: The patient is a 62-year-old male with recently diagnosed non-small cell carcinoma, adenocarcinoma. Prior chest imaging revealed evidence of a right-sided hilar mass and the patient has had issues from a respiratory perspective due to a recurrent malignant pleural effusion. Diagnostic bronchoscopy was performed to evaluate for extrinsic airway compression versus endobronchial obstruction given the previously identified radiographic abnormalities. PROCEDURE: Diagnostic flexible bronchoscopy INDICATION: Right-sided hilar mass PHYSICIAN: Juliocesar Astudillo DO ANESTHETIC: Versed 2 mg, fentanyl 25 mcg COMPLICATIONS: No immediate complications noted. DESCRIPTION OF PROCEDURE: A history and physical has been performed. Please see inpatient consultation note. The patient's medications and allergies have been reviewed. Informed consent was obtained from the patient. The risks and benefits of the procedure and sedation options and risks were discussed with the patient at length. All questions were answered and informed consent was obtained. The patient's identification and proposed procedure were verified prior to the procedure by the physician. ASA Grade Assessment: II After obtaining informed consent, the bronchoscope was inserted through the patient's mouth and advanced to the right tracheobronchial tree. This procedure was accomplished without difficulty. The patient coughed excessively throughout the procedure. Examination was limited by the development of hypoxia. FINDINGS: Limited right sided flexible bronchoscopic evaluation was significantly limited by excessive coughing and the development of hypoxia. There did appear to be a component of extrinsic airway compression present in the bronchus intermedius. There was possible endobronchial involvement more distally. However, the scope had to be withdrawn prior to advancing, due to hypoxia. Dynamic airway collapse was noted throughout the right tracheal bronchial tree. Minimal secretions were present. IMPRESSION: 1. Limited examination due to hypoxia and coughing. However, there did appear to be a component of extrinsic compression present in the bronchus intermedius, with possible endobronchial involvement more distally. RECOMMENDATIONS: 1. Transfer to [facility] for thoracic surgery evaluation. The patient may need to be intubated in order to facilitate a more thorough airway evaluation and for potential intervention. Code Visit [id number]: Other Procedure See Report - [id number]
--- NOTE | 2018-01-11 14:17 | OP.PCM_ITS ---
Operative Report Date of Procedure: 01/11/18 DATE OF SERVICE: January 11, 2018 BRIEF HISTORY: The patient is a 62-year-old male with recently diagnosed non-small cell carcinoma, adenocarcinoma. Prior chest imaging revealed evidence of a right- sided hilar mass and the patient has had issues from a respiratory perspective due to a recurrent malignant pleural effusion. Diagnostic bronchoscopy was performed to evaluate for extrinsic airway compression versus endobronchial obstruction given the previously identified radiographic abnormalities. PROCEDURE: Diagnostic flexible bronchoscopy INDICATION: Right-sided hilar mass PHYSICIAN: Juliocesar Astudillo DO ANESTHETIC: Versed 2 mg, fentanyl 25 mcg COMPLICATIONS: No immediate complications noted. DESCRIPTION OF PROCEDURE: A history and physical has been performed. Please see inpatient consultation note. The patient's medications and allergies have been reviewed. Informed consent was obtained from the patient. The risks and benefits of the procedure and sedation options and risks were discussed with the patient at length. All questions were answered and informed consent was obtained. The patient's identification and proposed procedure were verified prior to the procedure by the physician. ASA Grade Assessment: II After obtaining informed consent, the bronchoscope was inserted through the patient's mouth and advanced to the right tracheobronchial tree. This procedure was accomplished without difficulty. The patient coughed excessively throughout the procedure. Examination was limited by the development of hypoxia. FINDINGS: Limited right sided flexible bronchoscopic evaluation was significantly limited by excessive coughing and the development of hypoxia. There did appear to be a component of extrinsic airway compression present in the bronchus intermedius. There was possible endobronchial involvement more distally. However, the scope had to be withdrawn prior to advancing, due to hypoxia. Dynamic airway collapse was noted throughout the right tracheal bronchial tree. Minimal secretions were present. IMPRESSION: 1. Limited examination due to hypoxia and coughing. However, there did appear to be a component of extrinsic compression present in the bronchus intermedius, with possible endobronchial involvement more distally. RECOMMENDATIONS: 1. Transfer to [facility] for thoracic surgery evaluation. The patient may need to be intubated in order to facilitate a more thorough airway evaluation and for potential intervention. Code Visit [id number]: Other Procedure See Report - [id number]
[2018-01-11] MEDS: Heparin Injection (Vial) 5,000 UNIT/ML VIAL SC (15:04)
--- NOTE | 2018-01-11 16:53 | PCM.DC.SUM ---
Discharge Date and Diagnosis - Problem List Patient Problems: Active and Suspected Problems Non-small cell cancer of right lung (Acute) Metastatic adenocarcinoma (Acute) Blurry vision, bilateral (Acute) Malignant pleural effusion (Acute) Pleural effusion (Acute) Acute on chronic respiratory failure with hypoxia and hypercapnia (Acute) Date of Admission: 01/03/18 Date of Discharge: 01/11/18 - Primary Discharge Diagnosis Active and Suspected Problems Non-small cell cancer of right lung (Acute) Metastatic adenocarcinoma (Acute) Blurry vision, bilateral (Acute) Malignant pleural effusion (Acute) Acute on chronic respiratory failure with hypoxia and hypercapnia (Acute) Malignant recurrent pleural effusion Recent history of pulmonary embolism - Secondary Discharge Diagnosis Chronic Problems UTI (urinary tract infection) (Chronic) Elevated liver enzymes (Chronic) Obesity (Chronic) Hospital Course and Treatment Imaging Results: 01/11/18 08:00 Thoracentesis W US [US] Urgent 01/11/18 10:47 Chest Insp/Exp 2 View [RAD] Urgent Summary of Care Provided: This is a 62-year-old gentleman who is being admitted for acute on chronic combined respiratory failure secondary to right, recurrent exudative pleural effusion with high suspicion of lung mass/malignancy. Patient had initial thoracocentesis on 01/05/2018 and then 01/08/2018. Fluid cytology from 01/05/2018 reported as malignant cells present; immunohistochemistry supports non-small cell carcinoma favoring adenocarcinoma. Fluid cytology from 01/2018 also reported as few malignant cells present consistent with non-small cell carcinoma. Pleural fluid culture is negative. Patient was chronic smoker and he quit his smoking about [address] Cooper was consulted to consider Pleurx catheter and oncologist consulted for stage IV NSCLC possible adenocarcinoma. 1. Acute on chronic hypercapnic and hypoxic respiratory failure secondary to right exudative recurrent, massive malignant pleural effusion - recurrent, recent diagnosis of PE-status post second thoracentesis 1800 cc on 01/05/2018 and 01/08/2018. Patient on BiPAP or shortness of breath due to reaccumulating right sided large pleural effusion with interval relieve on nasal cannula. Before his initial diagnosis he was not on oxygen, since then he has been on home oxygen. CTA was done at admission showed no PE or dissection. Fluid cultures are negative to date. 2. 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 No evidence of left-sided hilar lymphadenopathy. Right upper lobe groundglass nodule measuring 1.[address] scan chest done this time could not evaluate right-sided mass because of massive right-sided pleural effusion filling right hemithorax and right total lung atelectasis. The patient had about 1.5 L right thoracocentesis under ultrasound guidance today on 01/11/2018. After that, he was taken for bronchoscopy. Discussed with Dr. Astudillo about bronchoscopic findings. Limited right-sided bronchoscopic examination showed extrinsic airway compression at the bronchus intermedius but could not could not advance further because of hypoxia and cough. There is possibility of endobronchial involvement distally. MediPort was canceled as patient is to be transferred to [facility] for further thoracic surgery evaluation to address extrinsic airway compression or possible endobronchial obstruction at bronchus intermedius level and potential pleural sclerotherapy for recurrent malignant effusion This time, CT brain raises suspicion of right frontal parietal and possibly left frontal lobe metastases. MRI with contrast recommended for further evaluation but but could not be done as patient could not tolerate prolonged laying down on MRI because of respiratory failure 3. Recent diagnosis of PE: He will remain on heparin in view of potential interventional pulmonary or thoracic surgery intervention. He was on Xarelto for his recent PE diagnosis prior to this presentation. Tobacco abuse-patch 4 Morbidly obese 4. Fine maculopapular rash probably related to codeine/zosyn/heat rash: stopped codeine, prn vistaril. trend. May have been related to zosyn at admission. DVT prophylaxis: Heparin drip [] Transfer line to [facility] was called and presenting complain, hospital course and imaging studies were discussed. Timber Buyer Dr. Astudillo also exchange clinical information with thoracic surgeon Dr. Angel and he accepted the patient for further interventional pulmonary evaluation as mentioned above. Transfer processes in progress. Patient is status is changed to PCU. Home Medications: Medications to take at Discharge Acetaminophen/Codeine #3 [Tylenol#3] 1 tablet PO Q6H PRN PRN 01/03/18 Albuterol IH (ProAir) [Proair Hfa] 1 - 2 puff INHALATION Q4H PRN 06/27/18 Rivaroxaban [Xarelto] 15 mg PO BID 01/03/18 Primary Care Physician: Care Physician,No Primary [NON-STAFF] - Medical Necessity - Tobacco Use Smoking Status: Former smoker Tobacco Use: Cigarettes Meaningful Use Info Meaningful Use Diagnoses (Choose all that apply): None applicable Code Visit Inpatient E&M: 69496 Disch Hosp
--- NOTE | 2018-01-11 17:00 | DS.PCM_ITS ---
Discharge Date and Diagnosis - Problem List Patient Problems: Active and Suspected Problems Non-small cell cancer of right lung (Acute) Metastatic adenocarcinoma (Acute) Blurry vision, bilateral (Acute) Malignant pleural effusion (Acute) Pleural effusion (Acute) Acute on chronic respiratory failure with hypoxia and hypercapnia (Acute) Date of Admission: 01/03/18 Date of Discharge: 01/11/18 - Primary Discharge Diagnosis Active and Suspected Problems Non-small cell cancer of right lung (Acute) Metastatic adenocarcinoma (Acute) Blurry vision, bilateral (Acute) Malignant pleural effusion (Acute) Acute on chronic respiratory failure with hypoxia and hypercapnia (Acute) Malignant recurrent pleural effusion Recent history of pulmonary embolism - Secondary Discharge Diagnosis Chronic Problems UTI (urinary tract infection) (Chronic) Elevated liver enzymes (Chronic) Obesity (Chronic) Hospital Course and Treatment Imaging Results: 01/11/18 08:00 Thoracentesis W US [US] Urgent 01/11/18 10:47 Chest Insp/Exp 2 View [RAD] Urgent Summary of Care Provided: This is a 62-year-old gentleman who is being admitted for acute on chronic combined respiratory failure secondary to right, recurrent exudative pleural effusion with high suspicion of lung mass/malignancy. Patient had initial thoracocentesis on 01/05/2018 and then 01/08/2018. Fluid cytology from 01/05 reported as malignant cells present; immunohistochemistry supports non- small cell carcinoma favoring adenocarcinoma. Fluid cytology from 01/2018 also reported as few malignant cells present consistent with non-small cell carcinoma. Pleural fluid culture is negative. Patient was chronic smoker and he quit his smoking about [address] Cooper was consulted to consider Pleurx catheter and oncologist consulted for stage IV NSCLC possible adenocarcinoma. 1. Acute on chronic hypercapnic and hypoxic respiratory failure secondary to right exudative recurrent, massive malignant pleural effusion - recurrent, recent diagnosis of PE-status post second thoracentesis 1800 cc on 01/05/2018 and 01/08/2018. Patient on BiPAP or shortness of breath due to reaccumulating right sided large pleural effusion with interval relieve on nasal cannula. Before his initial diagnosis he was not on oxygen, since then he has been on home oxygen. CTA was done at admission showed no PE or dissection. Fluid cultures are negative to date. 2. Stage IV non-small cell cancer most probably adenocarcinoma complicated with malignant effusion with possible metastases to brain: On CT scan of 2017 when patient was diagnosed with segmental and subsegmental PE right lower lobe, right-sided hilar lymphadenopathy and pulmonary mass approximately 4.7 x 5.5 x 5.2 cm in size was found. No evidence of left-sided hilar lymphadenopathy. Right upper lobe groundglass nodule measuring 1.[address] scan chest done this time could not evaluate right-sided mass because of massive right-sided pleural effusion filling right hemithorax and right total lung atelectasis. The patient had about 1.5 L right thoracocentesis under ultrasound guidance today on 01/11/2018. After that, he was taken for bronchoscopy. Discussed with Dr. Astudillo about bronchoscopic findings. Limited right-sided bronchoscopic examination showed extrinsic airway compression at the bronchus intermedius but could not could not advance further because of hypoxia and cough. There is possibility of endobronchial involvement distally. MediPort was canceled as patient is to be transferred to [facility] for further thoracic surgery evaluation to address extrinsic airway compression or possible endobronchial obstruction at bronchus intermedius level and potential pleural sclerotherapy for recurrent malignant effusion This time, CT brain raises suspicion of right frontal parietal and possibly left frontal lobe metastases. MRI with contrast recommended for further evaluation but but could not be done as patient could not tolerate prolonged laying down on MRI because of respiratory failure 3. Recent diagnosis of PE: He will remain on heparin in view of potential interventional pulmonary or thoracic surgery intervention. He was on Xarelto for his recent PE diagnosis prior to this presentation. Tobacco abuse-patch 4 Morbidly obese 4. Fine maculopapular rash probably related to codeine/zosyn/heat rash: stopped codeine, prn vistaril. trend. May have been related to zosyn at admission. DVT prophylaxis: Heparin drip [] Transfer line to [facility] was called and presenting complain, hospital course and imaging studies were discussed. Geography Faculty Member Dr. Astudillo also exchange clinical information with thoracic surgeon Dr. Angel and he accepted the patient for further interventional pulmonary evaluation as mentioned above. Transfer processes in progress. Patient is status is changed to PCU. Home Medications: Medications to take at Discharge Acetaminophen/Codeine #3 [Tylenol#3] 1 tablet PO Q6H PRN PRN 01/03/18 Albuterol IH (ProAir) [Proair Hfa] 1 - 2 puff INHALATION Q4H PRN 06/27/18 Rivaroxaban [Xarelto] 15 mg PO BID 01/03/18 Primary Care Physician: Care Physician,No Primary [NON-STAFF] - Medical Necessity - Tobacco Use Smoking Status: Former smoker Tobacco Use: Cigarettes Meaningful Use Info Meaningful Use Diagnoses (Choose all that apply): None applicable Code Visit Inpatient E&M: 35324 Disch Hosp
== END 2018-01-11 18:20 | disposition short-term general hospital (02) | DRG 180 ==
LOC: ED 17:31 → PCU 18:26 → ICU 21:51 → PCU 01-06 14:25 → ICU 01-09 09:58
PROVIDERS: Hospitalist; Internal Medicine; Internal Medicine Critical Care Medicine; Physician Assistant; Surgery; Admitting Provider Internal Medicine; Emergency Provider Emergency Medicine; Family Provider Family Medicine; PCP Family Medicine; Visit Provider Internal Medicine
PROC: 0BJ08ZZ Inspection of Tracheobronchial Tree, Via Natural or Artificial Opening Endoscopic (ICD-10-PCS; CPT 31622; principal; 2018-01-11 10:00)
PROC: (CPT 32550; principal; 2018-01-11 13:30)
DX: C34.91 Malignant neoplasm of unspecified part of right bronchus or lung (principal); J96.21 Acute and chronic respiratory failure with hypoxia; I26.99 Other pulmonary embolism without acute cor pulmonale; J96.22 Acute and chronic respiratory failure with hypercapnia; Z68.41 Body mass index [BMI] 40.0-44.9, adult; J91.0 Malignant pleural effusion; N39.0 Urinary tract infection, site not specified; Z99.81 Dependence on supplemental oxygen; Z87.891 Personal history of nicotine dependence; G47.33 Obstructive sleep apnea (adult) (pediatric); E66.01 Morbid (severe) obesity due to excess calories; H53.8 Other visual disturbances
CPT/HCPCS: 32555; 36415; 36569; 36600; 70460; 71045; 71046; 71275; 74177; 80048; 82803; 82945; 82962; 83605; 83615; 83880; 84156; 84157; 84484; 85025; 85610; 85730; 87070; 87075; 87205; 87641; 88108; 88305; 88313; 88341; 88342; 89050; 93005; 94002; 94003; 94640; 97110; 97162; 97165; 97530; 97802; 99152; 99153; 99285; J7030; J7120; Q9967; A4216; J1940; J2405

== ENCOUNTER → 2018-01-20 07:46 | Outpatient (CLI) | payer OTHER, SELFPAY ==
--- NOTE | 2018-01-20 08:30 | MRI_ITS ---
STUDY: MRI BRAIN WITH AND WITHOUT CONTRAST REASON FOR EXAM: Male, 62 years old. New lung CA diagnosis, concern for brain mets. TECHNIQUE: Standardized multiplanar fat and water weighted pulse sequences were obtained. 10 ml of Gadavist contrast material was administered intravenously for the contrast portion of the examination. COMPARISON: CT of the head dated January 09, 2018 FINDINGS: Again noted is 8 by 10 mm mm right frontal and enhancing T2 hyperintense lesion with surrounding vasogenic edema. Evaluation is limited without Normal size of the ventricles and extra-axial spaces for the patient's age. There are a limited number of small white matter hyperintensities, distributed throughout the deep white matter tracts of the cerebral hemispheres, consistent with mild chronic white matter ischemic changes. Normal bilateral basal ganglia. Normal thalami. There is no extra-axial fluid accumulation. Normal flow voids within the major intracranial circulation suggesting patency by spin echo criteria. Normal venous enhancement. There is no enhancing intra-axial or extra-axial abnormality. Normal sella turcica, pituitary gland, infundibular stalk, optic chiasm and hypothalamus. Normal tectal plate and pineal gland. Normal midbrain, tyra and medulla. Normal cerebellum. Normal basal cisterns. Normal bilateral temporal bones. Normal bilateral internal auditory canals. MRI/Brain W/WO Contrast IMPRESSION: 1 cm right frontal enhancing lesion with surrounding edema. Leading differential consideration is metastatic disease. Electronically Signed: Anson Osuna MD at 8:08 EDT Tel , Service support ,
== END ==
PROVIDERS: Family Provider Family Medicine; PCP Family Medicine; Visit Provider Internal Medicine Hematology & Oncology
DX: R93.0 Abnormal findings on diagnostic imaging of skull and head, not elsewhere classified (principal); C34.90 Malignant neoplasm of unspecified part of unspecified bronchus or lung; C77.9 Secondary and unspecified malignant neoplasm of lymph node, unspecified
CPT/HCPCS: 70553; A9585

== ENCOUNTER 2018-02-08 08:36 | Day surgery (SDC) | payer OTHER, SELFPAY ==
[2018-01-23 14:06] VITALS: BMI 38.3
[2018-02-08] VITALS (7 sets, daily range): BP systolic 98–121; BP diastolic 53–66; PULSE 92–100; RESP 18; TEMP 36.8–37.1; O2SAT 94–100; BMI 38.2
--- NOTE | 2018-02-08 08:53 | PCM.HP.STD ---
Problem List (1) Encounter for insertion of venous access port Status: Acute (2) Lung cancer Status: Acute Qualifiers: Laterality: right Lung location: unspecified part of lung Qualified Code(s): C34.91 - Malignant neoplasm of unspecified part of right bronchus or lung History of Present Illness Date of Admission: 02/08/18 The patient is a 62 year old M who was recently diagnosed with stage IV right lung cancer. He was transferred to [facility] for a pleurodesis of his right lung. He had that performed and he says he is now able lay flat. He is having no other issues. He says he is having a brain metastasis radiated next week and plans to start chemotherapy after that. Past Medical History Past Medical History (Chronic Problems): Chronic Problems (Last Reviewed 01/23/18 @ 13:50 by Cammie Castillo, RN) UTI (urinary tract infection) (Chronic) Elevated liver enzymes (Chronic) Obesity (Chronic) Medical History: Medical History (Last Reviewed 01/23/18 @ 13:50 by Cammie Castillo, RN) Dyspnea R06.00 Elevated liver enzymes R74.8 Pulmonary emboli I26.99 UTI (urinary tract infection) N39.0 Allergies Penicillins Allergy (Severe, Verified 02/07/18 10:21) Itching piperacillin [From Zosyn] Allergy (Severe, Verified 02/07/18 10:21) Rash tazobactam [From Zosyn] Allergy (Severe, Verified 02/07/18 10:21) Rash clindamycin Adverse Reaction (Severe, Verified 02/02/18 12:50) Diarrhea Home Medications: Ambulatory Orders Medication Instructions Recorded Albuterol IH (ProAir) [Proair Hfa] 1 - 2 puff INHALATION Q4H PRN 01/03/18 Rivaroxaban [Xarelto] 20 mg PO DAILY 01/03/18 Surgical History: Surgical History (Last Reviewed 01/23/18 @ 13:50 by Cammie Castillo, RN) History of appendectomy Z90.49 History of cholecystectomy Z90.49 History of knee surgery Z98.890 left 2016 Surgical History: arthroscopy, knee Smoking Status: Former smoker - *Family History Paternal Family History: Family History (Last Reviewed 01/23/18 @ 13:51 by Cammie Castillo, RN) Sister Colon cancer Father Lung cancer Mother Pelvic cancer History Items: Cancer Sibling Family History: Family History (Last Reviewed 01/23/18 @ 13:51 by Cammie Castillo, RN) Sister Colon cancer Father Lung cancer Mother Pelvic cancer History Items: Cancer - Sister likely had colon cancer with metastasis to her liver Review of Systems Constitutional: Reports: Weakness, Fatigue. Denies: Anorexia, Chills, Fever HEENT: Denies: Difficulty Swallowing Cardiovascular: Denies: Chest Pain Respiratory: Reports: Cough, Shortness of Breath Gastrointestinal: Denies: Abdominal Pain Genitourinary: Denies: Dysuria Musculoskeletal: Denies: Joint Tenderness Skin: Denies: Jaundice VTE Information - Inpt Only VTE Present on Admission: No VTE Mechan Device Prophylaxis: SCD's Patient Problems: Active and Suspected Problems (Last Reviewed 01/23/18 @ 13:50 by Cammie Castillo, RN) Encounter for insertion of venous access port (Acute) - Physical Exam General: Alert, Oriented x3, Cooperative HEENT: Atraumatic Neck: No JVD Lungs: Short of Breath Cardiovascular: Regular rate, Regular Rhythm Abdomen: Soft, Non Tender, Non-Distended, No Hepato-splenomegaly Assessment/Plan All Active Problems (Last Reviewed 01/23/18 @ 13:50 by Cammie Castillo, RN) Acute on chronic respiratory failure with hypoxia and hypercapnia (Acute) Pulmonary embolism (Acute) Blurry vision, bilateral (Acute) Malignant pleural effusion (Acute) Lung cancer (Acute) Pleural effusion, malignant (Acute) Regional lymph node metastasis present (Acute) Encounter for insertion of venous access port (Acute) 62-year-old male with stage IV right lung cancer 1. Patient is here for right chest port placement. I discussed chest port placement in detail with the patient. His PICC line has been removed. I discussed the risks including but not limited to bleeding, infection, pneumothorax, line infection and DVT. The patient understands all the risks and is want to proceed with surgery. Rigoberto Cooper MD Pager: [facility] [address] [place] [address] Office:
--- NOTE | 2018-02-08 08:56 | HP.PCM_ITS ---
Problem List (1) Encounter for insertion of venous access port Status: Acute (2) Lung cancer Status: Acute Qualifiers: Laterality: right Lung location: unspecified part of lung Qualified Code( s): C34.91 - Malignant neoplasm of unspecified part of right bronchus or lung History of Present Illness Date of Admission: 02/08/18 The patient is a 62 year old M who was recently diagnosed with stage IV right lung cancer. He was transferred to [facility] for a pleurodesis of his right lung. He had that performed and he says he is now able lay flat. He is having no other issues. He says he is having a brain metastasis radiated next week and plans to start chemotherapy after that. Past Medical History Past Medical History (Chronic Problems): Chronic Problems (Last Reviewed 01/23/18 @ 13:50 by Cammie Castillo, RN) UTI (urinary tract infection) (Chronic) Elevated liver enzymes (Chronic) Obesity (Chronic) Medical History: Medical History (Last Reviewed 01/23/18 @ 13:50 by Cammie Castillo, RN) Dyspnea R06.00 Elevated liver enzymes R74.8 Pulmonary emboli I26.99 UTI (urinary tract infection) N39.0 Allergies Penicillins Allergy (Severe, Verified 02/07/18 10:21) Itching piperacillin [From Zosyn] Allergy (Severe, Verified 02/07/18 10:21) Rash tazobactam [From Zosyn] Allergy (Severe, Verified 02/07/18 10:21) Rash clindamycin Adverse Reaction (Severe, Verified 02/02/18 12:50) Diarrhea Home Medications: Ambulatory Orders Medication Instructions Recorded Albuterol IH (ProAir) [Proair Hfa] 1 - 2 puff INHALATION Q4H PRN 01/03/18 Rivaroxaban [Xarelto] 20 mg PO DAILY 01/03/18 Surgical History: Surgical History (Last Reviewed 01/23/18 @ 13:50 by Cammie Castillo, RN) History of appendectomy Z90.49 History of cholecystectomy Z90.49 History of knee surgery Z98.890 left 2016 Surgical History: arthroscopy, knee Smoking Status: Former smoker - *Family History Paternal Family History: Family History (Last Reviewed 01/23/18 @ 13:51 by Cammie Castillo, RN) Sister Colon cancer Father Lung cancer Mother Pelvic cancer History Items: Cancer Sibling Family History: Family History (Last Reviewed 01/23/18 @ 13:51 by Cammie Castillo, RN) Sister Colon cancer Father Lung cancer Mother Pelvic cancer History Items: Cancer - Sister likely had colon cancer with metastasis to her liver Review of Systems Constitutional: Reports: Weakness, Fatigue. Denies: Anorexia, Chills, Fever HEENT: Denies: Difficulty Swallowing Cardiovascular: Denies: Chest Pain Respiratory: Reports: Cough, Shortness of Breath Gastrointestinal: Denies: Abdominal Pain Genitourinary: Denies: Dysuria Musculoskeletal: Denies: Joint Tenderness Skin: Denies: Jaundice VTE Information - Inpt Only VTE Present on Admission: No VTE Mechan Device Prophylaxis: SCD's Patient Problems: Active and Suspected Problems (Last Reviewed 01/23/18 @ 13:50 by Cammie Castillo , RN) Encounter for insertion of venous access port (Acute) - Physical Exam General: Alert, Oriented x3, Cooperative HEENT: Atraumatic Neck: No JVD Lungs: Short of Breath Cardiovascular: Regular rate, Regular Rhythm Abdomen: Soft, Non Tender, Non-Distended, No Hepato-splenomegaly Assessment/Plan All Active Problems (Last Reviewed 01/23/18 @ 13:50 by Cammie Castillo, RN) Acute on chronic respiratory failure with hypoxia and hypercapnia (Acute) Pulmonary embolism (Acute) Blurry vision, bilateral (Acute) Malignant pleural effusion (Acute) Lung cancer (Acute) Pleural effusion, malignant (Acute) Regional lymph node metastasis present (Acute) Encounter for insertion of venous access port (Acute) 62-year-old male with stage IV right lung cancer 1. Patient is here for right chest port placement. I discussed chest port placement in detail with the patient. His PICC line has been removed. I discussed the risks including but not limited to bleeding, infection, pneumothorax, line infection and DVT. The patient understands all the risks and is want to proceed with surgery. Rigoberto Cooper MD Pager: [facility] [address] [place] [address] Office:
[2018-02-08] MEDS: Ciprofloxacin 400 MG/200 ML BAG 200 MG IV (09:11)
[2018-02-08] MEDS: Bupiv/Epi 0.5% Mpf 30 ML Vial (09:50)
--- NOTE | 2018-02-08 10:21 | DCINST_ITS ---
Discharge Diet: No Restrictions - Pain medication may cause nausea. You should typically eat light foods as you take your pain medication. Discharge Activity: Return to Normal Activity, May Shower - with your bandage in place in 1-2 days after surgery. DO NOT SHOWER WHEN YOUR PORT IS ACCESSED. Call your doctor if your incision/area has: Continuous Slow Oozing, Sudden Increased Bleeding, Increased Pain/ Swelling, Increased Redness Call your doctor if you observe: Fever of 101 or Higher Remove Dressing in (days):: 3 - When you remove the bandage, leave the steri- strips intact until they fall off. Allergies/Adverse Reactions: Allergies Penicillins Allergy (Severe, Verified 02/07/18 10:21) Itching piperacillin [From Zosyn] Allergy (Severe, Verified 02/07/18 10:21) Rash tazobactam [From Zosyn] Allergy (Severe, Verified 02/07/18 10:21) Rash clindamycin Adverse Reaction (Severe, Verified 02/02/18 12:50) Diarrhea Medications to take at Discharge Albuterol IH (ProAir) [Proair Hfa] 1 - 2 puff INHALATION Q4H PRN 01/03/18 Rivaroxaban [Xarelto] 20 mg PO DAILY 01/03/18 Primary Care Physician: Eliane Murphy MD [Primary Care Provider] - Test Results: Test results from this visit will be discussed in further detail at your follow- up appointment, if applicable. Please Follow Up With: Rigoberto Cooper MD When: Please call to schedule 1 week follow up appointment. [phone]
--- NOTE | 2018-02-08 10:22 | RAD_ITS ---
STUDY: X-RAY CHEST REASON FOR EXAM: Male, 62 years old. Vascular port insertion. TECHNIQUE: Single AP portable view of the chest. COMPARISON: Comparisons made with prior study dated January 11, 2018. FINDINGS: A right-sided portacatheter as been placed. The tip is in the proximal portion of the superior vena cava. EKG electrodes are seen. Right sided pleural thickening with underlying infiltration and/or atelectasis in the right hemithorax. There has been improvement as compared to prior study. The left lung is unchanged. Normal size heart. Normal mediastinum and radha. Normal visualized pulmonary arteries. Normal visualized aortic arch and descending thoracic aorta. Normal visualized thoracic spine. Normal visualized ribs, clavicles, and shoulders. There is no demonstrated abnormality of the visualized soft tissue structures of the upper abdomen. RAD/Chest 1 View (Portable) IMPRESSION: Pleural thickening in the right hemithorax which has improved as compared to prior study. The tip of the right portacatheter is in the proximal portion of the superior vena cava. Atelectasis and/or infiltrate in the right hemithorax as described. Electronically Signed: Rivera Peña MD at 10:55 EDT Tel [phone], Service support ,
--- NOTE | 2018-02-08 10:37 | OP.PCM_ITS ---
Problem List (1) Encounter for insertion of venous access port Status: Acute (2) Lung cancer Status: Acute Qualifiers: Laterality: right Lung location: unspecified part of lung Qualified Code( s): C34.91 - Malignant neoplasm of unspecified part of right bronchus or lung Report of Operation Date of Procedure: 02/08/18 Pre-Operative Diagnosis: 1. Lung cancer. 2. Need for vascular access port Post-Operative Diagnosis: Same Surgery/Procedure Performed:: Ultrasound and fluoroscopy-guided right chest port placement utilizing right IJ Description of Procedure: After obtaining informed consent patient was brought back to the operating room MAC anesthesia was induced and the right chest and neck were prepped in normal sterile fashion. Ultrasound was used to evaluate both IJ is in the right IJ was selected. Next, using a needle, the right IJ was accessed and a guidewire was passed on into the superior vena cava under fluoroscopy guidance. A small incision was made over the puncture site and the dilator introducer was placed over the guidewire. Next this was capped and the pocket was made for the port. 1% lidocaine with epinephrine was injected in the proposed port site. An incision was made with scalpel. Electrocautery was used to make a pocket under the skin and subcutaneous tissue. Hemostasis was obtained. Next, the catheter was tunneled up to the neck incision site and placed through the introducer. The peel-away introducer was removed and the position of the catheter was confirmed on fluoroscopy. Next, the catheter was trimmed and attached to the port with the locking device. Interrupted 2-0 PDS were used to anchor the port to the chest wall and then the port was placed inside the pocket. The pocket was then flushed with saline and the port irrigated with saline. There was good blood return and the port flushed easily. Next, heparin was injected into the port. The skin was closed with subcutaneous interrupted 3-0 Vicryl sutures and Steri-Strips. A single 3-0 Vicryl sutures placed under the skin at the neck incision site. Steri-Strips were placed as well as op sites. Patient tolerated procedure well, was taken to PACU in stable condition. Chest x-ray will be obtained. Grafts/Implants Used: 8 [employer]
== END 2018-02-08 11:28 | disposition home or self-care (01) ==
LOC: SDC 08:37 → AC 08:38
PROVIDERS: Family Provider Family Medicine; PCP Family Medicine; Visit Provider Surgery
DX: Z45.2 Encounter for adjustment and management of vascular access device (principal); C34.91 Malignant neoplasm of unspecified part of right bronchus or lung; C79.31 Secondary malignant neoplasm of brain; R74.8 Abnormal levels of other serum enzymes; E66.9 Obesity, unspecified; Z86.711 Personal history of pulmonary embolism; Z87.440 Personal history of urinary (tract) infections; Z87.891 Personal history of nicotine dependence; Z99.81 Dependence on supplemental oxygen
CPT/HCPCS: 36561; 71045; 77001; J7120; C1788; J0744

== ENCOUNTER → 2018-02-27 08:05 | Outpatient (CLI) | payer OTHER, SELFPAY ==
[2018-01-23 14:06] VITALS: BMI 38.3
[2018-02-27 08:52] VITALS: PULSE 103; PULSE 106; PULSE 107; PULSE 109; PULSE 96; PULSE 99; O2SAT 88; O2SAT 90; O2SAT 92; O2SAT 93; O2SAT 94
--- NOTE | 2018-02-27 08:57 | CPS ---
Patient came in on 3L pulsing dose of Oxygen. Oxygen was turned off to get a RA SpO2 of 88%. Patient then started on 2L for the beginning of 6 min walk. Sugey Boo RRT
--- NOTE | 2018-02-27 10:24 | PCM.PSN.6M ---
PSN 6 Minute Walk Test - 6 Minute Walk Test 6 Minute Walk Test: 6 Minute Walk Test PSN:6-Minute Walk Test Start: 02/27/18 08:51 Freq: Status: Active Protocol: [id number] Document 02/27/18 08:52 ANJEL (Rec: 02/27/18 08:59 JLA [id number]) 6 Minute Walk Test Date Performed 02/27/18 Time Performed 08:30 Height 5 ft 9 in Weight: 113.376 kg Weight in Pounds [address]: Amanda Bedolla Assistive device used: None Pre-test Oxygen Delivery Method Room Air Pulse Ox (%) 88 Pulse Rate (60-100 beats/min) 96 Dyspnea Mohamud Scale (0-10) 2 Exertion Mohamud Scale (6-20) 6 1st minute Oxygen Flow Rate (L/min) (L/min) 2 Oxygen Delivery Method Nasal Cannula Pulse Ox (%) 88 Pulse Rate (60-100 beats/min) 109 H 2nd minute Oxygen Flow Rate (L/min) (L/min) 3 Oxygen Delivery Method Non-Rebreather Pulse Ox (%) 88 Pulse Rate (60-100 beats/min) 106 H 3rd minute Oxygen Flow Rate (L/min) (L/min) 4 Oxygen Delivery Method Nasal Cannula Pulse Ox (%) 92 Pulse Rate (60-100 beats/min) 107 H 4th minute Oxygen Flow Rate (L/min) (L/min) 4 Oxygen Delivery Method Nasal Cannula Pulse Ox (%) 90 Pulse Rate (60-100 beats/min) 109 H 5th minute Oxygen Flow Rate (L/min) (L/min) 4 Oxygen Delivery Method Nasal Cannula Pulse Ox (%) 92 Pulse Rate (60-100 beats/min) 103 H Number of Rests Taken 1 6th minute Oxygen Flow Rate (L/min) (L/min) 4 Oxygen Delivery Method Nasal Cannula Pulse Ox (%) 93 Pulse Rate (60-100 beats/min) 99 Dyspnea Mohamud Scale (0-10) 3 Exertion Mohamud Scale (6-20) 12 Number of Rests Taken 1 Post-test Oxygen Flow Rate (L/min) (L/min) 4 Oxygen Delivery Method Nasal Cannula Pulse Ox (%) 94 Pulse Rate (60-100 beats/min) 99 Full Laps Walked 4 Partial Lap, Number of Tiles Walked 0 Total Distance Walked (ft) 236 02/27/18 08:57 Cardiopulmonary Services by Sugey Juan Patient came in on 3L pulsing dose of Oxygen. Oxygen was turned off to get a RA SpO2 of 88%. Patient then started on 2L for the beginning of 6 min walk. Sugey Boo [address] [employer] Initialized on 02/27/18 08:57 - END OF NOTE - Interpretation Interpretation: The patient was noted to be 88% on room air at rest. The patient was increased to 2 L nasal cannula with improvement in saturations. The patient was then ambulated for 6 minutes on room air with no assistive devices and one break. The patient did require 4 L nasal cannula oxygen to maintain appropriate saturations throughout testing. These findings are consistent with a respiratory limitation exercise tolerance. - Recommendations Recommendations: Patient requires 2 L nasal cannula at rest, but should be using 4 L nasal cannula with exertion.
== END ==
PROVIDERS: Family Provider Family Medicine; PCP Family Medicine; Visit Provider Nurse Practitioner Acute Care
DX: R06.02 Shortness of breath (principal)
CPT/HCPCS: 94618